=== PATIENT | female | born 1980 | race Caucasian/White ===

== ENCOUNTER → 2022-07-10 | Outpatient (CLI) | payer BC, OTHER, SELFPAY ==
--- NOTE | 2022-07-10 07:58 | CT_ITS ---
STUDY: CT CHEST WITHOUT CONTRAST REASON FOR EXAM: Female, 41 years old. Lung Nodules RADIATION DOSAGE (If Supplied By Facility): CTDIvol = ( 10.47 ) mGy, DLP = ( 366.25 ) mGycm TECHNIQUE: Transaxial imaging was performed without the administration of intravenous contrast material. Multiplanar coronal and sagittal images were reformatted. Individualized dose optimization techniques were used for this CT. COMPARISON: No relevant priors. FINDINGS: CHEST There are multiple, at least 7, nodules in the left lung measuring 0.3 to 0.8 cm. There are multiple, at least 3, nodules in the right lung measuring 0.2 to 0.3 cm. There is no demonstrated pleural abnormality. Normal heart and pericardium. There are no calcifications of the coronary arteries. Normal mediastinum. Normal hilar regions. Normal unenhanced pulmonary arteries. There is atherosclerotic calcification of the aortic arch. There are multi-level degenerative changes of the thoracic spine. There is no demonstrated abnormality of the visualized upper abdomen. CT/Chest without Contrast IMPRESSION: Bilateral pulmonary nodules suggesting inflammatory or infectious process versus metastatic disease. Correlation with prior studies and/or short-term follow-up recommended. Electronically Signed: Gopi Vasquez MD at 11:42 EST ,
== END | disposition home or self-care (01) ==
PROVIDERS: PCP Nurse Practitioner Family; Referring Provider Internal Medicine Critical Care Medicine; Visit Provider Internal Medicine Critical Care Medicine
DX: R91.1 Solitary pulmonary nodule (principal)
CPT/HCPCS: 71250

== ENCOUNTER → 2022-10-22 | Outpatient (CLI) | payer OTHER, SELFPAY ==
--- NOTE | 2022-10-22 06:51 | CT_ITS ---
EXAM: CT CHEST WITHOUT INTRAVENOUS CONTRAST CLINICAL INDICATION: multiple lung nodules in a smoker TECHNIQUE: Helically acquired images were obtained of the chest without intravenous contrast. This CT exam was performed using one or more of the following dose reduction techniques: automated exposure control, adjustment of the mA and/or kV according to patient size, and/or use of iterative reconstruction technique. RADIATION DOSE: CTDIvol = 12.20 mGy, DLP = 442.11 mGy-cm COMPARISON: No relevant prior studies available. FINDINGS: LUNGS AND PLEURAL SPACES: No change in the multiple bilateral pulmonary nodules. The largest nodule on the left measures 7 mm and the largest nodule on the right measures 3 mm. No pleural effusion or thickening. No pneumothorax. HEART: Unremarkable. Heart size is normal. No pericardial effusion. No significant coronary artery calcifications. MEDIASTINUM: Unremarkable. No mediastinal or hilar adenopathy. Esophagus is unremarkable. No hiatal hernia. THYROID: Unremarkable. No thyroid lesions. BONES/JOINTS: Unremarkable. No suspicious lytic or blastic abnormality. VASCULATURE: Unremarkable. Thoracic aorta is non-dilated. CT/Chest without Contrast IMPRESSION: No change in the multiple bilateral pulmonary nodules. RECOMMENDATIONS: No change in the multiple bilateral pulmonary nodules. The largest nodule on the left measures 7 mm and the largest nodule on the right measures 3 mm. Fleischner Society Guidelines (MacMahon, et al. Radiology 2017; 284(1):228-43) suggest the following. For high-risk patients (smoking history or other known risk factors) recommend follow-up chest CT at 15-21 months. If unchanged, no further follow-up. Electronically Signed: Forest Barros MD at 7:36 EDT ,
== END | disposition home or self-care (01) ==
PROVIDERS: PCP Nurse Practitioner Family; Referring Provider Nurse Practitioner Acute Care; Visit Provider Nurse Practitioner Acute Care
DX: R91.1 Solitary pulmonary nodule (principal)
CPT/HCPCS: 71250

== ENCOUNTER → 2023-06-28 | Outpatient (CLI) | payer BC, SELFPAY ==
[2023-06-28 13:23] LABS: Erythrocyte Sedimentation Rate 8 mm/hr (0-30)
[2023-06-28 13:25] LABS: Absolute Lymphocyte Count 2.43 X10^3/uL (0.83-4.51); Absolute Neutrophil Count 4.4 X10^3/uL (2.0-7.7); Basophil# 0.07 X10^3/uL; Basophil% 0.9 % (0-1); Eosinophil# 0.56 X10^3/uL; Hematocrit 40.4 % (37-47); Hemoglobin 13.6 g/dL (12.0-15.0); Lymphocyte # 2.43 X10^3/ul (0.83-4.51); Lymphocyte % 30.5 % (19-41); Mean Corp Hgb Conc 33.7 g/dL (32-36); Mean Corpuscular Hgb 28.6 pg (27.0-32.0); Mean Corpuscular Volume 85.1 fL (81-99); Mean Platelet Vol. 9.5 fl (6.2-12.0); Monocyte# 0.49 X10^3/uL; Monocyte% 6.1 % (0-10); NRBC Flagged by Analyzer 0 % (0-5); Neutrophil # 4.42 X10^3/uL (2.7-7.7); Neutrophil % 55.4 % (47-70); Platelet Count 413 K/mm3 (150-450); RBC Distribution Width SD 37.2 fl (35.1-43.9); Red Blood Count 4.75 M/mm3 (4.2-5.4)
[2023-06-28 13:55] LABS: AST(SGOT) 18 U/L (15-37); Alanine Aminotransfer ALT/SGPT 26 U/L (13-56); Alkaline Phosphatase 58 U/L (45-117); Anion Gap 5 (5-15); BUN 10 mg/dL (7-18); BUN/Creat Ratio 11.4 RATIO (10-20); CRP < 2.90 mg/L (0.0-3.0); Calcium,Total 8.8 mg/dL (8.5-10.1); Chloride 108 mmol/L (98-107); Creatinine, Serum 0.88 mg/dL (0.55-1.02); EST Glomerular Filtration Rate 75 mL/min (>60); Est Glom Filt Rate - Afr Amer 91 mL/min (>60); Free T3 2.7 pg/mL (2.18-3.98); Globulin 3.9 g/dL (2.2-4.2); Glucose 87 mg/dL (74-106); LDH 206 U/L (84-246); Potassium 4.2 mmol/L (3.5-5.1); Protein, Total 7.9 g/dL (6.4-8.2); Sodium Level 137 mmol/L (136-145); T4 Free Direct 1.07 ng/dL (0.76-1.46); Thyroid Stim Hormone (TSH) 1.18 uIU/mL (0.358-3.74)
[2023-06-28 14:13] LABS: Vitamin B12 349 pg/mL (211-911)
[2023-07-02 16:09] LABS: Cytoplasmic Ab (C-ANCA) <1:20 titer (Neg:<1:20); Endomysial Antibody IgA Negative (Negative); HEPATITIS B SURFACE AG Negative (Negative); Hep C Antibodies Non Reactive (Non Reactive); Hepatitis A IgM Antibody Negative (Negative); Hepatitis B Core AB IgM Negative (Negative); Immunoglobulin A 130 mg/dL (87-352); Immunoglobulin E 20 IU/mL (6-495); Immunoglobulin G 1196 mg/dL (586-1602); Immunoglobulin M 104 mg/dL (26-217); Perinuclear Ab (P-ANCA) <1:20 titer (Neg:<1:20); t-Transglutaminase IgA <2 U/mL (0-3)
[2023-07-02 19:06] LABS: Anti-Centromere B Ab <0.2 AI (0.0-0.9); Anti-Chromatin <0.2 AI (0.0-0.9); Anti-Jo <0.2 AI (0.0-0.9); Anti-Scleroderma-70 AB <0.2 AI (0.0-0.9); Anti-dsDNA Ab 1 IU/mL (0-9); Beef <0.10 kU/L (Class 0); Chocolate <0.10 kU/L (Class 0); Codfish <0.10 kU/L (Class 0); Corn <0.10 kU/L (Class 0); Egg, Whole <0.10 kU/L (Class 0); Milk (Cow) <0.10 kU/L (Class 0); Mussels <0.10 kU/L (Class 0); Peanut <0.10 kU/L (Class 0); Pork <0.10 kU/L (Class 0); RNP Ab <0.2 AI (0.0-0.9); SJOGREN'S Anti-SS-A test < 0.2 AI (0.0-0.9); SJOGREN'S Anti-SS-B test < 0.2 AI (0.0-0.9); Salmon <0.10 kU/L (Class 0); Shrimp <0.10 kU/L (Class 0); Smith Ab <0.2 AI (0.0-0.9); Soybean <0.10 kU/L (Class 0); Tuna <0.10 kU/L (Class 0); Wheat <0.10 kU/L (Class 0)
== END | disposition home or self-care (01) ==
LOC: LAB 12:49
PROVIDERS: PCP Nurse Practitioner Family; Referring Provider Internal Medicine Gastroenterology; Visit Provider Internal Medicine Gastroenterology
DX: R10.13 Epigastric pain (principal)
CPT/HCPCS: 36415; 80053; 80074; 82607; 82784; 82785; 83516; 83615; 84439; 84443; 84481; 85025; 85652; 86003; 86005; 86140; 86225; 86235; 86255; 86256

== ENCOUNTER → 2023-07-19 | Outpatient (CLI) | payer BC, OTHER, SELFPAY ==
--- NOTE | 2023-07-19 09:56 | NM_ITS ---
CLINICAL: 42-year-old female with history of chronic nausea, reflux and gastroparesis. SEMI-SOLID PHASE 99m Tc SULFUR COLLOID GASTRIC EMPTYING STUDY COMPARISON: None available FINDINGS: The patient was administered 1.2 mCi of 99m Tc sulfur colloid mixed with oatmeal and consumed per os. Image acquisitions in the anterior-posterior projections were obtained for 60 minutes. There is prompt visualization of the stomach. There is no gastroesophageal reflux identified. The T ? raw data emptying was calculated to be 29.32 minutes, (Normal: 12-56 minutes). NM/Gastric Emptying Study IMPRESSION: 1. NORMAL 99m Tc sulfur colloid semi-solid phase (oatmeal) gastric emptying imaging examination. A. There is normal and preserved semi-solid phase gastric emptying compared to normal controls. (Barney et al, J Nucl Med Tech 38: 186, 2010). Electronically Signed: Ismael Rodriguez DO at 23:49 EST ,
== END | disposition home or self-care (01) ==
LOC: NM 09:55
PROVIDERS: PCP Nurse Practitioner Family; Referring Provider Internal Medicine Gastroenterology; Visit Provider Internal Medicine Gastroenterology
DX: R10.13 Epigastric pain (principal)
CPT/HCPCS: 78264; A9541

== ENCOUNTER → 2023-08-17 | Outpatient (CLI) | payer BC, OTHER, SELFPAY ==
--- NOTE | 2023-08-17 09:51 | US_ITS ---
STUDY: ABDOMINAL ULTRASOUND REASON FOR EXAM: Female, 42 years old. Abd pain- INS requiring before CT will be approved TECHNIQUE: Transabdominal ultrasound was performed with real-time and static arriola scale imaging. TECHNICAL QUALITY: Adequate. COMPARISON: None. FINDINGS: Liver: The liver measures 17.6 cm. There is normal echogenicity of the liver. The bile ducts are within normal limits. There is hepatic color flow. The direction of portal flow is hepatopetal. There is no demonstrated mass lesion. Portal vein measurement: Gallbladder: The patient is status post cholecystectomy. Common Bile Duct (C.B.D.): The common bile duct measures 4 mm. Pancreas: Normal size of the head, body and tail of the pancreas. There is normal echogenicity of the pancreas. There is no demonstrated pancreatic mass or cyst. Spleen: Normal size of the spleen. The spleen measures 9.6 cm. Right Kidney: Normal size of the right kidney. The right kidney measures 12.1 cm. Normal renal cortex. The right cortex measures 1.2 cm. There is no demonstrated renal mass or cyst. There is no right hydronephrosis. Left Kidney: Normal size of the left kidney. The left kidney measures 11.7 cm. Normal renal cortex. The left cortex measures 1.4 cm. There is no demonstrated renal mass or cyst. There is no left hydronephrosis. Aorta: 2.1 cm I.V.C.: The IVC is patent. There is no ascites. US/Abdomen Complete IMPRESSION: Normal abdominal ultrasound examination, status post cholecystectomy.. Electronically Signed: Abdon Perez MD at 19:21 EST ,
--- OUTSIDE RECORDS SUMMARY | 2023-08-17 18:10 | XMS RPT_ITS | CCD ---
Author Name Unknown Address [id number] [place] [address] Organization [facility] Care Team Providers Care Imaging Technician Name Role Phone OSCAR ECHEVERRIAARDO Unavailable Unavailable JUWAN LEATHA Unavailable Unavailable NO REFERRING DR Unavailable Unavailable Unavailable Primary Care Provider Unavailabl e Unavailable Primary Care Provider UnavailCARISA GuerreroKAS Referring Unavailable WHIT MARROQUIN Attending Unavailable PABLO GIVENS Attending Unavailable JEFF MAIN Admitting Unavailable JEFF MAIN Attending Unavailable JEFF MAIN Primary Care Unavailable UNGERER, KLAUDIA APPLIED RESEARCHER Consulting Unavailable UNGERER, KLAUDIA APPLIED RESEARCHER Referring Unavailable PROVIDER, UNKNOWN Consulting Unavailable FREDERICKAUGUST Admitting Unavailable FREDERICKAUGUST Attending Unavailable LINNR, KLAUDIA APPLIED RESEARCHER Referring Unavailable FREDERICKAUGUST Primary Care Unavailable UNGERER, KLAUDIA APPLIED RESEARCHER Consulting Unavailable PROVIDER, UNKNOWN Consulting Unavailable DIDRAUL ZHANG DO Admitting Unavailable DIDRAUL ZHANG DO Attending Unavailable RAUL FRANCISCO DO Primary Care Unavailable UNGERER, KLAUDIA APPLIED RESEARCHER Consulting Unavailable UNGERER, KLAUDIA APPLIED RESEARCHER Referring Unavailable PROVIDER, UNKNOWN Consulting Unavailable VENCZELLOAN DO Admitting Unavailable VENCZELLOAN DO Attending Unavailable VENLOAN VILLASENOR DO Primary Care Unavailable UNGERER, KLAUDIA APPLIED RESEARCHER Consulting Unavailable UNGERER, KLAUDIA APPLIED RESEARCHER Referring Unavailable PROVIDER, UNKNOWN Consulting Unavailable FREDERICKAUGUST Admitting Unavailable FREDERICKAUGUST Attending Unavailable FREDERICKAUGUST Primary Care Unavailable UNGERER, KLAUDIA APPLIED RESEARCHER Consulting Unavailable UNGERER, KLAUDIA APPLIED RESEARCHER Referring Unavailable PROVIDER, UNKNOWN Consulting Unavailable Allergies Allergy Classification Reported Allergen(s) Allergy Type Date of Onset Reaction(s) Facility (2 sources) azithromycin; Translations: [AZITHROMYCIN] Drug Allergy [facility] Repository (1 source) caffeine; Translations: [CAFFEINE] Drug Allergy [facility] Rep[facility] (1 source) Cephalosporins (Antibiotic); Translations: [CEPHALOSPORINS] Propensity to adverse reactions (disorder) [facility] Repository (1 source) ciprofloxacin; Translations: [CIPRO] Drug Allergy [facility] Rep[facility] (2 sources) citalopram; Translations: [CITALOPRAM] Drug Allergy [facility] Repository (6 sources) Penicillins; Translations: [PENICILLINS] Propensity to adverse reactions (disorder) 06-05-20 14 Unknown [facility] (2 sources) sulfamethoxazole / trimethoprim; Translations: [BACTRIM] Drug Allergy [facility] (7 sources) tetracycline; Translations: [TETRACYCLINE] Drug Allergy 03-17-20 06 [facility] (6 sources) BEE STING; Translations: [BEE STING] Propensity to adverse reactions (disorder) 06-05-20 14 Hives, Shortness of Breath [facility] Rep[facility] (1 source) MACROLIDE ANTIBIOTIC; Translations: [MACROLIDE ANTIBIOTIC] Propensity to adverse reactions (disorder) [facility] (1 source) SULFA (SULFONAMIDE A; Translations: [SULFA (SULFONAMIDE A] Propensity to adverse reactions (disorder) [facility] Repository (5 sources) Cephalexin; Translations: [CEPHALEXIN] Drug Allergy 01-07-20 22 Other: See Comments [facility] (1 source) Ciprofloxacin Drug Allergy 05-27-20 Other: See Comments [facility] Work Phone: (1 source) Macrolides Drug Intolerance 05-27-20 22 GI Upset [facility] Work Phone: (1 source) Sulfamethoxazole / Trimethoprim Drug Allergy 05-27-20 22 Intolerance [facility] Work Phone: (1 source) ALPRAZolam Drug Allergy [facility] Repository (1 source) ALPRAZolam Drug Allergy [facility] Repository (1 source) bee venom Drug allergy (disorder) [facility] Repository (1 source) Cephalexin Drug Allergy [facility] Repository (1 source) Ciprofloxacin Drug Allergy [facility] Repository (1 source) Macrolides (Antibiotic) Drug allergy (disorder) [facility] Repository (1 source) Penicillins Drug allergy (disorder) [facility] Repository Medications Completed/Discontinued Medications Medication Drug Class(es) Dates Sig (Normalized) Sig (Original) ALPRAZolam 0.25 mg oral tablet (1 source) Benzodiazepine Start: 02-27-2010 End: 01-06-2022 alprazolam(XANAX 0.25 MG TAB) Take one(1) tablet three(3) times daily. 0 02/27/2010 01/06/2022 Discontinued (Other) Problems Active Problems Problem Classification Problem Date Documented Date Episodic/Chronic Anxiety disorders (3 sources) Anxiety state; Translations: [Generalized anxiety disorder] Onset: 06-06-2006 06-06-2006 Chronic E Codes: Overexertion (1 source) Slipping, tripping and stumbling without falling, unspecified, initial encounter; Translations: [Slipping, tripping and stumbling without falling, unspecified, initial encounter] Onset: 07-17-2023 Episodic Immunizations and screening for infectious disease (2 sources) Patient encounter status; Translations: [Encounter for screening for human papillomavirus (HPV)] Episodic Other and unspecified benign neoplasm (1 source) Osteochondroma of pelvis; Translations: [Benign neoplasm of pelvic bones, sacrum and coccyx] Episodic Other connective tissue disease (1 source) Disorder of tendon; Translations: [Unspecified disorder of synovium and tendon, unspecified thigh] Episodic Other non-traumatic joint disorders (2 sources) Pain in left knee; Translations: [Pain in left knee] Onset: 07-17-2023 Episodic Other screening for suspected conditions (not mental disorders or infectious disease) (1 source) Cancer cervix screening status; Translations: [Encounter for screening for malignant neoplasm of cervix] Episodic Residual codes; unclassified (1 source) Pain; Translations: [Pain, unspecified] Episodic Residual codes; unclassified (1 source) Pain, unspecified; Translations: [Pain] Onset: 05-27-2022 Episodic Sprains and strains (4 sources) Sprain of foot; Translations: [Unspecified sprain of unspecified foot, initial encounter] Onset: 2009 2009 Episodic Unclassified (1 source) Unknown / UNK(Unknown) Onset: 06-05-2014 Past or Other Problems Problem Classification Problem Date Documented Da te Episodic/Chronic Conditions associated with dizziness or vertigo (3 sources) Dizziness and giddiness; Translations: [Dizziness and giddiness] Onset: 04-25-2006 04-25-2006 Episodic Genitourinary symptoms and ill-defined conditions (3 sources) Polyuria; Translations: [Polyuria] Onset: 06-06-2006 06-06-2006 Episodic Residual codes; unclassified (3 sources) Disturbance in sleep behavior; Translations: [Sleep disorder, unspecified] Onset: 06-06-2006 06-06-2006 Episodic Unclassified (1 source) EARACHE Onset: 06-05-2014 Results Test Name Value Interpretation Reference Range Facil ity Vital Signs Date Time Vital Sign Value Performing Clinician [place] re[place] 01-06-2022 15:06-0400 Body height 172.7 cm Whit Marroquin APRN.CNP Work Phone: [facility] 01-06-2022 15:06-0400 Body weight 78.02 kg Whit Marroquin APRN.CNP Work Phone: [facility] 01-06-2022 15:06-0400 Diastolic blood pressure 62 mm[Hg] Whit Marroquin APRN.SPORTS MEDICINE MASSEUR Work Phone: [facility] 01-06-2022 15:06-0400 Systolic blood pressure 106 mm[Hg] Whit Marroquin APRN.SPORTS MEDICINE MASSEUR Work Phone: [facility] Encounters Encounter Date Encounter Type Care Provider Facility Start: 07-31-2023 End: 07-31-2023 Emergency department patient visit AUGUST Kait [facility] Start: 07-17-2023 End: 07-17-2023 Emergency department patient visit JEFF MAIN [facility] Start: 04-23-2023 End: 04-23-2023 Emergency department patient visit AUGUST Carballo [facility] Start: 12-15-2022 End: 12-15-2022 Emergency department patient visit LOAN HERRERA [facility] Start: 11-21-2022 End: 11-22-2022 Emergency department patient visit RAUL CRESPO [facility] Start: 05-27-2022 End: 05-27-2022 ambulatory PABLO GIVENS Facility:[facility] Start: 05-27-2022 End: 05-27-2022 Patient encounter procedure Pablo Givens MD Work Phone: Orthopedics Plan of Treatment Date Care Activity Detail Author Start: 01-06-2027 HPV TESTING HPV TESTING [facility] Start: 01-06-2027 PAP TESTING PAP TESTING [facility] Start: 02-18-2022 Influenza vaccination INFLUENZA (#1) [facility] Start: 2021 Mammography MAMMOGRAM [facility] Start: 06-20-2021 DEPRESSION ASSESSMENT DEPRESSION ASSESSMENT [facility] Start: 12-27-2011 HPV TESTING HPV TESTING [facility] Start: 04-26-2011 PAP TESTING PAP TESTING [facility] Start: 2000 Urine microalbumin profile DTAP,TDAP,TD (1 - Tdap) [facility] Start: 12-27-1999 HEPATITIS C SCREENING HEPATITIS C SCREENING [facility] Start: 12-27-1999 HIV SCREENING HIV SCREENING [facility] Start: 1993 Adult depression screening assessment DEPRESSION SCREENING [facility] Start: 12-27-1987 PNEUMOCOCCAL (1 - PCV) PNEUMOCOCCAL (1 - PCV) [facility] Start: 06-28-1982 COVID-19 VACCINE (#1) COVID-19 VACCINE (#1) [facility] Start: 1981 HEPATITIS B (1 of 3 - 3-dose series) HEPATITIS B (1 of 3 - 3-dose series) [facility] PAP FLUID CERVICAL SCREENING PAP FLUID CERVICAL SCREENING Lab Routine Encounter for gynecological examination (general) (routine) without abnormal findings Screening for cervical cancer Encounter for screening for human papillomavirus (HPV) 01/06/2022 4:05 PM EDT [facility] Work Phone: End: 06-10-2023 Radiologic examination pelvis 1/2 views XR PELVIS 1V AP Radiology Routine Pain 1 Occurrences starting 05/11/2022 until 06/10/2023 [facility] Work Phone: Payers Date Payer Category Payer Unknown [id number] 2021 Unknown [employer] SS PPO [id number] 2021-Present [phone] [address] [place] [address] PPO [id number] 2021 Unknown [id number] 2021 Unknown [id number] 1981 Unknown [id number] 1981 Unknown [id number] 1981 Unknown [id number] 1981 Unknown [id number] 1981 Unknown [id number] Unknown [id number] Unknown [id number] Unknown [id number] Unknown [id number] Unknown [id number] Social History Date Type Detail Facility Start: 01-06-2022 Tobacco smoking stat [facility] Smokes tobacco daily [facility] Work Phone: History of tobacco use Cigarette Sm[facility] Start: 01-06-2022 Alcohol intake Current drinke r of alcohol (finding) [facility] Start: 1980 [facility] Start: 12-27-2021 End: 01-06-2022 Exposure to SARS-CoV-2 (event) Not sure [facility] Start: 01-06-2022 Cigarettes smoked current (pack per day) - Reported 0.5 [facility] Start: 01-06-2022 Tobacco use and exposure Smokeless tobacco non-user [facility] Clinical Notes 06-06-2006 to 05-27-2022 Patient InstructionsPablo Givens MD - 05/27/2022 2:18 PM Clovis MarroquinSHAQUILLE.SPORTS MEDICINE MASSEUR - 01/06/2022 3:01 PM EDT Note Date & Type Note Facility 05-27-2022 Note HNO ID: [id number] Author: Pablo Givens MD Service: ? Author Type: Physician Type: Progress Notes Filed: 05/30/2022 12:06 PM Note Text: Orthopaedic Oncology New Patient Evaluation Chief Complaint: Bilateral hip pain; osteochondroma of R iliac crest Referring Physician: Self History of Present Illness: Mary Gibson is a 41 year old year old female who presents for evaluation of the above chief complaint. She was recently told by her primary care physician that she has an osteochondroma on the right iliac crest and was told to follow-up with us for further evaluation management. She states that over the past 1 year, she has had consistent sharp right hip pain with activity. States the pain is mostly along the right greater trochanter and in the right groin. She works for [employer] with a significant amount of walking and heavy lifting. These activities make her pain worse. Pain at rest is a 4/10. This pain is also made worse by laying on her right side. Pain is relieved with rest and with occasional tylenol and NSAID use. The pain occasionally prevents her from participating in activities she enjoys. She denies any numbness or tingling in her right lower extremity. Denies any recent fever, chills, nausea, unexplained weight loss, night sweats. Review of Systems: Positive for right hip pain. Denies any numbness or tingling right lower extremity. Denies fever, chills, nausea, vomiting, chest pain, shortness of breath, unexplained weight loss, change in appetite or night sweats. PAST MEDICAL HISTORY Diagnosis Date Anemia, unspecified 09/23 mild anemia LIGHTHEADED 09/23 saw his previous PCP and had blood work done; was found to be orthostatic Orthostatic hypotension 09/23 Tobacco use disorder since 1997 PAST SURGICAL HISTORY Procedure Laterality Date EXTRACTION ERUPTED TOOTH/EXR LIGATE FALLOPIAN TUBE REMOVAL GALLBLADDER 05/2021 ALLERGIES Allergen Reactions Cephalexin Other: See Comments GI bleed Penicillins Unknown Bactrim [Sulfametho* Intolerance Bee Sting Hives, Shortness of Breath Ciprofloxacin Other: See Comments Not sure Macrolide Antibioti* GI Upset Tetracycline unknown -childhood No current outpatient medications on file prior to visit. No current facility-administered medications on file prior to visit. FAMILY HISTORY Problem Relation Age of Onset other (Neurological [Other]) Mother has difficulties walking; ?etiology Thyroid Cancer Mother Diabetes Mother Heart Father Diabetes Father No Known Problems Sister No Known Problems Brother No Known Problems Brother No Known Problems Brother Suicide / Suicidal Behaviors Brother other (other) Brother drowned as child COPD Maternal Grandmother Social History Tobacco Use Smoking status: Every Day Packs/day: 0.50 Years: 8.00 Pack years: 4.00 Types: Cigarettes Smokeless tobacco: Never Vaping Use Vaping Use: Never used Substance Use Topics Alcohol use: Yes Comment: occasionally Drug use: No Physical Examination: LMP 12/27/2021 General: alert, oriented, no acute distress Skin: visible skin lesions HEENT: normocephalic, extraocular movements intact, mucous membranes moist/intact Cardiovascular: pulse regular, no lower extremity edema Pulmonary: normal respiratory effort and chest wall excursion Abdomen: soft, non-tender, non-distended R pelvis/hip: There is no significant erythema, swelling about the right pelvis or hip. There is a small Julisa sized mass palpated over the right posterior iliac crest that is nonmobile. She is however nontender to palpation about this mass. She is tender to palpation about the greater trochanter. No pain with hip flexion, TIFFANY, FADIR. Right hip external rotation to 60 degrees, internal rotation to 30 degrees. 5/5 hip flexion, hip abduction, knee extension, knee flexion. Negative Stinchfield test, negative logroll. Results Reviewed: Radiographic evaluation: X-ray pelvis/right hip obtained 05/27/2022 demonstrates a calcified mass in the area of the right iliac crest consistent with osteochondroma. Enthesophytes/calcific tendinosis present about bilateral greater trochanters. CT C/ABD/Pelvis reviewed from October 24, 2012 demonstrates a pedunculated mass about the right posterior iliac crest measuring 2.5 x 2.5 cm. 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 She is not having pain in the posterior iliac crest where the osteochondroma is located. Plan: -No orthopedic surgical intervention warranted at this time for her osteochondroma. Her pain does not seem to be coming from this lesion. -If the lesion begins to grow rapidly, instructed the patient to call the office immediately for evaluation. -Provide the patient with hip exerc (more content not included)... [facility] 05-27-2022 Instructions Olu Levi MD - 05/27/2022 2:57 PM EST It was a pleasure seeing you in clinic today. -Some topical medications that may help with your hip pain include voltaren gel, icy hot and biofreeze. -Today we will provide you with hip exercises. Please do these at home to help with hip pain. -We recommend you take over the counter anti-inflammatory medication for pain. These include ibuprofen, aleve, Naproxen. Take the medication as prescribed on the bottle. 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 documented in this encounter [facility] 05-27-2022 History of Presen t illness Narrative Orthopaedic Oncology New Patient Evaluation Chief Complaint: Bilateral hip pain; osteochondroma of R iliac crest Referring Physician: Self History of Present Illness: Mary Gibson is a 41 year old year old female who presents for evaluation of the above chief complaint. She was recently told by her primary care physician that she has an osteochondroma on the right iliac crest and was told to follow-up with us for further evaluation management. She states that over the past 1 year, she has had consistent sharp right hip pain with activity. States the pain is mostly along the right greater trochanter and in the right groin. She works for [employer] with a significant amount of walking and heavy lifting. These activities make her pain worse. Pain at rest is a 4/10. This pain is also made worse by laying on her right side. Pain is relieved with rest and with occasional tylenol and NSAID use. The pain occasionally prevents her from participating in activities she enjoys. She denies any numbness or tingling in her right lower extremity. Denies any recent fever, chills, nausea, unexplained weight loss, night sweats. Review of Systems: Positive for right hip pain. Denies any numbness or tingling right lower extremity. Denies fever, chills, nausea, vomiting, chest pain, shortness of breath, unexplained weight loss, change in appetite or night sweats. PAST MEDICAL HISTORY Diagnosis Date Anemia, unspecified 09/23 mild anemia LIGHTHEADED 09/23 saw his previous PCP and had blood work done; was found to be orthostatic Orthostatic hypotension 09/23 Tobacco use disorder since 1997 PAST SURGICAL HISTORY Procedure Laterality Date EXTRACTION ERUPTED TOOTH/EXR LIGATE FALLOPIAN TUBE REMOVAL GALLBLADDER 05/2021 ALLERGIES Allergen Reactions Cephalexin Other: See Comments GI bleed Penicillins Unknown Bactrim [Sulfametho* Intolerance Bee Sting Hives, Shortness of Breath Ciprofloxacin Other: See Comments Not sure Macrolide Antibioti* GI Upset Tetracycline unknown -childhood No current outpatient medications on file prior to visit. No current facility-administered medications on file prior to visit. FAMILY HISTORY Problem Relation Age of Onset other (Neurological [Other]) Mother has difficulties walking; ?etiology Thyroid Cancer Mother Diabetes Mother Heart Father Diabetes Father No Known Problems Sister No Known Problems Brother No Known Problems Brother No Known Problems Brother Suicide / Suicidal Behaviors Brother other (other) Brother drowned as child COPD Maternal Grandmother Social History Tobacco Use Smoking status: Every Day Packs/day: 0.50 Years: 8.00 Pack years: 4.00 Types: Cigarettes Smokeless tobacco: Never Vaping Use Vaping Use: Never used Substance Use Topics Alcohol use: Yes Comment: occasionally Drug use: No Physical Examination: LMP 12/27/2021 General: alert, oriented, no acute distress Skin: visible skin lesions HEENT: normocephalic, extraocular movements intact, mucous membranes moist/intact Cardiovascular: pulse regular, no lower extremity edema Pulmonary: normal respiratory effort and chest wall excursion Abdomen: soft, non-tender, non-distended R pelvis/hip: There is no significant erythema, swelling about the right pelvis or hip. There is a small Julisa sized mass palpated over the right posterior iliac crest that is nonmobile. She is however nontender to palpation about this mass. She is tender to palpation about the greater trochanter. No pain with hip flexion, TIFFANY, FADIR. Right hip external rotation to 60 degrees, internal rotation to 30 degrees. 5/5 hip flexion, hip abduction, knee extension, knee flexion. Negative Stinchfield test, negative logroll. Results Reviewed: Radiographic evaluation: X-ray pelvis/right hip obtained 05/27/2022 demonstrates a calcified mass in the area of the right iliac crest consistent with osteochondroma. Enthesophytes/calcific tendinosis present about bilateral greater trochanters. CT C/ABD/Pelvis reviewed from October 24, 2012 demonstrates a pedunculated mass about the right posterior iliac crest measuring 2.5 x 2.5 cm. 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 She is not having pain in the posterior iliac crest where the osteochondroma is located. Plan: -No orthopedic surgical intervention warranted at this time for her osteochondroma. Her pain does not seem to be coming from this lesion. -If the lesion begins to grow rapidly, instructed the patient to call the office immediately for evaluation. -Provide the patient with hip exercises for stretching and strengthening of the gluteus musculature to help with gluteal tendinopathy. -Recommend nonsteroidal anti-inflammatory drugs ([id number]) for gluteal tendinopathy pain -Provided the patient with a list of topical medications she can try at home for pain relief. (Voltaren gel, IcyHot, Biofreeze.) -Patient can follow-up as needed if symptoms fail to improve with home therapy and NSAIDs, or if osteochondroma grow significantly and or becomes symptomatic. Olu Levi MD (PGY-2) ATTENDING PHYSICIAN NOTE I have personally interviewed and examined the patient. I agree with the findings in the above note. The patient has a 2.5 cm osteochondroma with benign features that arising from the right posterior iliac crest. This is evident on clinical exam, but is not in the area of her symptoms. By her report it is minimally bothersome. We discussed observation of this given the lack of symptoms. I think her main pain is related to trochanteric bursitis/gluteus medius tendinopathy. I recommended a home exercise program and/or formal physical therapy, topical pain medications and oral anti-inflammatories. She is in agreement this plan. Follow-up as needed Pablo Givens MD Blanket Binder, Orthopaedic Surgery Division of Musculoskeletal Oncology documented in this encounter [facility] 01-06-2022 Note HNO ID: [id number] Author: Whit Marroquin APRN.SPORTS MEDICINE MASSEUR Service: ? Author Type: Nurse Practitioner Type: Progress Notes Filed: 01/06/2022 4:19 PM Note Text: Mary is a 41 year old who presents for an annual gynecologic exam without complaints. Started Keflex for UTI today - diagnosed in ED. EHR review indicates Allergy to Keflex of GI bleed. Menses: cycles every 28-32 days and 6 days of flow. Heavy for first 3-4 days and then lightens up. Contraception: tubal sterilization HPV vaccine: No Last Pap: Normal - Per patient has been about [address] Romero in [place], but has . HPV: negative History of abnormal pap: No Last mammogram: never, ordered today patient will schedule Sexually active: Yes History of STDS: chlamydia and 10 years ago Patient concerns for STD exposure: No. 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 Comments: Sexual Activity: Yes; Male Contraception: Tubal Ligation PAST MEDICAL HISTORY Diagnosis Date - Anemia, unspecified 09/23 mild anemia - LIGHTHEADED 09/23 saw his previous PCP and had blood work done; was found to be orthostatic - Orthostatic hypotension 09/23 - Tobacco use disorder since 1997 PAST SURGICAL HISTORY Procedure Laterality Date - EXTRACTION ERUPTED TOOTH/EXR - LIGATE FALLOPIAN TUBE - REMOVAL GALLBLADDER 05/2021 FAMILY HISTORY Problem Relation Age of Onset - other (Neurological [Other]) Mother has difficulties walking; ?etiology - Thyroid Cancer Mother - Heart Father SOCIAL HISTORY Social History Tobacco Use - Smoking status: Current Every Day Smoker Packs/day: 0.50 Years: 8.00 Pack years: 4.00 Types: Cigarettes - Smokeless tobacco: Never Used Vaping Use - Vaping Use: Never used Substance Use Topics - Alcohol use: Yes Comment: occasionally - Drug use: No REVIEW OF SYSTEMS Abdomen: No abdominal pain, nausea, vomiting, diarrhea, or constipation. No bloating, early satiety, indigestion, or increased flatulence. Bladder: Diagnosed with UTI yesterday (was at [facility]), was having having abdominal pain, urine was cloudy + for blood in urine, + for frequency. Denies pain or urgency - numerous antibiotic drug allergies noted in [facility], PCP documentation and allergy outside source reconciliation. Pt will contact PCP for antibiotic for UTI. Breast: No breast lumps, nipple d/c, overlying skin changes, redness or skin retraction. Allergies and current medication updated:Yes EXAM: BP 106/62 Ht 5' 8 (1.73m) Wt 172 lb (78.0kg) LMP 12/27/2021 BMI 26.16 kg/(m2). GENERAL: pleasant, female in no apparent distress HEENT: Normocephalic, atraumatic, mucus membranes moist and no lesions NECK: Supple, full range of motion, no adenopathy and thyroid normal DERMATOLOGY: Normal, without lesions, non-icteric and non-hirsute BREAST: soft, non-tender, symmetric, no dominant mass, normal nipple-areolar complex, no lymphadenopathy and no nipple discharge CHEST: Normal inspiratory effort ABDOMEN: soft, non-tender and no masses PELVIC: external genitalia normal, normal Bartholin's glands, urethra, Cicero's glands, no vulvar lesions, no cervical lesions, good vaginal support, physiologic discharge present, normal appearing perineal body and perianal region BIMANUAL: uterus normal size, shape and consistency, no adnexal masses and non-tender RECTOVAGINAL: deferred. NEURO: alert and oriented x3,exam grossly non-focal EXTREMITIES: normal ASSESSMENT/PLAN: 1) Health maintenance: Pap done with HPV. Mammogram starting age 40. Nutrition, exercise and routine health maintenance exams reviewed. Calcium/Vitamin D supplementation information provided. Smoking cessation: Benefits of smoking cessation reviewed. Patient encouraged to avoid smoking. UTI - dx in [facility] ED, started Keflex today. Numerous antibiotic drug allergies noted in [facility], PCP documentation and allergy outside source reconciliation. All allergies written on paper for pt to verify with PCP and then will call our office to update. Pt will contact PCP for antibiotic for UTI. 2) Contraception: tubal sterilization. Contraceptive options reviewed and information provided. 3) STD screening: Declined STD check. 4) Follow up one year or sooner as needed Coby De Luna APRN, Student TEACHING PROVIDER (Physician/PA/IC DESIGNER CUSTOM) NOTE OF PERSONAL INVOLVEMENT IN CARE: I have personally seen and examined the patient and performed the medica (more content not included)... [facility] 01-06-2022 History of Presen t illness Narrative Mary is a 41 year old who presents for an annual gynecologic exam without complaints. Started Keflex for UTI today - diagnosed in ED. EHR review indicates Allergy to Keflex of GI bleed. Menses: cycles every 28-32 days and 6 days of flow. Heavy for first 3-4 days and then lightens up. Contraception: tubal sterilization HPV vaccine: No Last Pap: Normal - Per patient has been about [address] Romero in [place], but has . HPV: negative History of abnormal pap: No Last mammogram: never, ordered today patient will schedule Sexually active: Yes History of STDS: chlamydia and 10 years ago Patient concerns for STD exposure: No. 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 Comments: Sexual Activity: Yes; Male Contraception: Tubal Ligation PAST MEDICAL HISTORY Diagnosis Date Anemia, unspecified 09/23 mild anemia LIGHTHEADED 09/23 saw his previous PCP and had blood work done; was found to be orthostatic Orthostatic hypotension 09/23 Tobacco use disorder since 1997 PAST SURGICAL HISTORY Procedure Laterality Date EXTRACTION ERUPTED TOOTH/EXR LIGATE FALLOPIAN TUBE REMOVAL GALLBLADDER 05/2021 FAMILY HISTORY Problem Relation Age of Onset other (Neurological [Other]) Mother has difficulties walking; ?etiology Thyroid Cancer Mother Heart Father SOCIAL HISTORY Social History Tobacco Use Smoking status: Current Every Day Smoker Packs/day: 0.50 Years: 8.00 Pack years: 4.00 Types: Cigarettes Smokeless tobacco: Never Used Vaping Use Vaping Use: Never used Substance Use Topics Alcohol use: Yes Comment: occasionally Drug use: No REVIEW OF SYSTEMS Abdomen: No abdominal pain, nausea, vomiting, diarrhea, or constipation. No bloating, early satiety, indigestion, or increased flatulence. Bladder: Diagnosed with UTI yesterday (was at [facility]), was having having abdominal pain, urine was cloudy + for blood in urine, + for frequency. Denies pain or urgency - numerous antibiotic drug allergies noted in [facility], PCP documentation and allergy outside source reconciliation. Pt will contact PCP for antibiotic for UTI. Breast: No breast lumps, nipple d/c, overlying skin changes, redness or skin retraction. Allergies and current medication updated:Yes EXAM: BP 106/62 Ht 5' 8 (1.73m) Wt 172 lb (78.0kg) LMP 12/27/2021 BMI 26.16 kg/(m^2). GENERAL: pleasant, female in no apparent distress HEENT: Normocephalic, atraumatic, mucus membranes moist and no lesions NECK: Supple, full range of motion, no adenopathy and thyroid normal DERMATOLOGY: Normal, without lesions, non-icteric and non-hirsute BREAST: soft, non-tender, symmetric, no dominant mass, normal nipple-areolar complex, no lymphadenopathy and no nipple discharge CHEST: Normal inspiratory effort ABDOMEN: soft, non-tender and no masses PELVIC: external genitalia normal, normal Bartholin's glands, urethra, Cicero's glands, no vulvar lesions, no cervical lesions, good vaginal support, physiologic discharge present, normal appearing perineal body and perianal region BIMANUAL: uterus normal size, shape and consistency, no adnexal masses and non-tender RECTOVAGINAL: deferred. NEURO: alert and oriented x3,exam grossly non-focal EXTREMITIES: normal ASSESSMENT/PLAN: 1) Health maintenance: Pap done with HPV. Mammogram starting age 40. Nutrition, exercise and routine health maintenance exams reviewed. Calcium/Vitamin D supplementation information provided. Smoking cessation: Benefits of smoking cessation reviewed. Patient encouraged to avoid smoking. UTI - dx in [facility] ED, started Keflex today. Numerous antibiotic drug allergies noted in [facility], PCP documentation and allergy outside source reconciliation. All allergies written on paper for pt to verify with PCP and then will call our office to update. Pt will contact PCP for antibiotic for UTI. 2) Contraception: tubal sterilization. Contraceptive options reviewed and information provided. 3) STD screening: Declined STD check. 4) Follow up one year or sooner as needed Coby De Luna APRN, Student TEACHING PROVIDER (Physician/PA/IC DESIGNER CUSTOM) NOTE OF PERSONAL INVOLVEMENT IN CARE: I have personally seen and examined the patient and performed the medical decision-making components. I have reviewed the Advanced Practice Registered Nurse (IC DESIGNER CUSTOM) Student's documentation and verified the findings in the note as written. Any additions or changes are noted in bold/italics. Signature: Whit Marroquin Date: 01/06/2022 Time: 4:16 PM Whit Marroquin APRN.[employer]SE[employer] documented in this encounter [facility] documented as of this encounter (statuses as of 01/06/2022) [facility]12-18-2006 History of Past illness Narrative* Problem Noted Date Resolved Date Syncope and collapse 06/06/2006 03/23/2016 documented as of this encounter (statuses as of 05/11/2022) [facility]12-18-2006 History of Past illness Narrative* Problem Noted Date Resolved Date Syncope and collapse 06/06/2006 03/23/2016 documented as of this encounter (statuses as of 05/30/2022) [facility] Encounter for gynecological examination (general) (routine) without abnormal findings- Primary Screening for cervical cancer Screening for malignant neoplasm of the cervix Encounter for screening for human papillomavirus (HPV) Special screening examination for human papillomavirus (HPV) Encounter for screening mammogram for breast cancer [facility] Diagnosis Pain- Primary Generalized pain [facility] Diagnosis Tendinopathy of gluteal region- Primary Unspecified disorder of synovium, tendon, and bursa 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, sacrum, and coccyx documented in this encounter [facility] for referral (narrative)* Diagnostic Procedure Only (Routine) - Pending Review Specialty Diagnoses / Procedures Referred By Contac t Referred To Contact [facility] Diagnoses Encounter for gynecological examination (general) (routine) without abnormal findings Encounter for screening mammogram for breast cancer Procedures MIRIAN SCREENING SCREENING MAMMOGRAPHY BI 2-VIEW BREAST INC Whit Méndez APRN.CNP [address] [place] [address] [facility] [address] [place] [address] Referral ID Status Reason Start Date Expiration Date Visits Requested Visits Authorized [id number] Pending Review Auto-Generat ed Referral 01/06/2022 02/05/2023 1 1 [facility] for referral (narrative)* Diagnostic Procedure Only (Routine) - Authorized Specialty Diagnoses / Procedures Referred By Contac t Referred To Contact XR IMAGING Diagnoses Pain Procedures XR PELVIS 1V AP RADIOLOGIC EXAMINATION PELVIS 1/2 VIEWS Pablo Givens MD [address] [place] [address] Xr Imaging Referral ID Status Reason Start Date Expiration Date Visits Requested Visits Authorized [id number] Authorized Auto-Generat ed Referral 2 06/10/2023 1 1 * Diagnostic Procedure Only (Routine) - Authorized Specialty Diagnoses / Procedures Referred By Contac t Referred To Contact XR IMAGING Diagnoses Pain Procedures XR FEMUR GENERAL 2V AP/LAT LEFT RADIOLOGIC EXAMINATION FEMUR MINIMUM 2 VIEWS Pablo Givens MD [address] [place] [id number] Xr Imaging Referral ID Status Reason Start Date Expiration Date Visits Requested Visits Authorized [id number] Authorized Auto-Generat ed Referral 2 06/10/2023 1 1 [facility] Summary Purpose Family History No Family History Records FoundNo Family History Records FoundNo Family History Records FoundNo Family History Records FoundNo Family History Records FoundNo Family History Records Found Advance Directives No Advanced Directives Records FoundNo Advanced Directives Records FoundNo Advanced Directives Records FoundNo Advanced Directives Records FoundNo Advanced Directives Records FoundNo Advanced Directives Records Found Additional Source Comments INFORMATION SOURCE (unrecogn ized section and content) DATE CREATED AUTHOR AUTHOR'S ORGANIZ ATION 04/15/2021 [facility] DATE CREATED AUTHOR AUTHOR'S ORGANIZ ATION 03/02/2022 [facility] ([place]) DATE CREATED AUTHOR AUTHOR'S ORGANIZ ATION 05/29/2022 [facility] DATE CREATED AUTHOR AUTHOR'S ORGANIZ ATION 07/28/2022 [facility] DATE CREATED AUTHOR AUTHOR'S ORGANIZ ATION 08/01/2023 [facility] Source Comments (unrecognize d section and content) In the event this informatio n is protected by the Federal Confidentiality of Alcohol and Drug Abuse Patient Records regulations: The Federal rules restrict any use of the information to criminally investigate or prosecute any alcohol or drug abuse patient.[facility] the event this information is protected by the Federal Confidentiality of Alcohol and Drug Abuse Patient Records regulations: The Federal rules restrict any use of the information to criminally investigate or prosecute any alcohol or drug abuse patient.[facility] the event this information is protected by the Federal Confidentiality of Alcohol and Drug Abuse Patient Records regulations: The Federal rules restrict any use of the information to criminally investigate or prosecute any alcohol or drug abuse patient.[facility] Reason for Visit (unrecogniz ed section and content) Reason Comments New Tumor/Mass FOR RECORDS PERTAINING TO PATIENTS WHO ARE OR HAVE BEEN ENROLLED IN A CHEMICAL DEPENDENCY/SUBSTANCEABUSE PROGRAM, SOME INFORMATION MAY BE OMITTED. This clinical summary was aggregated from multiple sources. Caution should be exercised in using it in the provision of clinical care. This summary normalizes information from multiple sources, and as a consequence, information in this document may materially change the coding, format and clinical context of patient data. In addition, data may be omitted in some cases. CLINICAL DECISIONS SHOULD BE BASED ON THE PRIMARY CLINICAL RECORDS. [facility]. provides no warranty or guarantee of the accuracy or completeness of information in this document.
== END | disposition home or self-care (01) ==
LOC: US 09:51
PROVIDERS: PCP Nurse Practitioner Family; Referring Provider Internal Medicine Gastroenterology; Visit Provider Internal Medicine Gastroenterology
DX: R10.9 Unspecified abdominal pain (principal)
CPT/HCPCS: 76700

== ENCOUNTER → 2023-09-22 | Outpatient (CLI) | payer OTHER, SELFPAY ==
--- NOTE | 2023-09-22 18:48 | CT_ITS ---
STUDY: CT ABDOMEN WITH CONTRAST REASON FOR EXAM: Female, 42 years old. Abd pain - US completed per ins request. Nausea and abdominal pain. RADIATION DOSAGE (If Supplied By Facility): CTDIvol = ( 10.26 ) mGy, DLP = ( 633.03 ) mGycm TECHNIQUE: Transaxial images were obtained post I.V. administration of IV 100mL Isovue-370, and with oral contrast. Sagittal and coronal images were reconstructed. Individualized dose optimization techniques were used for this CT. COMPARISON: None. FINDINGS: There is a 4.8 mm noncalcified nodule in the left lower lobe as seen on axial image #6. There is also evidence of a 3.1 mm noncalcified nodule in the lateral aspect of the lingular segment of the left upper lobe. These were seen on prior CT scan of the chest dated October 22, 2022. The visualized portions of the heart are within normal limits. Normal liver. The gallbladder is contracted. Normal spleen. Normal pancreas. Normal bilateral adrenal glands. Normal right kidney. Normal left kidney. Normal visualized stomach. Normal small intestine. Normal colon. The appendix is visualized and appears normal. Normal abdominal aorta. Normal inferior vena cava. Normal retroperitoneum. Normal abdominal wall. There is a 2 cm x 1.8 cm x 2.8 cm exophytic bony density arising from the superior lateral aspect of the right iliac bone. This may represent a broad-based osteochondroma. CT/Abdomen WITH IV Contrast IMPRESSION: Stable nodule seen in the left lower lobe. Status post cholecystectomy. 2 cm x 1.8 cm x 2.8 cm exophytic bony density arising from the superior lateral aspect of the right iliac bone. This most likely represents a broad-based osteochondroma. Electronically Signed: Abdelrahman Hurtado MD at 9:34 EDT ,
== END | disposition home or self-care (01) ==
LOC: CT 18:48
PROVIDERS: PCP Nurse Practitioner Family; Referring Provider Internal Medicine Gastroenterology; Visit Provider Internal Medicine Gastroenterology
DX: R10.13 Epigastric pain (principal)
CPT/HCPCS: 74160; Q9967; A4216

== ENCOUNTER → 2024-02-01 | Outpatient (CLI) | payer OTHER, SELFPAY ==
--- NOTE | 2024-02-01 18:04 | CT_ITS ---
STUDY: CT CHEST WITHOUT CONTRAST REASON FOR EXAM: Female, 43 years old. Lung nodule follow up, no new problems or pain RADIATION DOSAGE (If Supplied By Facility): CTDIvol = ( 11.61 ) mGy, DLP = ( 423.55 ) mGycm TECHNIQUE: Transaxial imaging was performed without the administration of intravenous contrast material. Multiplanar coronal and sagittal images were reformatted. Individualized dose optimization techniques were used for this CT. COMPARISON: Comparison is made with prior study of October 22, 2022. FINDINGS: CHEST Stable small bilateral pulmonary nodules. The largest measures 7 mm. There is no demonstrated pleural abnormality. No coronary artery calcification is seen. Normal mediastinum. Normal hilar regions. Normal unenhanced pulmonary arteries. There is atherosclerotic calcification of the aortic arch. Normal osseous structures. There is no demonstrated abnormality of the visualized upper abdomen. CT/Chest without Contrast IMPRESSION: Stable examination. Twelve-month follow-up recommended. Electronically Signed: Abdelrahman Hurtado MD at 14:08 EDT ,
== END | disposition home or self-care (01) ==
LOC: CT 18:04
PROVIDERS: PCP Nurse Practitioner Family; Referring Provider Internal Medicine Critical Care Medicine; Visit Provider Internal Medicine Critical Care Medicine
DX: R91.1 Solitary pulmonary nodule (principal)
CPT/HCPCS: 71250

== ENCOUNTER → 2024-05-10 | Outpatient (CLI) | payer OTHER, SELFPAY | END | disposition home or self-care (01) | LOC: PSN 07:39 | PROVIDERS: PCP Nurse Practitioner Family; Referring Provider Nurse Practitioner Acute Care; Visit Provider Nurse Practitioner Acute Care | DX: R05.9 Cough, unspecified (principal) | CPT/HCPCS: 94060; 94726; 94729 ==

== ENCOUNTER 2024-06-27 12:01 | Day surgery (SDC) | payer OTHER, SELFPAY ==
[2024-06-27] VITALS (8 sets, daily range): BP systolic 87–122; BP diastolic 55–80; PULSE 60–78; RESP 14–18; TEMP 35.9–36.9; O2SAT 97–100; BMI 27.5
--- NOTE | 2024-06-27 12:26 | PCM.HP.STD ---
HPI - General General Date of Admission: 06/27/24 Date of Service: 06/27/24 Chief Complaint: Abdominal pain and refractory GERD HPI Narrative EL FUENTES, is a 43 F who presents to the office today for follow up. Prior workup: ? EGD/colonoscopy 02.25.22 [facility] EGD small hiatal hernia; small hiatal hernia. ? Colonoscopy advanced to IC junction; one hyperplastic polyp *BGI established 08.23.22 with epigastric pain that is worse since cholecystectomy . BM vary between constipation and loose stools. Self-pay and does not want to pursue a lot of testing. Start MiraLAX/kiwi/aloe vera. OV 06.28.23 she has been having increased difficulty with regurgitation with upset stomach mostly occurring later in the day, PRN Zofran is somewhat helpful; there is approximately 3-4 hours between last meal and lying for bed. Reports regular BM each day she is not currently taking a bowel regimen. She does have insurance now. Denies diabetes/marijuana use. Smokes ? PPD cigarettes. Reports a lot of carbohydrate intake; drinks coffee, tea and pop mostly with occasional water intake. Contact 07.05.23 sucralfte is worsening regurgitation and having headaches. start Protonix Contact 10.05.23 10.05.23 Call placed to patient letting her know I spoke with Dr. Dior about her CT scan and he said she has a benign bony projection she should have looked at by Ortho. Also said the CT shows bile reflux. He said we can use Cholestyramine or Colestipol depending on what her bowels are like. Patient said she has already seen a orthopedic surgeon for these bony growths and said they didn't want to do surgery. Says she has a BM every day or every other day. Sometimes formed and sometimes loose. Contact 10.06.23 doing cholestyramine and Xifaxan OV 6 Pt reports that she started cholestyramine, but stopped because it made her period heavy. Pt has not started Xifaxan. Reports that she smokes 1/2 PPD cigarettes. Pt reports bm are normal. OV 05.30.24 pt reports continued on and off nausea as well as frequent HB. pt reports that she believes she has tried omeprazole and pantoprazole and they both made her sick. Pt expresses concern that she messed up her hernia yesterday while replacing seat covers in a van. Pt reports a daily bm and states that she does not have diarrhea often. [facility] Medical History Alcohol use Depression Anxiety Lung nodules Gastric reflux Vertigo Gastritis Umbilical hernia Hiatal hernia Constipation Polyp of colon Dysfunctional gallbladder Biliary dyskinesia Fatigue Nausea Abdominal pain Home Medications ?Medication ?Instructions ?Recorded ?Last Taken ?Type meclizine 25 mg tablet 25 mg PO BID PRN dizziness 06/24/22 Unknown History Allergy/AdvReac Type Severity Reaction Status Date / Time alprazolam (From Xanax) Allergy Intermediate Other Verified 06/27/24 12:15 azithromycin Allergy Intermediate Other Verified 06/27/24 12:15 ciprofloxacin Allergy Intermediate Other Verified 06/27/24 12:15 citalopram Allergy Intermediate Other Verified 06/27/24 12:15 latex Allergy Intermediate Other Verified 06/27/24 12:15 Penicillins Allergy Intermediate Other Verified 06/27/24 12:15 red dye Allergy Intermediate Other Verified 06/27/24 12:15 sulfamethoxazole (From Allergy Intermediate Other Verified 06/27/24 12:15 Bactrim) tetracycline Allergy Intermediate Other Verified 06/27/24 12:15 trimethoprim (From Bactrim) Allergy Intermediate Other Verified 06/27/24 12:15 venom-honey bee Allergy Intermediate Other Verified 06/27/24 12:15 levofloxacin AdvReac Diarrhea Verified 06/27/24 12:15 Family History Mother Diabetes Asthma Father Diabetes Asthma Surgical History Tubal ligation status Hx of cholecystectomy Social History Smoking Status: Current every day smoker tobacco type: cigarettes alcohol intake: current substance use type: does not use ROS Constitutional Constitutional: Denies fatigue, fever(s), poor appetite, weight gain or weight loss Gastrointestinal Gastrointestinal: Denies belching, bloating, change in bowel habits, change in stool character, chewing difficulty, coffee ground emesis, constipation, cramping, diarrhea, dyspepsia, dysphagia, early satiety, excessive flatus, fecal incontinence, heartburn, hematemesis, hematochezia, hemorrhoids, loose stools, melena, nausea, odynophagia, rectal bleeding, tenesmus, vomiting or weight changes Vital Signs Vital Signs Vital Signs: 06/27/24 12:19 06/27/24 12:19 Temperature 98.4 F Temperature Source Temporal Pulse Rate 78 Respiratory Rate 16 Respiratory Pattern Normal Blood Pressure 122/80 H Blood Pressure Mean 94 Blood Pressure Source Monitor Blood Pressure Position Semi-Fowlers Blood Pressure Location Right Arm Pulse Ox 100 Oxygen Delivery Method Room Air Weight Weight: 189 lb Body Mass Index (BMI) 27.5 Physical Exam Const alert, oriented x3, no apparent distress and healthy appearing General Appearance: cooperative GI normal to inspection, nondistended, normoactive bowel sounds, soft to palpation, non-tender and non-distended Percussion: normal to percussion Rectal Exam: deferred Assessment & Plan Assessment/Plan (1) Epigastric abdominal pain: PLAN: Assessment and Plan Assessment and Plan (1) Epigastric abdominal pain: Status: Chronic Plan: 41 yr old female with chronic epigastric and LUQ pain, along with nausea and recent acid reflux. She is very sensitive to medications. Her imaging and blood work thus far does not show any abnormalities. However after reviewing her CT scan abdomen pelvis it did show significant bile reflux gastritis that was confirmed by HIDA scan. I suspect that she is having bile acid reflux into her esophagus and may be causing her to have respiratory symptoms. We will perform EGD with pH probe . She is not taking acid reduction at this time. We were trying colestipol, but she did not have good results. We will also get a gastric emptying study.
--- NOTE | 2024-06-27 12:35 | PCM.PRE.AN2 ---
ASA Classification* ASA Classification ASA Classification: 2 Assessment & Plan Anesthesia* Anesthesia Assessment Anesthesia Assessment: Discussed sedation and/or anesthesia options, risks, benefits, and alternatives with patient/parents/legal guardian/POA. Questions invited. The patient/parents/legal guardian/POA seems to understand and agrees to proceed with anesthesia plan. Reviewed the physical assessment, medical history, allergy history and patient home medications list prior to surgery/procedure/anesthetic and documented any changes. Performed airway and anesthesia risk assessments. Anesthesia Type Anesthesia Type: MAC Anesthesia Focused Assessment* Temperature: 98.4 F Pulse Rate: 78 Blood Pressure: 122/80 Respiratory Rate: 16 Pulse Ox: 100 Airway Assessment Mouth opens: >3 cm Mallampati Score: II Focused Labs Anesthesia Preop lab: CBC WBC 8.0 K/mm3 (4.4-11.0) 06/28/23 12:53 RBC 4.75 M/mm3 (4.2-5.4) 06/28/23 12:53 Hgb 13.6 g/dL (12.0-15.0) 06/28/23 12:53 Hct 40.4 % (37-47) 06/28/23 12:53 Plt Count 413 K/mm3 (150-450) 06/28/23 12:53 CHEMISTRY Potassium 4.2 mmol/L (3.5-5.1) 06/28/23 12:53 Sodium 137 mmol/L (136-145) 06/28/23 12:53 BUN 10 mg/dL (7-18) 06/28/23 12:53 Creatinine 0.88 mg/dL (0.55-1.02) 06/28/23 12:53 Glucose 87 mg/dL (74-106) 06/28/23 12:53 TSH 1.18 uIU/mL (0.358-3.74) 06/28/23 12:53 COAG Pre-Assessment Diagnosis/Proposed Procedure Planned Operative Procedure(s): EGD - PH PROBE Anesthesia History 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 When Was Last Pacemaker Check QUESTION #4 FULL TEXT: You/Your Family Experience fever (hyperthermia) with Anesthesia Last Oral Intake Last Oral intake: Last Oral Intake NPO since 06:00 06/27/24 12:19 Meds taken in AM with sips of water? Meds patient instructed to take am of surgery PONV PONV - event planning manager: PONV - event planning manager Female Yes 06/25/24 11:16 HX of Motion Sickness Yes 06/25/24 11:16 HX of N/V After Surgery Yes 06/25/24 11:16 Non-Smoker No 06/25/24 11:16 Duration of Surgery greater No 06/25/24 11:16 than 60 minutes Number of Risk Factors 3 06/25/24 11:16 PONV Score Moderate Risk 06/25/24 11:16 Height & Weight Height & Weight: Anesthesia: Height & Weight Height 5 ft 9.5 in 06/27/24 12:19 Weight: 85.729 kg 06/27/24 12:19 Body Mass Index (BMI) 27.5 06/27/24 12:19 Respiratory Assessment Respiratory Assessment - event planning manager: Respiratory Tract Infection Hx - event planning manager Hx Respiratory Tract Infection No 06/25/24 11:16 STOP Sleep Apnea STOP Sleep Apnea - event planning manager: STOP Sleep Apnea - event planning manager Hx Hypertension No 06/25/24 11:16 Hx Sleep Apnea No 06/25/24 11:16 CPAP BIPAP Do you snore loudly (louder No 06/25/24 11:16 than talking or can be heard Do you often feel tired/ No 06/25/24 11:16 fatigued/ sleepy during daytime? Has anyone observed you stop No 06/25/24 11:16 breathing during sleep? STOP Results Negative 06/25/24 11:16 QUESTION #5 FULL TEXT : Do you snore loudly (louder than talking or can be heard through closed doors)? 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 Specify any problems Hx of Preganancy in last 3 No 06/25/24 11:16 Months Nurse Filling Out Transfusion [email or web address] 06/25/24 11:16 & Questions: Date: 06/25/24 06/25/24 11:16 Time: 11:20 06/25/24 11:16 Patient unable to answer at this time (ie. confused, unrespo /Reproduction History /Reproductive History - event planning manager: /Reproductive Hx- event planning manager Hx Now Gestational Age (in weeks): EDC: Hx Hx Para Hx Section SAB PFSH Medical History Alcohol use Depression Anxiety Lung nodules Gastric reflux Vertigo Gastritis Umbilical hernia Hiatal hernia Constipation Polyp of colon Dysfunctional gallbladder Biliary dyskinesia Fatigue Nausea Abdominal pain Home Medications ?Medication ?Instructions ?Recorded ?Last Taken ?Type meclizine 25 mg tablet 25 mg PO BID PRN dizziness 06/24/22 Unknown History Allergy/AdvReac Type Severity Reaction Status Date / Time alprazolam (From Xanax) Allergy Intermediate Other Verified 06/27/24 12:15 azithromycin Allergy Intermediate Other Verified 06/27/24 12:15 ciprofloxacin Allergy Intermediate Other Verified 06/27/24 12:15 citalopram Allergy Intermediate Other Verified 06/27/24 12:15 latex Allergy Intermediate Other Verified 06/27/24 12:15 Penicillins Allergy Intermediate Other Verified 06/27/24 12:15 red dye Allergy Intermediate Other Verified 06/27/24 12:15 sulfamethoxazole (From Allergy Intermediate Other Verified 06/27/24 12:15 Bactrim) tetracycline Allergy Intermediate Other Verified 06/27/24 12:15 trimethoprim (From Bactrim) Allergy Intermediate Other Verified 06/27/24 12:15 venom-honey bee Allergy Intermediate Other Verified 06/27/24 12:15 levofloxacin AdvReac Diarrhea Verified 06/27/24 12:15 Family History Mother Diabetes Asthma Father Diabetes Asthma Surgical History Tubal ligation status Hx of cholecystectomy Social History Smoking Status: Current every day smoker tobacco type: cigarettes alcohol intake: current substance use type: does not use Review of Systems (Anesthesia) ROS Narrative System reviewed and no additional complaints, except as documented.
--- NOTE | 2024-06-27 13:00 | EGD_PTH ---
PATIENT: EL LANDAVERDE LOC: EN U#:[id number] AGE/SX: 43/F ROOM: RE06/27/[address]: Dr. Low Dior DO : 1980 BED: DIS: 06/27/2024 SPEC #: [id number] RECD: 06/27/24 17:25 STATUS: CONRAD DALLAS #: [id number] JAZMYN: 06/27/24 13:[address]: Low Dior DEPT: SURGICAL PATHOLOGY RECD BY: Octavia Cisse ENTERED: 06/28/24 10:15 SP TYPE: EGD BIOPSY OTHR DR: Fartun Borrego, CLAY ROASTER-C Tissues: A - Esophagus, NOS B - Duodenum, NOS Procedures: Special Stain Group I Surgery Specimen Level IV Alcian Blue/PAS (control) HEADER OPERATION: EGD - PH probe and biopsy PRE-OP DIAGNOSIS: Epigastric abdominal pain TISSUE SUBMITTED: A- Distal esophagus biopsy, B- Duodenum biopsy MICROSCOPIC DIAGNOSIS A. Distal Esophagus, Biopsy: Squamous and foveolar mucosa with intestinal metaplasia (See Comment) B. Duodenum, Biopsy: Duodenal mucosa without dysplasia, colitis, or polyps. LOLITA, 06/30/2024 COMMENT A. Alcian blue/PAS stain with matched control is used in the evaluation of the specimen. The Alcian Blue/PAS stain is positive for the presence of goblet cells. MICROSCOPIC DESCRIPTION Slides are reviewed. GROSS DESCRIPTION A. Received in fixative is one container labeled with the patient's name and designated Distal esophagus biopsy. The specimen consists of one irregular fragment of light gamez soft tissue that measures 0.5 x 0.3 x 0.1 cm. The specimen is totally submitted in one cassette. B. Received in fixative is one container labeled with the patient's name and designated Duodenum biopsy. The specimen consists of one irregular fragment of light gamez soft tissue that measures 0.5 x 0.3 x 0.1 cm. The specimen is totally submitted in one cassette. 06/28/2024 TC:3 CPT:63783i3,98601
--- NOTE | 2024-06-27 13:31 | OP.EGD_ITS ---
Patient Name: Mary Gibson Procedure Date: 06/27/2024 1:05 PM Date of : 1980 Age: 43 Procedure: Upper GI endoscopy Indications: Heartburn, For therapy of esophageal reflux, Failure to respond to medical treatment Providers: Low Dior DO Referring MD: Zara Anthony Medicines: Monitored Anesthesia Care Patient Profile: This is a 43 year old female. Refer to note in patient chart for documentation of history and physical. Patient has symptoms of chronic epigastric abdominal pain, chronic dyspepsia, chronic heartburn and chronic nausea. Complications: No immediate complications. Procedure: Pre-Anesthesia Assessment: - Prior to the procedure, a History and Physical was performed, and patient medications and allergies were reviewed. The patient is competent. The risks and benefits of the procedure and the sedation options and risks were discussed with the patient. All questions were answered and informed consent was obtained. Patient identification and proposed procedure were verified by the physician in the pre-procedure area. Mental Status Examination: alert and oriented. Airway Examination: normal oropharyngeal airway and neck mobility. Respiratory Examination: clear to auscultation. CV Examination: normal. Prophylactic Antibiotics: The patient does not require prophylactic antibiotics. Prior Anticoagulants: The patient has taken no anticoagulant or antiplatelet agents except for NSAID medication. ASA Grade Assessment: II - A patient with mild systemic disease. After reviewing the risks and benefits, the patient was deemed in satisfactory condition to undergo the procedure. The anesthesia plan was to use monitored anesthesia care (MAC). Immediately prior to administration of medications, the patient was re-assessed for adequacy to receive sedatives. The heart rate, respiratory rate, oxygen saturations, blood pressure, adequacy of pulmonary ventilation, and response to care were monitored throughout the procedure. The physical status of the patient was re-assessed after the procedure. After obtaining informed consent, the endoscope was passed under direct vision. Throughout the procedure, the patient's blood pressure, pulse, and oxygen saturations were monitored continuously. The Endoscope was introduced through the mouth, and advanced to the second part of duodenum. The upper GI endoscopy was accomplished without difficulty. The patient tolerated the procedure well. Scope In: 1:17:15 PM Scope Out: 1:22:35 PM Total Procedure Duration Time 0 hours 5 minutes 20 seconds Findings: The Z-line was irregular and was found 36 cm from the incisors. Biopsies were taken with a cold forceps for histology. The QUINTERO capsule with delivery system was introduced through the mouth and advanced into the esophagus, such that the QUINTERO pH capsule was positioned 36 cm from the incisors, which was 6 cm proximal to the GE junction. Suction was applied to the well of the QUINTERO pH capsule to suck in the adjacent mucosa of the esophagus using the external vacuum pump set at a minimum vacuum pressure of 550 mmHg for 30 seconds. The QUINTERO pH capsule was then deployed by depressing the plunger on top of the handle to advance the locking pin into the mucosa, thereby attaching the capsule to the esophagus. The plunger was then rotated a quarter turn clockwise to release the capsule from the delivery system. The delivery system was then withdrawn. Endoscopy was utilized for probe placement and diagnostic evaluation. A medium-sized hiatal hernia was present. Patchy mild inflammation characterized by erythema was found in the duodenal bulb. Biopsies were taken with a cold forceps for histology. Verification of patient identification for the specimen was done. Estimated blood loss was minimal. Impression: - Z-line irregular, 36 cm from the incisors. Biopsied. - Medium-sized hiatal hernia. - Chronic duodenitis. Biopsied. - The QUINTERO pH capsule was positioned 36 cm from the incisors, which was 6 cm proximal to the GE junction. Recommendation: - Discharge patient to home. - Resume previous diet. - Continue present medications. - Await pathology results. Procedure Code(s): --- Professional --- 46623, Esophagogastroduodenoscopy, flexible, transoral; with biopsy, single or multiple CPT copyright 2021 [employer]. All rights reserved. The codes documented in this report are preliminary and upon plowing gardens review may be revised to meet current compliance requirements. Low Dior DO 06/27/2024 1:30:55 PM This report has been signed electronically. Number of Addenda: 0 Note Initiated On: 06/27/2024 1:05 PM
--- NOTE | 2024-06-27 13:31 | OP.CCLET_ITS ---
06/27/2024 Zara Anthony Re : Upper GI endoscopy procedure for Mary Gibson Dear Np. Borrego This procedure was performed on Thursday, June 27, 2024. My impressions and recommendations are as follows: Impressions : - Z-line irregular, 36 cm from the incisors. Biopsied. - Medium-sized hiatal hernia. - Chronic duodenitis. Biopsied. - The QUINTERO pH capsule was positioned 36 cm from the incisors, which was 6 cm proximal to the GE junction. Recommendations : - Discharge patient to home. - Resume previous diet. - Continue present medications. - Await pathology results. My findings are described in the full procedure note, which is enclosed. If I can be of further assistance, please feel free to contact me at . Sincerely, Low Friend, 06/27/2024 1:30:55 PM This report has been signed electronically.
--- NOTE | 2024-06-27 13:32 | PCM.POST.ANE ---
Anesthesia: Postop Eval I Current Vital Signs Temperature: 97 F Pulse Rate: 71 Blood Pressure: 89/55 Respiratory Rate: 16 Pulse Ox: 98 Oxygen Delivery Method: Room Air Assessment Airway patent: Yes Spontaneous unlabored respirations: Yes Mental status: Asleep nausea: No Vomiting: No Anesthesia Complication: No Fluid Hydration Crystalloid volume administer (ml): 30 Total IV fluid infused: 30 Progress Note Anesthesia document: Postop Eval 1 completed: Yes
--- NOTE | 2024-06-27 13:49 | PCM.POSTANE2 ---
Anesthesia Postop Eval I Sum Postop Eval Completion status Anesthesia document: Postop Eval 1 completed: Yes Anesthesia Postop Eval I Summary Anesthesia Postop Eval I Summary: Anesthesia Postop Eval I: Assessment Summary Airway patent Yes 06/27/24 13:33 [email or web address] Spontaneous unlabored Yes 06/27/24 13:33 [email or web address] respirations Mental status Asleep 06/27/24 13:33 [email or web address] nausea No 06/27/24 13:33 [email or web address] Vomiting No 06/27/24 13:33 [email or web address] Anesthesia Postop Eval I: Fluid Summary Crystalloid volume administer 30 06/27/24 13:33 [email or web address] (ml) Colloids volume administered ( ml) Blood Product volume administered (ml) Total IV fluid infused 30 06/27/24 13:33 [email or web address] Anesthesia Postop Eval I: Summary Notes Anesthesia Complication No 06/27/24 13:33 [email or web address] Anesthesia Complication Comment: Post-operative progress note Anesthesia: Postop Eval II Evaluation Mental status: Awake Pain Level: 0 nausea: No Vomiting: No
== END 2024-06-27 14:24 | disposition home or self-care (01) ==
LOC: EN 12:02 → AC 12:04
PROVIDERS: PCP Nurse Practitioner Family; Referring Provider Nurse Practitioner Family; Visit Provider Internal Medicine Gastroenterology
PROC: (CPT 43235; principal; 2024-06-27 12:55)
DX: K22.70 Barrett's esophagus without dysplasia (principal); K44.9 Diaphragmatic hernia without obstruction or gangrene; K29.80 Duodenitis without bleeding; F17.210 Nicotine dependence, cigarettes, uncomplicated; K21.9 Gastro-esophageal reflux disease without esophagitis; Z86.0100 Personal history of colon polyps, unspecified
CPT/HCPCS: 43239; 88305; 88312; A4216; J2405

== ENCOUNTER → 2024-08-21 | Outpatient (CLI) | payer OTHER, MEDICAID, SELFPAY ==
--- NOTE | 2024-08-21 10:00 | PET_ITS ---
EXAM: F-18 FDG PET-CT from the skull base to the mid thigh CLINICAL HISTORY: Abnormal findings in lung field. COMPARISON: Chest CT of 08/07/2024. TECHNIQUE: F-18 FDG PET-CT from the skull base to the mid thigh. Dose: 12.76 mCi F-18 FDG intravenous. FINDINGS: Neck: No area of abnormal hypermetabolic activity is seen. Chest: Numerous hypermetabolic lymph nodes are seen within the mediastinum, as well as the bilateral krista. SUV max measurements are as follows: AP window SUV max 3.4; Right precarinal SUV max 4.9; Subcarinal SUV max 6.9; Left hilum SUV max 2.5; Right hilum SUV max 8.1; Right upper mediastinum SUV max 3.2. No definite area of hypermetabolic pulmonary activity is otherwise noted. No hypermetabolic activity is seen in the krista or supraclavicular areas. No pleural effusion or pneumothorax is seen. No pericardial effusion is evident. Abdomen and pelvis: No area of abnormal hypermetabolic activity is seen. Bones: No PET evidence of osseous metastatic disease. Additional: Prior cholecystectomy. PET/PET/CT Tumor Base -Thigh Init IMPRESSION: Numerous hypermetabolic lymph nodes are seen within the mediastinum and bilater al krista, concerning for the presence of malignancy. Reading Location: [address]
== END | disposition home or self-care (01) ==
PROVIDERS: PCP Nurse Practitioner Family; Referring Provider Nurse Practitioner Acute Care; Visit Provider Nurse Practitioner Acute Care
DX: R91.8 Other nonspecific abnormal finding of lung field (principal); R59.0 Localized enlarged lymph nodes
CPT/HCPCS: 78815; A9552

== ENCOUNTER → 2024-08-31 | Outpatient (CLI) | payer OTHER, MEDICAID, SELFPAY ==
[2024-08-31 13:18] LABS: Platelet Count 396 K/mm3 (150-450)
[2024-08-31 13:29] LABS: International Normalized Ratio 0.9; Prothrombin Time (Protime)PT. 12.5 SECONDS (11.7-14.9)
[2024-08-31 13:35] LABS: Partial Thromboplast Time 25.3 Seconds (24.1-36.2)
[2024-08-31 14:18] LABS: Rheumatoid Factor < 10.0 IU/mL (<15)
[2024-09-03 13:07] LABS: ANTINUCLEAR ANTIBODIES DIRECT Negative (Negative)
[2024-09-03 14:08] LABS: CCP IgG Antibodies 5 units (0-19); Cytoplasmic Ab (C-ANCA) <1:20 titer (Neg:<1:20); Perinuclear Ab (P-ANCA) <1:20 titer (Neg:<1:20)
== END | disposition home or self-care (01) ==
PROVIDERS: PCP Nurse Practitioner Family; Referring Provider Nurse Practitioner Acute Care; Visit Provider Nurse Practitioner Acute Care
DX: R05.3 Chronic cough (principal); I48.91 Unspecified atrial fibrillation; R06.00 Dyspnea, unspecified
CPT/HCPCS: 36415; 85049; 85610; 85730; 86037; 86038; 86200; 86225; 86235; 86431

== ENCOUNTER 2024-09-21 10:49 | Day surgery (SDC) | payer OTHER, SELFPAY ==
--- NOTE | 2024-09-17 10:40 | PCM.HP.STD ---
HPI - General General Date of Service: 09/21/24 HPI Narrative The patient is a 43-year-old female who is presently followed in the pulmonary medicine clinic due to a history of pulmonary nodularity, mediastinal adenopathy and chronic tobacco dependency. Her last CT chest completed in January 2024 demonstrated stable small bilateral pulmonary nodules, the largest of which was approximately 7 mm in size. A pet imaging study was then completed at the beginning of August 2024 which demonstrated numerous hypermetabolic lymph nodes within the mediastinum and bilateral hilar regions. Given these findings and concern for possible underlying granulomatous lung disease, the patient was referred to undergo mediastinal lymph node sampling via EBUS. [facility] Medical History COVID Alcohol use Depression Anxiety Lung nodules Gastric reflux Vertigo Gastritis Umbilical hernia Hiatal hernia Constipation Polyp of colon Dysfunctional gallbladder Biliary dyskinesia Fatigue Nausea Abdominal pain Home Medications ?Medication ?Instructions ?Recorded ?Last Taken ?Type meclizine 25 mg tablet 25 mg PO BID PRN dizziness 06/24/22 Unknown History albuterol sulfate 90 mcg/actuation inhalation 07/19/24 Unknown History aerosol inhaler Allergy/AdvReac Type Severity Reaction Status Date / Time alprazolam (From Xanax) Allergy Intermediate Other Verified 08/31/24 12:16 azithromycin Allergy Intermediate Other Verified 08/31/24 12:16 ciprofloxacin Allergy Intermediate Other Verified 08/31/24 12:16 citalopram Allergy Intermediate Other Verified 08/31/24 12:16 latex Allergy Intermediate Other Verified 08/31/24 12:16 Penicillins Allergy Intermediate Other Verified 08/31/24 12:16 red dye Allergy Intermediate Other Verified 08/31/24 12:16 sulfamethoxazole (From Allergy Intermediate Other Verified 08/31/24 12:16 Bactrim) tetracycline Allergy Intermediate Other Verified 08/31/24 12:16 trimethoprim (From Bactrim) Allergy Intermediate Other Verified 08/31/24 12:16 venom-honey bee Allergy Intermediate Other Verified 08/31/24 12:16 levofloxacin AdvReac Diarrhea Verified 08/31/24 12:16 Family History Mother Diabetes Asthma Father Diabetes Asthma Surgical History Tubal ligation status Hx of cholecystectomy Social History Smoking Status: Current every day smoker tobacco type: cigarettes alcohol intake: current substance use type: does not use ROS ROS Narrative 10 systems were reviewed with pertinent positives as noted in the HPI above. Physical Exam Const alert and no apparent distress General Appearance: cooperative HEENT normocephalic and head/scalp atraumatic Neck supple General: trachea midline Resp normal respiratory effort Auscultation: Negative for rales, rhonchi or wheezes Cardio regular rate and regular rhythm GI soft to palpation, non-tender and non-distended Extremity no clubbing, cyanosis or edema Skin General Skin Exam: no breakdown Neuro CN's II-XII intact bilaterally and no focal motor deficits Psych cooperative and affect normal Assessment & Plan Assessment/Plan (1) Mediastinal lymphadenopathy: PLAN: Plan The patient underwent recent pet imaging at the beginning of August 2024, which demonstrated numerous hypermetabolic lymph nodes within the mediastinum as well as bilateral hilar regions. Given the underlying concern for possible granulomatous lung disease, such as sarcoidosis, we will plan to proceed with mediastinal lymph node sampling via EBUS. Risks and benefits of the proposed procedure were discussed with the patient. Preprocedural lab work will be obtained.
[2024-09-21] VITALS (12 sets, daily range): BP systolic 82–129; BP diastolic 43–71; PULSE 55–78; RESP 16–24; TEMP 36–36.7; O2SAT 95–100; BMI 26.6
--- NOTE | 2024-09-21 | ASPIG_PTH ---
PATIENT: EL LANDAVERDE LOC: EN U#:[id number] AGE/SX: 43/F ROOM: RE09/21/[address]: Dr. Rex Garcia DO : 1980 BED: DIS: 09/21/2024 SPEC #: [id number] RECD: 09/21/24 13:40 STATUS: CONRAD [place] #: [id number] JAZMYN: 09/21/24 00:[address]: Rex Garcia DEPT: CYTOLOGY RECD BY: Cristina Hart ENTERED: 09/21/24 13:41 SP TYPE: ASP OUT OTHR DR: No Primary Care Phys Tissues: A - Lung, NOS B - Lung, NOS Procedures: FNA Specimen Adequacy Special Stain Group II Surgery Specimen Level IV Cytology Other HEADER OPERATION: Endobronchial ultrasound PRE-OP DIAGNOSIS: Mediastinal lymphadenopathy TISSUE SUBMITTED: A1-4 - B1-3 - EBUS DIAGNOSIS CYTOLOGY A. EBUS, TBNA, site 7, cytology (smears x10, cellblock x1): * No malignant cells identified. * Lymphocytes with epithelioid histocytes and rare multinucleated cell, suggestive of sarcoidosis - see note. Note: The benign immunophenotyping by flow cytometry performed at [facility] is noted. B. EBUS, TBNA, site 10R, cytology (smears x6, cellblock x1): * No malignant cells identified. COMMENT The specimen is evaluated at the time of biopsy by Dr. Leon. Rapid onset evaluation = A1- Benign respiratory epithelium and blood. A2- Benign respiratory epithelium and blood. A3- Benign respiratory epithelium and blood. A4- Lymphocytes present recommend flow. B1- Epithelial cells and amorphous material. B2- Epithelial cells. B3- Respiratory epithelium, mucus, amorphous material. CYTOLOGY STUDY Slides are reviewed. CYTOLOGY GROSS A1. Received labeled with the patient's name and and designated EBUS, TBNA, site 7 #1. The specimen consists of two stained smears. A2. Received labeled with the patient's name and and designated EBUS, TBNA, site 7 #2. The specimen consists of two stained smears. A3. Received labeled with the patient's name and and designated EBUS, TBNA, site 7 #3. The specimen consists of two stained smears. A4. Received labeled with the patient's name and and designated EBUS, TBNA, site 7 #4. The specimen consists of two stained smears. B1. Received labeled with the patient's name and and designated EBUS, TBNA, site 10R #5. The specimen consists of two stained smears. B2. Received labeled with the patient's name and and designated EBUS, TBNA, site 10R #6. The specimen consists of two stained smears. B3. Received labeled with the patient's name and and designated EBUS, TBNA, site 10R #7. The specimen consists of two stained smears. 09/21/2024 CPT:61899t9,78386a7,10177w0
--- NOTE | 2024-09-21 11:33 | PCM.PRE.AN2 ---
ASA Classification* ASA Classification ASA Classification: 3 Assessment & Plan Anesthesia* Anesthesia Assessment Anesthesia Assessment: Discussed sedation and/or anesthesia options, risks, benefits, and alternatives with patient/parents/legal guardian/POA. Questions invited. The patient/parents/legal guardian/POA seems to understand and agrees to proceed with anesthesia plan. Reviewed the physical assessment, medical history, allergy history and patient home medications list prior to surgery/procedure/anesthetic and documented any changes. Performed airway and anesthesia risk assessments. Anesthesia Type Anesthesia Type: General History Source History Obtained from:: Patient and Chart Anesthesia Focused Assessment* Temperature: 98.0 F Pulse Rate: 75 Blood Pressure: 129/69 Respiratory Rate: 16 Pulse Ox: 100 Oxygen Delivery Method: Room Air Airway Assessment Mouth opens: >3 cm Mallampati Score: II Teeth Condition: Intact Neck Range of motion (ROM): Full ROM Focused Labs Anesthesia Preop lab: CBC WBC 8.0 K/mm3 (4.4-11.0) 06/28/23 12:53 06/28/23 RBC 4.75 M/mm3 (4.2-5.4) 06/28/23 12:53 06/28/23 Hgb 13.6 g/dL (12.0-15.0) 06/28/23 12:53 06/28/23 Hct 40.4 % (37-47) 06/28/23 12:53 06/28/23 Plt Count 396 K/mm3 (150-450) 08/31/24 13:03 08/31/24 CHEMISTRY Potassium 4.2 mmol/L (3.5-5.1) 06/28/23 12:53 06/28/23 Sodium 137 mmol/L (136-145) 06/28/23 12:53 06/28/23 BUN 10 mg/dL (7-18) 06/28/23 12:53 06/28/23 Creatinine 0.88 mg/dL (0.55-1.02) 06/28/23 12:53 06/28/23 Glucose 87 mg/dL (74-106) 06/28/23 12:53 06/28/23 TSH 1.18 uIU/mL (0.358-3.74) 06/28/23 12:53 06/28/23 COAG PT 12.5 SECONDS (11.7-14.9) 08/31/24 13:03 08/31/24 Pre-Assessment Diagnosis/Proposed Procedure Planned Operative Procedure(s): EBUS Anesthesia History 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 When Was Last Pacemaker Check QUESTION #4 FULL TEXT: You/Your Family Experience fever (hyperthermia) with Anesthesia Last Oral Intake Last Oral intake: Last Oral Intake NPO since 07:30 09/21/24 11:22 Meds taken in AM with sips of No 09/21/24 11:22 water? Meds patient instructed to take am of surgery Any additional information?: Yes NPO since: 07:30 (Black coffee with sugar at 7:30 AM.) Meds taken in AM with sips of water?: No PONV PONV - linen room worker: PONV - linen room worker Female Yes 09/18/24 14:44 HX of Motion Sickness Yes 09/18/24 14:44 HX of N/V After Surgery Yes 09/18/24 14:44 Non-Smoker Yes 09/18/24 14:44 Duration of Surgery greater Yes 09/18/24 14:44 than 60 minutes Number of Risk Factors 5 09/18/24 14:44 PONV Score Severe Risk 09/18/24 14:44 Height & Weight Height & Weight: Anesthesia: Height & Weight Height 5 ft 9 in 09/21/24 11:22 Weight: 82 kg 09/21/24 11:22 Body Mass Index (BMI) 26.6 09/21/24 11:22 Respiratory Assessment Respiratory Assessment - linen room worker: Respiratory Tract Infection Hx - linen room worker Hx Respiratory Tract Infection No 09/18/24 14:44 Any additional information?: Yes Hx Respiratory Tract Infection: Yes (Occasional chronic cough.) STOP Sleep Apnea STOP Sleep Apnea - linen room worker: STOP Sleep Apnea - linen room worker Hx Hypertension No 09/18/24 14:44 Hx Sleep Apnea No 09/18/24 14:44 CPAP BIPAP Do you snore loudly (louder No 09/18/24 14:44 than talking or can be heard Do you often feel tired/ Yes 09/18/24 14:44 fatigued/ sleepy during daytime? Has anyone observed you stop No 09/18/24 14:44 breathing during sleep? STOP Results Negative 09/18/24 14:44 QUESTION #5 FULL TEXT : Do you snore loudly (louder than talking or can be heard through closed doors)? Tobacco Use History Tobacco Use History - linen room worker: Tobacco Use History - linen room worker Tobacco Use Smoking Status Current every day smoker 09/18/24 14:44 Hx Tobacco Use No 09/18/24 14:44 Years Smoking Packs Smoked per Day Smoking Cessation Date was within the last 15 years Hx Smoking Cessation Date Hx Smoking Cessation Counseling Any additional information?: Yes Smoking Status: Current every day smoker (Patient did smoke today.) Hematologic Medial History Hematologic Hx - linen room worker: Hematologic Medical Hx - medical practitioners Hx of Blood Transfusion No 09/18/24 14:44 Hx of Transfusion in last 3 No 09/18/24 14:44 Months Date of Last Transfusion (if within last 3 months) Ever experience any problems No 09/18/24 14:44 with transfusion(s)? Specify any problems Hx of Preganancy in last 3 No 09/18/24 14:44 Months Nurse Filling Out Transfusion DSCHRIBER 09/18/24 14:44 & Questions: Date: 09/18/24 09/18/24 14:44 Time: 14:45 09/18/24 14:44 Patient unable to answer at this time (ie. confused, unrespo /Reproduction History /Reproductive History - linen room worker: /Reproductive Hx- linen room worker Hx Now No 09/18/24 14:44 Gestational Age (in weeks): EDC: Hx Hx Para Hx Section SAB No 09/18/24 14:44 Active Medications Active Medications: Current Medications Generic Name Dose Route Start Last Admin Trade Name Freq PRN Reason Stop Dose Admin Sodium Chloride 1,000 mls @ 15 mls/hr 09/21/24 11:35 IV 09/27/24 00:54 .Q48H [facility] PFSH Medical History Rash Arthritis Easy bruising Back pain Syncope Smoker Shortness of breath on exertion Leg cramps History of pain when walking History of edema COVID Alcohol use Anxiety Lung nodules Gastric reflux Vertigo Hiatal hernia Polyp of colon Biliary dyskinesia Abdominal pain Home Medications ?Medication ?Instructions ?Recorded ?Last Taken ?Type epinephrine 0.3 mg/0.3 mL 0.3 mg subcut Q4H PRN anaphylaxis 09/18/24 Unknown History injection, auto-injector Allergy/AdvReac Type Severity Reaction Status Date / Time alprazolam (From Xanax) Allergy Intermediate Other Verified 09/21/24 11:12 azithromycin Allergy Intermediate Other Verified 09/21/24 11:12 ciprofloxacin Allergy Intermediate Other Verified 09/21/24 11:12 citalopram Allergy Intermediate Other Verified 09/21/24 11:12 latex Allergy Intermediate Other Verified 09/21/24 11:12 Penicillins Allergy Intermediate Other Verified 09/21/24 11:12 red dye Allergy Intermediate Other Verified 09/21/24 11:12 sulfamethoxazole (From Allergy Intermediate Other Verified 09/21/24 11:12 Bactrim) tetracycline Allergy Intermediate Other Verified 09/18/24 14:42 trimethoprim (From Bactrim) Allergy Intermediate Other Verified 09/21/24 11:12 venom-honey bee Allergy Intermediate Other Verified 09/21/24 11:12 levofloxacin AdvReac Diarrhea Verified 09/21/24 11:12 Family History Mother Diabetes Asthma Father Diabetes Asthma Surgical History History of esophagogastroduodenoscopy (EGD) Hx of tubal ligation Hx of cholecystectomy Social History Smoking Status: Current every day smoker tobacco type: cigarettes alcohol intake: current substance use type: does not use Review of Systems (Anesthesia) ROS Narrative System reviewed and no additional complaints, except as documented.
[2024-09-21] MEDS: 0.9% Normal Saline (1000mL) 1,000 ML 15 ML IV (11:42)
[2024-09-21] MEDS: Lidocaine 2% (5ml sdv) 5 ML VIAL.MPF (12:43)
[2024-09-21] MEDS: Lidocaine Jelly 2% 20 ML Syringe (URO-JET) 1 APPLIC (12:44)
--- NOTE | 2024-09-21 12:51 | OP.BRONCH_ITS ---
Patient Name: Mary Wynne Procedure Date: 09/21/2024 11:38 AM Date of : 1980 Age: 43 Procedure: Bronchoscopy Indications: Mediastinal adenopathy Providers: Rex Garcia MD Referring MD: No Primary Care Physician Medicines: See the Anesthesia note for documentation of the administered medications Complications: No immediate complications Procedure: Pre-Anesthesia Assessment: - A History and Physical has been performed. Patient meds and allergies have been reviewed. The risks and benefits of the procedure and the sedation options and risks were discussed with the patient. All questions were answered and informed consent was obtained. Patient identification and proposed procedure were verified prior to the procedure by the physician and the nurse in the procedure room. Mental Status Examination: alert and oriented. Airway Examination: normal oropharyngeal airway. Respiratory Examination: clear to auscultation. CV Examination: normal. ASA Grade Assessment: II - A patient with mild systemic disease. After reviewing the risks and benefits, the patient was deemed in satisfactory condition to undergo the procedure. The anesthesia plan was to use general anesthesia. Immediately prior to administration of medications, the patient was re-assessed for adequacy to receive sedatives. The heart rate, respiratory rate, oxygen saturations, blood pressure, adequacy of pulmonary ventilation, and response to care were monitored throughout the procedure. The physical status of the patient was re-assessed after the procedure. After I obtained informed consent, the scope was passed under direct vision. Throughout the procedure, the patient's blood pressure, pulse, and oxygen saturations were monitored continuously. The ultrasound bronchoscope was introduced through the mouth, via laryngeal mask airway and advanced to the tracheobronchial tree. The procedure was accomplished without difficulty. The patient tolerated the procedure well. Findings: The laryngeal mask airway is in good position. The vocal cords appear normal. The subglottic space is normal. The trachea is of normal caliber. The teofilo is sharp. The tracheobronchial tree was examined to at least the first subsegmental level. Bronchial mucosa and anatomy are normal; there are no endobronchial lesions, and no secretions. The scope was withdrawn and replaced with the EBUS bronchoscope to accomplish the ultrasound examination. Lymph Nodes: An endobronchial ultrasound endoscope was utilized to systematically examine the subcarinal mediastinum (level 7) and right hilar region (level 10R) in order to assist with guiding the biopsy needle. Lymph node sizing was performed via endobronchial ultrasound. Sampling by transbronchial needle aspiration was also performed using an Olympus ViziShot 2 21 gauge needle in the subcarinal mediastinum (level 7) and right hilar region (level 10R) and sent for routine cytology and flow cytometry. - The 7 (subcarinal) node was evaluated. Four samples with the needle were obtained. - The 10R (hilar) node was evaluated. Three samples with the needle were obtained. Impression: - Mediastinal adenopathy - The airway examination was normal. - Endobronchial ultrasound was performed. - Lymph node sampling was performed. Recommendation: - Await biopsy results. Procedure Code(s): --- Professional --- 08759, Bronchoscopy, rigid or flexible, including fluoroscopic guidance, when performed; with endobronchial ultrasound (EBUS) guided transtracheal and/or transbronchial sampling (eg, aspiration[s]/biopsy[ies]), one or two mediastinal and/or hilar lymph node stations or structures Diagnosis Code(s): --- Professional --- R59.0, Localized enlarged lymph nodes CPT copyright 2021 [employer]. All rights reserved. The codes documented in this report are preliminary and upon oncology technician review may be revised to meet current compliance requirements. DO Rex Sharma MD 09/21/2024 12:50:32 PM This report has been signed electronically. Number of Addenda: 0 Note Initiated On: 09/21/2024 11:38 AM
--- NOTE | 2024-09-21 12:57 | PCM.POST.ANE ---
Anesthesia: Postop Eval I Current Vital Signs Temperature: 97 F Pulse Rate: 67 Blood Pressure: 96/56 Respiratory Rate: 16 Pulse Ox: 98 Assessment Airway patent: Yes Spontaneous unlabored respirations: Yes nausea: No Vomiting: No Anesthesia Complication: No Fluid Hydration Crystalloid volume administer (ml): 800 Total IV fluid infused: 800 Progress Note Anesthesia document: Postop Eval 1 completed: Yes
--- NOTE | 2024-09-21 18:09 | POSTOPAN2_ITS ---
Anesthesia Postop Eval I Sum Postop Eval Completion status Anesthesia document: Postop Eval 1 completed: Yes Anesthesia Postop Eval I Summary Anesthesia Postop Eval I Summary: Anesthesia Postop Eval I: Assessment Summary Airway patent Yes 09/21/24 12:57 CONTRACTING [email or web address] Spontaneous unlabored Yes 09/21/24 12:57 CONTRACTING [email or web address] respirations Mental status nausea No 09/21/24 12:57 CONTRACTING [email or web address] Vomiting No 09/21/24 12:57 CONTRACTING [email or web address] Anesthesia Postop Eval I: Fluid Summary Crystalloid volume administer 800 09/21/24 12:57 CONTRACTING [email or web address].[email or web address] (ml) Colloids volume administered ( ml) Blood Product volume administered (ml) Total IV fluid infused 800 09/21/24 12:57 CONTRACTING [email or web address] Anesthesia Postop Eval I: Summary Notes Anesthesia Complication No 09/21/24 12:57 CONTRACTING [email or web address] Anesthesia Complication Comment: Post-operative progress note Anesthesia: Postop Eval II Evaluation Mental status: Awake and Calm Pain Level: 1 nausea: No Vomiting: No Complications Anesthesia Complication: No
--- NOTE | 2024-09-21 18:09 | PCM.POSTANE2 ---
Anesthesia Postop Eval I Sum Postop Eval Completion status Anesthesia document: Postop Eval 1 completed: Yes Anesthesia Postop Eval I Summary Anesthesia Postop Eval I Summary: Anesthesia Postop Eval I: Assessment Summary Airway patent Yes 09/21/24 12:57 [email or web address] Spontaneous unlabored Yes 09/21/24 12:57 [email or web address] respirations Mental status nausea No 09/21/24 12:57 [email or web address] Vomiting No 09/21/24 12:57 [email or web address] Anesthesia Postop Eval I: Fluid Summary Crystalloid volume administer 800 09/21/24 12:57 [email or web address].[email or web address] (ml) Colloids volume administered ( ml) Blood Product volume administered (ml) Total IV fluid infused 800 09/21/24 12:57 [email or web address] Anesthesia Postop Eval I: Summary Notes Anesthesia Complication No 09/21/24 12:57 [email or web address] Anesthesia Complication Comment: Post-operative progress note Anesthesia: Postop Eval II Evaluation Mental status: Awake and Calm Pain Level: 1 nausea: No Vomiting: No Complications Anesthesia Complication: No
== END 2024-09-21 14:49 | disposition home or self-care (01) ==
PROVIDERS: Referring Provider Internal Medicine Critical Care Medicine; Visit Provider Internal Medicine Critical Care Medicine
PROC: BB4BZZZ Ultrasonography of Pleura (ICD-10-PCS; CPT 31652; principal; 2024-09-21 11:30)
DX: R59.0 Localized enlarged lymph nodes (principal); R91.8 Other nonspecific abnormal finding of lung field; F17.210 Nicotine dependence, cigarettes, uncomplicated
CPT/HCPCS: 31652; 31629; 88161; 88172; 88305; 88313; A4216; J2405

== ENCOUNTER → 2025-01-14 | Outpatient (CLI) | payer SELFPAY ==
[2025-01-14 14:10] LABS: Mucous, Urine 0 SEEN /hpf (<or=2+)
[2025-01-14 15:21] LABS: Color, Urine Yellow (Yellow); Glucose, Dipstick Normal (Normal); Ketone-Dipstick Negative (Negative); Leukocyte Esterase-Dipstick 100 /ul (Negative); Nitrite-Dipstick Negative (Negative); Occult Blood-Urine 150 /ul (Negative); Protein-Dipstick 15 mg/dl (Negative); Specific Gravity, Urine 1.015 (1.002-1.030); Urine Bilirubin Dipstick Negative (Negative)
[2025-01-14 17:18] LABS: Red Blood Cells-Urine 0-5 SEEN /hpf (0-5); Squamous Epithelial Cells - UA 0-5 SEEN /hpf (5-10)
== END | disposition home or self-care (01) ==
LOC: LABSPEC 14:08
PROVIDERS: PCP Nurse Practitioner Family; Referring Provider Nurse Practitioner Family; Visit Provider Nurse Practitioner Family
DX: R35.0 Frequency of micturition (principal); M54.50 Low back pain, unspecified
CPT/HCPCS: 81001

== ENCOUNTER → 2025-02-11 | Outpatient (CLI) | payer MEDICAID, SELFPAY ==
--- NOTE | 2025-02-11 07:40 | CT_ITS ---
PROCEDURE: CHEST WITHOUT CONTRAST 02/11/2025 REASON FOR EXAM: 7 MM NODULE IN SMOKER Current smoker. Patient has smoked half a pack per day. History of sarcoidosis. Shortness of breath. TECHNIQUE: Chest CT without contrast. Coronal and Sagittal reconstruction series were provided. One or more dose reduction techniques were used (e.g., Automated exposure control, adjustment of the mA and/or kV according to patient size, use of iterative reconstruction technique RADIATION DOSE SUMMARY: CTDlvol: 9.89 mGy DLP: 353.51 mGycm COMPARISON: Prior study dated August 07, 2024. FINDINGS: Hardware: None Lymph nodes: Small benign-appearing bilateral axillary lymph nodes. Heart and Vasculature: The heart is not enlarged. Atherosclerotic calcifications of the thoracic aorta. Thoracic aorta and pulmonary arteries have normal contours; noncontrast technique limits evaluation. Coronary Artery Calcifications: Absent Lungs and Airways: Stable small bilateral pulmonary nodules. The largest measures 6.8 mm in the anterior aspect of the left lower lobe. Stable mild scarring at the left lung base. Pleura: No pleural effusion. Upper Abdomen: Unremarkable Bones: Degenerative changes of the thoracic spine. CT/Chest without Contrast IMPRESSION: Coronary artery calcification (CAC) is is absent Stable examination. 12 month follow-up recommended. Reading Location: [facility]
== END | disposition home or self-care (01) ==
LOC: CT 07:38
PROVIDERS: PCP Nurse Practitioner Family; Referring Provider Nurse Practitioner Acute Care; Visit Provider Nurse Practitioner Acute Care
DX: R91.1 Solitary pulmonary nodule (principal)
CPT/HCPCS: 71250

== ENCOUNTER → 2025-05-29 | Outpatient (CLI) | payer MEDICAID, SELFPAY ==
--- NOTE | 2025-05-29 16:00 | RAD_ITS ---
EXAM: XR Right Ankle Complete, 3 or More Views CLINICAL INDICATION: SPRAIN/PAIN TECHNIQUE: Frontal, lateral and oblique views of the right ankle. COMPARISON: No relevant prior studies available. FINDINGS: BONES/JOINTS: Unremarkable. No acute fracture. No dislocation. SOFT TISSUES: Mild soft tissue swelling. RAD/Ankle min 3 Views IMPRESSION: Mild soft tissue swelling. Reading [facility]
--- OUTSIDE RECORDS SUMMARY | 2025-05-29 16:18 | XMS RPT_ITS | CCD ---
Author Organization [facility] ion Partnership [facility] Care Team Providers Care Market Research Worker Name Role Phone ECHEVERRIA, LEATHA Unavailable Unavailable ECHEVERRIA LEATHA Unavailable Unavailable NO REFERRING DR Unavailable Unavailable Unavailable Primary Care Provider Unavailabl e Unavailable Primary Care Provider Unavailabl e PABLO GRIMALDO Referring Unavailable Ungerer, STEREO PLOTTER OPERATOR. Fartun Primary Care Provider Ungerer, STEREO PLOTTER OPERATOR. Fartun Referring Provider Erasmo STEREO PLOTTER OPERATOR, STEREO PLOTTER OPERATOR-C Lizzette Easton Attending Provider [phone] Alla STEREO PLOTTER OPERATOR, STEREO PLOTTER OPERATOR-C Yolis Attending Provider Dr. Rex Garcia Attending Provider [phone] Ungerer, STEREO PLOTTER OPERATOR. Fartun Primary Care Provider Ungerer, STEREO PLOTTER OPERATOR. Fartun Referring Provider Dr. Low Dior Attending Provider Ungerer, STEREO PLOTTER OPERATOREdis MayersFartun Primary Care Provider [phone] Ungerer, STEREO PLOTTER OPERATOR. Fartun Referring Provider Dr. Low Dior Attending Provider Unavailable Primary Care Provider Unavailabl e UNGERER, FARTUN STEREO PLOTTER OPERATOR Consulting Unavailable UNGERER, FARTUN STEREO PLOTTER OPERATOR Attending Unavailable UNGERER, FARTUN STEREO PLOTTER OPERATOR Admitting Unavailable UNGERER, FARTUN STEREO PLOTTER OPERATOR Primary Care Unavailable PROVIDER, UNKNOWN Consulting Unavailable CRIS PERDOMO MD Admitting Unavailable CRIS PERDOMO MD Primary Care Unavailable CRIS PERDOMO MD Attending Unavailable UNGERER, FARTUN STEREO PLOTTER OPERATOR Referring Unavailable UNGERER, FARTUN STEREO PLOTTER OPERATOR Consulting Unavailable PROVIDER, UNKNOWN Consulting Unavailable UNGERER, FARTUN STEREO PLOTTER OPERATOR Consulting Unavailable FREDERICK, ANTONIO E Admitting Unavailable FREDERICK, ANTONIO E Primary Care Unavailable FREDERICK, ANTONIO E Attending Unavailable PROVIDER, UNKNOWN Consulting Unavailable UNGERER, FARTUN STEREO PLOTTER OPERATOR Consulting Unavailable ASTER, WILBER PAC Admitting Unavailable ASTER, WILBER PAC Primary Care Unavailable ASTER, WILBER PAC Attending Unavailable PROVIDER, UNKNOWN Consulting Unavailable ASTER, WILBER PAC Attending Unavailable UNGERER, FARTUN STEREO PLOTTER OPERATOR Consulting Unavailable ASTER, WILBER PAC Admitting Unavailable ASTER, WILBER PAC Primary Care Unavailable PROVIDER, UNKNOWN Consulting Unavailable UNGERER, FARTUN STEREO PLOTTER OPERATOR Attending Unavailable UNGERER, FARTUN STEREO PLOTTER OPERATOR Admitting Unavailable UNGERER, FARTUN STEREO PLOTTER OPERATOR Primary Care Unavailable UNGERER, FARTUN STEREO PLOTTER OPERATOR Consulting Unavailable PROVIDER, UNKNOWN Consulting Unavailable Ungerer STEREO PLOTTER OPERATOR-C, STEREO PLOTTER OPERATOR. Fartun Primary Care Provider Ungerer STEREO PLOTTER OPERATOR-C, STEREO PLOTTER OPERATOR. Fartun Referring Provider Alla STEREO PLOTTER OPERATOR-C, Yolis Attending Provider Alla STEREO PLOTTER OPERATOR-C, Yolis Referring Provider Dr. Low Dior DO Attending Provider Dr. Low Dior DO Other Provider Ungerer STEREO PLOTTER OPERATOR-C, STEREO PLOTTER OPERATOR. Fartun Primary Care Provider Ungerer STEREO PLOTTER OPERATOR-C, STEREO PLOTTER OPERATOR. Fartun Referring Provider Alla STEREO PLOTTER OPERATOR-C, Yolis Attending Provider Alla STEREO PLOTTER OPERATOR-C, Yolis Referring Provider Dr. Rex Garcia DO Attending Provider Dr. Rex Garcia DO Other Provider [phone] Rex Garcia DO Referring Provider [phone] Care Physician, No Primary Primary Care Provider Unavailable Ungerer STEREO PLOTTER OPERATOR-C, Fartun Primary Care Provider Alla STEREO PLOTTER OPERATOR-C, Yolis Attending Provider Ungerer STEREO PLOTTER OPERATOR-C, Fartun Referring Provider [phone] Dr. Rex Garcia DO Referring Provider [phone] Care Physician, No Primary Referring Provider Un available Ungerer STEREO PLOTTER OPERATOR-C, Fartun Attending Provider [phone] Ungerer STEREO PLOTTER OPERATOR-C, Fartun Primary Care Provider Ungerer STEREO PLOTTER OPERATOR-C, Fartun Referring Provider [phone] Gold STEREO PLOTTER OPERATOR-C, Yolis Attending Provider Care Physician, No Primary Primary Care Provider Unavailable Ungerer STEREO PLOTTER OPERATOR-C, Fartun Primary Care Provider CORINNA EMMANUEL Attending Unavailable Ungerer STEREO PLOTTER OPERATOR-C, Fartun Referring Provider [phone] Gold STEREO PLOTTER OPERATOR-C, Yolis Attending Provider Gold STEREO PLOTTER OPERATOR-C, Yolis Referring Provider Ungerer, Fartun Attending Unavailable Ungerer, Fartun Primary Care Unavailable Ungerer, Fartun Referring Unavailable Care Physician, No Primary Primary Care Unava ilable Ungerer, Fartun Referring Unavailable Gold STEREO PLOTTER OPERATOR, Yolis Attending Unavailable BrownYulyk Attending Unavailable Ungerer, Fartun Primary Care Unavailable Brown, Rex Consulting Unavailable Brown, Rex Referring Unavailable Friend, Low Attending Unavailable Ungerer, Fartun Primary Care Unavailable Ungerer, Fartun Referring Unavailable Friend, Low Referring Unavailable Herbert Carreno Attending Unavailable Ungerer, Fartun Primary Care Unavailable Care Physician, No Primary Primary Care Unava ilable Brown, Rex Attending Unavailable Brown, Rex Referring Unavailable Ungerer, Fartun Primary Care Unavailable Gold STEREO PLOTTER OPERATOR, Yolis Referring Unavailable Brown, Rex Attending Unavailable Friend, Low Attending Unavailable Friend, Low Consulting Unavailable Ungerer, Fartun Primary Care Unavailable Ungerer, Fartun Referring Unavailable Gold STEREO PLOTTER OPERATOR, Yolis Referring Unavailable Ungerer, Fartun Primary Care Unavailable Gold STEREO PLOTTER OPERATOR, Yolis Attending Unavailable Brown, Rex Attending Unavailable Care Physician, No Primary Primary Care Unava ilable Brown, Rex Referring Unavailable Gold STEREO PLOTTER OPERATOR, Yolis Attending Unavailable Ungerer, Fartun Primary Care Unavailable Ungerer, Fartun Referring Unavailable Gold STEREO PLOTTER OPERATOR, Yolis Attending Unavailable Gold STEREO PLOTTER OPERATOR, Yolis Referring Unavailable Ungerer, Fartun Primary Care Unavailable Gold STEREO PLOTTER OPERATOR, Yolis Attending Unavailable Ungerer, Fartun Primary Care Unavailable Gold STEREO PLOTTER OPERATOR, Yolis Referring Unavailable Gold STEREO PLOTTER OPERATOR, Yolis Attending Unavailable Friend, Low Attending Unavailable Ungerer, Fartun Referring Unavailable Ungerer, Fartun Attending Unavailable Ungerer, Fartun Primary Care Unavailable Ungerer, Fartun Referring Unavailable Ungerer, Fartun Referring Unavailable Ungerer, Fartun Primary Care Unavailable Gold STEREO PLOTTER OPERATOR, Yolis Attending Unavailable Ungerer, Fartun Referring Unavailable Ungerer, Fartun Primary Care Unavailable Gold STEREO PLOTTER OPERATOR, Yolis Attending Unavailable Ungerer, Fartun Primary Care Unavailable Ungerer, Fartun Referring Unavailable Rex Garcia Attending Unavailable Care Physician, No Primary Referring Unava ilable Ungerer, Fartun Attending Unavailable Ungerer, Fartun Primary Care Unavailable Ungerer STEREO PLOTTER OPERATOR-C, Fartun Primary Care Physician Ungerer STEREO PLOTTER OPERATOR-CTalibFartun Attending Physician Gold STEREO PLOTTER OPERATOR-C, Yolis Attending Physician [phone] Dr. Rex Garcia DO Attending Physician [phone] Allergies Allergy Classification Reported Allergen(s) Allergy Type Date of Onset Reaction(s) Facility (20 sources) azithromycin; Translations: [AZITHROMYCIN] Drug Allergy 10-27-19 Other: See Comments [facility] Repository (1 source) caffeine; Translations: [CAFFEINE] Drug Allergy [facility] Repository (1 source) Cephalosporins (Antibiotic); Translations: [CEPHALOSPORINS] Propensity to adverse reactions (disorder) [facility] Repository (1 source) ciprofloxacin; Translations: [CIPRO] Drug Allergy [facility] Repository (16 sources) citalopram; Translations: [CITALOPRAM] Drug Allergy 10-27-19 23 Other [facility] Repository (20 sources) Penicillins; Translations: [PENICILLINS] Propensity to adverse reactions (disorder) 06-05-20 14 Unknown [facility] Repository (2 sources) sulfamethoxazole / trimethoprim; Translations: [BACTRIM] Drug Allergy [facility] Repository (20 sources) tetracycline; Translations: [TETRACYCLINE] Drug Allergy 03-17-20 06 Other [facility] Repository (12 sources) BEE STING; Translations: [BEE STING] Propensity to adverse reactions (disorder) 06-05-20 14 Hives, Shortness of Breath [facility] Repository (1 source) MACROLIDE ANTIBIOTIC; Translations: [MACROLIDE ANTIBIOTIC] Propensity to adverse reactions (disorder) [facility] Repository (1 source) SULFA (SULFONAMIDE A; Translations: [SULFA (SULFONAMIDE A] Propensity to adverse reactions (disorder) [facility] Repository (16 sources) Cephalexin; Translations: [CEPHALEXIN] Drug Allergy 01-07-20 Other: See Comments [facility] (20 sources) Ciprofloxacin; Translations: [CIPROFLOXACIN] Drug Allergy 05-27-20 Other: See Comments [facility] Work Phone: (8 sources) Macrolides; Translations: [MACROLIDE ANTIBIOTICS] Drug Intolerance 05-27-20 GI Upset [facility] Work Phone: (8 sources) Sulfamethoxazole / Trimethoprim; Translations: [SULFAMETHOXAZOLE-T RIMETHOPRIM] Drug Allergy 05-27-20 Intolerance [facility] Work Phone: (19 sources) ALPRAZolam; Translations: [ALPRAZOLAM] Drug Allergy 10-27-19 Other: See Comments [facility] (15 sources) Contrast media; Translations: [RED DYE] Allergy to substance 10-27-19 Unknown [facility] (19 sources) Latex; Translations: [LATEX] Allergy to substance 10-27-19 Rash [facility] (13 sources) Sulfamethoxazole Drug Allergy 10-27-19 Other [facility] (13 sources) Trimethoprim Drug Allergy 10-27-19 Other [facility] (18 sources) venom-honey bee Allergy to substance 10-27-19 Anaphylaxis [facility] (6 sources) Citalopram; Translations: [CITALOPRAM HYDROBROMIDE] Drug Allergy 02-09-20 Other: See Comments [facility] (6 sources) Tetracycline (class of antibiotic); Translations: [TETRACYCLINES] Drug Allergy 02-09-20 Other: See Comments [facility] (1 source) ALPRAZolam Drug Allergy [facility] Repository (1 source) ALPRAZolam Drug Allergy [facility] Repository (1 source) bee venom Drug allergy (disorder) [facility] Repository (1 source) Cephalexin Drug Allergy [facility] Repository (1 source) Ciprofloxacin Drug Allergy [facility] Repository (1 source) Macrolides (Antibiotic) Drug allergy (disorder) [facility] Repository (1 source) Penicillins Drug allergy (disorder) [facility] Repository (8 sources) levoFLOXacin Drug Allergy 07-19-19 Diarrhea [facility] (5 sources) Macrolides (Antibiotic) Propensity to adverse reactions 12-11-19 PT UNSURE OF REACTION [facility] (6 sources) blue dye; Translations: [blue dye] Propensity to adverse reactions 12-11-19 black [facility] (1 source) BEE VENOM PROTEIN (HONEY BEE); Translations: [BEE VENOM PROTEIN (HONEY BEE)] Propensity to adverse reactions to drug (disorder) 02-09-20 [facility] Repository (1 source) ALPRAZolam Drug Allergy 04-03-20 [facility] Repository (1 source) Cephalexin Drug Allergy 04-03-20 [facility] Repository (1 source) Ciprofloxacin Drug Allergy 04-03-20 [facility] Repository (1 source) Latex Drug allergy (disorder) 04-03-20 [facility] Repository (1 source) levoFLOXacin Drug Allergy 04-03-20 [facility] Repository (1 source) Macrolides (Antibiotic) Drug allergy (disorder) 04-03-20 [facility] Repository (1 source) Sulfamethoxazole Drug Allergy 04-03-20 [facility] Repository (1 source) Trimethoprim Drug Allergy 04-03-20 [facility] Repository (1 source) venom-honey bee Drug allergy (disorder) 04-03-20 [facility] Repository Medications Current Medications Medication Drug Class(es) Dates Sig (Normalized) Sig (Original) [id number] 200 actuat albuterol 0.09 mg/actuat metered dose inhaler (13 sources) beta2-Adrenergic Agonist Start: 12-10-2024 Albuterol Sulfate (Ventolin Hfa) 90 mcg/actuation HFA aerosol inhaler Active 2 NMA INHALATION EVERY 6 HOURS as needed December 10, 2024 12:00am Complies with drug therapy Start: 07-19-2024 End: 09-18-2024 Albuterol Sulfate 90 mcg/act uation HFA aerosol inhaler Discontinued INHALATION July 19, 2024 1:00am September 18, 2024 2:43pm cyclobenzaprine hydrochloride 5 mg oral tablet (4 sources) Muscle Relaxant Start: 01-14-2025 take 1 tablet by mouth at bedtime as needed for muscle spasms Cyclobenzaprine 5 mg tablet Active 5 mg PO AT BEDTIME as needed for muscle spasm 20 0 January 14, 2025 12:00am Complies with drug therapy [id number] 0.3 ml EPINEPHrine 1 mg/ml auto-injector (16 sources) alpha-Adrenergic Agonist, beta-Adrenergic Agonist, Catecholamine Start: 12-10-2024 Epinephrine 0.3 mg/0.3 mL auto-injector Active 0.3 mg SC every 5 to 15 minutes as needed for anaphylaxis 2 0 December 10, 2024 3:43pm 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 May repeat dose x1 after 5-15 minutes Complies with drug therapy Start: 09-18-2024 End: 12-10-2024 Epinephrine 0.3 mg/0.3 mL au to-injector Discontinued 0.3 mg SC Q4H as needed for anaphylaxis 2 0 December 10, 2024 2:14pm December 10, 2024 3:45pm 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 Start: 11-03-2023 EPINEPHrine (E PIPEN) 0.3 mg/0.3 mL auto-injector 11/03/2023 Active ipratropium bromide 0.042 mg/actuat metered dose nasal spray (1 source) Anticholinergic Start: 12-10-2024 Ipratropium [place] 42 mcg (0.06 %) spray,non-aerosol Active 2 NMA INTRANASAL 3 to 4 times per day as needed for allergy symptoms 15 0 December 10, 2024 12:00am Rhinosinusitis Chronic sinusitis, unspecified administer into each nostril Complies with drug therapy Ipratropium [place] 42 mcg (0.06 %) spray,non-aerosol (3 sources) Start: 12-10-2024 Ipratropium [place] 42 mcg (0.06 %) spray,non-aerosol Active 2 NMA INTRANASAL 3 to 4 times per day as needed for allergy symptoms 15 December 10, 2024 12:00am Rhinosinusitis Chronic sinusitis, unspecified administer into each nostril naproxen 500 mg oral tablet (1 source) Nonsteroidal Anti-inflammatory Drug Start: 04-03-2025 take 1 tablet by mouth twice daily as needed Naproxen 500 mg tablet Active 500 mg PO TWICE A DAY as needed April 03, 2025 12:00am Complies with drug therapy ondansetron 4 mg disintegrating oral tablet (9 sources) Serotonin-3 Receptor Antagonist Start: 12-10-2024 End: 12-10-2024 take 1 tablet by mouth every eight hours as needed for nausea and vomiting Ondansetron 4 mg tablet,disintegratin g Active 4 mg PO Q8H as needed for nausea and vomiting 14 December 10, 2024 2:11pm Epigastric pain Epigastric pain Complies with drug therapy pseudoephedrine hydrochloride 30 mg oral tablet (4 sources) alpha-Adrenergic Agonist Start: 12-10-2024 take 2 tablets by mouth every four to six hours as needed for congestion Pseudoephedrine Hcl (Sudafed) 30 mg tablet Active 60 mg PO EVERY 4-6 HOURS as needed for nasal congestion 20 December 10, 2024 12:00am Rhinosinusitis Chronic sinusitis, unspecified DNExceed 4 doses/24h Complies with drug therapy tranexamic acid 650 mg oral tablet (1 source) Antifibrinolytic Agent Start: 04-03-2025 take 2 tablets by mouth three times daily Tranexamic Acid 650 mg tablet Active 1300 mg PO THREE TIMES A DAY April 03, 2025 12:00am Complies with drug therapy triamcinolone acetonide 1 mg/ml topical lotion (1 source) Corticosteroid Start: 12-10-2024 Triamcinolone Acetonide 0.1 % lotion Active 1 NMA TOPICAL TWICE A DAY as needed for rash 60 0 December 10, 2024 12:00am Atopic dermatitis in adult Atopic dermatitis, unspecified Complies with drug therapy Triamcinolone Acetonide 0.1 % lotion (3 sources) Start: 12-10-2024 Triamcinolone Acetonide 0.1 % lotion Active 1 NMA TOPICAL TWICE A DAY as needed for rash 60 0 December 10, 2024 12:00am Atopic dermatitis in adult Atopic dermatitis, unspecified Completed/Discontinued Medications Medication Drug Class(es) Dates Sig (Normalized) Sig (Original) ALPRAZolam 0.25 mg oral tablet (1 source) Benzodiazepine Start: 02-27-2010 End: 01-06-2022 alprazolam(XANAX 0.25 MG TAB) Take one(1) tablet three(3) times daily. 0 02/27/2010 01/06/2022 Discontinued (Other) Comment on above: Take one(1) tablet t hree(3) times daily. cholestyramine resin 4000 mg powder for oral suspension (8 sources) Bile Acid Sequestrant Start: 10-06-2023 End: 11-05-2023 Cholestyramine (With Sugar) 4 gram powder in packet Discontinued 4 g PO AT BEDTIME 30 30 0 October 06, 2023 12:00am November 04, 2023 12:00am November 05, 2023 12:13am administer w/meal; avoid other meds within 1hr before or 4-6hr after dose linezolid 600 mg oral tablet (3 sources) Oxazolidinone Antibacterial Start: 01-17-2025 End: 01-27-2025 take 1 tablet by mouth every twelve hours Linezolid 600 mg tablet Discontinued 600 mg PO Q12H 20 10 0 January 17, 2025 12:00am January 26, 2025 12:00am January 27, 2025 12:07am meclizine hydrochloride 25 mg oral tablet (20 sources) Antiemetic Start: 12-10-2024 End: 04-03-2025 take 1 tablet by mouth once daily as needed for dizziness Meclizine 25 mg tablet Discontinued 25 mg PO daily as needed for dizziness 30 3 December 10, 2024 2:10pm April 03, 2025 10:58am Vertigo Dizziness and giddiness Start: 06-24-2022 End: 09-18-2024 take 1 tablet by mouth twice daily as needed for dizziness Meclizine 25 mg tablet Discontinued 25 mg PO TWICE A DAY as needed for dizziness June 24, 2022 1:00am September 18, 2024 2:43pm pantoprazole 20 mg delayed release oral tablet (20 sources) Proton Pump Inhibitor Start: 07-11-2023 End: 11-25-2023 take 1 tablet by mouth once daily Pantoprazole (Protonix) 20 mg tablet,delayed release (DR/EC) Discontinued 20 mg PO DAILY 30 July 11, 2023 9:15am November 25, 2023 10:29am Start: 07-05-2023 End: 07-11-2023 take 1 tablet by mouth twice daily Pantoprazole (Protonix) 20 mg tablet,delayed release (DR/EC) Discontinued 20 mg PO TWICE A DAY 60 July 05, 2023 1:00am July 11, 2023 9:15am raNITIdine 150 mg oral tablet (1 source) Histamine-2 Receptor Antagonist Start: 2009 End: 01-06-2022 ranitidine hcl(ZANTAC 150 MG TAB) Take one(1) tablet daily. 0 2009 01/06/2022 Discontinued (Other) Comment on above: Take one(1) tablet d aily. rifAXIMin 550 mg oral tablet (8 sources) Rifamycin Antibacterial Start: 10-06-2023 End: 10-20-2023 take 1 tablet by mouth three times daily Rifaximin (Xifaxan) 550 mg tablet Discontinued 550 mg PO THREE TIMES A DAY 42 14 0 October 06, 2023 12:00am October 19, 2023 12:00am October 20, 2023 12:06am sucralfate 100 mg/ml oral suspension (20 sources) Aluminum Complex Start: 06-28-2023 End: 07-05-2023 take 1 mL by mouth before mealtime Sucralfate (Carafate) 100 mg/mL suspension Discontinued 10 mL PO before meals 1000 0 June 28, 2023 1:00am July 05, 2023 1:31pm Start: 06-28-2023 End: 07-05-2023 take 1 mL by mouth before mealtime Sucralfate (Carafate) 100 mg/mL suspension Discontinued 10 ML PO before meals 1000 June 28, 2023 1:00am July 05, 2023 1:31pm Start: 06-15-2022 End: 10-26-2022 take 1 tablet by mouth at bedtime Sucralfate (Carafate) 1 gram tablet Discontinued 1 g PO before meals and at bedtime June 15, 2022 1:00am October 26, 2022 7:06am traZODone hydrochloride 50 mg oral tablet (1 source) Serotonin Reuptake Inhibitor Start: 02-27-2010 End: 01-06-2022 TRAZODONE 50 MG TAB Take one(1) tablet at bedtime. 0 02/27/2010 01/06/2022 Discontinued (Other) Comment on above: Take one(1) tablet a t bedtime. Problems Active Problems Problem Classification Problem Date Documented Date Episodic/Chronic Allergic reactions (5 sources) Adult atopic dermatitis; Translations: [Atopic dermatitis, unspecified] Onset: 12-13-2024 12-10-2024 Chronic Anxiety disorders (9 sources) Anxiety state; Translations: [Generalized anxiety disorder] Onset: 06-06-2006 06-06-2006 Chronic Endometriosis (1 source) Uterine adenomyosis; Translations: [Adenomyosis of the uterus] 02-02-2024 Chronic Esophageal disorders (3 sources) Gastro-esophageal reflux disease without esophagitis; Translations: [Cavazos's esophagus without dysplasia] Onset: 07-02-2024 Chronic Fever of unknown origin (2 sources) Fever, unspecified; Translations: [Fever, unspecified] Onset: 07-02-2024 Episodic Genitourinary congenital anomalies (5 sources) Uterus arcuatus; 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] Onset: 02-02-2024 02-02-2024 Chronic Genitourinary symptoms and ill-defined conditions (19 sources) Polyuria; Translations: [Polyuria] Onset: 06-06-2006 06-06-2006 Episodic Immunity disorders (9 sources) Pulmonary sarcoidosis; 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] 09-28-2024 Chronic Comment on above: Confirmed on EBUS Ap ril 2024 Immunizations and screening for infectious disease (3 sources) Patient encounter status; Translations: [Encounter for screening for human papillomavirus (HPV)] Episodic Menstrual disorders (3 sources) Menometrorrhagia; Translations: [Excessive and frequent menstruation with irregular cycle] 01-31-2024 Chronic Other and unspecified benign neoplasm (1 source) Osteochondroma of pelvis; Translations: [Benign neoplasm of pelvic bones, sacrum and coccyx] Episodic Other connective tissue disease (1 source) Disorder of tendon; Translations: [Unspecified disorder of synovium and tendon, unspecified thigh] Episodic Other lower respiratory disease (13 sources) Pleuritic pain; Translations: [Pleurodynia] 09-21-2022 Episodic Other lower respiratory disease (18 sources) Nodule of lung; Translations: [Solitary pulmonary nodule] 10-26-2022 Episodic Other lower respiratory disease (1 source) Pleurodynia; Translations: [Painful respiration] 09-21-2022 Episodic Other lower respiratory disease (3 sources) Solitary pulmonary nodule; Translations: [Solitary pulmonary nodule] Onset: 02-15-2025 09-21-2022 Episodic Other lower respiratory disease (15 sources) Cough; Translations: [Cough] 05-08-2024 Episodic Other screening for suspected conditions (not mental disorders or infectious disease) (1 source) Cancer cervix screening status; Translations: [Encounter for screening for malignant neoplasm of cervix] Episodic Other upper respiratory infections (8 sources) Chronic sinusitis, unspecified; Translations: [Rhinosinusitis] Onset: 12-13-2024 12-10-2024 Chronic Residual codes; unclassified (2 sources) Pain; Translations: [Pain, unspecified] Episodic Residual codes; unclassified (1 source) Pain, unspecified; Translations: [Pain] Onset: 05-27-2022 Episodic Residual codes; unclassified (1 source) Acquired absence of other specified parts of digestive tract; Translations: [Acquired absence of other specified parts of digestive tract] Onset: 07-02-2024 Episodic Spondylosis; intervertebral disc disorders; other back problems (8 sources) Low back pain; Translations: [Low back pain] 01-14-2025 Episodic Substance-related disorders (20 sources) Nicotine dependence; Translations: [Nicotine dependence, cigarettes, uncomplicated] Onset: 07-02-2024 06-24-2022 Chronic Unclassified (1 source) Unknown / UNK(Unknown) Onset: 06-05-2014 Unclassified (1 source) Low back pain, unspecified; Translations: [Low back pain, unspecified] Onset: 01-14-2025 Unclassified (1 source) Cough, unspecified; Translations: [Cough, unspecified] Onset: 05-30-2024 Viral infection (1 source) COVID-19; Translations: [COVID-19] Onset: 07-02-2024 Past or Other Problems Problem Classification Problem Date Documented Date Episodic/Chronic Abdominal pain (20 sources) Epigastric pain; Translations: [Epigastric pain] Onset: 07-16-2024 08-23-2022 Episodic Administrative/social admission (7 sources) First encounter by subject; Translations: [Persons encountering health services in other specified circumstances] Onset: 12-13-2024 12-10-2024 Episodic Allergic reactions (7 sources) Allergy status to other antibiotic agents status; Translations: [Allergy status to other drugs, medicaments and biological substances status] Onset: 07-02-2024 12-10-2024 Episodic Conditions associated with dizziness or vertigo (14 sources) Dizziness and giddiness; Translations: [Dizziness and giddiness] Onset: 04-25-2006 04-25-2006 Episodic Lymphadenitis (16 sources) Mediastinal lymphadenopathy; Translations: [Localized enlarged lymph nodes] Onset: 09-24-2024 08-09-2024 Episodic Other female genital disorders (5 sources) Cyst of uterine adnexa; Translations: [Other noninflammatory disorders of ovary, fallopian tube and broad ligament] Onset: 02-02-2024 02-02-2024 Episodic Other lower respiratory disease (1 source) Chronic cough; Translations: [Chronic cough] Onset: 09-17-2024 Episodic Other lower respiratory disease (1 source) Other nonspecific abnormal finding of lung field; Translations: [Other nonspecific abnormal finding of lung field] Onset: 08-31-2024 Episodic Other non-traumatic joint disorders (1 source) Pain in left knee; Translations: [Pain in left knee] Onset: 08-29-2023 Episodic Ovarian cyst (5 sources) Cyst of right ovary; Translations: [Unspecified ovarian cyst, right side] Onset: 02-02-2024 02-02-2024 Episodic Residual codes; unclassified (9 sources) Disturbance in sleep behavior; Translations: [Sleep disorder, unspecified] Onset: 06-06-2006 06-06-2006 Episodic Sprains and strains (12 sources) Sprain of foot; Translations: [Unspecified sprain of unspecified foot, initial encounter] Onset: 2009 2009 Episodic Syncope (6 sources) Syncope and collapse; Translations: [Syncope and collapse] Onset: 06-06-2006 Resolved: 03-23-2016 03-23-2016 Episodic Unclassified (1 source) EARACHE Onset: 06-05-2014 Results Test Name Value Interpretation Reference Range Facility Pulmonary Visit Reporton Pulmonary Visit Report [facility] Pulmonary Medicine [address] [place] [address] OFFICE VISIT Date of Service: 04/03/25 MR#: [id number] Acct: [id number] Name: MARY LANDAVERDE Rep #: [id number] : 1980 Provider: Dr. Rex Garcia, DO Age/Sex: 44/F Location: [facility] Status: Signed Assessment and Plan Assessment and Plan (1) Nicotine dependence, cigarettes, uncomplicated: Status: Chronic Plan: Tobacco cessation counseling was once again provided. (2) Sarcoidosis of lung: Status: Chronic Comment: Confirmed on EBUS September 21, 2024 Plan: No acute issues at the present time. Recommend yearly eye examination. (3) Lung nodule: Status: Chronic Plan: The patient has had stable bilateral pulmonary nodules dating back to June 2022, the largest of which was approximately 7 mm in size. Given that the patient has had [address] scans demonstrating overall stability, I do not feel an indication to proceed with additional chest imaging at this time. HPI HPI Comments Details: The patient is a 44-year-old female who presents to the clinic today for a routine scheduled follow- up office visit. If you recall, the patient initially presented to our office in June 2022 for the evaluation of lung nodules. The patient has a smoking history of approximately 10 pack years and continues to smoke 0.5 packs of cigarettes per day. She did not grow up in a smoking household. She has never previously been diagnosed with asthma or COPD. The patient is currently employed at [employer]. Previously, the patient was suffering from abdominal pain, for which a CT abdomen/pelvis was obtained in January 2022. That imaging study demonstrated two small pulmonary nodules in the left lower lobe, the largest of which measured approximately 6 mm in size. A dedicated chest CT without contrast was then completed in June 2022. That imaging study demonstrated continued evidence of stable bilateral pulmonary nodules, the largest of which measured 7 mm in size. Since that time, the patient has had 3 [address]s, all of which have demonstrated stability in the number and size of the pulmonary nodules. In August 2024, the patient had a PET scan completed which demonstrated hypermetabolic lymph nodes within the mediastinum and bilateral hilar regions. Accordingly, the patient underwent an EBUS which demonstrated multinucleated giant cells suggestive of sarcoidosis. Today, the patient reported overall stability in her breathing quality. She does experience occasional episodes of wheezing. While she does have access to an albuterol rescue inhaler, she has not utilized the medication in an attempt to achieve symptom relief. The patient has not yet had a yearly eye examination. She is not interested in an influenza vaccination. Her weight and appetite have been stable. She denies any fevers, chills or night sweats. Intake Vital Signs 01/14/25 12:44 04/03/25 09:22 Height 5 ft 9 in 5 ft 9 in Weight: 178 lb 6 oz BMI 26.3 BP 132/72 H Blood Pressure Location Lt brachial Position Sitting Respiration 18 Pulse 74 Pulse Source Monitor Temp 97.8 F Temperature Source Temporal Artery Pulse Oximetry (%) 98 Oxygen Delivery Method room air Intake Visit Reasons: 9 M Track Liner Operator Required: No Accompanied by: Self Is patient in pain?: No Allergies alprazolam (From Xanax) Allergy (Intermediate, Verified 04/03/25 10:56) Other azithromycin Allergy (Intermediate, Verified 04/03/25 10:56) Other ciprofloxacin Allergy (Intermediate, Verified 04/03/25 10:56) Other citalopram Allergy (Intermediate, Verified 04/03/25 10:56) Other latex Allergy (Intermediate, Verified 04/03/25 10:56) Other Penicillins Allergy (Intermediate, Verified 04/03/25 10:56) Other sulfamethoxazole (From Bactrim) Allergy (Intermediate, Verified 04/03/25 10:56) Other tetracycline Allergy (Intermediate, Verified 04/03/25 10:56) Other trimethoprim (From Bactrim) Allergy (Intermediate, Verified 04/03/25 10:56) Other venom-honey bee Allergy (Intermediate, Verified 04/03/25 10:56) Other cephalexin (From Keflex) Adverse Reaction (Unknown, Verified 04/03/25 10:56) PT UNSURE OF REACTION Macrolide Antibiotics Adverse Reaction (Unknown, Verified 04/03/25 10:56) PT UNSURE OF REACTION blue dye Adverse Reaction (Verified 04/03/25 10:56) black levofloxacin Adverse Reaction (Verified 04/03/25 10:56) Diarrhea Medications ???Medication ???Instructions ???Recorded ???Confirmed ???Type albuterol sulfate 90 mcg/actuation 2 puff inhalation Q6H PRN 04/03/25 History aerosol inhaler (Ventolin HFA) epinephrine 0.3 mg/0.3 mL 0.3 mg (0.3 mL) subcut Q5-15M PRN 12/10/24 04/03/25 Rx injection, auto-injector anaphylaxis #2 ea ipratropium bromide 42 (more content not included)... Normal [facility] Chest without Contraston Chest without Contrast [facility] Imaging Services [address] [place] [address] Chest without Contrast MR#: [id number] Acct: [id number] Name: MARY LANDAVERDE Rep #: [id number] : 1980 F 44 From: Abdelrahman vazquez MD PCP: Fartun Oneal NP-C Status: REG CLI Study: Chest without Contrast Date of Exam: 02/11/25 Exam# [id number] Ordering Dr: Yolis Gold NP STEREO PLOTTER OPERATOR-C PROCEDURE: CHEST WITHOUT CONTRAST 02/11/2025 REASON FOR EXAM: 7 MM NODULE IN SMOKER Current smoker. Patient has smoked half a pack per day. History of sarcoidosis. Shortness of breath. TECHNIQUE: Chest CT without contrast. Coronal and Sagittal reconstruction series were provided. One or more dose reduction techniques were used (e.g., Automated exposure control, adjustment of the mA and/or kV according to patient size, use of iterative reconstruction technique RADIATION DOSE SUMMARY: CTDlvol: 9.89 mGy DLP: 353.51 mGycm COMPARISON: Prior study dated August 07, 2024. FINDINGS: Hardware: None Lymph nodes: Small benign-appearing bilateral axillary lymph nodes. Heart and Vasculature: The heart is not enlarged. Atherosclerotic calcifications of the thoracic aorta. Thoracic aorta and pulmonary arteries have normal contours; noncontrast technique limits evaluation. Coronary Artery Calcifications: Absent Lungs and Airways: Stable small bilateral pulmonary nodules. The largest measures 6.8 mm in the anterior aspect of the left lower lobe. Stable mild scarring at the left lung base. Pleura: No pleural effusion. Upper Abdomen: Unremarkable Bones: Degenerative changes of the thoracic spine. CT/Chest without Contrast IMPRESSION: Coronary artery calcification (CAC) is is absent Stable examination. 12 month follow-up recommended. 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 Menses started today and bleeding is heavy. No c/o of saturating a pad in less than hour. Does not want to go to the ED for the pain and stated that the pain is typically the worse the first few days of her menses and just deals with the pain. States pain today is the worst pain she has experienced during menses. Previous ultrasound mentioned suggestive of adenomyosis. Patient states that she cannot take ibuprofen d/t stomach issues. Has not taken anything for her pain and asking for recommendations or what medications to take to relieve her pain since she cannot take ibuprofen. Pt. Has appointment to discuss treatment option on 02/07/25. Corinna Emmanuel MD 02/01/2025 11:16 AM Signed Can try extra strength tylenol and heating pad. Tens unit is sometimes helpful. She can also get the pain patches for period cramps. They should be available at any pharmacy Corinna Hearn RN 02/01/2025 11:55 AM Signed Left message for patient to call office. BOBO De La Cruz Teresa, RN 02/01/2025 12:55 PM Signed Patient given message Allergies As of Date: 02/01/2025 Noted Allergy Reaction BEE VENOM PROTEIN (HONEY BEE) 02/08/2023 10 - Anaphylaxis CEPHALEXIN 01/06/2022 14 - Other: See Comments Comments: GI bleed PENICILLINS 06/05/2014 16 - Unknown AZITHROMYCIN 02/08/2023 14 - Other: See Comments BACTRIM (SULFAMETHOXAZOLE-TRIMETH *05/27/2022 5 - Intolerance BEE STING 06/05/2014 4 - Hives 12 - Shortness of Breath CIPROFLOXACIN 05/27/2022 14 - Other: See Comments Comments: Not sure CITALOPRAM HYDROBROMIDE 02/08/2023 14 - Other: See Comments LATEX 02/08/2023 2 - Rash MACROLIDE ANTIBIOTICS 05/27/2022 8 - GI Upset RED DYE 02/08/2023 16 - Unknown TETRACYCLINE 03/17/2006 Comments: unknown -childhood TETRACYCLINES 02/08/2023 14 - Other: See Comments Comments: Was a baby unknown allergy XANAX (ALPRAZOLAM) 02/08/2023 14 - Other: See Comments Comments: Dizziness Date Reviewed: 02/08/2024 Reviewed by: Corinna Emmanuel MD - Fully Assessed Reason for Visit: Menstrual Problem [67] Prescriptions as of 02/01/2025 - EPINEPHrine (EPIPEN) 0.3 mg/0.3 mL auto-injector Problem List As Of Date 02/01/2025 Noted Resolved DIZZINESS AND GIDDINESS [R42] 04/25/2006 Syncope and collapse [R55] 06/06/2006 03/23/2016 ANXIETY STATE NOS [F41.1] 06/06/2006 SLEEP DISTURBANCE NOS [G47.9] 06/06/2006 POLYURIA [R35.89] 06/06/2006 Sprain and Strain of Unspecified Site of Foot [*2009 Ovarian cyst, right [N83.201] 02/02/2024 Paratubal cyst [N83.8] 02/02/2024 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] 02/02/2024 Encounter Status:Closed by ANT HOSKINS on 02/01/25 [facility] Bilirubin Test strip Ql (U)O rdered By: Fartun Oneal on 01-14-2025 Bilirubin Ql (U) Negative Negative [facility] Internal Medicine Office Vis itosharif 01-14-2025 Internal Medicine Office Visit [facility] [address] [place] [address] [place] [address] OFFICE VISIT Date of Service: 01/14/25 MR#: [id number] Acct: [id number] Name: MARY LANDAVERDE Rep #: [id number] : 1980 Provider: ROBBY jerome Age/Sex: 44/F Location: [facility] Status: Signed Intake Vital Signs 12/10/24 13:43 01/14/25 12:44 Height 5 ft 9 in 5 ft 9 in Weight: 177 lb 176 lb 6 oz BMI 26.1 26.0 BP 124/82 H 120/78 Blood Pressure Location Lt brachial Rt brachial Position Sitting Sitting Respiration 18 16 Pulse 72 79 Pulse Source Monitor Monitor Temp 97.5 F L 97.5 F L Temp Source Temporal Temporal Pulse Oximetry (%) 95 97 Oxygen Delivery Method room air room air Intake Visit Reasons: POSSIBLE UTI - NOT SLEEPING Chief Complaint: uti Track Liner Operator Required: No Accompanied by: Self Is patient in pain?: No Allergies alprazolam (From Xanax) Allergy (Intermediate, Verified 01/14/25 12:46) Other azithromycin Allergy (Intermediate, Verified 01/14/25 12:46) Other ciprofloxacin Allergy (Intermediate, Verified 01/14/25 12:46) Other citalopram Allergy (Intermediate, Verified 01/14/25 12:46) Other latex Allergy (Intermediate, Verified 01/14/25 12:46) Other Penicillins Allergy (Intermediate, Verified 01/14/25 12:46) Other sulfamethoxazole (From Bactrim) Allergy (Intermediate, Verified 01/14/25 12:46) Other tetracycline Allergy (Intermediate, Verified 01/14/25 12:46) Other trimethoprim (From Bactrim) Allergy (Intermediate, Verified 01/14/25 12:46) Other venom-honey bee Allergy (Intermediate, Verified 01/14/25 12:46) Other cephalexin (From Keflex) Adverse Reaction (Unknown, Verified 01/14/25 12:46) PT UNSURE OF REACTION Macrolide Antibiotics Adverse Reaction (Unknown, Verified 01/14/25 12:46) PT UNSURE OF REACTION blue dye Adverse Reaction (Verified 01/14/25 12:46) black levofloxacin Adverse Reaction (Verified 01/14/25 12:46) Diarrhea Medications ???Medication ???Instructions ???Recorded ???Confirmed ???Type albuterol sulfate 90 mcg/actuation 2 puff inhalation Q6H PRN 01/14/25 History aerosol inhaler (Ventolin HFA) epinephrine 0.3 mg/0.3 mL 0.3 mg (0.3 mL) subcut Q5-15M PRN 12/10/24 01/14/25 Rx injection, auto-injector anaphylaxis #2 ea ipratropium bromide 42 mcg (0.06 2 spray intranasal TID-QID PRN 01/14/25 Rx %) nasal spray allergy symptoms #15 mL meclizine 25 mg tablet 25 mg PO QDAY PRN dizziness #30 01/14/25 Rx tabs ondansetron 4 mg disintegrating 4 mg PO Q8H PRN nausea and 5 01/14/25 Rx tablet vomiting #14 tabs pseudoephedrine HCl 30 mg tablet 60 mg (2 x 30 mg) PO Q4-6H PRN 01/14/25 Rx (Sudafed) nasal congestion #20 tabs triamcinolone acetonide 0.1 % 1 applic topical BID PRN rash #60 12/10/24 01/14/25 Rx lotion mL cyclobenzaprine 5 mg tablet 5 mg PO QHS PRN muscle spasm #20 0 01/14/25 01/14/25 Rx tabs Nurse's Note: frequency with urination and burning and having pain in back tail bone area [facility] Medical History IBS (irritable bowel syndrome) Rash Arthritis Easy bruising Back pain Syncope Smoker Shortness of breath on exertion Leg cramps History of pain when walking History of edema COVID Alcohol use Anxiety Lung nodules Gastric reflux Vertigo Hiatal hernia Polyp of colon Biliary dyskinesia Abdominal pain Surgical History S/P colonoscopy History of esophagogastroduodenoscop y (EGD) Hx of tubal ligation Hx of cholecystectomy Family History Mother Diabetes Asthma Heart disease Thyroid disorder Age related osteoporosis Arthritis Father Diabetes Asthma Hypertension Hyperlipidemia Duodenal ulcer disease Grandfather Myocardial infarction Social History adopted: No household members: significant other, children and other details: step daughter number of children: 2 current occupational status: employed 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 States she jus (more content not included)... Normal [facility] Ketones Test strip Ql (U)Ord ered By: Fartun Oneal on 01-14-2025 Ketones Ql (U) Negative Negative [facility] Microscopic analysis of urin e for red blood cells (RBC)Ordered By: Fartun Oneal on 01-14-2025 Microscopic analysis of urine for red blood cells (RBC) 0-5 SEEN /hpf 0-5 [facility] Mucus LM Ql (Urine sed)Order ed By: Fartun Oneal on 01-14-2025 Mucus Ql (Urine sed) 0 SEEN /hpf [facility] Nitrite Test strip Ql (U)Ord ered By: Fartun Oneal on 01-14-2025 Nitrite Ql (U) Negative Negative [facility] Protein Test strip Ql (U)Ord ered By: Fartun Oneal on 01-14-2025 Protein Ql (U) 15 mg/dl High Negative [facility] Squamous epithelial cells de tection in urine sediment by light microscopyOrdered By: Fartun Oneal on 01-14-2025 Epithelial cells.squamous LM Ql (Urine sed) 0-5 SEEN /hpf 5-10 [facility] Urinalysis, Completeon 01-14 BACTERIA 1+ /hpf Normal None Seen [facility] Comment on above: Order Comment: MAGEN CTOR TO SPECIFY Performed By: #### L 400.0001 #### [facility] [address] [place], [address] EPI,SQUAMOUS 0-5 SEEN Normal 5-10 [facility] Comment on above: Order Comment: MAGEN CTOR TO SPECIFY Performed By: #### L 400.0001 #### [facility] [address] [place], [address] RBC 0-5 SEEN Normal 0-5 [facility] Comment on above: Order Comment: MAGEN CTOR TO SPECIFY Performed By: #### L 400.0001 #### [facility] [address] [place], [address] WBC 10-25 SEEN Normal 0-5 [facility] Comment on above: Order Comment: MAGEN CTOR TO SPECIFY Performed By: #### L 400.0001 #### [facility] [address] [place], [address] Mucus Ql (Urine sed) 0 SEEN Normal [facility] Comment on above: Order Comment: MAGEN CTOR TO SPECIFY Performed By: #### L 400.0001 #### [facility] [address] [place], [address] Urine clarityOrdered By: Jaja Oneal on 01-14-2025 Clarity (U) Clear Clear [facility] Urine color determinationOrd ered By: Fartun Oneal on 01-14-2025 Color (U) Yellow Yellow [facility] Urine glucose detectionOrder ed By: Fartun Oneal on 01-14-2025 Glucose Ql (U) Normal mg/dl Normal [facility] Urine leukocyte esterase det ection by dipstickOrdered By: Fartun Oneal on 01-14-2025 Leukocyte esterase Test strip Ql (U) 100 /ul High Negative [facility] Urine pHOrdered By: Fartun Oneal on 01-14-2025 pH (U) 6.0 [pH] 5.0 - 8.0 [facility] Urine sediment bacteria coun t by microscopy (number/high power field)Ordered By: Fartun Oneal on 01-14-2025 Bacteria LM.HPF (Urine sed) [#/Area] 1 /[HPF] None Seen [facility] Urine specific gravity measu rementOrdered By: Fartun Oneal on 01-14-2025 Specific gravity (U) [Rel density] 1.015 1.002-1.03 0 [facility] Urine urobilinogen measureme ntOrdered By: Fartun Oneal on 01-14-2025 Urobilinogen Ql (U) Normal mg/dl Normal [facility] White blood cell countOrdere d By: Fartun Oneal on 01-14-2025 White blood cell count 10-25 SEEN /hpf 0-5 [facility] Internal Medicine Office Vis jay 12-10-2024 Internal Medicine Office Visit [facility] [address] [place] [address] [address] [place] [address] OFFICE VISIT Date of Service: 12/10/24 MR#: [id number] Acct: [id number] Name: MARY LANDAVERDE Rep #: [id number] : 1980 Provider: ROBBY jerome Age/Sex: 43/F Location: [facility] Status: Signed Intake Vital Signs 09/28/24 07:57 12/10/24 13:43 Height 5 ft 9 in 5 ft 9 in Weight: 180 lb 177 lb BMI 26.6 26.1 BP 119/71 124/82 H Blood Pressure Location Lt brachial Lt brachial Position Sitting Sitting Respiration 18 18 Pulse 83 72 Pulse Source Monitor Monitor Temp 97.4 F L 97.5 F L Temp Source Temporal Pulse Oximetry (%) 99 95 Oxygen Delivery Method room air room air Intake Visit Reasons: EST NEW PT - PT IN [place] Track Liner Operator Required: No Is patient in pain?: No Allergies alprazolam (From Xanax) Allergy (Intermediate, Verified 12/10/24 13:14) Other azithromycin Allergy (Intermediate, Verified 12/10/24 13:14) Other ciprofloxacin Allergy (Intermediate, Verified 12/10/24 13:14) Other citalopram Allergy (Intermediate, Verified 12/10/24 13:14) Other latex Allergy (Intermediate, Verified 12/10/24 13:14) Other Penicillins Allergy (Intermediate, Verified 12/10/24 13:14) Other sulfamethoxazole (From Bactrim) Allergy (Intermediate, Verified 12/10/24 13:14) Other tetracycline Allergy (Intermediate, Verified 12/10/24 13:14) Other trimethoprim (From Bactrim) Allergy (Intermediate, Verified 12/10/24 13:14) Other venom-honey bee Allergy (Intermediate, Verified 12/10/24 13:14) Other cephalexin (From Keflex) Adverse Reaction (Unknown, Verified 12/10/24 13:28) PT UNSURE OF REACTION Macrolide Antibiotics Adverse Reaction (Unknown, Verified 12/10/24 13:28) PT UNSURE OF REACTION blue dye Adverse Reaction (Verified 12/10/24 13:29) black levofloxacin Adverse Reaction (Verified 12/10/24 13:14) Diarrhea Medications ???Medication ???Instructions ???Recorded ???Confirmed ???Type albuterol sulfate 90 mcg/actuation 2 puff inhalation Q6H PRN 12/10/24 History aerosol inhaler (Ventolin HFA) epinephrine 0.3 mg/0.3 mL 0.3 mg (0.3 mL) subcut Q4H PRN 12/10/24 Rx injection, auto-injector anaphylaxis #2 ea ipratropium bromide 42 mcg (0.06 2 spray intranasal TID-QID PRN 12/10/24 Rx %) nasal spray allergy symptoms #15 mL meclizine 25 mg tablet 25 mg PO QDAY PRN dizziness #30 12/10/24 Rx tabs ondansetron 4 mg disintegrating 4 mg PO Q8H PRN nausea and 5 12/10/24 Rx tablet vomiting #14 tabs pseudoephedrine HCl 30 mg tablet 60 mg (2 x 30 mg) PO Q4-6H PRN 12/10/24 Rx (Sudafed) nasal congestion #20 tabs triamcinolone acetonide 0.1 % 1 applic topical BID PRN rash #60 12/10/24 12/10/24 Rx lotion mL Have you fallen in the past year?: No Nurse's Note: Pt needs epi pen refilled. PFSH Medical History (Updated 12/10/24 @ 15:31 by ROBBY Anthony) IBS (irritable bowel syndrome) Rash Arthritis Easy bruising Back pain Syncope Smoker Shortness of breath on exertion Leg cramps History of pain when walking History of edema COVID Alcohol use Anxiety Lung nodules Gastric reflux Vertigo Hiatal hernia Polyp of colon Biliary dyskinesia Abdominal pain Surgical History (Updated 12/10/24 @ 13:35 by Kathe Boland MA) S/P colonoscopy History of esophagogastroduodenoscop y (EGD) Hx of tubal ligation Hx of cholecystectomy Family History (Updated 12/10/24 @ 13:38 by Kathe Boland MA) Mother Diabetes Asthma Heart disease Thyroid disorder Age related osteoporosis Arthritis Father Diabetes Asthma Hypertension Hyperlipidemia Duodenal ulcer disease Grandfather Myocardial infarction Social History (Updated 12/10/24 @ 13:41 by Kathe Boland MA) adopted: No household members: significant other, children and other details: step daughter number of children: 2 service: No current occupational status: employed 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 pets and animals: Yes pets and animals: dog(s) sexually active: Yes do you think of yourself as: straight/heterosexual current gender identity: female Smoking Status: Current every day smoker (Patient did smoke today.) tobacco type: cigarettes Tobacco: How many years used: 20 alcohol intake: current alcohol intake frequency: a few times a month substance use type: does not use caffeine: Yes (3-4) Type: coffee and tea what type of physical activity do you participate in: walking frequency: daily do you feel safe at home: Yes HPI HPI Details: MARY LANDAVERDE, is a 43 F who presents to the office today to establish care with a new provider. Acute visit as well for cough. Pt went to the urgent care in (more content not included)... Normal [facility] Pulmonary Visit Reporton Pulmonary Visit Report [facility] [address] [place] [address] OFFICE VISIT Date of Service: 09/28/24 MR#: [id number] Acct: [id number] Name: MARY LANDAVERDE Rep #: [id number] : 1980 Provider: ROBBY Gold Age/Sex: 43/F Location: [facility] Status: Signed Assessment and Plan Assessment and Plan (1) Sarcoidosis of lung: Status: Acute Comment: Confirmed on EBUS September 21, 2024 Plan: Recently identified. The patient is asymptomatic at this time and does not require any treatment. I did discuss with her that typically initial medical management would be prednisone. The patient states I hate prednisone, it makes me been it hurts my belly. We will continue to monitor. She has been encouraged contact the office if she develops any shortness of breath or if cough progresses. She has a previously scheduled follow-up with Dr. Garcia in February, which we will keep. (2) Nicotine dependence, cigarettes, uncomplicated: Status: Chronic Plan: Complicates exam, plan, care and prognosis. Continue to encourage complete smoking cessation. The patient does not currently have COPD. Ongoing smoking increases the probability of developing COPD. Anticipate PFT at least annually. HPI FOLLOW UP Chief Complaint: Test results HPI Comments Details: This patient presents to the office today to discuss recent test results. She is ambulatory and currently on room air. She has not recently been seen in the ED or urgent care for any respiratory problems. She has not been prescribed any antibiotics or prednisone for breathing issues. She only experiences shortness of breath on overexertion. She has a nonproductive cough that occurs nightly. She denies any hemoptysis. She denies any wheezing, chest tightness or palpitations. She has not had any fever, chills or body aches. She continues to smoke cigarettes. Currently smoking 5 to 10 cigarettes daily. She readily admits that she is not interested in smoking cessation. Test results personally reviewed with the patient: Pathology from endobronchial ultrasound-guided biopsy completed on September 21, 2024. Tissue is negative for malignant cells. Tissue is consistent with multinucleated cell, suggestive of sarcoidosis. Intake Vital Signs 08/31/24 11:55 09/28/24 07:57 Height 5 ft 9.5 in 5 ft 9 in Weight: 180 lb BMI 26.6 BP 119/71 Blood Pressure Location Lt brachial Position Sitting Respiration 18 Pulse 83 Pulse Source Monitor Temp 97.4 F L Temperature Source Temporal Artery Pulse Oximetry (%) 99 Oxygen Delivery Method room air Intake Visit Reasons: FOLLOW UP Chief Complaint: test results Track Liner Operator Required: No Accompanied by: Self Allergies alprazolam (From Xanax) Allergy (Intermediate, Verified 09/28/24 11:03) Other azithromycin Allergy (Intermediate, Verified 09/28/24 11:03) Other ciprofloxacin Allergy (Intermediate, Verified 09/28/24 11:03) Other citalopram Allergy (Intermediate, Verified 09/28/24 11:03) Other latex Allergy (Intermediate, Verified 09/28/24 11:03) Other Penicillins Allergy (Intermediate, Verified 09/28/24 11:03) Other red dye Allergy (Intermediate, Verified 09/28/24 11:03) Other sulfamethoxazole (From Bactrim) Allergy (Intermediate, Verified 09/28/24 11:03) Other tetracycline Allergy (Intermediate, Verified 09/28/24 11:03) Other trimethoprim (From Bactrim) Allergy (Intermediate, Verified 09/28/24 11:03) Other venom-honey bee Allergy (Intermediate, Verified 09/28/24 11:03) Other levofloxacin Adverse Reaction (Verified 09/28/24 11:03) Diarrhea Medications ???Medication ???Instructions ???Recorded ???Confirmed ???Type epinephrine 0.3 mg/0.3 mL 0.3 mg subcut Q4H PRN anaphylaxis 09/18/24 09/28/24 History injection, auto-injector [facility] Medical History Rash Arthritis Easy bruising Back pain Syncope Smoker Shortness of breath on exertion Leg cramps History of pain when walking History of edema COVID Alcohol use Anxiety Lung nodules Gastric reflux Vertigo Hiatal hernia Polyp of colon Biliary dyskinesia Abdominal pain Surgical History History of esophagogastroduodenoscop y (EGD) Hx of tubal ligation Hx of cholecystectomy Family History Mother Diabetes Asthma Father Diabetes Asthma Social History Smoking Status: Current every day smoker (Patient did smoke today.) tobacco type: cigarettes alcohol intake: current substance use type: does not use Exam Const Constitutional: Positive conversant, cooperative, in no acute respirat (more content not included)... Normal [facility] Bronchoscopy Reporton 2024 Bronchoscopy Report [facility] Medical Records Department [address] [place] [address] Bronchoscopy Report MR#: [id number] Acct: [id number] Name: MARY LANDAVERDE Rep #: [id number] : 1980 43 From: Rex Garcia DO PCP: Care Physician,No Primary Status:[facility] Patient Name: Mary Landaverde Procedure Date: 09/21/2024 11:38 AM Date of : 1980 Age: 43 Procedure: Bronchoscopy Indications: Mediastinal adenopathy Providers: Rex Garcia MD Referring MD: No Primary Care Physician Medicines: See the Anesthesia note for documentation of the administered medications Complications: No immediate complications Procedure: Pre-Anesthesia Assessment: - A History and Physical has been performed. Patient meds and allergies have been reviewed. The risks and benefits of the procedure and the sedation options and risks were discussed with the patient. All questions were answered and informed consent was obtained. Patient identification and proposed procedure were verified prior to the procedure by the physician and the nurse in the procedure room. Mental Status Examination: alert and oriented. Airway Examination: normal oropharyngeal airway. Respiratory Examination: clear to auscultation. CV Examination: normal. ASA Grade Assessment: II - A patient with mild systemic disease. After reviewing the risks and benefits, the patient was deemed in satisfactory condition to undergo the procedure. The anesthesia plan was to use general anesthesia. Immediately prior to administration of medications, the patient was re-assessed for adequacy to receive sedatives. The heart rate, respiratory rate, oxygen saturations, blood pressure, adequacy of pulmonary ventilation, and response to care were monitored throughout the procedure. The physical status of the patient was re-assessed after the procedure. After I obtained informed consent, the scope was passed under direct vision. Throughout the procedure, the patient's blood pressure, pulse, and oxygen saturations were monitored continuously. The ultrasound bronchoscope was introduced through the mouth, via laryngeal mask airway and advanced to the tracheobronchial tree. The procedure was accomplished without difficulty. The patient tolerated the procedure well. Findings: The laryngeal mask airway is in good position. The vocal cords appear normal. The subglottic space is normal. The trachea is of normal caliber. The teofilo is sharp. The tracheobronchial tree was examined to at least the first subsegmental level. Bronchial mucosa and anatomy are normal; there are no endobronchial lesions, and no secretions. The scope was withdrawn and replaced with the EBUS bronchoscope to accomplish the ultrasound examination. Lymph Nodes: An endobronchial ultrasound endoscope was utilized to systematically examine the subcarinal mediastinum (level 7) and right hilar region (level 10R) in order to assist with guiding the biopsy needle. Lymph node sizing was performed via endobronchial ultrasound. Sampling by transbronchial needle aspiration was also performed using an Olympus ViziShot 2 21 gauge needle in the subcarinal mediastinum (level 7) and right hilar region (level 10R) and sent for routine cytology and flow cytometry. - The 7 (subcarinal) node was evaluated. Four samples with the needle were obtained. - The 10R (hilar) node was evaluated. Three samples with the needle were obtained. Impression: - Mediastinal adenopathy - The airway examination was normal. - Endobronchial ultrasound was performed. - Lymph node sampling was performed. Recommendation: - Await biopsy results. Procedure Code(s): --- Professional --- 95646, Bronchoscopy, rigid or flexible, including fluoroscopic guidance, when performed; with endobronchial ultrasound (EBUS) guided transtracheal and/or transbronchial sampling (eg, aspiration[s]/biopsy[ies] ), one or two mediastinal and/or hilar lymph node stations or structures Diagnosis Code(s): --- Professional --- R59.0, Localized enlarged lymph nodes CPT copyright 2021 [employer]. All rights reserved. The codes documented in this report are preliminary and upon marble worker review may be revised to meet current compliance requirements. DO Rex Sharma MD 09/21/2024 12:50:32 PM This report has been signed electronically. Number of Addenda: 0 Note Initiated On: 09/21/2024 11:38 AM 09/21/24 1250 Date Rex Garcia DO Cosigner Signature: Date (if indicated) CC: Dr. Rex Garcia DO; No Primary Care Physician Date Dictated: 09/21/24 113 Date Transcribed: Reach Lift Truck Driver: DB Signed [facility] IMMUNOPHENOTYPINGon 09-22-19 BKR DX CODE Use Ordering [facility] Comment on above: Performed By: #### I MMUNOPHENOTYPING #### [facility] (DEFAULT) [address] [address] Flow Interpreted by: Anika Thurman MD [facility] Comment on above: Performed By: #### I MMUNOPHENOTYPING #### [facility] (DEFAULT) [address] [address] IMMUNOPHENOTYPING FLOW See Scanned Result [facility] Comment on above: Performed By: #### I MMUNOPHENOTYPING #### [facility] (DEFAULT) [address] [address] SAMPLE TYPE Tissue/Fluid [facility] Comment on above: Performed By: #### I MMUNOPHENOTYPING #### [facility] (DEFAULT) [address] [address] MR/POSTOP.ANEon 09-21-2024 MR[facility]OP[facility] Medical Records Department [address] [place] [address] Anesthesia Postop Eval I 09/21/24 1257 MR#: [id number] Acct: [id number] Name: MARY LANDAVERDE SHARONA Rep #: [id number] : 1980 43 From: Meir Moraes CRNA PCP: Care Physician,No Primary Status:REG SDC Y Race: C Location: EN Anesthesia: Postop Eval I Current Vital Signs Temperature: 97 F Pulse Rate: 67 Blood Pressure: 96/56 Respiratory Rate: 16 Pulse Ox: 98 Assessment Airway patent: Yes Spontaneous unlabored respirations: Yes nausea: No Vomiting: No Anesthesia Complication: No Fluid Hydration Crystalloid volume administer (ml): 800 Total IV fluid infused: 800 Progress Note Anesthesia document: Postop Eval 1 completed: Yes 09/21/24 1258 Date Meir Moraes BARTACKER Cosigner Signature: Date CC: Signed Normal [facility] MR/SOQNUCPM0hu 09-21-2024 [facility] Medical Records Department [facility] [place] [address] Anesthesia Postop Eval II 09/21/24 1809 MR#: [id number] Acct: [id number] Name: MARY LANDAVERDE SHARONA Rep #: [id number] : 1980 43 From: Luciano Crespo MD PCP: Care Physician,No Primary Status:DEP SD Y Race: C Location: EN Anesthesia Postop Eval I Sum Postop Eval Completion status Anesthesia document: Postop Eval 1 completed: Yes Anesthesia Postop Eval I Summary Anesthesia Postop Eval I Summary: Anesthesia Postop Eval I: Assessment Summary Airway patent Yes 09/21/24 12:57 [email or web address] Spontaneous unlabored Yes 09/21/24 12:57 [email or web address] respirations Mental status nausea No 09/21/24 12:57 [email or web address] Vomiting No 09/21/24 12:57 [email or web address] Anesthesia Postop Eval I: Fluid Summary Crystalloid volume administer 800 09/21/24 12:57 [email or web address] (ml) Colloids volume administered ( ml) Blood Product volume administered (ml) Total IV fluid infused 800 09/21/24 12:57 [email or web address] Anesthesia Postop Eval I: Summary Notes Anesthesia Complication No 09/21/24 12:57 [email or web address] Anesthesia Complication Comment: Post-operative progress note Anesthesia: Postop Eval II Evaluation Mental status: Awake and Calm Pain Level: 1 nausea: No Vomiting: No Complications Anesthesia Complication: No 09/21/24 1809 Date Luciano Andrews Signature: Date CC: Signed Normal [facility] Special Stain Group IIon Special Stain Group II -------- Patient Age/Sex Location Account Attending Physician MARY LANDAVERDE 43/F EN [id number] Dr. Rex Garcia, DO Specimen: [id number] Received: 09/21/24 Status: CONRAD Pacheco Num: [id number] Spec Type: ASP OUT Subm Dr: Dr. Rex Garcia DO HEADER OPERATION: Endobronchial ultrasound PRE-OP DIAGNOSIS: Mediastinal lymphadenopathy TISSUE SUBMITTED: A1-4 - B1-3 - EBUS DIAGNOSIS CYTOLOGY A. EBUS, TBNA, site 7, cytology (smears x10, cellblock x1): * No malignant cells identified. * Lymphocytes with epithelioid histocytes and rare multinucleated cell, suggestive of sarcoidosis - see note. Note: The benign immunophenotyping by flow [facility] is noted. B. EBUS, TBNA, site 10R, cytology (smears x6, cellblock x1): * No malignant cells identified. COMMENT The specimen is evaluated at the time of biopsy by Dr. Leon. Rapid onset evaluation = A1- Benign respiratory epithelium and blood. A2- Benign respiratory epithelium and blood. A3- Benign respiratory epithelium and blood. A4- Lymphocytes present recommend flow. B1- Epithelial cells and amorphous material. B2- Epithelial cells. B3- Respiratory epithelium, mucus, amorphous material. CYTOLOGY STUDY Slides are reviewed. CYTOLOGY GROSS A1. Received labeled with the patient's name and and designated EBUS, TBNA, site 7 #1. The specimen consists of two stained smears. A2. Received labeled with the patient's name and and designated EBUS, TBNA, site 7 #2. The specimen consists of two stained smears. A3. Received labeled with the patient's name and and designated EBUS, TBNA, site 7 #3. The specimen consists of two stained smears. A4. Received labeled with the patient's name and and designated EBUS, TBNA, site 7 #4. The specimen consists of two stained smears. B1. Received labeled with the patient's name and and designated EBUS, TBNA, site 10R #5. The specimen consists of two stained smears. B2. Received labeled with the patient's name and and designated EBUS, TBNA, site 10R Patient Age/Sex Location Account Attending Physician MARY LANDAVERDE 43/F EN [id number] Dr. Rex Garcia, DO #6. The specimen consists of two stained smears. B3. Received labeled with the patient's name and and designated EBUS, TBNA, site 10R #7. The specimen consists of two stained smears. 09/21/2024 CPT: Signed (signature on file) Dr. Penny Leon MD 09/26/24 1138 Normal [facility] Comment on above: Performed By: #### P SSII #### [facility] [address] [place], [place], [id number] RODOLFO w/ Reflex Mult Confirmon 09-10-2024 ANTI-DNA (DS)AB TNP Normal [facility] Comment on above: Performed By: #### L 300.4310, L300.3900, L100.1900, L3100.5450, L505.7010, L3300.1200, L4600.0100 ####[facility] [address] [place], [place], [id number] ANTISCLERODERM TNP Normal [facility] Comment on above: Performed By: #### L 300.4310, L300.3900, L100.1900, L3100.5450, L505.7010, L3300.1200, L4600.0100 ####[facility] [address] [place], [place], [id number] ANCAon 09-03-2024 Atypical pANCA <1:20 Normal Neg:<1:20 [facility] Comment on above: Result Comment: The atypical pANCA pattern has been observed in a significant percentage of patients with ulcerative colitis, primary sclerosing cholangitis and autoimmune hepatitis. Performed By: #### L 300.4310, L300.3900, L100.1900, L3100.5450, L505.7010, L3300.1200, L4600.0100 ####[facility] [address] [place], [place], [phone](157) Cytoplasmic Ab <1:20 Normal Neg:<1:20 [facility] Comment on above: Performed By: #### L 300.4310, L300.3900, L100.1900, L3100.5450, L505.7010, L3300.1200, L4600.0100 ####[facility] [address] [place], [place], [phone]) Perinuclear Ab. <1:20 Normal Neg:<1:20 [facility] Comment on above: Result Comment: The presence of positive fluorescence exhibiting P-ANCA or C-ANCA patterns alone is not specific for the diagnosis of Nate's Granulomatosis (WG) or microscopic polyangiitis. Decisions about treatment should not be based solely on ANCA IFA results. The International ANCA Group Consensus recommends follow up testing of positive sera with both WV- 3 and MPO-ANCA enzyme immunoassays. As many as 5% serum samples are positive only by EIA. Ref. AM J Clin Pathol 1999;111:507-513. Performed By: #### L 300.4310, L300.3900, L100.1900, L3100.5450, L505.7010, L3300.1200, L4600.0100 ####[facility] [address] [place], [address] CCP IgG Antibodieson 025 CCP IgG Ab. 5 units Normal 0-19 [facility] Comment on above: Result Comment: Nega tive <20 Weak positive 20 - 39 Moderate positive 40 - 59 Strong positive >59 Performed at: [facility] [id number] Pediatric Social Worker: Jose De Souza PhD, Phone: [phone] Performed By: #### L 300.4310, L300.3900, L100.1900, L3100.5450, L505.7010, L3300.1200, L4600.0100 ####[facility] [address] [place], [place], [id number] RODOLFO serumOrdered By: Tonya Gold on 08-31-2024 Anti-Nuclear Antibody Screen Negative Negative [facility] Comment on above: Performed at: [facility] [address] [id number] Director: Jose De Souza PhD, Phone: [phone] Activated partial thrombopla stin time (aPTT) in platelet poor plasma by coagulation aOrdered By: Yolis Gold on 08-31-2024 aPTT Coag (PPP) [Time] 25.3 s 24.1-36.2 [facility] Atypical perinuclear antineu trophil cytoplasmic antibodies measurementOrdered By: Yolis Gold on 08-31-2024 Atypical p-ANCA <1:20 titer Neg:<1:20 [facility] Comment on above: The atypical pANCA p attern has been observed in asignificant percentage of patients with ulcerative colitis,primary sclerosing cholangitis and autoimmune hepatitis. Centromere B antibody assayO rdered By: Yolis Gold on 08-31-2024 Centromere B Antibody TNP [facility] Comment on above: Test not performed Chromatin antibody assayOrde red By: Yolis Gold on 08-31-2024 Antichromatin Antibodies [facility] Comment on above: Test not performed Cyclic citrullinated peptide IgG QnOrdered By: Yolis Gold on 08-31-2024 Cyclic Citrullinated Peptide IgG Ab 5 units 0-19 [facility] Comment on above: Negative <20 Weak po sitive 20 - 39 Moderate positive 40 - 59 Strong positive >59Performed at: [facility] [address] [id number] Director: Jose De Souza PhD, Phone: [phone] DNA double strand Ab Qn (S)O rdered By: Yolis Gold on 08-31-2024 Anti-Double Strand DNA Antibody [facility] Comment on above: Test not performed International normalized rat io (INR) calculationOrdered By: Yolis Gold on 08-31-2024 INR Coag (Bld) [Relative time] 0.9 {INR} [facility] Blanche-1 antibody assayOrdered B y: Yolis Gold on 08-31-2024 BLANCHE-1 Antibody [facility] Comment on above: Test not performed Neutrophil cytoplasmic Ab.cl assic Qn (S)Ordered By: Yolis Gold on 08-31-2024 Cytoplasmic ANCA (c-ANCA) Antibody <1:20 titer Neg:<1:20 [facility] Neutrophil cytoplasmic Ab.pe rinuclear IF (S) [Titer]Ordered By: Yolis Gold on 08-31-2024 Perinuclear ANCA (p-ANCA) Antibody <1:20 titer Neg:<1:20 [facility] Comment on above: The presence of posi tive fluorescence exhibiting P-ANCA orC-ANCA patterns alone is not specific for the diagnosis ofWegener's Granulomatosis (WG) or microscopic polyangiitis.Decisions about treatment should not be based solely onANCA IFA results. The International ANCA Group Consensusrecommends follow up testing of positive sera with both WV-3 and MPO-ANCA enzyme immunoassays. As many as 5% serumsamples are positive only by EIA. Ref. AM J Clin Shmjbs2982;111:507-513. Partial Thromboplast Timeon 08-31-2024 aPTT Coag (Bld) [Time] 25.3 s Normal 24.1-36.2 [facility] Comment on above: Performed By: #### L 300.4310, L300.3900, L100.1900, L3100.5450, L505.7010, L3300.1200, L4600.0100 ####[facility] [address] [facility] [place], [address] Platelet Counton 08-31-2024 Platelets (Bld) [#/Vol] 396 10*3/uL Normal 150-450 [facility] Comment on above: Performed By: #### L 300.4310, L300.3900, L100.1900, L3100.5450, L505.7010, L3300.1200, L4600.0100 ####[facility] [address] [place], [address] Platelet countOrdered By: John Gold on 08-31-2024 Platelets (Bld) [#/Vol] 396 10*3/uL 150-450 [facility] Prothrombin Time w/INRon INR Coag (PPP) [Relative time] 0.9 {INR} Normal [facility] Comment on above: Performed By: #### L 300.4310, L300.3900, L100.1900, L3100.5450, L505.7010, L3300.1200, L4600.0100 ####[facility] [address] [place], [place], [id number] PT Coag (PPP) [Time] 12.5 s Normal 11.7-14.9 [facility] Comment on above: Performed By: #### L 300.4310, L300.3900, L100.1900, L3100.5450, L505.7010, L3300.1200, L4600.0100 ####[facility] [address] [place], [place], [address] Prothrombin timeOrdered By: Yolis Gold on 08-31-2024 PT Coag (PPP) [Time] 12.5 s 11.7-14.9 [facility] Pulmonary Visit Reporton Pulmonary Visit Report [facility] [address] [place], [place] [address] OFFICE VISIT Date of Service: 08/31/24 MR#: [id number] Acct: [id number] Name: MARY LANDAVERDE Rep #: [id number] : 1980 Provider: ROBBY Gold Age/Sex: 43/F Location: [facility] Status: Signed Assessment and Plan Assessment and Plan (1) Mediastinal lymphadenopathy: Status: Acute Plan: Multiple PET positive nodules seen. This test was discussed with Dr. Garcia. Suspicious for sarcoidosis. The patient was provided with education on sarcoidosis. She is agreeable to endobronchial ultrasound-guided biopsy for tissue sampling. Return to the office after test results are available for review. Obtaining blood work today to make sure that the patient is not at high risk for bleeding. Risks and benefits of the procedure was discussed with the patient, all questions were answered. She was notified that a small amount of hemoptysis is normal following the EBUS. She conveys understanding and is agreeable. (2) Cough: Status: Acute Qualifiers: Cough type: chronic Qualified Code(s): R05.3 - Chronic cough Plan: Other etiology, could be related to sarcoid. Also possibly other autoimmune diseases, therefore running some blood work for further evaluation. If any of them come back abnormal, the patient will be referred to rheumatology. Test results to be discussed at her follow-up visit. Orders: Orders Bronchoscopy Today R59.0 - Localized enlarged lymph nodes Partial Thromboplast Time Today I48.91 - Unspecified atrial fibrillation, R05.3 - Chronic cough Platelet Count Today R05.3 - Chronic cough, R06.00 - Dyspnea, unspecified Prothrombin Time w/INR Today I48.91 - Unspecified atrial fibrillation, R05.3 - Chronic cough Rheumatoid Factor Today R05.3 - Chronic cough ANCA Today R05.3 - Chronic cough CCP IgG Antibodies Today R05.3 - Chronic cough RODOLFO w/ Reflex Mult Confirm Today R05.3 - Chronic cough Plan Details Follow Up: 09/28/24 HPI PET results Chief Complaint: test results HPI Comments Details: This patient presents to the office today to discuss recent test results. She is ambulatory and currently on room air. She has not recently been seen in the ED or urgent care for any respiratory problems. She has not been prescribed any antibiotics or prednisone for breathing issues. She denies any difficulty with shortness of breath. She has a nonproductive cough that occurs nightly. She denies any hemoptysis. She denies any wheezing, chest tightness or palpitations. She has not had any fever, chills or body aches. She continues to smoke cigarettes. Currently smoking about a 1/2 pack/day. She readily admits that she is not interested in smoking cessation. Test results personally reviewed with the patient: PET/CT tumor base to thigh completed on August 21, 2024. Impression is numerous hyperbolic lymph nodes are seen within the mediastinum and bilateral krista. Intake Vital Signs 07/19/24 07:56 08/31/24 11:55 Height 5 ft 9.5 in 5 ft 9.5 in Weight: 190 lb 184 lb BMI 27.6 26.7 BP 119/80 139/88 H Blood Pressure Location Lt radial Lt brachial Position Sitting Sitting Respiration 18 18 Pulse 80 75 Pulse Source Monitor Monitor Temp 97.6 F L 97.3 F L Temperature Source Temporal Artery Temporal Artery Pulse Oximetry (%) 97 99 Oxygen Delivery Method room air room air Intake Visit Reasons: PET results Chief Complaint: abdominal pain Track Liner Operator Required: No Accompanied by: Self Allergies alprazolam (From Xanax) Allergy (Intermediate, Verified 08/31/24 12:16) Other azithromycin Allergy (Intermediate, Verified 08/31/24 12:16) Other ciprofloxacin Allergy (Intermediate, Verified 08/31/24 12:16) Other citalopram Allergy (Intermediate, Verified 08/31/24 12:16) Other latex Allergy (Intermediate, Verified 08/31/24 12:16) Other Penicillins Allergy (Intermediate, Verified 08/31/24 12:16) Other red dye Allergy (Intermediate, Verified 08/31/24 12:16) Other sulfamethoxazole (From Bactrim) Allergy (Intermediate, Verified 08/31/24 12:16) Other tetracycline Allergy (Intermediate, Verified 08/31/24 12:16) Other trimethoprim (From Bactrim) Allergy (Intermediate, Verified 08/31/24 12:16) Other venom-honey bee Allergy (Intermediate, Verified 08/31/24 12:16) Other levofloxacin Adverse Reaction (Verified 08/31/24 12:16) Diarrhea Medications ???Medication ???Instructions ???Recorded ???Confirmed ???Type meclizine 25 mg tablet 25 mg PO BID PRN dizziness 3 08/31/24 History albuterol sulfate 90 mcg/actuation inhalation 07/19/24 08/31/24 His tory aerosol inhaler [facility] Medical History (Reviewed 08/31/24 @ 12:28 by Yolis Gold STEREO PLOTTER OPERATOR, STEREO PLOTTER OPERATOR-C) COVID Alcohol use Depression Anxiety (more content not included)... Normal [facility] BODY TECHNICIAN/PAINTER abOrdered By: Yolis Godl on 08-31-2024 BODY TECHNICIAN/PAINTER Antibody TNP [facility] Comment on above: Test not performed Rheumatoid Factoron 09-01-19 RHEUMATOID FAC < 10.0 Normal <15 [facility] Comment on above: Performed By: #### L 300.4310, L300.3900, L100.1900, L3100.5450, L505.7010, L3300.1200, L4600.0100 ####[facility] [id number] [place], [address] Rheumatoid factor Ql (S)Orde red By: Yolis Gold on 08-31-2024 Rheumatoid Factor < 10.0 IU/mL <15 [facility] SCL-70 extractable nuclear A b Qn (S)Ordered By: Yolis Gold on 08-31-2024 Scl-70 (Scleroderma) Antibody [facility] Comment on above: Test not performed SS-A IgG antibody assayOrder ed By: Yolis Gold on 08-31-2024 SS-A/Ro IgG Antibody [facility] Comment on above: Test not performed SS-B IgG antibody assayOrder ed By: Yolis Gold on 08-31-2024 SS-B/La IgG Antibody [facility] Comment on above: Test not performed Serum DNA double strand anti body assay (units/volume)Ordered By: Yolis Gold on 08-31-2024 DNA double strand Ab Qn (S) [facility] Comment on above: Test not performed Serum Scl-70 antibody assay (units/volume)Ordered By: Yolis Gold on 08-31-2024 SCL-70 extractable nuclear Ab Qn (S) [facility] Comment on above: Test not performed Serum classic neutrophil cyt oplasmic antibody assay (units/volume)Ordered By: Yolis Gold on 08-31-2024 Neutrophil cytoplasmic Ab.classic Qn (S) <1:20 titer Neg:<1:20 [facility] Serum or plasma cyclic citru llinated peptide IgG antibody assay (units/volume)Ordered By: Yolis Gold on 08-31-2024 Cyclic citrullinated peptide IgG Qn 5 units 0-19 [facility] Comment on above: Negative <20 Weak po sitive 20 - 39 Moderate positive 40 - 59 Strong positive >59Performed at: [facility] [id number] Director: Jose De Souza PhD, Phone: [phone] Serum perinuclear neutrophil cytoplasmic antibody titer by immunofluorescenceOrdered By: Yolis Gold on 08-31-2024 Neutrophil cytoplasmic Ab.perinuclear IF (S) [Titer] <1:20 titer Neg:<1:20 [facility] Comment on above: The presence of posi tive fluorescence exhibiting P-ANCA orC-ANCA patterns alone is not specific for the diagnosis ofWegener's Granulomatosis (WG) or microscopic polyangiitis.Decisions about treatment should not be based solely onANCA IFA results. The International ANCA Group Consensusrecommends follow up testing of positive sera with both WV-3 and MPO-ANCA enzyme immunoassays. As many as 5% serumsamples are positive only by EIA. Ref. AM J Clin Uaeebc0477;111:507-513. Serum rheumatoid factor dete ctionOrdered By: Yolis Gold on 08-31-2024 Rheumatoid factor Ql (S) < 10.0 IU/mL <15 [facility] Rios antibody assayOrdered By: Yolis Gold on 08-31-2024 SM Antibody TNP [facility] Comment on above: Test not performed aPTT Coag (PPP) [Time]Ordere d By: Yolis Gold on 08-31-2024 aPTT Coag (Bld) [Time] 25.3 s 24.1-36.2 [facility] PET/CT Tumor Base -Thigh Ini ton 08-21-2024 PET/CT Tumor Base -Thigh Init [facility] Imaging Services [address] [place] [address] PET/CT Tumor Base -Thigh Init MR#: [id number] Acct: [id number] Name: MARY SANDERS Rep #: [id number] : 1980 F 43 From: Michael Cox PCP: STEREO PLOTTER OPERATOREdis Oneal NP-C Status: REG CLI Study: PET/CT Tumor Base -Thigh Init Date of Exam: Exam# [id number] Ordering Dr: Yolis Gold NP STEREO PLOTTER OPERATOR-C EXAM: F-18 FDG PET-CT from the skull base to the mid thigh CLINICAL HISTORY: Abnormal findings in lung field. COMPARISON: Chest CT of 08/07/2024. TECHNIQUE: F-18 FDG PET-CT from the skull base to the mid thigh. Dose: 12.76 mCi F-18 FDG intravenous. FINDINGS: Neck: No area of abnormal hypermetabolic activity is seen. Chest: Numerous hypermetabolic lymph nodes are seen within the mediastinum, as well as the bilateral krista. SUV max measurements are as follows: AP window SUV max 3.4; Right precarinal SUV max 4.9; Subcarinal SUV max 6.9; Left hilum SUV max 2.5; Right hilum SUV max 8.1; Right upper mediastinum SUV max 3.2. No definite area of hypermetabolic pulmonary activity is otherwise noted. No hypermetabolic activity is seen in the krista or supraclavicular areas. No pleural effusion or pneumothorax is seen. No pericardial effusion is evident. Abdomen and pelvis: No area of abnormal hypermetabolic activity is seen. Bones: No PET evidence of osseous metastatic disease. Additional: Prior cholecystectomy. PET/PET/CT Tumor Base -Thigh Init IMPRESSION: Numerous hypermetabolic lymph nodes are seen within the mediastinum and bilateral krista, concerning for the presence of malignancy. Reading Location: [address] CC: ROBBY Gold; ROBBY CAMARENA. 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 Normal [facility] Positron emission tomography scan reportOrdered By: Michael Marin on 08-21-2024 PT Unspecified body region [facility] Imaging Services [address] [place], [place] [id number] PET/CT Tumor Base -Thigh Init MR#: [id number] Acct: [id number] Name: MARY SANDERS Rep #: [id number] : 1980 F 43 From: Car Marin MD PCP: ROBBY Oscar Status: REG CLI Study:PET/CT Tumor Base -Thigh Init Date of E xam: 08/21/24 Exam# [id number] Ordering Dr: Ryne Gold NP STEREO PLOTTER OPERATOR-C EXAM: F-18 FDG PET-CT from the skull base to the mid thigh CLINICAL HISTORY: Abnormal findings in lung field. COMPARISON: Chest CT of 08/07/2024. TECHNIQUE: F-18 FDG PET-CT from the skull base to the mid thigh. Dose: 12.76 mCi F-18 FDG intravenous. FINDINGS: Neck: No area of abnormal hypermetabolic activity is seen. Chest: Numerous hypermetabolic lymph nodes are seen within the mediastinum, as well as the bilateral krista. SUV max measurements are as follows: AP window SUV max 3.4; Right precarinal SUV max 4.9; Subcarinal SUV max 6.9; Left hilum SUV max 2.5; Right hilum SUV max 8.1; Right upper mediastinum SUV max 3.2. No definite area of hypermetabolic pulmonary activity is otherwise noted. No hypermetabolic activity is seen in the krista or supraclavicular areas. No pleural effusion or pneumothorax is seen. No pericardial effusion is evident. Abdomen and pelvis: No area of abnormal hypermetabolic activity is seen. Bones: No PET evidence of osseous metastatic disease. Additional: Prior cholecystectomy. PET/PET/CT Tumor Base -Thigh Init IMPRESSION: Numerous hypermetabolic lymph nodes are seen within the mediastinum and bilateral krista, concerning for the presence of malignancy. Reading Location: [address] CC: ROBBY Gold; ROBBY Oneal ~ Reach Lift Truck Driver: Signed [facility] CT CHEST (PE PROTOCOL)on CT CHEST (PE PROTOCOL) [place] [address] Patient: MARY SANDERS Phone#: : 1980 Age: 43 Gender: F Pt. Type: ER Account: [id number] Location: 2 Ordering: DR. SHAI MIN Exam Date: 08/07/2024/23:38 Family Phys: FARTUN ONEAL Charge Code: [id number] Physician: [place] Order #: [id number] Dose#: 5.4 PROCEDURE: CT CHEST WITH CONTRAST FOR PE COMPARISON: None. INDICATIONS: Chest Pain. TECHNIQUE: After obtaining the patient's consent, CT images were obtained with non-ionic intravenous contrast material. Multi-planar images were created to optimize visualization of vascular anatomy with MPR/MIPS and 3D imaging. All CT scans at this facility use dose modulation, iterative reconstruction, and/or weight based dosing when appropriate to reduce radiation dose to as low as reasonably achievable. IV CONTRAST: Omnipaque 350,100ml TOTAL DOSE: 5.4 CTDIvol(mGy) FINDINGS: VASCULATURE: Normal. No visible pulmonary arterial thrombus or attenuation. AORTA: Normal. No aneurysm or dissection. LUNGS: Few scattered nonspecific nodules are present bilaterally. KRISTA: Left hilar and subcarinal adenopathy is present. MEDIASTINUM: Normal. No mass or adenopathy. CARDIAC: Normal. No enlargement, pericardial thickening, or significant calcification. PLEURA: Normal. No mass or effusion. CHEST WALL: Normal. No mass or axillary adenopathy. LIMITED ABDOMEN: Normal. Limited images of the upper abdomen are unremarkable. BONES: Normal. No bony lesion or fracture. OTHER: Negative. CONCLUSION: 1. Left hilar and subcarinal adenopathy is present. 2. Scattered nonspecific nodules are present. The largest in the left lung base is 8 millimeters. Dictated by: Ashleigh Joya MD on 08/08/2024 at 9:47 Continued Report - Page 2 of 2 Patient: MARY SANDERS Phone#: : 1980 Age: 43 Gender: F Pt. Type: ER Account: [id number] Location: 2 Ordering: DR. 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 Medication Administration Record [address] [address] [id number] 08/07/2024 Patient: MARY SANDERS Sex: Female : 1980 Age: 43y MEASUREMENTS: Wt: 86.2 kg, Ht/Kirby: 69.0 in, BMI: 28.06 ALLERGIES: Bactrim, Ciprofloxacin, Keflex, Macrolide Antibiotics, Penicillins, Xanax, azithromycin, citalopram, latex, tetracycline Medication Ordered Medication Administration Date/Time 1 of Normal [facility] ED NURSES CLINICAL NOTEon ED NURSES CLINICAL NOTE Nurse Narrative Nurse Clinical Narrative [facility] [address] [place] [address] [id number] 08/07/2024 Patient: MARY SANDERS Sex: Female : 1980 Age: 43y Primary Insurance: I-MD OUTPATIENT Policy Number: [id number] Group Number: Subscriber: Other Disposition: Discharge to Home Disposition Decision Time: 01:00 08/08/2024 Departure Time: 01:17 08/08/2024 TRIAGE Triage time: 17:41 08/07/2024. -- 17:51 08/07/24 SURENDRA Jackson R.N. 17:47 08/07/24. BP: 118/69 MAP: 85. HR: 65. RR: 18. O2 saturation: 100% Temperature: 98.1 F. Pain level now 10/10. Describes the pain as sharp and (stabbing). Physician notified. -- 17:47 08/07/24 SURENDRA Jackson R.N. Acuity: LEVEL 3. Chief Complaint: (Left chest pain. under breast. With cough and deep breathes). 17:48 08/07/24. ( Started at 9am today. Also having abd pain and nausea. since Tuesday last week.). ( OB at times when having pain getting deep breathes.). SEPSIS SCREEN: NEGATIVE. SIRS criteria negative. No possible sources of infection. -- 17:48 08/07/24 SURENDRA Jackson R.N. Measurements: 17:45 08/07/24 Wt: 86.2 kg, Ht/Kirby: 69.0 in, BMI: 28.06 -- 17:45 08/07/24 EST Edu Jackson R.N. 1 of 5 Nurse Narrative Medications: albuterol sulfate HFA 90 mcg/actuation aerosol inhaler -- 17:50 08/07/24 EST Edu Jackson R.N. dicyclomine 20 mg tablet -- 17:50 08/07/24 EST Edu Jackson R.N. ondansetron 4 mg disintegrating tablet -- 17:50 08/07/24 EST Edu Jackson R.N. Allergies: Ciprofloxacin: Allergy -- 17:41 08/07/24 EST Edu Jackson R.N. citalopram: Allergy -- 17:41 08/07/24 EST Edu Jackson R.N. Macrolide Antibiotics: Allergy -- 17:41 08/07/24 EST Edu Jackson R.N. Bactrim: Allergy -- 17:41 08/07/24 EST Edu Jackson R.N. Keflex: Allergy -- 17:41 08/07/24 EST Edu Jackson R.N. Penicillins: Allergy -- 17:41 08/07/24 EST Edu Jackson R.N. tetracycline: Allergy -- 17:41 08/07/24 EST Edu Jackson R.N. azithromycin: Allergy -- 17:41 08/07/24 EST Edu Jackson R.N. Xanax: Allergy -- 17:41 08/07/24 EST Edu Jackson R.N. latex: Allergy -- 17:41 08/07/24 EST Edu Jackson R.N. Problems: Gastroesophageal Reflux Disease: Active -- 17:43 08/07/24 EST Edu Jackson R.N. Cavazos's esophagus: Active -- 17:43 08/07/24 EST Edu Jackson R.N. Vertigo: Active -- 17:43 08/07/24 EST Edu Jackson R.N. nodules on lungs -- 17:43 08/07/24 EST Edu Jackson R.N. 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 ADDITIONAL SURGERIES: Cholecystectomy -- 17:44 08/07/24 EST Edu Jackson R.N. Tubal Ligation -- 17:44 08/07/24 SURENDRA Jackson R.N. History 17:48 08/07/24. SOCIAL HX: Light tobacco smoker- less than 1/2 a pack per day. Alcohol use; consumes beer occasionally. No drug use. The patient has not traveled outside the [place] Infectious disease exposure: No infectious disease exposure. 2 of 5 Nurse Narrative ABUSE ASSESSMENT: The patient answered yes to the question(s) Do you feel safe in your home? and no to the question(s) Are you afraid to go home?. SELF HARM ASSESSMENT: Self harm assessment was performed. The patient answered no to the question(s) Have you recently felt down, depressed, or hopeless? and Do you have thoughts of harming or killing yourself?. FALL RISK ASSESSMENT: Fall risk assessment completed. No risk factors identified. -- 17:48 08/07/24 SURENDRA Jackson R.N. Interventions 17:48 08/07/24. To treatment room. Advanced care plan discussed with patient. -- 17:48 08/07/24 SURENDRA Jackson R.N. PHYSICAL ASSESSMENT 21:11 08/07/24. BP: 123/57 MAP: 88 mmHg. HR: 65 bpm. -- 21:57 08/07/24 SURENDRA Mercedes R.N. 22:01 08/07/24. Ambulatory to room. GENERAL / NEURO / PSYCH: Alert. Oriented X 4. Appears in no acute distress. HEENT: Mucous membranes are pink. RESPIRATORY: Respirations not labored. Left mid- costochondral tenderness. Breath sounds within normal limits. CVS: Normal sinus rhythm noted. Cardiac rhythm: normal sinus rhythm. Heart sounds within normal limits. Pulses within normal limits. Capillary refill less than 2 seconds. GI / : Abdomen soft and nontender. EXTREMITIES: No lower extremity edema. SKIN: Skin is warm and dry. Normal skin turgor. Skin is non-tender. -- 22:08/07/24 SURENDRA Mercedes R.N. 22:08/07/24. Pain level now 7/10. Describes the pain as aching. Constant. -- 22:08/07/24 SURENDRA Mercedes R.N. NURSING PROGRESS NOTES 21:00 08/07/24. ( Patient transferred to ED RM ). -- 21:00 08/07/24 SURENDRA Perla R.N. 21:10 08/07/24. Site #1 started via IV in the left antecubital space with an 18g angiocath with aseptic technique and good blood return; 1 attempt. Blood drawn: rainbow set tube(s). Labeled in the pres (more content not included)... Normal [facility] ED PHYSICIAN CLINICAL REPORT on 08-08-2024 ED PHYSICIAN CLINICAL REPORT Narrative Physician Clinical Narrative [facility] [address] [place] [address] [id number] 08/07/2024 Patient: MARY SANDERS Sex: Female : 1980 Age: 43y Primary Insurance: I-[employer] OUTPATIENT Policy Number: [id number] Group Number: Subscriber: Other Disposition: Discharge to Home Disposition Decision Time: 01:00 08/08/2024 Departure Time: 01:17 08/08/2024 Measurements Wt: 86.2 kg, Ht/Kirby: 69.0 in, BMI: 28.06 Initial Vital Sign Measured Time BP MAP HR RR O2Sat ETCO2 Temp Pain GCS RTS 17:47 08/07/2024 118/69 85 65 18 100% 98.1 F 10 Time Seen: 21:40 08/08/2024. Arrived- By private vehicle. Historian- patient. HISTORY OF PRESENT ILLNESS Chief Complaint: CHEST PAIN. It is described as located in the left chest area. No radiation. This started yesterday 43-year-old female presents to the ED for pain located in the left lower anterior since not reveal chest wall. She reports this has been present over the past week. It is worse with movements and deep breathing. Denies any injury or inciting event. She denies any associated shortness of breath, cough, hemoptysis. No fevers, chills. No lower extremity edema. Pain does not radiate into the abdomen. Has no nausea, vomiting, bowel changes, urinary symptoms. She denies any past history of prior PE, cardiac or lung disease. Does have known history of lung nodules for which she has followed with pulmonology. Similar symptoms previously. 1 of 11 Narrative Recent medical care: Not recently seen/assessed. REVIEW OF SYSTEMS NEUROLOGICAL: No fainting episodes. RESPIRATORY: No cough. CONSTITUTIONAL: No fever or chills. GI: No abdominal pain, black stools or bloody stools. : No difficulty with urination. All other systems reviewed and are negative. Status: Not . PAST HISTORY See nurses notes. 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 ADDITIONAL NOTES The nursing notes have been reviewed. PHYSICAL EXAM Appearance: Alert. No acute distress. Eyes: Pupils equal, round and reactive to light. Eyes normal inspection. ENT: Ears normal. Nose normal. Pharynx normal. Neck: Normal inspection. Neck supple. CVS: Normal heart rate and rhythm. Heart sounds normal. Pulses normal. Respiratory: No respiratory distress. Painless inspiration. Breath sounds normal. No retractions, accessory muscle use, splinting, decreased air movement or crackles. No rhonchi or wheezes. (Mild tenderness to palpation over left lower ribs). Abdomen: Soft and nontender. Bowel sounds normal. No mass. Back: Normal external inspection. No CVA tenderness. Skin: Skin warm and dry. Normal skin color. No rash. Normal skin turgor. Extremities: Extremities exhibit normal ROM. No calf tenderness. No lower extremity edema. Neuro: No motor deficit. No sensory deficit. LABS, X-RAYS, AND EKG 12-LEAD EKG: No acute ischemia. Normal sinus rhythm. Normal P waves. Normal axis. T wave inversion in lead III and V1. No ST elevation. QT not prolonged. Prior EKG unavailable. The study has been interpreted contemporaneously by me. The study has been independently viewed by me. Artifact present. Interpretation time: 22:18 08/07/2024. Laboratory Tests: APTT Final JAZMYN: 08/07/2024 21:10:00 EST MsgRcvd: 08/07/2024 23:03 EST 3 of 11 Narrative Lab Test Result Reference Status Received Comments 08/07/2024 23:03 PTT 29.0 sec 25.4 - 38.4 Final EST BMP with eGFR Final JAZMYN: 08/07/2024 21:10:00 EST MsgRcvd: 08/07/2024 22:19 EST Lab Test Result Reference Status Received Comments BASIC 08/07/2024 BMP with eGFR Final METABOLIC 22:19 EST PANEL 08/07/2024 SODIUM 139 mmol/l 136 - 145 Final 22:19 EST 08/07/2024 POTASSIUM 3.7 mmol/L 3.5 - 5.1 Final 22:19 EST 08/07/2024 CHLORIDE 104 mmol/L 98 - 107 Final 22:19 EST 08/07/2024 CO2 28.9 mmol/L 21.0 - 32.0 Final 22:19 EST 08/07/2024 GLUCOSE 85 mg/dl 74 - 106 Final 22:19 EST 08/07/2024 BUN 7 mg/dl 7 - 18 Final 22:19 EST 08/07/2024 CREATININE 0.84 mg/dl 0.55 - 1.02 Final 22:19 EST 8.4 mg/dl 08/07/2024 CALCIUM 8.5 - 10.1 Final Below low normal 22:19 EST 08/07/2024 ANION GAP 10 mmol/L 10 - 20 Final 22:19 EST (more content not included)... Normal [facility] ED SUPER BILLon 08-08-2024 ED SUPER BILL [address] [place] [address] [id number] 08/07/2024 Patient: MARY SANDERS Sex: Female : 1980 Age: 43y Item Professional Category Description Facility Code Code Quantity Fee Total Nurse/E/M EMERGENCY 708392 1 $0.00 $0.00 DEPARTMENT VISIT HIGH/URGENT SEVERITY (86107-35) Grand Total $0.00 Providers Tammy Min D.O. Chief Complaint CHEST PAIN. Principal Diagnosis Chest pain, with painful respirations. Lung nodules with mediastinal adenopathy. [facility] C[facility] R07.1: Chest pain on breathing 2 of 2 Normal [facility] ED VISIT SUMMARYon ED VISIT SUMMARY Visit Overview Visit Overview [facility] [address] [place] [address] [phone] 08/07/2024 Patient: MARY SANDERS Sex: Female : 1980 Age: 43y 08/08/2024 05:42 AM EST ED Arrival:16:35 08/07/2024 EST Status:not Recent Travel:no Language:eng Adv Directive: Isolation Status: Ethnicity:N Fall Risk:no risk Infectious Disease Exposure:no Measurements:5'9 / 175.3 Self-Harm Status:risk Sepsis Screen:negative cm 190.0 lb / 86.2 kg Chief Complaint:(Left chest pain. under breast. With cough and deep breathes), (OB at times when having pain getting deep breathes.), and (Started at 9am today. Also having abd pain and nausea. since Tuesday last week. ) ALLERGIES azithromycin Bactrim Ciprofloxacin citalopram 1 of 4 Visit Overview Keflex latex Macrolide Antibiotics Penicillins tetracycline Xanax HOME MEDICATIONS albuterol sulfate HFA 90 mcg/actuation aerosol inhaler dicyclomine 20 mg tablet ondansetron 4 mg disintegrating tablet PAST MEDICAL HISTORY / PROBLEMS Cavazos's esophagus: Active Gastroesophageal Reflux Disease: Active nodules on lungs See nurses notes Vertigo: Active PAST SURGICAL HISTORY Cholecystectomy Tubal Ligation SOCIAL HISTORY Smoking status: Yes Alcohol use: Yes Drug use: No ED COURSE MEDICATIONS GIVEN IN EMERGENCY DEPARTMENT IV SITE INFORMATION INTAKE 2 of 4 Visit Overview OUTPUT REASSESMENT (most recent) 22:01 08/07/24. Ambulatory to room. GENERAL / NEURO / PSYCH: Alert. Oriented X 4. Appears in no acute distress. HEENT: Mucous membranes are pink. RESPIRATORY: Respirations not labored. Left mid- costochondral tenderness. Breath sounds within normal limits. CVS: Normal sinus rhythm noted. Cardiac rhythm: normal sinus rhythm. Heart sounds within normal limits. Pulses within normal limits. Capillary refill less than 2 seconds. GI / : Abdomen soft and nontender. EXTREMITIES: No lower extremity edema. SKIN: Skin is warm and dry. Normal skin turgor. Skin is non-tender. VITAL SIGNS First Vitals Last Vitals Temp 17:47 08/07/24 98.1 F Temp 01:14 08/08/24 BP 17:47 08/07/24 118/69 BP 01:14 08/08/24 114/68 HR 17:47 08/07/24 65 HR 01:14 08/08/24 63 RR 17:47 08/07/24 18 RR 01:14 08/08/24 O2 Sat 17:47 08/07/24 100% O2 Sat 01:14 08/08/24 Pain 17:47 08/07/24 10 Pain 01:14 08/08/24 ETCO2 17:47 08/07/24 ETCO2 01:14 08/08/24 GCS 17:47 08/07/24 GCS 01:14 08/08/24 RTS 17:47 08/07/24 RTS 01:14 08/08/24 PROCEDURES NURSING INTERVENTIONS LABS / STUDIES LABS / STUDIES ORDERED BMP BNP CBC w Diff CT Chest PE Study EKG - ED PT with INR PTT Troponin-I Troponin-I Protocol (STAT 1hr) 3 of 4 Visit Overview CLINICAL IMPRESSION CHEST PAIN, WITH PAINFUL RESPIRATIONS 4 of 4 Normal [facility] ED VITALS FLOW SHEETon 08-08 ED VITALS FLOW SHEET Vitals Vital Sign Flow Sheet [address] [address] [id number] 08/07/2024 Patient: MARY SANDERS Sex: Female : 1980 Age: 43y Measurements Wt: 86.2 kg, Ht/Kirby: 69.0 in, BMI: 28.06 Measured Time BP MAP HR RR O2Sat ETCO2 Temp Pain GCS RTS 01:14 08/08/2024 114/68 78 63 01:13 08/08/2024 14 98.0 F 5 01:12 08/08/2024 66 96% 01:07 08/08/2024 64 97% 01:02 08/08/2024 62 95% 01:01 08/08/2024 111/64 76 59 00:57 08/08/2024 65 97% 00:52 08/08/2024 61 98% 00:47 08/08/2024 64 97% 00:42 08/08/2024 62 96% 00:37 08/08/2024 66 97% 00:32 08/08/2024 64 96% 00:31 08/08/2024 112/70 81 59 00:27 08/08/2024 61 97% 00:22 08/08/2024 65 97% 1 of 3 Vitals Measured Time BP MAP HR RR O2Sat ETCO2 Temp Pain GCS RTS 00:17 08/08/2024 64 97% 00:12 08/08/2024 59 97% 00:07 08/08/2024 61 97% 00:02 08/08/2024 59 97% 00:01 08/08/2024 117/72 86 58 23:57 08/07/2024 61 97% 23:52 08/07/2024 63 98% 23:47 08/07/2024 85 96% 23:42 08/07/2024 65 98% 23:37 08/07/2024 73 98% 23:32 08/07/2024 60 96% 23:30 08/07/2024 116/68 82 59 23:27 08/07/2024 62 97% 23:22 08/07/2024 63 97% 23:07 08/07/2024 64 96% 23:02 08/07/2024 68 96% 23:01 08/07/2024 99/65 73 61 22:57 08/07/2024 66 97% 22:52 08/07/2024 66 99% 22:47 08/07/2024 63 99% 22:42 08/07/2024 65 99% 22:37 08/07/2024 65 100% 22:32 08/07/2024 61 99% 22:31 08/07/2024 110/66 77 61 22:27 08/07/2024 62 100% 2 of 3 Vitals Measured Time BP MAP HR RR O2Sat ETCO2 Temp Pain GCS RTS 22:22 08/07/2024 60 100% 22:17 08/07/2024 63 100% 22:12 08/07/2024 66 100% 22:07 08/07/2024 64 99% 22:01 08/07/2024 115/63 78 59 22:01 08/07/2024 7 21:11 08/07/2024 123/57 88 65 17:47 08/07/2024 118/69 85 65 18 100% 98.1 F 10 3 of 3 Normal [facility] APTTon 08-07-2024 aPTT Coag (Bld) [Time] 29.0 s Normal 25.4 - 38.4 [facility] Comment on above: Performed By: #### 2 08694 #### [facility],[address] [place], [place] [id number] BMP with eGFRon 08-07-2024 AGE 43 years Normal [facility] Comment on above: Performed By: #### 2 73519 #### [facility],[address] [place], [place] [id number] Anion gap [Moles/Vol] 10 mmol/L Normal 10 - 20 [facility] Comment on above: Performed By: #### 2 99512 #### [facility],[address] [place], [place] [id number] BMP with eGFR Normal [facility] Comment on above: Result Comment: BASI C METABOLIC PANEL Performed By: #### 2 15522 #### [facility],[address] [place] [address] 96057 Calcium [Mass/Vol] 8.4 mg/dL Low 8.5 - 10.1 [facility] Comment on above: Performed By: #### 2 19273 #### [facility],[address] [place] [address] 13583 Chloride [Moles/Vol] 104 mmol/L Normal 98 - 107 [facility] Comment on above: Performed By: #### 2 75345 #### [facility],[address] [place] [address] 90195 CO2 [Moles/Vol] 28.9 mmol/L Normal 21.0 - 32.0 [facility] Comment on above: Performed By: #### 2 59879 #### [facility],[address] [place], [place] [id number] Creatinine [Mass/Vol] 0.84 mg/dL Normal 0.55 - 1.02 [facility] Comment on above: Performed By: #### 2 07279 #### [facility],[address] [place] [address] 10103 GFR/1.73 sq M.predicted among non-blacks MDRD (S/P/Bld) [Vol rate/Area] mL/min/{1.73_m2} Normal 60 - 999 [facility] Comment on above: Performed By: #### 2 23682 #### [facility],[address] [place] [address] Result Comment: ACCO RDING TO THE NATIONAL KIDNEY DISEASE EDUCATION PROGRAM(NKDE), A NORMAL eGFR IS A VALUE GREATER THAN OR EQUAL TO 60 ML/MIN/1.73 SQ METERS. CHRONIC KIDNEY DISEASE: <60mL/MIN/1.73 SQ METERS KIDNEY FAILURE: <15mL/MIN/1.73 SQ METERS THIS TEST SHOULD ONLY BE USED FOR PATIENTS 18 YEARS OF AGE AND OLDER. Glucose [Mass/Vol] 85 mg/dL Normal 74 - 106 [facility] Comment on above: Performed By: #### 2 08978 #### [facility],[address] [place] [address] 36079 Potassium [Moles/Vol] 3.7 mmol/L Normal 3.5 - 5.1 [facility] Comment on above: Performed By: #### 2 78187 #### [facility],[address] [place] [address] 37946 Sodium [Moles/Vol] 139 mmol/L Normal 136 - 145 [facility] Comment on above: Performed By: #### 2 93473 #### [facility],[address] [place] [address] 91998 Urea nitrogen [Mass/Vol] 7 mg/dL Normal 7 - 18 [facility] Comment on above: Performed By: #### 2 35617 #### [facility],[address] [place] [address] CBC + DIFFon 08-07-2024 Baso # 0.02 x10EE3/UL Normal 0.00 - 0.10 [facility] Comment on above: Performed By: #### 2 58982 #### [facility],[address] [place] [address] 19761 Basophils/100 WBC (Bld) 0.3 % Normal 0.0 - 2.0 [facility] Comment on above: Performed By: #### 2 99425 #### [facility],[address] [place] [address] CBC + DIFF Normal [facility] Comment on above: Result Comment: CBC- COMPLETE BLOOD COUNT Performed By: #### 2 59789 #### [facility],[address] [place] [address] EO # 0.17 x10EE3/UL Normal 0.00 - 0.50 [facility] Comment on above: Performed By: #### 2 26586 #### [facility],[address] [place] [address] 05403 Eosinophils/100 WBC (Bld) 2.3 % Normal 0.0 - 7.0 [facility] Comment on above: Performed By: #### 2 23478 #### [facility],[address] [place], [place] [phone] Erythrocyte distribution width (RBC) [Ratio] 13.9 % Normal 12.0 - 15.6 [facility] Comment on above: Performed By: #### 2 71750 #### [facility],[address] [place], [place] [phone] Hematocrit (Bld) [Volume fraction] 37.9 % Normal 34.0 - 46.0 [facility] Comment on above: Performed By: #### 2 45296 #### [facility],[address] [place] [address] 71850 Hemoglobin (Bld) [Mass/Vol] 12.7 g/dL Normal 12.0 - 16.0 [facility] Comment on above: Performed By: #### 2 91937 #### [facility],[address] [place] [address] 47189 Lymph # 2.95 x10EE3/UL High 0.80 - 2.80 [facility] Comment on above: Performed By: #### 2 87301 #### [facility],[address] [place] [address] 19610 Lymphocytes/100 WBC (Bld) 41.3 % Normal 20.0 - 45.0 [facility] Comment on above: Performed By: #### 2 44909 #### [facility],[address] [place] [address] 07545 MANUAL DIFF N/A Normal [facility] Comment on above: Performed By: #### 2 27823 #### [facility],[address] [place], [place] [phone] MCH (RBC) [Entitic mass] 29 pg Normal 27 - 33 [facility] Comment on above: Performed By: #### 2 88587 #### [facility],[address] [place] [address] 73430 MCHC 33 X10 3 Normal 32 - 36 [facility] Comment on above: Performed By: #### 2 07447 #### [facility],[address] [place] [address] 30642 MCV (RBC) [Entitic vol] 86 fL Normal 80 - 99 [facility] Comment on above: Performed By: #### 2 37970 #### [facility],[address] [place] [address] 99036 Winston # 0.34 x10EE3/UL Normal 0.20 - 1.00 [facility] Comment on above: Performed By: #### 2 40438 #### [facility],[address] [place] [address] 64254 MONOS % 4.8 % Normal 0.0 - 10.0 [facility] Comment on above: Performed By: #### 2 02175 #### [facility],[address] [place] [address] 74596 Morphology Misha (Bld) [Interp] N/A Normal [facility] Comment on above: Performed By: #### 2 72282 #### [facility],[address] [place] [address] 08839 Neut # 3.68 x10EE3/UL Normal 1.50 - 7.10 [facility] Comment on above: Performed By: #### 2 17974 #### [facility],[address] [place] [address] 79408 Neutrophils/100 WBC (Bld) 51.4 % Normal 46.0 - 76.0 [facility] Comment on above: Performed By: #### 2 03735 #### [facility],[address] [place] [address] 05528 PLATELET 408 x10EE3/UL Normal 150 - 450 [facility] Comment on above: Performed By: #### 2 02742 #### [facility],[address] [place] [address] 71512 Platelet mean volume (Bld) [Entitic vol] 8.0 fL Normal 6.6 - 10.5 [facility] Comment on above: Result Comment: AUTO MATED DIFFERENTIAL Performed By: #### 2 15080 #### [facility],[address] [place] [address] 46595 RBC 4.42 x 10EE6/UL Normal 4.10 - 5.30 [facility] Comment on above: Performed By: #### 2 00672 #### [facility],[address] [place] [address] 08502 WBC 7.2 x 10EE3/UL Normal 4.5 - 10.8 [facility] Comment on above: Performed By: #### 2 60793 #### [facility],[address] [place] [address] 88167 NT-proBNPon 08-07-2024 Natriuretic peptide B (Bld) [Mass/Vol] 50 pg/mL Normal 0 - 125 [facility] Comment on above: Performed By: #### 2 57093 #### [facility],[address] [place], [place] [address] PROTHROMBIN TIME AND INRon 0 08-07-2024 INR Coag (PPP) [Relative time] 1.0 {INR} Normal 0.8 - 1.2 [facility] Comment on above: Result Comment: T HE HEMOSIL THROMBOPLASTIN REAGENT USED IN THE PROTHROMBIN TIME TEST INTERACTS WITH THE DRUG CUBICIN (DAPTOMYCIN) AND WILL RESULT IN FALSELY ELEVATED PT / INR RESULTS INR INTERPRETATION INR INDICATION PREVENTION AND TREATMENT OF THROMBOEMBOLISM ASSOCIATED WITH: 2.0 - 3.0 ATRIAL FIBRILLATION, BIOPROSTHETIC HEART VALVES, PULMONARY EMBOLISM, VENOUS THROMBOSIS, SYSTEMIC EMBOLISM POST MYOCARDIAL INFARCTION 2.5 - 3.5 MECHANICAL HEART VALVES Performed By: #### 2 29270 #### [facility],[address] [place] [address] PROTHROMBIN TIME AND INR Normal [facility] Comment on above: Result Comment: PROT HROMBIN TIME AND INR Performed By: #### 2 80034 #### [facility],[address] [place] [address] PT-COUMADIN 11.3 sec Normal 9.3 - 14.1 [facility] Comment on above: Performed By: #### 2 65926 #### [facility],[address] [place], [place] [address] TROPONINon 08-07-2024 HS TROPONIN 5.1 pg/mL Normal 0.0 - 51.4 [facility] Comment on above: Performed By: #### 2 54098 #### [facility],[address] [place] [address] HS TROPONIN 5.8 pg/mL Normal 0.0 - 51.4 [facility] Comment on above: Performed By: #### 2 47713 #### [facility],[address] [place], [place] [address] Pulmonary Visit Reporton Pulmonary Visit Report [facility] [address] [place] [address] OFFICE VISIT Date of Service: 07/19/24 MR#: [id number] Acct: [id number] Name: MARY SANDERS Rep #: [id number] : 1980 Provider: ROBBY Gold Age/Sex: 43/F Location: [facility] Status: Signed Assessment and Plan Assessment and Plan (1) Lung nodule: Status: Chronic Plan: Stable. Will repeat diagnostic CT of the chest in January 2025, ordered at the last office visit. Plan for her to follow-up in February 2025 to discuss test results. (2) Cough: Status: Acute Qualifiers: Cough type: chronic Qualified Code(s): R05.3 - Chronic cough Plan: The cough that she is experiencing now is likely postviral cough. I explained to her that this may last several weeks. It is not problematic. Pulmonary function studies are normal. No indication for any additional medications at this time. (3) Nicotine dependence, cigarettes, uncomplicated: Status: Chronic Plan: Continue to encourage complete smoking cessation. The patient remains precontemplative at this time. HPI 6 WK FU RESCHEDULED DUE TO PT w/COVID Chief Complaint: Test results HPI Comments Details: This patient presents to the office today to discuss recent test results and continue to monitor regarding previously noted nodule on incidental finding. She is ambulatory and currently on room air. She reports that she was diagnosed with COVID a early June. She was treated with amoxicillin, a prednisone taper and was placed on albuterol. She reports that she was responsive to the medications and has almost return to baseline. She denies any difficulty with shortness of breath. She has a nonproductive cough that occurs nightly. She denies any hemoptysis. She denies any wheezing, chest tightness or palpitations. She has not had any fever, chills or body aches. She continues to smoke cigarettes. Currently smoking 1/2 pack/day. She readily admits that she is not interested in smoking cessation. Test results personally reviewed with the patient: Pulmonary function test completed on May 10, 2024. Impression: Grossly normal pulmonary function studies. Intake Vital Signs 06/27/24 12:19 07/19/24 07:56 Height 5 ft 9.5 in 5 ft 9.5 in Weight: 190 lb BMI 27.6 BP 119/80 Blood Pressure Location Lt radial Position Sitting Respiration 18 Pulse 80 Pulse Source Monitor Temp 97.6 F L Temperature Source Temporal Artery Pulse Oximetry (%) 97 Oxygen Delivery Method room air Intake Visit Reasons: 6 WK FU RESCHEDULED DUE TO PT w/COVID Track Liner Operator Required: No DME Vendor: n/a Accompanied by: Self Is patient in pain?: No Allergies alprazolam (From Xanax) Allergy (Intermediate, Verified 07/19/24 14:44) Other azithromycin Allergy (Intermediate, Verified 07/19/24 14:44) Other ciprofloxacin Allergy (Intermediate, Verified 07/19/24 14:44) Other citalopram Allergy (Intermediate, Verified 07/19/24 14:44) Other latex Allergy (Intermediate, Verified 07/19/24 14:44) Other Penicillins Allergy (Intermediate, Verified 07/19/24 14:44) Other red dye Allergy (Intermediate, Verified 07/19/24 14:44) Other sulfamethoxazole (From Bactrim) Allergy (Intermediate, Verified 07/19/24 14:44) Other tetracycline Allergy (Intermediate, Verified 07/19/24 14:44) Other trimethoprim (From Bactrim) Allergy (Intermediate, Verified 07/19/24 14:44) Other venom-honey bee Allergy (Intermediate, Verified 07/19/24 14:44) Other levofloxacin Adverse Reaction (Verified 07/19/24 14:44) Diarrhea Medications ???Medication ???Instructions ???Recorded ???Confirmed ???Type meclizine 25 mg tablet 25 mg PO BID PRN dizziness 3 07/19/24 History albuterol sulfate 90 mcg/actuation inhalation 07/19/24 07/19/24 His tory aerosol inhaler [facility] Medical History (Reviewed 07/20/24 @ 08:35 by Yolis Gold STEREO PLOTTER OPERATOR, STEREO PLOTTER OPERATOR-C) COVID Alcohol use Depression Anxiety Lung nodules Gastric reflux Vertigo Gastritis Umbilical hernia Hiatal hernia Constipation Polyp of colon Dysfunctional gallbladder Biliary dyskinesia Fatigue Nausea Abdominal pain Surgical History (Reviewed 07/20/24 @ 08:35 by Yolis Gold STEREO PLOTTER OPERATOR, STEREO PLOTTER OPERATOR-C) Tubal ligation status Hx of cholecystectomy Family History (Reviewed 07/20/24 @ 08:35 by Yolis Gold STEREO PLOTTER OPERATOR, STEREO PLOTTER OPERATOR-C) Mother Diabetes Asthma Father Diabetes Asthma Social History Smoking Status: Current every day smoker tobacco type: cigarettes alcohol intake: current substance use type: does not use Review of Systems Resp Respiratory: Yes as per HPI Exam Const Constitutional: Positive conversant, cooperative, in no acute respiratory distress, wel (more content not included)... Normal [facility] CBC + DIFFon 07-02-2024 Baso # 0.01 x10EE3/UL Normal 0.00 - 0.10 [facility] Comment on above: Performed By: #### 2 75005 #### [facility],[address] [place] [address] 20355 Basophils/100 WBC (Bld) 0.2 % Normal 0.0 - 2.0 [facility] Comment on above: Performed By: #### 2 35134 #### [facility],[address] [place] [address] CBC + DIFF Normal [facility] Comment on above: Result Comment: CBC- COMPLETE BLOOD COUNT Performed By: #### 2 74199 #### [facility],[address] [place] [address] 37689 EO # 0.01 x10EE3/UL Normal 0.00 - 0.50 [facility] Comment on above: Performed By: #### 2 67171 #### [facility],[address] [place] [address] 50436 Eosinophils/100 WBC (Bld) 0.4 % Normal 0.0 - 7.0 [facility] Comment on above: Performed By: #### 2 44516 #### [facility],[address] [place], [place] [phone] Erythrocyte distribution width (RBC) [Ratio] 12.6 % Normal 12.0 - 15.6 [facility] Comment on above: Performed By: #### 2 86291 #### [facility],[address] [place] [address] 95985 Hematocrit (Bld) [Volume fraction] 43.1 % Normal 34.0 - 46.0 [facility] Comment on above: Performed By: #### 2 64224 #### [facility],[address] [place] [address] 32516 Hemoglobin (Bld) [Mass/Vol] 14.8 g/dL Normal 12.0 - 16.0 [facility] Comment on above: Performed By: #### 2 28660 #### [facility],[address] [place], [place] [address] Lymph # 1.09 x10EE3/UL Normal 0.80 - 2.80 [facility] Comment on above: Performed By: #### 2 22883 #### [facility],[address] [place] [address] 50760 Lymphocytes/100 WBC (Bld) 28.8 % Normal 20.0 - 45.0 [facility] Comment on above: Performed By: #### 2 65325 #### [facility],[address] [place] [address] 22974 MANUAL DIFF N/A Normal [facility] Comment on above: Performed By: #### 2 79121 #### [facility],[address] [place] [address] 36858 MCH (RBC) [Entitic mass] 29 pg Normal 27 - 33 [facility] Comment on above: Performed By: #### 2 20305 #### [facility],[address] [place] [address] 35796 MCHC 34 X10 3 Normal 32 - 36 [facility] Comment on above: Performed By: #### 2 35519 #### [facility],[address] [place] [address] 71742 MCV (RBC) [Entitic vol] 85 fL Normal 80 - 99 [facility] Comment on above: Performed By: #### 2 83134 #### [facility],[address] [place] [address] 90110 Winston # 0.44 x10EE3/UL Normal 0.20 - 1.00 [facility] Comment on above: Performed By: #### 2 45037 #### [facility],[address] [place] [address] 13325 MONOS % 11.5 % High 0.0 - 10.0 [facility] Comment on above: Performed By: #### 2 57089 #### [facility],[address] [place] [address] 75235 Morphology Misha (Bld) [Interp] N/A Normal [facility] Comment on above: Performed By: #### 2 38439 #### [facility],[address] [place] [address] 76686 Neut # 2.25 x10EE3/UL Normal 1.50 - 7.10 [facility] Comment on above: Performed By: #### 2 51053 #### [facility],[address] [place] [address] 96993 Neutrophils/100 WBC (Bld) 59.2 % Normal 46.0 - 76.0 [facility] Comment on above: Performed By: #### 2 69316 #### [facility],[address] [place] [address] 43207 PLATELET 268 x10EE3/UL Normal 150 - 450 [facility] Comment on above: Performed By: #### 2 42816 #### [facility],[address] [place] [address] 73342 Platelet mean volume (Bld) [Entitic vol] 7.7 fL Normal 6.6 - 10.5 [facility] Comment on above: Result Comment: AUTO MATED DIFFERENTIAL Performed By: #### 2 47582 #### [facility],[address] [place] [address] 22352 RBC 5.10 x 10EE6/UL Normal 4.10 - 5.30 [facility] Comment on above: Performed By: #### 2 42489 #### [facility],[address] [place] [address] 65947 WBC 3.8 x 10EE3/UL Low 4.5 - 10.8 [facility] Comment on above: Performed By: #### 2 08593 #### [facility],[address] [place] [address] 76261 CHEST 1 VIEWon 07-02-2024 CHEST 1 VIEW [place] [address] Patient: MARY SANDERS Phone#: : 1980 Age: 43 Gender: F Pt. Type: ER Account: [id number] Location: [facility] Ordering: ANTONIO REYES Exam Date: 07/02/2024/13:53 Family Phys: FARTUN GALLEGOSADRIAN Charge Code: [id number] Physician: [place] Order #: [id number] Dose#: PROCEDURE: X-RAY CHEST 1 VIEW COMPARISON: [facility], XR, CHEST 2 VIEWS, 07/31/2023, 12:41. INDICATIONS: Cough. FINDINGS: LUNGS: Normal. No significant pulmonary parenchymal abnormalities. VASCULATURE: Normal. Unremarkable pulmonary vasculature. CARDIAC: Normal. No cardiac silhouette abnormality or cardiomegaly. MEDIASTINUM: Normal. No visible mass or adenopathy. PLEURA: Normal. No effusion or pleural thickening. BONES: Normal. No fracture or visible bony lesion. OTHER: Negative. CONCLUSION: No acute disease. No significant change has occurred. Dictated by: Ashleigh Joya MD on 07/02/2024 at 14:01 Approved by: Ashleigh Joya MD on 07/02/2024 at 14:01 Normal [facility] CMP with eGFRon 07-02-2024 AGE 43 years Normal [facility] Comment on above: Performed By: #### 2 08680 #### [facility],[address] [place] [address] 54105 Albumin [Mass/Vol] 3.8 g/dL Normal 3.4 - 5.0 [facility] Comment on above: Performed By: #### 2 82642 #### [facility],[address] [place] [address] 33426 Albumin/Globulin [Mass ratio] 1.0 {ratio} Normal 0.9 - 1.6 [facility] Comment on above: Performed By: #### 2 92705 #### [facility],[address] [place] [address] 42258 ALK PHOS 50 U/L Normal 46 - 116 [facility] Comment on above: Performed By: #### 2 06170 #### [facility],[address] [place], [place] [id number] ALT [Catalytic activity/Vol] 33 U/L Normal 16 - 63 [facility] Comment on above: Performed By: #### 2 29845 #### [facility],[address] [place], [place] [id number] Anion gap [Moles/Vol] 13 mmol/L Normal 10 - 20 [facility] Comment on above: Performed By: #### 2 65725 #### [facility],[address] [place] [address] 48137 AST [Catalytic activity/Vol] 22 U/L Normal 13 - 39 [facility] Comment on above: Performed By: #### 2 16248 #### [facility],[address] [place] [address] 22302 B/C RATIO 12 ratio Normal 0 - 30 [facility] Comment on above: Performed By: #### 2 00093 #### [facility],[address] [place] [address] 91383 Bilirubin [Mass/Vol] 0.4 mg/dL Normal 0.2 - 1.0 [facility] Comment on above: Performed By: #### 2 [id number] #### [facility],[address] [place] [address] Calcium [Mass/Vol] 8.8 mg/dL Normal 8.5 - 10.1 [facility] Comment on above: Performed By: #### 2 99045 #### [place] [address] Chloride [Moles/Vol] 102 mmol/L Normal 98 - 107 [facility] Comment on above: Performed By: #### 2 [id number] #### [place] [address] CMP with eGFR Normal [facility] Comment on above: Result Comment: COMP REHENSIVE METABOLIC PANEL Performed By: #### 2 60848 #### [place] [address] CO2 [Moles/Vol] 28.7 mmol/L Normal 21.0 - 32.0 [facility] Comment on above: Performed By: #### 2 89664 #### [facility],[address] [place] [address] Creatinine [Mass/Vol] 0.99 mg/dL Normal 0.55 - 1.02 [facility] Comment on above: Performed By: #### 2 85123 #### [facility],[address] [place] [address] GFR/1.73 sq M.predicted among non-blacks MDRD (S/P/Bld) [Vol rate/Area] mL/min/{1.73_m2} Normal 60 - 999 [facility] Comment on above: Performed By: #### 2 42877 #### [place] [address] Result Comment: ACCO RDING TO THE NATIONAL KIDNEY DISEASE EDUCATION PROGRAM(NKDE), A NORMAL eGFR IS A VALUE GREATER THAN OR EQUAL TO 60 ML/MIN/1.73 SQ METERS. CHRONIC KIDNEY DISEASE: <60mL/MIN/1.73 SQ METERS KIDNEY FAILURE: <15mL/MIN/1.73 SQ METERS THIS TEST SHOULD ONLY BE USED FOR PATIENTS 18 YEARS OF AGE AND OLDER. Globulin (S) [Mass/Vol] 3.9 g/dL High 1.5 - 3.8 [facility] Comment on above: Performed By: #### 2 [id number] #### [facility],[address] [place] [address] Glucose [Mass/Vol] 114 mg/dL High 74 - 106 [facility] Comment on above: Performed By: #### 2 90527 #### [facility],[address] [place] [address]183 Potassium [Moles/Vol] 3.7 mmol/L Normal 3.5 - 5.1 [facility] Comment on above: Performed By: #### 2 83587 #### [facility],[address] [place] [address] Protein [Mass/Vol] 7.7 g/dL Normal 6.4 - 8.2 [facility] Comment on above: Performed By: #### 2 63304 #### [facility],[address] [place] [address] Sodium [Moles/Vol] 140 mmol/L Normal 136 - 145 [facility] Comment on above: Performed By: #### 2 58009 #### [facility],[address] [place] [address] Urea nitrogen [Mass/Vol] 12 mg/dL Normal 7 - 18 [facility] Comment on above: Performed By: #### 2 66154 #### [facility],[address] [place] [address] CORONAVIRUS (SARS) ANTIGEN T ESTon 07-02-2024 EXTERNAL QC DONE? YES Normal [facility] Comment on above: Performed By: #### 2 [id number] #### [facility],[address] [place] [address] INTERNAL CONTROL PASS Normal [facility] Comment on above: Performed By: #### 2 92937 #### [facility],[address] [place] [address] SARS ANTIGEN Positive Abnormal NORMAL: NEGATIVE [facility] Comment on above: Result Comment: { CA LLED TO .NH { READ BACK BY .NH Performed By: #### 2 56636 #### [facility],[address] [place] [address] SEND TO IC? YES Normal [facility] Comment on above: Result Comment: SARS -CoV-2 THIS TEST IS BEING USED UNDER THE FDA EUA PROCEDURE. THIS ASSAY HAS BEEN VALIDATED AT [facility] FOR USE WITH NASAL AND NASOPHARYNGEAL SWAB SPECIMENS. INTERPRETIVE DATA TEST RESULTS SHOULD ALWAYS BE CONSIDERED IN THE CONTEXT OF CLINICAL OBSERVATIONS AND EPIDEMIOLOGICAL DATA IN MAKING FINAL DIAGNOSIS AND PATIENT MANAGEMENT DECISIONS. PATIENT MANAGEMENT SHOULD FOLLOW CURRENT CDC GUIDELINES. THE BRUNA SARS ANTIGEN OBI DOES NOT DIFFERENTIATE BETWEEN SARS-CoV & SARS-CoV-2. A POSITIVE TEST RESULT INDICATES THE PRESENCE OF SARS-CoV-2 NUCLEOCAPSID PROTEIN ANTIGEN, AND THE PATIENT IS INFECTED WITH THE VIRUS AND PRESUMED TO BE CONTAGIOUS. A NEGATIVE TEST RESULT FOR THIS TEST MEANS THAT SARS-CoV-2 NUCLEOCAPSID PROTEIN ANTIGEN WAS NOT PRESENT IN THE SPECIMEN ABOVE THE LIMIT OF DETECTION. HOWEVER, A NEGATIVE RESULT DOES NOT RULE OUT COVID-19 AND SHOULD NOT BE USED THE SOLE BASIS FOR TREATMENT OR PATIENT MANAGEMENT DECISIONS. A NEGATIVE RESULT DOES NOT EXCLUDE THE POSSIBILITY OF COVID-19. NEGATIVE RESULTS, FROM PATIENTS WITH SYMPTOM ONSET BEYOND FIVE DAYS, SHOULD BE TREATED PRESUMPTIVE AND CONFIRMATION WITH A MOLECULAR ASSAY, IF NECESSARY, FOR PATIENT MANAGEMENT, MAY BE PERFORMED. WHEN DIAGNOSTIC TESTING IS NEGATIVE, THE POSSIBLILTY OF A FALSE NEGATIVE RESULT SHOULD BE CONSIDERED IN THE CONTEXT OF A PATIENT'S RECENT EXPOSURES AND THE PRESENCE OF CLINICAL SIGNS AND SYMPTOMS CONSISTENT WITH COVID-19. THE POSSIBILITY OF A FALSE NEGATIVE RESULT SHOULD ESPECIALLY BE CONSIDERED IF THE PATIENT'S RECENT EXPOSURES OR CLINICAL PRESENTATION INDICATE THAT COVID-19 IS LIKELY, AND DIAGNOSTIC TESTS FOR OTHER CAUSES OF ILLNESS (e.g., OTHER RESPIRATORY ILLNESS) ARE NEGATIVE. IF COVID-19 IS STILL SUSPECTED BASED ON EXPOSURE HISTORY TOGETHER WITH OTHER CLINICAL FINDINGS, RE-TESTING SHOULD BE CONSIDERED BY HEALTHCARE PROVIDERS IN CONSULTATION WITH PUBLIC HEALTH AUTHORITIES. Performed By: #### 2 [id number] #### [facility],[address] [place] [address] ED MED ADMINISTRATION DETAIL on 07-02-2024 ED MED ADMINISTRATION DETAIL V[employer]er Jointer Operator Medication Administration Record [address] [address] [id number] 07/02/2024 Patient: MARY SANDERS Sex: Female : 1980 Age: 43y MEASUREMENTS: Wt: 85.7 kg, Ht/Kirby: 69.0 in, BMI: 27.91 ALLERGIES: Bactrim, Ciprofloxacin, Keflex, Macrolide Antibiotics, Penicillins, Xanax, azithromycin, citalopram, latex, tetracycline Medication Ordered Medication Administration Date/Time IV NS 0.9 % 1000 12:07/02 IV NS 0.9 % 1000 mL started in bag#1 1000 mL at Started mL at 999 mL/hr 999 mL/hr via Site# 1. Allergies verified and confirmed 5 rights. IV 12:07/02/2024 (NOW x1) patency established. IV site checked: no pain, redness, or swelling. Rafaela Stone R.N. IV flushed thoroughly pre-medication administration. Information Stopped reviewed. Verbalizes understanding. - 12:10 Rafaela Stone R.N. 14:20 07/02/2024 Rafaela Stone R.N. 14:20 07/02 Medication Discontinued: bag #1 infused. Total Scanned amount infused: 1000 mL. IV patency established. IV site checked: no pain, redness, or swelling. IV flushed thoroughly post-medication administration. - 15:09 Rafaela Stone R.N. PredniSONE PO 20 14:05 07/02 PredniSONE PO 20 mg given. Allergies verified and Given mg (NOW x1) confirmed 5 rights. Information reviewed. Verbalizes 14:05 07/02/2024 understanding. - 14:05 Hunter Goins R.N. Scanned 1 of 1 Normal [facility] ED NURSES CLINICAL NOTEon ED NURSES CLINICAL NOTE Nurse Narrative Nurse Clinical Narrative [address] [address] [id number] 07/02/2024 Patient: MARY SANDERS Sex: Female : 1980 Age: 43y Disposition: Discharge to Home Disposition Decision Time: 14:07 07/02/2024 Departure Time: 14:23 07/02/2024 TRIAGE Arrived by private vehicle. Historian: patient. Accompanied by family. Primary physician (kimmy). Triage time: 11:34 07/02/2024. Acuity: LEVEL 3. Chief Complaint: COUGH, SORE THROAT and BODY ACHES. Onset. (Tuesday). The patient has had a headache. SEPSIS SCREEN: NEGATIVE. SIRS criteria negative: heart rate greater than 90. No possible sources of infection. -- 11:44 07/02/24 SURENDRA Jackson R.N. 11:36 07/02/24. BP: 117/87 MAP: 97. HR: 92. RR: 16. O2 saturation: 97% Temperature: 99.2 F. Pain level now 7/10. -- 11:36 07/02/24 SURENDRA Jackson R.N. Measurements: 11:44 07/02/24 Wt: 85.7 kg, Ht/Kirby: 69.0 in, BMI: 27.91 -- 11:44 07/02/24 SURENDRA Jackson R.N. Medications: no known home medications -- 13:39 07/02/24 SURENDRA Jackson R.N. Allergies: 1 of 4 Nurse Narrative Ciprofloxacin: Allergy -- 11:38 07/02/24 SURENDRA Jackson R.N. citalopram: Allergy -- 11:38 07/02/24 SURENDRA Jackson R.N. Macrolide Antibiotics: Allergy -- 11:38 07/02/24 SURENDRA Jackson R.N. Bactrim: Allergy -- 11:38 07/02/24 SURENDRA Jackson R.N. Keflex: Allergy -- 11:39 07/02/24 SURENDRA Jackson R.N. Penicillins: Allergy -- 11:39 07/02/24 SURENDRA Jackson R.N. tetracycline: Allergy -- 11:39 07/02/24 SURENDRA Jackson R.N. azithromycin: Allergy -- 11:39 07/02/24 SURENDRA Jackson R.N. Xanax: Allergy -- 11:40 07/02/24 SURENDRA Jackson R.N. latex: Allergy -- 11:40 07/02/24 SURENDRA Jackson R.N. Problems: Gastroesophageal Reflux Disease: Active -- 11:40 07/02/24 SURENDRA Jackson R.N. Cavazos's esophagus: Active -- 11:41 07/02/24 SURENDRA Jackson R.N. Vertigo: Active -- 11:41 07/02/24 SURENDRA Jackson R.N. ADDITIONAL SURGERIES: Cholecystectomy -- 11:41 07/02/24 SURENDRA Jackson R.N. Tubal Ligation -- 11:41 07/02/24 SURENDRA Jackson R.N. History 11:34 07/02/24. PAST MEDICAL HX: Last normal menstrual period- 1 weeks ago. Denies current . Immunization status is known. SOCIAL HX: Light tobacco smoker (cigarette)- less than 1/2 a pack per day. Occasional alcohol use. No drug use. The patient has not traveled outside the [place] Infectious disease exposure: No infectious disease exposure. ABUSE ASSESSMENT: The patient answered yes to the question(s) Do you feel safe in your home? and no to the question(s) Are you afraid to go home?. SELF HARM ASSESSMENT: Self harm assessment was performed. The patient answered no to the question(s) Have you recently felt down, depressed, or hopeless? and Do you have thoughts of harming or killing yourself?. 2 of 4 Nurse Narrative FALL RISK ASSESSMENT: Fall risk assessment completed. No risk factors identified. -- 11:44 07/02/24 SURENDRA Jackson R.N. Interventions 11:34 07/02/24. Allergy band on patient. Advanced care plan discussed with patient. Patient does not have advanced directive. -- 11:44 07/02/24 SURENDRA Jackson R.N. PHYSICAL ASSESSMENT 12:07/02/24. Ambulatory to room. GENERAL / NEURO / PSYCH: Alert. Oriented X 4. Appears in no acute distress. HEENT: Pupils equal, round and reactive to light. RESPIRATORY: Respirations not labored. SKIN: Skin intact. Skin is warm and dry. Normal skin turgor. -- 12:13 07/02/24 SURENDRA Stone R.N. NURSING PROGRESS NOTES 11:59 07/02/24. Site #1 started via IV in the right antecubital space with a 20g angiocath; 1 attempt. Blood drawn: rainbow set tube(s). Labeled in the presence of the patient and sent to the lab. Saline lock flushed with 5 mL saline. -- 11:59 07/02/24 SURENDRA Stone R.N. 12:07/02/24. IV NS 0.9 % 1000 mL started in bag#1 1000 mL at 999 mL/hr via Site# 1. Allergies verified and confirmed 5 rights. IV patency established. IV site checked: no pain, redness, or swelling. IV flushed thoroughly pre-medication administration. Information reviewed. Verbalizes understanding. -- 12:07/02/24 SURENDRA Stone R.N. 14:07/02/24. PredniSONE PO 20 mg given. Allergies verified and confirmed 5 rights. Information reviewed. Verbalizes understanding. -- 14:07/02/24 SURENDRA Stone R.N. DISPOSITION / DISCHARGE 14:07/02/24. IV NS 0.9 %: Medication Discontinued. bag #1 infused. Total amount infused: 1000 mL. IV patency established. IV site checked: no pain, redness, or swelling. IV flushed thoroughly post-medication administration. -- 15:07/02/24 SURENDRA Stone R.N. 14:07/02/24. Site #1 removed upon discharge. -- 15:07/02/24 SURENDRA Stone R.N. Departure time: 14:07/02/2024. Condition a (more content not included)... Normal [facility] ED ORDER SHEET (CPOE ONLY)on 07-02-2024 ED ORDER SHEET (CPOE ONLY) Order Sheet Order Sheet [address] [address] [id number] 07/02/2024 Patient: MARY SANDERS Sex: Female : 1980 Age: 43y MEASUREMENTS: Wt: 85.7 kg, Ht/Kirby: 69.0 in, BMI: 27.91 ALLERGIES: Bactrim, Ciprofloxacin, Keflex, Macrolide Antibiotics, Penicillins, Xanax, azithromycin, citalopram, latex, tetracycline MEDICATION/IV/DRIP/FLUID ORDERS Order Description Priority Entered Acknowledged Completed IV NS 0.9 %1000 mL at 999 11:37 07/02/2024 12:09 12:10 mL/hr (NOW x1) Antonio Reyes, 07/02/2024 07/02/2024 Rafaela Sylvester R.N. R.N. PredniSONE PO20 mg (NOW 13:37 07/02/2024 14:05 x1) Antonio Reyes, 07/02/2024 Cesar Stone R.N. LAB ORDERS Order Description Priority Entered Acknowledged Collected Completed CBC w Diff Stat Stat 11:37 07/02/2024 11:47 07/02/2024 11:59 07/02/2024 Rafaela Cunningham R.N. Tessa Miller, R.N. D.OEdis CMP Stat Stat 11:37 07/02/2024 11:47 07/02/2024 11:59 07/02/2024 1 of 2 Order Sheet Rafaela Cunningham R.N. Tessa Miller, R.N. D.OEdis Urinalysis Stat Stat 11:37 07/02/2024 11:47 07/02/2024 11:59 07/02/2024 Rafaela Cunningham R.N. Tessa Miller, R.N. D.OEdis Flu Swab (Influenzae Stat 11:37 07/02/2024 11:47 07/02/2024 11:59 07/02/2024 AAg) Stat Rafaela Cunningham R.N. Tessa Miller, R.N. D.OEdis Rapid COVID (SARS) Stat 11:37 07/02/2024 11:47 07/02/2024 11:59 07/02/2024 ANTIGEN TEST Stat Rafaela Cunningham R.N. Tessa Miller, R.N. D.OEdis DIAGNOSTIC STUDY ORDERS Order Description Priority Entered Acknowledged Completed Chest 1V Stat Stat 13:09 07/02/2024 13:42 13:42 Antonio Reyes 07/02/2024 07/02/2024 Rafaela Sylvester R.N. REdisNEdis Reason for Study: Cough STAFF ORDERS Order Description Priority Entered Acknowledged Collected Completed IV Saline Lock 11:37 07/02/2024 11:47 07/02/2024 11:59 07/02/2024 Rafaela Cunningham R.N. Tessa [place], R.N. D.OEdis [Electronically signed by Antonio Reyes D.O. (07/02/2024 20:40 EST)] 2 of 2 Normal [facility] ED PHYSICIAN CLINICAL REPORT on 07-02-2024 ED PHYSICIAN CLINICAL REPORT Narrative Physician Clinical Narrative [address] [address] [id number] 07/02/2024 Patient: MARY SANDERS Sex: Female : 1980 Age: 43y Disposition: Discharge to Home Disposition Decision Time: 14:07 07/02/2024 Departure Time: 14:23 07/02/2024 Measurements Wt: 85.7 kg, Ht/Kirby: 69.0 in, BMI: 27.91 Initial Vital Sign Measured Time BP MAP HR RR O2Sat ETCO2 Temp Pain GCS RTS 11:36 07/02/2024 117/87 97 92 16 97% 99.2 F 7 Time Seen: 11:32 07/02/2024. Arrived- By private vehicle. Historian- patient. Independent historian- family. HISTORY OF PRESENT ILLNESS Chief Complaint: FEVER, CHILLS, NOT FEELING WELL and WEAKNESS. (patient came in Tuesday she developed headache body aches fevers chills sweats weak and tired just not feeling well for low lightheaded and presents to the emergency department. She did have a EGD colonoscopy on Tuesday. She has had nausea she denies any shortness of breath. Says coughing up greenish phlegm.). The patient has had loss of appetite, muscle aches, a cough and decreased oral intake. No altered mental status or skin breakdown noted. Additional history - The patient has had contact with a sick individual. REVIEW OF SYSTEMS 1 of 13 Narrative CVS: No palpitations or calf pain. CONSTITUTIONAL: No anorexia. SKIN: No tick bite. ENDO/HEME/LYMPH: No easy bruising. NEUROLOGICAL: The patient has had a headache. GI: The patient has had nausea. No constipation, black stools or vomiting. PAST HISTORY See nurses notes. Cavazos's esophagus: [Active] Gastroesophageal Reflux Disease: [Active] Vertigo: [Active] Surgeries: Cholecystectomy Tubal Ligation Medications: no known home medications Allergies: azithromycin: Allergy Bactrim: Allergy Ciprofloxacin: Allergy citalopram: Allergy Keflex: Allergy latex: Allergy Macrolide Antibiotics: Allergy Penicillins: Allergy tetracycline: Allergy Xanax: Allergy SOCIAL HISTORY Current every day smoker. Occasional alcohol use. ADDITIONAL NOTES The nursing notes have been reviewed. Narrative PHYSICAL EXAM Appearance: Alert. No acute distress. LABS, X-RAYS, AND EKG Laboratory Tests: CBC + DIFF Final JAZMYN: 07/02/2024 11:55:00 EST MsgRcvd: 07/02/2024 12:26 EST Lab Test Result Reference Status Received Comments 07/02/2024 12:26 CBC-COMPLETE CBC + DIFF Final EST BLOOD COUNT 3.8 x 10/UL 07/02/2024 12:26 WBC 4.5 - 10.8 Final Below low normal EST 07/02/2024 12:26 RBC 5.10 x 10/UL 4.10 - 5.30 Final EST 07/02/2024 12:26 HEMOGLOBIN 14.8 g/dl 12.0 - 16.0 Final EST 07/02/2024 12:26 HEMATOCRIT 43.1 % 34.0 - 46.0 Final EST 07/02/2024 12:26 MCV 85 fl 80 - 99 Final EST 07/02/2024 12:26 MCH 29 pg 27 - 33 Final EST 07/02/2024 12:26 MCHC 34 X10 3 32 - 36 Final EST 07/02/2024 12:26 RDW/CV 12.6 % 12.0 - 15.6 Final EST of Narrative 07/02/2024 12:26 PLATELET 268 x10/UL 150 - 450 Final EST 07/02/2024 12:26 AUTOMATED MPV 7.7 fl 6.6 - 10.5 Final EST DIFFERENTIAL 07/02/2024 12:26 NEUT % 59.2 % 46.0 - 76.0 Final EST 07/02/2024 12:26 LYMPH % 28.8 % 20.0 - 45.0 Final EST 11.5 % 07/02/2024 12:26 MONOS % 0.0 - 10.0 Final Above high normal EST 07/02/2024 12:26 EO % 0.4 % 0.0 - 7.0 Final EST 07/02/2024 12:26 BASO % 0.2 % 0.0 - 2.0 Final EST 07/02/2024 12:26 Lymph # 1.09 x10/UL 0.80 - 2.80 Final EST 07/02/2024 12:26 Neut # 2.25 x10/UL 1.50 - 7.10 Final EST 07/02/2024 12:26 Winston # 0.44 x10/UL 0.20 - 1.00 Final EST 07/02/2024 12:26 EO # 0.01 x10/UL 0.00 - 0.50 Final EST 07/02/2024 12:26 Baso # 0.01 x10/UL 0.00 - 0.10 Final EST 07/02/2024 12:26 MANUAL DIFF N/A New Order EST 07/02/2024 12:26 MORPHOLOGY N/A New Order EST 4 of 13 Narrative CMP with eGFR Final JAZMYN: 07/02/2024 11:55:00 EST MsgRcvd: 07/02/2024 12:40 EST Lab Test Result Reference Status Received Comments COMPREHENSIVE 07/02/2024 CMP with eGFR Final METABOLIC 12:40 EST PANEL 07/02/2024 SODIUM 140 mmol/l 136 - 145 Final 12:40 EST 07/02/2024 POTASSIUM 3.7 mmol/L 3.5 - 5.1 Final 12:40 EST 07/02/2024 CHLORIDE 102 mmol/L 98 - 107 Final 12:40 EST 07/02/2024 CO2 28.7 mmol/L 21.0 - 32.0 Final 12:40 EST 114 mg/dl 07/02/2024 GLUCOSE Above high 74 - 106 Final 12:40 EST normal 07/02/2024 BUN 12 mg/dl 7 - 18 Final 12:40 EST 07/02/2024 CREATININE 0.99 mg/dl 0.55 - 1.02 Final 12:40 EST 07/02/2024 AST/SGOT 22 U/L 13 - 39 Final 12:40 EST 07/02/2024 ALK PHOS 50 U/L 46 - 116 Final 12:40 EST 07/02/2024 CALCIUM 8.8 mg/dl 8.5 - 10.1 Final 12:40 EST 5 of 13 Narrative TOTAL 07/02/2024 7.7 g/dl 6.4 - 8.2 Final PROTEIN 12:40 EST (more content not included)... Normal [facility] ED SUPER BILLon 07-02-2024 [facility] [address] [place] [address] [id number] 07/02/2024 Patient: MARY SANDERS Sex: Female : 1980 Age: 43y Item Facility Professional Category Description Code Code Quantity Fee Total Drugs Normal Saline 739808 1 $0.00 $0.00 1000cc (994179) Nurse/E/M EMERGENCY 272790 1 $0.00 $0.00 DEPARTMENT VISIT HIGH/URGENT SEVERITY (25322-08) Nurse/IV/IM/Infusions Hydration 941200 1 $0.00 $0.00 additional hour (38113) Nurse/IV/IM/Infusions Hydration initial 837180 1 $0.00 $0.00 (23920) Grand Total $0.00 Providers Antonio Reyes D.O. 1 of 2 [facility] Chief Complaint FEVER, CHILLS, NOT FEELING WELL and WEAKNESS. Principal Diagnosis COVID-19. ICD-10 Codes U07.1: COVID-19 2 of 2 [facility] ED VISIT SUMMARYon ED VISIT SUMMARY Visit Overview Visit Overview [address] [address] [id number] 07/02/2024 Patient: MARY SANDERS Sex: Female : 1980 Age: 43y 07/02/2024 08:40 PM EST ED Arrival:11:08 07/02/2024 EST Status:not Recent Travel:no Language:eng Adv Directive:No Isolation Status: Ethnicity:N Fall Risk:no risk Infectious Disease Exposure:no Measurements:5'9 / 175.3 Self-Harm Status:risk Sepsis Screen:negative cm 189.0 lb / 85.7 kg Chief Complaint:BODY ACHES, COUGH, SORE THROAT, (Tuesday), and (ungr) ALLERGIES azithromycin Bactrim Ciprofloxacin citalopram Keflex latex Macrolide Antibiotics Penicillins tetracycline 1 of 3 Visit Overview Xanax HOME MEDICATIONS None PAST MEDICAL HISTORY / PROBLEMS Cavazos's esophagus: Active Gastroesophageal Reflux Disease: Active Last normal menstrual period- 1 weeks ago See nurses notes Vertigo: Active PAST SURGICAL HISTORY Cholecystectomy Tubal Ligation SOCIAL HISTORY Smoking status: Yes Alcohol use: Yes Drug use: No ED COURSE MEDICATIONS GIVEN IN EMERGENCY DEPARTMENT 12:10 07/02/24 IV NS 0.9 % 1000 mL 999 mL/hr 14:05 07/02/24 PredniSONE PO 20 mg IV SITE INFORMATION INTAKE OUTPUT REASSESMENT (most recent) 2 of 3 Visit Overview 12:13 07/02/24. Ambulatory to room. GENERAL / NEURO / PSYCH: Alert. Oriented X 4. Appears in no acute distress. HEENT: Pupils equal, round and reactive to light. RESPIRATORY: Respirations not labored. SKIN: Skin intact. Skin is warm and dry. Normal skin turgor. VITAL SIGNS First Vitals Last Vitals Temp 11:36 07/02/24 99.2 F Temp 11:07/02/24 99.2 F BP 11:36 07/02/24 117/87 BP 11:36 07/02/24 117/87 HR 11:36 07/02/24 92 HR 11:36 07/02/24 92 RR 11:36 07/02/24 16 RR 11:36 07/02/24 16 O2 Sat 11:36 07/02/24 97% O2 Sat 11:36 07/02/24 97% Pain 11:36 07/02/24 7 Pain 11:36 07/02/24 7 ETCO2 11:36 07/02/24 ETCO2 11:36 07/02/24 GCS 11:36 07/02/24 GCS 11:36 07/02/24 RTS 11:36 07/02/24 RTS 11:36 07/02/24 PROCEDURES NURSING INTERVENTIONS LABS / STUDIES LABS / STUDIES ORDERED CBC w Diff Chest 1V CMP Flu Swab (Influenzae AAg) Rapid COVID (SARS) ANTIGEN TEST Urinalysis CLINICAL IMPRESSION COVID-19 3 of 3 Normal [facility] ED VITALS FLOW SHEETon 07-02 ED VITALS FLOW SHEET Vitals Vital Sign Flow Sheet [address] [address] [id number] 07/02/2024 Patient: MARY SANDERS Sex: Female : 1980 Age: 43y Measurements Wt: 85.7 kg, Ht/Kirby: 69.0 in, BMI: 27.91 Measured Time BP MAP HR RR O2Sat ETCO2 Temp Pain GCS RTS 11:36 07/02/2024 117/87 97 92 16 97% 99.2 F 7 1 of 1 Normal [facility] INFLUENZA VIRUS RAPID A/Bon 07-02-2024 INFLUENZA VIRUS RAPID A/B INFLUENZA A NEGATIVE INFLUENZA B NEGATIVE INTERNAL NEG QC PASS INTERNAL POS QC PASS EXTERNAL QC DONE? YES A NEGATIVE TEST RESULT DOES NOT EXCLUDE INFECTION WITH INFLUENZA A OR B. THEREFORE, THE RESULTS OBTAINED FROM THIS FLU TEST SHOULD BE USED IN CONJUCTION WITH CLINICAL FINDINGS TO MAKE AN ACCURATE DIAGNOSIS. A POSITIVE RESULT DOES NOT RULE OUT CO-INFECTIONS WITH OTHER PATHOGENS OR IDENTIFY ANY SPECIFIC INFLUENZA A VIRUS SUBTYPE.CO-INFECTION WITH INFLUENZA A AND B IS RARE. IT IS RECOMMENDED THAT DUAL POSITIVE RESULTS BE CONFIRMED BY VIRAL CULTURE OR AN FDA-CLEARED INFLUENZA A AND B MOLECULAR ASSAY. INDIVIDUALS WHO HAVE RECEIVED NASALLY ADMINISTERED INFLUENZA A VACCINE MAY TEST POSITIVE IN COMMERCIALLY AVAILABLE INFLUENZA RAPID DIAGNOSTIC TESTS FOR UP TO THREE DAYS. RESULT CRITICAL? NO Normal [facility] Comment on above: Performed By: #### 2 [id number] #### [facility],[address] [place] [id number] EGD Reporton 06-27-2024 EGD Report [facility] Medical Records Department [address] [place] [id number] EGD Report MR#: [id number] Acct: [id number] Name: MARY SANDERS Rep #: [id number] : 1980 43 From: Low Friend DO PCP: NP. Fartun Oneal NP-C Status:REG SDC Patient Name: Mary Gibson Procedure Date: 06/27/2024 1:05 PM Date of : 1980 Age: 43 Procedure: Upper GI endoscopy Indications: Heartburn, For therapy of esophageal reflux, Failure to respond to medical treatment Providers: Low Dior DO Referring MD: Robby Anthony Medicines: Monitored Anesthesia Care Patient Profile: This is a 43 year old female. Refer to note in patient chart for documentation of history and physical. Patient has symptoms of chronic epigastric abdominal pain, chronic dyspepsia, chronic heartburn and chronic nausea. Complications: No immediate complications. Procedure: Pre-Anesthesia Assessment: - Prior to the procedure, a History and Physical was performed, and patient medications and allergies were reviewed. The patient is competent. The risks and benefits of the procedure and the sedation options and risks were discussed with the patient. All questions were answered and informed consent was obtained. Patient identification and proposed procedure were verified by the physician in the pre-procedure area. Mental Status Examination: alert and oriented. Airway Examination: normal oropharyngeal airway and neck mobility. Respiratory Examination: clear to auscultation. CV Examination: normal. Prophylactic Antibiotics: The patient does not require prophylactic antibiotics. Prior Anticoagulants: The patient has taken no anticoagulant or antiplatelet agents except for NSAID medication. ASA Grade Assessment: II - A patient with mild systemic disease. After reviewing the risks and benefits, the patient was deemed in satisfactory condition to undergo the procedure. The anesthesia plan was to use monitored anesthesia care (MAC). Immediately prior to administration of medications, the patient was re-assessed for adequacy to receive sedatives. The heart rate, respiratory rate, oxygen saturations, blood pressure, adequacy of pulmonary ventilation, and response to care were monitored throughout the procedure. The physical status of the patient was re-assessed after the procedure. After obtaining informed consent, the endoscope was passed under direct vision. Throughout the procedure, the patient's blood pressure, pulse, and oxygen saturations were monitored continuously. The Endoscope was introduced through the mouth, and advanced to the second part of duodenum. The upper GI endoscopy was accomplished without difficulty. The patient tolerated the procedure well. Scope In: 1:17:15 PM Scope Out: 1:22:35 PM Total Procedure Duration Time 0 hours 5 minutes 20 seconds Findings: The Z-line was irregular and was found 36 cm from the incisors. Biopsies were taken with a cold forceps for histology. The QUINTERO capsule with delivery system was introduced through the mouth and advanced into the esophagus, such that the QUINTERO pH capsule was positioned 36 cm from the incisors, which was 6 cm proximal to the GE junction. Suction was applied to the well of the QUINTERO pH capsule to suck in the adjacent mucosa of the esophagus using the external vacuum pump set at a minimum vacuum pressure of 550 mmHg for 30 seconds. The QUINTERO pH capsule was then deployed by depressing the plunger on top of the handle to advance the locking pin into the mucosa, thereby attaching the capsule to the esophagus. The plunger was then rotated a quarter turn clockwise to release the capsule from the delivery system. The delivery system was then withdrawn. Endoscopy was utilized for probe placement and diagnostic evaluation. A medium-sized hiatal hernia was present. Patchy mild inflammation characterized by erythema was found in the duodenal bulb. Biopsies were taken with a cold forceps for histology. Verification of patient identification for the specimen was done. Estimated blood loss was minimal. Impression: - Z-line irregular, 36 cm from the incisors. Biopsied. - Medium-sized hiatal hernia. - Chronic duodenitis. Biopsied. - The QUINTERO pH capsule was positioned 36 cm from the incisors, which was 6 cm proximal to the GE junction. Recommendation: - Discharge patient to home. - Resume previous diet. - Continue present medications. - Await pathology results. Procedure Code(s): --- Professional --- 92468, Esophagogastroduodenoscop y, flexible, transoral; with biopsy, single or multiple CPT copyright 2021 [employer]. All rights reserved. The codes documented in this report are preliminary and upon marble worker review may be revised to meet current compliance requirements. Low (more content not included)... Normal [facility] MR/POSTOP.ROXANNEon 06-27-2024 [facility] Medical Records Department [address] [place] [address] Anesthesia Postop Eval I 06/27/24 1332 MR#: [id number] Acct: [id number] Name: AKHIL GIBSONMARY RINCONN Rep #: [id number] : 1980 43 From: Jomar Palafox PCP: ROBBY Oscar Status:REG SDC Y Race: C Location: [place] [address] Anesthesia: Postop Eval I Current Vital Signs Temperature: 97 F Pulse Rate: 71 Blood Pressure: 89/55 Respiratory Rate: 16 Pulse Ox: 98 Oxygen Delivery Method: Room Air Assessment Airway patent: Yes Spontaneous unlabored respirations: Yes Mental status: Asleep nausea: No Vomiting: No Anesthesia Complication: No Fluid Hydration Crystalloid volume administer (ml): 30 Total IV fluid infused: 30 Progress Note Anesthesia document: Postop Eval 1 completed: Yes 06/27/24 1333 Date Jomar Andrews Signature: Date CC: Signed Normal [facility] MR/GCGONZSN7yf 06-27-2024 [facility] Medical Records Department [address] [place] [address] Anesthesia Postop Eval II 06/27/24 1349 MR#: [id number] Acct: [id number] Name: MARY SANDERS Rep #: [id number] : 1980 43 From: Freddy Dunn MD PCP: ROBBY Oscar Status:REG SDC Y Race: C Location: [place] [address] Anesthesia Postop Eval I Sum Postop Eval Completion status Anesthesia document: Postop Eval 1 completed: Yes Anesthesia Postop Eval I Summary Anesthesia Postop Eval I Summary: Anesthesia Postop Eval I: Assessment Summary Airway patent Yes 06/27/24 13:33 [email or web address] Spontaneous unlabored Yes 06/27/24 13:33 [email or web address] respirations Mental status Asleep 06/27/24 13:33 [email or web address] nausea No 06/27/24 13:33 [email or web address] Vomiting No 06/27/24 13:33 [email or web address] Anesthesia Postop Eval I: Fluid Summary Crystalloid volume administer 30 06/27/24 13:33 [email or web address] (ml) Colloids volume administered ( ml) Blood Product volume administered (ml) Total IV fluid infused 30 06/27/24 13:33 [email or web address] Anesthesia Postop Eval I: Summary Notes Anesthesia Complication No 06/27/24 13:33 [email or web address] Anesthesia Complication Comment: Post-operative progress note Anesthesia: Postop Eval II Evaluation Mental status: Awake Pain Level: 0 nausea: No Vomiting: No 06/27/24 1349 Date Freddy Andrews Signature: Date CC: Signed Normal [facility] Special Stain Group Ion Special Stain Group I ------- Patient Age/Sex Location Account Attending Physician MARY SANDERS 43/F EN [id number] Low Dior DO Specimen: [id number] Received: 06/27/24 Status: CONRAD Pacheco Num: [id number] Spec Type: EGD BIOPSY Subm Dr: Low Dior, DO HEADER OPERATION: EGD - PH probe and biopsy PRE-OP DIAGNOSIS: Epigastric abdominal pain TISSUE SUBMITTED: A- Distal esophagus biopsy, B- Duodenum biopsy MICROSCOPIC DIAGNOSIS A. Distal Esophagus, Biopsy: Squamous and foveolar mucosa with intestinal metaplasia (See Comment) B. Duodenum, Biopsy: Duodenal mucosa without dysplasia, colitis, or polyps. LOLITA, 06/30/2024 COMMENT A. Alcian blue/PAS stain with matched control is used in the evaluation of the specimen. The Alcian Blue/PAS stain is positive for the presence of goblet cells. MICROSCOPIC DESCRIPTION Slides are reviewed. GROSS DESCRIPTION A. Received in fixative is one container labeled with the patient's name and designated Distal esophagus biopsy. The specimen consists of one irregular fragment of light gamez soft tissue that measures 0.5 x 0.3 x 0.1 cm. The specimen is totally submitted in one cassette. B. Received in fixative is one container labeled with the patient's name and designated Duodenum biopsy. The specimen consists of one irregular fragment of light gamez soft tissue that measures 0.5 x 0.3 x 0.1 cm. The specimen is totally submitted in one cassette. 06/28/2024 TC:3 CPT:65063w0,84639 Patient Age/Sex Location Account Attending Physician MARY SANDERS 43/F EN [id number] Low Dior DO Signed (signature on file) Dr. Herbert Carreno MD 06/30/24 1626 Normal [facility] Comment on above: Performed By: #### P SSI ####[facility] [id number], [id number] Gastroenterology Visit Repor ton 05-30-2024 Gastroenterology Visit Report [facility] Gastroenterology [address] [address] OFFICE VISIT Date of Service: 05/30/24 MR#: [id number] Acct: [id number] Name: MARY SANDERS Rep #: [id number] : 1980 Provider: Low Dior DO Age/Sex: 43/F Location: [facility] [place] [facility] Status: Signed Intake Vital Signs 10/26/22 06:00 05/08/24 07:37 Height 5 ft 9.5 in 5 ft 9.5 in Intake Visit Reasons: 6 M FU Chief Complaint: abdominal pain Allergies alprazolam (From Xanax) Allergy (Intermediate, Verified 05/08/24 13:55) Other azithromycin Allergy (Intermediate, Verified 05/08/24 13:55) Other ciprofloxacin Allergy (Intermediate, Verified 05/08/24 13:55) Other citalopram Allergy (Intermediate, Verified 05/08/24 13:55) Other latex Allergy (Intermediate, Verified 05/08/24 13:55) Other Penicillins Allergy (Intermediate, Verified 05/08/24 13:55) Other red dye Allergy (Intermediate, Verified 05/08/24 13:55) Other sulfamethoxazole (From Bactrim) Allergy (Intermediate, Verified 05/08/24 13:55) Other tetracycline Allergy (Intermediate, Verified 05/08/24 13:55) Other trimethoprim (From Bactrim) Allergy (Intermediate, Verified 05/08/24 13:55) Other venom-honey bee Allergy (Intermediate, Verified 05/08/24 13:55) Other Medications ???Medication ???Instructions ???Recorded ???Confirmed ???Type meclizine 25 mg tablet 25 mg PO BID PRN 06/24/22 05/30/24 History PFSH Medical History Vertigo Gastritis Umbilical hernia Hiatal hernia Constipation Polyp of colon Dysfunctional gallbladder Biliary dyskinesia Fatigue Nausea Abdominal pain Surgical History Tubal ligation status Hx of cholecystectomy Family History Mother Diabetes Asthma Father Diabetes Asthma Social History Smoking Status: Current every day smoker alcohol intake: current substance use type: does not use HPI HPI Chief Complaint: abdominal pain Details: MARY GIBSON, is a 43 F who presents to the office today for follow up. Prior workup: ? EGD/colonoscopy 02.25.22 [facility] EGD small hiatal hernia; small hiatal hernia. ? Colonoscopy advanced to IC junction; one hyperplastic polyp *BGI established 08.23.22 with epigastric pain that is worse since cholecystectomy . BM vary between constipation and loose stools. Self-pay and does not want to pursue a lot of testing. Start MiraLAX/kiwi/aloe vera. OV 06.28.23 she has been having increased difficulty with regurgitation with upset stomach mostly occurring later in the day, PRN Zofran is somewhat helpful; there is approximately 3-4 hours between last meal and lying for bed. Reports regular BM each day she is not currently taking a bowel regimen. She does have insurance now. Denies diabetes/marijuana use. Smokes ??? PPD cigarettes. Reports a lot of carbohydrate intake; drinks coffee, tea and pop mostly with occasional water intake. Contact 07.05.23 sucralfte is worsening regurgitation and having headaches. start Protonix Contact 10.05.23 10.05.23 Call placed to patient letting her know I spoke with Dr. Dior about her CT scan and he said she has a benign bony projection she should have looked at by Ortho. Also said the CT shows bile reflux. He said we can use Cholestyramine or Colestipol depending on what her bowels are like. Patient said she has already seen a orthopedic surgeon for these bony growths and said they didn't want to do surgery. Says she has a BM every day or every other day. Sometimes formed and sometimes loose. Contact 10.06.23 doing cholestyramine and Xifaxan OV 11.25.23 Pt reports that she started cholestyramine, but stopped because it made her period heavy. Pt has not started Xifaxan. Reports that she smokes 1/2 PPD cigarettes. Pt reports bm are normal. OV 05.30.24 pt reports continued on and off nausea as well as frequent HB. pt reports that she believes she has tried omeprazole and pantoprazole and they both made her sick. Pt expresses concern that she messed up her hernia yesterday while replacing seat covers in a van. Pt reports a daily bm and states that she does not have diarrhea often. ROS Const Constitutional: Positive for fatigue; No fever(s) or weight change ENT ENT: No difficulty swallowing Gastro GI: Positive for abdominal pain, bloating, diarrhea, heartburn, excessive flatus and nausea/dyspepsia; No belching, change in bowel habits, change in stool character, coffee ground emesis, constipation, cramping, difficulty swallowing, feeling full early, incontinent of sto (more content not included)... Normal [facility] Pulmonary Visit Reporton Pulmonary Visit Report [facility] [place] [address] [place] [address] OFFICE VISIT Date of Service: 05/08/24 MR#: [id number] Acct: [id number] Name: MARY SANDERS Rep #: [id number] : 1980 Provider: ROBBY Gold Age/Sex: 43/F [facility] Status: Signed with Addenda ADDENDUM by Fartun Nicole on 06/19/24 at 1307 Office Procedure Documentation entered by Fartun Nicole 06/19/24 13:07: Smoking Cessation Smoking Cessation 05/08/24. Continue to encourage complete smoking cessation. Time Spent 3-10 minutes: Yes Date cc: ROBBY Oneal * Signed Assessment and Plan Assessment and Plan (1) Lung nodule: Status: Chronic Plan: Stable. Will repeat diagnostic CT of the chest in January 2025. Plan for her to follow-up with Dr. Garcia in February 2025 to discuss test results. (2) Cough: Status: Acute Qualifiers: Cough type: chronic Qualified Code(s): R05.3 - Chronic cough Plan: Of unclear etiology. The patient does admit to having uncontrolled reflux. She believes she has some tonb-yxv-askqgst omeprazole on hand. I have encouraged her to try that over the next 6 week s. She is agreeable to a pulmonary function test to evaluate for the presence of COPD, given her smoking history. She will follow-up in the office once test results are available for review. Not starting her on any maintenance medications at this point. She states that historically she did not tolerate albuterol well it made her feel very shaky. She also has an aversion to being placed on steroids. She states that previously she was given a cortisone injection in the knee. She states that she did not tolerate that well. The patient is aware that if reflux is determined to be the cause of the cough she will need to follow-up with her primary care doctor for continued therapy and blood work that is necessary. (3) Nicotine dependence, cigarettes, uncomplicated: Status: Chronic Plan: Continue to encourage complete smoking cessation. Orders: Orders Chest without Contrast 01/18/25 R91.1 - Solitary pulmonary nodule Pulmonary Function Test (Comp) Today R05.9 - Cough, unspecified Plan Details Follow Up: 02/18/25 (DMB) 6 Weeks (LMR) HPI 18 m fu Chief Complaint: Cough HPI Comments Details: This patient presents to the office today to discuss recent test results. She is ambulatory and currently on room air. She has not recently been seen in the ED or urgent care for any respiratory illnesses. She has not required any antibiotics or prednisone for any breathing problems. She denies any difficulty with shortness of breath. She has a nonproductive cough that occurs nightly. She does admit having some stomach problems. She denies any postnasal drip. She denies any hemoptysis. She denies any wheezing, chest tightness or palpitations. She has not had any fever, chills or body aches. She continues to smoke cigarettes. Currently smoking 1/2 pack/day. Test results personally reviewed with the patient: CT scan of the chest completed on February 01, 2024. Stable small bilateral pulmonary nodules. The largest measuring 7 mm. There is no demonstrated pleural abnormality. 12-month follow-up is recommended. 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 Required: No DME Vendor: n/a Accompanied by: Self Is patient in pain?: No Allergies alprazolam (From Xanax) Allergy (Intermediate, Verified 05/08/24 13:55) Other azithromycin Allergy (Intermediate, Verified 05/08/24 13:55) Other ciprofloxacin Allergy (Intermediate, Verified 05/08/24 13:55) Other citalopram Allergy (Intermediate, Verified 05/08/24 13:55) Other latex Allergy (Intermediate, Verified 05/08/24 13:55) Other Penicillins Allergy (Intermediate, Verified 05/08/24 13:55) Other red dye Allergy (Intermediate, Verified 05/08/24 13:55) Other sulfamethoxazole (From Bactrim) Allergy (Intermediate, Verified 05/08/24 13:55) Other tetracycline Allergy (Intermediate, Verified 05/08/24 13:55) Other trimethoprim (From Bactrim) Allergy (Intermediate, Verified 05/08/24 13:55) Other venom-honey bee Allergy (Intermediate, Verified 05/08/24 13:55) Other Medications ???Medication ???Instructions ???Recorded ???Confirmed ???Type meclizine 25 mg tablet 25 mg PO BID PRN 06/24/22 05/08/24 History PFSH Medical History ( (more content not included)... Normal [facility] CNCOon 02-08-2024 CNCO Letter Text [facility] CNOVon 02-08-2024 CNOV Office Visit (OBGYWM ) ----- MARY SANDERS ([id number]) 1980 F Date Time Provider Department 02/08/24 8:20 AM CORINNA EMMANUEL During your visit today, we recorded the following information about you: Respiration Blood pressure Weight 16/minute 122/74 88.6 kg Corinna Emmanuel MD 03/16/2024 12:20 AM Signed Mary Osorio Akhil Gibson is a 43 year old female who presents for US follow up HPI: Heavy menses with cramping US shows possible adenomyosis. No fibroids. A simple cyst probably follicular. Smoker so estrogen containing pills are not an option. Reviewed Mirena IUD for menstrual control. Previous tubal, BC not needed. Mirena will help decrease bleeding and sometimes eliminate bleeding. A mirena is good for 8 years currently and may last until natural menopause. I do recommend an EMB prior to r/o possible uterine pathology although this is of low suspicion OB History T2 L2 SAB0 IAB0 Ectopic0 Multiple0 Live Births2 Transmission Builder History LMP: 01/17/2024 (Within Days), Having periods Age at Menarche: Age at First : Age at Menopause: Transmission Builder History Comments: Sexual Activity: Yes; Male Contraception: [...] History Tobacco Use Smoking status: Every Day Current packs/day: 0.50 Average packs/day: 0.5 packs/day for 8.0 years (4.0 ttl pk-yrs) Types: Cigarettes Smokeless tobacco: Never Vaping Use Vaping status: Never Used Substance Use Topics Alcohol use: Yes Comment: occasionally Drug use: No Current Outpatient Medications Medication Sig EPINEPHrine (EPIPEN) 0.3 mg/0.3 mL auto-injector No current facility-administered medications for this visit. Allergies As of Date: 02/08/2024 Allergen Noted Reaction BEE VENOM PROTEIN (HONEY BEE) 02/08/2023 Anaphylaxis CEPHALEXIN 01/06/2022 Other: See Comments PENICILLINS 06/05/2014 Unknown AZITHROMYCIN 02/08/2023 Other: See Comments BACTRIM [SULFAMETHOXAZOLE-TRIMETH *05/27/2022 Intolerance BEE STING 06/05/2014 Hives and Shortness of Breath CIPROFLOXACIN 05/27/2022 Other: See Comments CITALOPRAM HYDROBROMIDE 02/08/2023 Other: See Comments LATEX 02/08/2023 Rash MACROLIDE ANTIBIOTICS 05/27/2022 GI Upset RED DYE 02/08/2023 Unknown TETRACYCLINE 03/17/2006 TETRACYCLINES 02/08/2023 Other: See Comments XANAX [ALPRAZOLAM] 02/08/2023 Other: See Comments Fully Assessed 02/08/2024 REVIEW OF SYSTEMS Abdomen: No bloating, early satiety, indigestion, or increased flatulence. No abdominal pain, nausea, vomiting, diarrhea, or constipation. Bladder: No dysuria, gross hematuria, urinary frequency, urinary urgency, or incontinence. Breast: No breast lumps, nipple d/c, overlying skin changes, redness or skin retraction. Expanded ROS: N/A Allergies and current medication updated:Yes EXAM: BP 122/74 Resp 16 Wt 195 lb 6.4 oz (88.6kg) LMP 01/17/2024 GENERAL: pleasant, female in no apparent distress HEENT: Normocephalic, atraumatic, mucus membranes moist, and no lesions NECK: full range of motion DERMATOLOGY: Normal, without lesions, non-icteric, and non-hirsute BREAST: deferred CHEST: Normal inspiratory effort ABDOMEN: Deferred PELVIC: deferred BIMANUAL: deferred NEURO: alert and oriented x3,exam grossly non-focal EXTREMITIES: normal ASSESSMENT AND PLAN: Encounter Diagnosis ICD-10-CM 1. Menorrhagia with irregular cycle N92.1 ENDOMETRIAL BIOPSY INSERT INTRAUTERINE DEVICE Corinna Emmanuel MD Allergies As of Date: 02/08/2024 Noted Allergy Reaction BEE VENOM PROTEIN (HONEY BEE) 02/08/2023 10 - Anaphylaxis CEPHALEXIN 01/06/2022 14 - Other: See Comments Comments: GI bleed PENICILLINS 06/05/2014 16 - Unknown AZITHROMYCIN 02/08/2023 14 - Other: See Comments BACTRIM (SULFAMETHOXAZOLE-TRIMETH *05/27/2022 5 - Intolerance BEE STING 06/05/2014 4 - Hives 12 - Shortness of Breath CIPROFLOXACIN 05/27/2022 14 - Other: See Comments Comments: Not sure CITALOPRAM HYDROBROMIDE 02/08/2023 14 - Other: See Comments LATEX 02/08/2023 2 - Rash MACROLIDE ANTIBIOTICS 05/27/2022 8 - GI Upset RED DYE 02/08/2023 16 - Unknown (more content not included)... [facility] (OBGYWM) ----- MARY SANDERS ([id number]) 1980 F Date Time Provider Department 02/06/24 ITA GOMEZ During your visit today, we recorded the following information about you: Deysi Durham RN 02/06/2024 11:10 AM Signed Pt states she had pelvic ultrasound completed 01/31/24 and calling for results. Please address in JG absence. BOBO Curry Emily, APRN.LEX 02/06/2024 11:51 AM Signed Cyst noted to both right and left ovary, small and no further follow up needed on this. Ultrasound is suggestive of adenomyosis, where uterine lining grows into muscular layer. Can cause painful heavy periods. Mirena IUD can be an effective treatment option to start with. Recommend scheduling follow up in person or virtually with J to discuss management plan. Kari Guzman APRN.Kari Powell APRN.CNP 02/06/2024 11:52 AM Signed Please confirm her bleeding has stopped or slowed down. Review bleeding precautions. Kari Guzman APRN.Loretta Sawyer RN 02/06/2024 12:13 PM Signed Patient notified and voiced understanding of results. Appointment given to discuss results and treatment options. Patient states she is still having bleeding that she describes as heavy. Patient changing a pad every 3-4 hours. Bleeding precautions reviewed. Patient also complaining of lower abdominal pain/cramping that is constant that that she rates at a 7 today. Patient taking Motrin/Tylenol for the cramping. Loretta Gannon RN Allergies As of Date: 02/06/2024 Noted Allergy Reaction BEE VENOM PROTEIN (HONEY BEE) 02/08/2023 10 - Anaphylaxis CEPHALEXIN 01/06/2022 14 - Other: See Comments Comments: GI bleed PENICILLINS 06/05/2014 16 - Unknown AZITHROMYCIN 02/08/2023 14 - Other: See Comments BACTRIM (SULFAMETHOXAZOLE-TRIMETH *05/27/2022 5 - Intolerance BEE STING 06/05/2014 4 - Hives 12 - Shortness of Breath CIPROFLOXACIN 05/27/2022 14 - Other: See Comments Comments: Not sure CITALOPRAM HYDROBROMIDE 02/08/2023 14 - Other: See Comments LATEX 02/08/2023 2 - Rash MACROLIDE ANTIBIOTICS 05/27/2022 8 - GI Upset RED DYE 02/08/2023 16 - Unknown TETRACYCLINE 03/17/2006 Comments: unknown -childhood TETRACYCLINES 02/08/2023 14 - Other: See Comments Comments: Was a baby unknown allergy XANAX (ALPRAZOLAM) 02/08/2023 14 - Other: See Comments Comments: Dizziness Date Reviewed: 01/31/2024 Reviewed by: Brain Bowden MA - Fully Assessed Reason for Visit: Results [95] Problem List As Of Date 02/06/2024 Noted Resolved DIZZINESS AND GIDDINESS [R42] 04/25/2006 Syncope and collapse [R55] 06/06/2006 03/23/2016 ANXIETY STATE NOS [F41.1] 06/06/2006 SLEEP DISTURBANCE NOS [G47.9] 06/06/2006 POLYURIA [R35.89] 06/06/2006 Sprain and Strain of Unspecified Site of Foot [*2009 Ovarian cyst, right [N83.201] 02/02/2024 Paratubal cyst [N83.8] 02/02/2024 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 Findings are suggestive of arcuate uterus. The uterus is anteverted and measures 103 mm x 44 mm x 62 mm. The myometrium is echogenic, heterogeneous but no obvious fibroids are observed. This finding is suggestive of adenomyosis. The endometrial thickness is 2.8 mm. The right ovary measures 45 mm x 37 mm x 28 mm and contains unilocular simple cyst that measures 36 mm x 26 mm x 29 mm. O-RADS 2 The left ovary measures 20 mm x 16 mm x 21 mm. There is a left simple paraovarian/paratubal cyst that measures 10 mm x 8 mm x 7 mm. There is no free fluid visualized. Technique: Three dimensional imaging was created on a dedicated stand-alone 3D workstation with images created and archived, and supervised and reviewed by the interpreting physician utilizing images from a US Scan performed on 01/31/24. Recommendations O-RADS 2 ovarian simple cyst, almost certainly benign. No follow up imaging is needed. Simple paraovarian/paratubal cyst, no follow up imaging is needed. Ultrasound findings suggestive for adenomyosis. Clinical correlation is recommended. History Medical History Surgery: Tubal ligation Menstrual History LMP on 01/16/2024. Contraception: tubal sterilization Method Transabdominal, transvaginal, 3D ultrasound examination, Color Doppler examination. View: Adequate visualization Uterus Uterus: Visualized Uterus position: anteverted Description of uterine malformations: arcuate Myometrium: echogenic, heterogeneous Endometrium: normal Cervix details: cystic lesions identified suggesting superficial Nabothian cysts Uterus length 103 mm Uterus width 62 mm Uterus height 44 mm Uterus Vol 147.8 cm Endometrial thickness, total 2.8 mm Fibroids: No fibroids identified Polyps: No polyps identified Right Ovary Rt ovary: Visualized Rt ovary morphology: premenopausal , premenopausal normal follicular Rt ovary D1 45 mm Rt ovary D2 37 mm Rt ovary D3 28 mm Rt ovary Vol 24.4 cm Rt ovarian cyst(s): Cysts identified Rt ovarian cyst D1 36 mm Rt ovarian cyst D2 26 mm Rt ovarian cyst D3 29 mm Rt ovarian cyst mean 30.3 mm Rt ovarian cyst vol 14.213 cm Rt ovarian cyst findings: Unilocular simple cyst Left Ovary Lt ovary: Visualized Lt ovary morphology: premenopausal normal follicular Lt ovary D1 20 mm Lt ovary D2 16 mm Lt ovary D3 21 mm Lt ovary Vol 3.5 cm Lt ovarian cyst(s): Cysts identified Lt ovarian cyst D1 10 mm Lt ovarian cyst D2 8 mm Lt ovarian cyst D3 7 mm Lt ovarian cyst mean 8.3 mm Lt ovarian cyst vol 0.293 cm Lt ovarian cyst findings: Simple paraovarian/paratubal cyst Cul de Sac Visualized. no free fluid visualized Procedure To characterize the arcuate uterus, three dimensional imaging was created on a dedicated stand-alone 3D workstation with images created and archived, and supervised and reviewed by the interpreting physician utilizing images from an ultrasound scan performed today. Performed By: Barbara Zepeda RDMS Read By: Florence Soriano M.D. MATERNAL MEDICINE [facility] US Pelvison 01-31-2024 Radiology Study observation (narrative) [facility] MR KNEE W/O LTon 08-19-2023 MR KNEE W/O LT [place] [address] Patient: MARY SANDERS Phone#: : 1980 Age: 42 Gender: F Pt. Type: Out Account: [id number] Location: [facility] Ordering: WILBERJOSE GUADALUPE RODARTE Exam Date: 08/19/2023/7:52 Family Phys: FARTUN KIMMY Charge Code: [id number] Physician: [place] Order #: [id number] Dose#: PROCEDURE: MRI KNEE LT WITHOUT CONTRAST COMPARISON: None. INDICATIONS: Left knee sprain TECHNIQUE: A complete multi-planar MRI was performed. FINDINGS: MEDIAL COMPARTMENT MEDIAL MENISCUS: Oblique tear of the body of the medial meniscus, series 4, image 19. HYALINE CARTILAGE: Normal. No visible defect. BONES: Normal. No marrow pathology, fracture, or significant arthropathy. MCL AND MEDIAL CAPSULE: Normal medial collateral ligament and medial capsule. LATERAL COMPARTMENT LATERAL MENISCUS: Normal. No visible tear or significant degeneration. HYALINE CARTILAGE: There is fissuring of the lateral femoral condyle anteriorly. BONES: Normal. No marrow pathology, fracture, or significant arthropathy. LCL/POSTEROLAT. COMPLEX: Normal lateral collateral ligament, fascicles, lateral capsule and ligaments. ACL: Normal appearing ligament. PCL: Normal appearing ligament. MENISCOFEMORAL: Normal meniscofemoral ligaments. PATELLOFEMORAL: There is focal partial-thickness cartilage loss of the lateral patellar facet, series 7, image 26. The margins the cartilage defect are irregular. EFFUSION: None. No synovitis or loose bodies. OTHER: Partial tear is semimembranosus tendon at the medial tibial plateau insertion, medial aspect series 6, image 28. No edema, likely subacute to chronic. The lateral fibers are intact. There is a Schneider cyst measuring 4.8 x 1.5 x 1.1 cm. CONCLUSION: 1. Medial meniscus body oblique tear 2. Semimembranosus tendon appearing partial tear at the insertion, medial fibers. No acute edema, likely subacute to chronic. 3. Lateral femoral condyle and patella lateral facet cartilage injury. [place] [address] Patient: MARY SANDERS Phone#: : 1980 Age: 42 Gender: F Pt. Type: Out Account: [id number] Location: [facility] Ordering: WILBER RODARTE Exam Date: 08/19/2023/7:52 Family Phys: FARTUN KIMMY Charge Code: [id number] Physician: [place] Order #: [id number] Dose#: Dictated by: Abbey Torres MD on 08/23/2023 at 14:41 Approved by: Abbey Torres MD on 08/23/2023 at 15:00 Normal [facility] Absolute lymphocyte countOrd ered By: Low Dior on 06-28-2023 Lymphocytes Auto (Unsp spec) [#/Vol] 2.43 10*3/uL 0.83-4.51 [facility] Atypical perinuclear antineu trophil cytoplasmic antibodies measurementOrdered By: Low Dior on 06-28-2023 Neutrophil cytoplasmic Ab.perinuclear.atypical IF (S) [Titer] <1:20 titer Neg:<1:20 [facility] Comment on above: The atypical pANCA p attern has been observed in asignificant percentage of patients with ulcerative colitis,primary sclerosing cholangitis and autoimmune hepatitis. Basophil percentageOrdered B y: Low Dior on 06-28-2023 Basophil percentage < 0.2 AI 0.0-0.9 [facility] Basophils/100 WBC (Bld) 0.9 % 0-1 [facility] Bilirubin [Mass/Vol] 0.40 mg/dL 0.20-1.00 [facility] Comment on above: For patients on eltr ombopag therapy, use of Dimension [place] TBIL is not recommended. Chloride [Moles/Vol] 108 mmol/L 98-107 [facility] Eosinophils/100 WBC (Bld) 7.0 % 0-5 [facility] Glucose [Mass/Vol] 87 mg/dL 74-106 [facility] LDH [Catalytic activity/Vol] 206 U/L 84-246 [facility] Neutrophils (Bld) [#/Vol] 4.4 10*3/uL 2.0-7.7 [facility] Neutrophils/100 WBC (Bld) 55.4 % 47-70 [facility] Potassium [Moles/Vol] 4.2 mmol/L 3.5-5.1 [facility] Protein [Mass/Vol] 7.9 g/dL 6.4-8.2 [facility] Sodium [Moles/Vol] 137 mmol/L 136-145 [facility] WBC (Bld) [#/Vol] 8.0 10*3/uL 4.4-11.0 [facility] Blood erythrocytes count (nu mber/volume)Ordered By: Low Dior on 06-28-2023 RBC (Bld) [#/Vol] 4.75 10*6/uL 4.2-5.4 [facility] Blood hemoglobin measurement (mass/volume)Ordered By: Low Dior on 06-28-2023 Hemoglobin (Bld) [Mass/Vol] 13.6 g/dL 12.0-15.0 [facility] Blood lymphocytes/100 leukoc ytesOrdered By: Low Dior on 06-28-2023 Lymphocytes/100 WBC (Bld) 30.5 % 19-41 [facility] Blood monocytes/100 leukocyt esOrdered By: Low Dior on 06-28-2023 Monocytes/100 WBC (Bld) 6.1 % 0-10 [facility] Blood platelet mean volumeOr dered By: Low Dior on 06-28-2023 Platelet mean volume (Bld) [Entitic vol] 9.5 fL 6.2-12.0 [facility] Chocolate IgE serumOrdered B y: Low Dior on 06-28-2023 Chocolate IgE Qn (S) <0.10 kU/L Class 0 [facility] Determination of erythrocyte mean corpuscular volume (MCV)Ordered By: Low Dior on 06-28-2023 MCV (RBC) [Entitic vol] 85.1 fL 81-99 [facility] Erythrocyte sedimentation ra teOrdered By: Low Dior on 06-28-2023 ESR (Bld) [Velocity] 8 mm/h 0-30 [facility] Hematocrit Auto (Bld) [Volum e fraction]Ordered By: Low Dior on 06-28-2023 Hematocrit (Bld) [Volume fraction] 40.4 % 37-47 [facility] Laboratory - Chemistry and C hemistry - challengeOrdered By: Low Dior on 06-28-2023 ALP [Catalytic activity/Vol] 58 U/L 45-117 [facility] ALT [Catalytic activity/Vol] 26 U/L 13-56 [facility] CO2 [Moles/Vol] 24.0 mmol/L 21.0-32.0 [facility] Cobalamin (Vitamin B12) [Mass/Vol] 349 pg/mL 211-911 [facility] Free T4 [Mass/Vol] 1.07 ng/dL 0.76-1.46 [facility] Globulin (S) [Mass/Vol] 3.9 g/dL 2.2-4.2 [facility] Urea nitrogen/Creatinine [Mass ratio] 11.4 mg/mg 10-20 [facility] Laboratory - Hematology and Cell countsOrdered By: Low Dior on 06-28-2023 Erythrocyte distribution width (RBC) [Entitic vol] 37.2 fL 35.1-43.9 [facility] Erythrocyte distribution width (RBC) [Ratio] 12.0 % 11.6-14.6 [facility] Immature granulocytes/100 WBC (Bld) 0.100 % 0.0-0.9 [facility] Comment on above: IG% - Immature Granu locytes (promyelocytes, myelocytes and metamyelocytes) > 1% indicates that a LEFT SHIFT is Present. MCH (RBC) [Entitic mass] 28.6 pg 27.0-32.0 [facility] Nucleated RBC/100 WBC (Bld) [Ratio] 0 % 0-5 [facility] Laboratory - Miscellaneous t estsOrdered By: Low Dior on 06-28-2023 Service comment (Unsp spec) [Interp] Comment . [facility] Comment on above: Levels of Specific I gE Class Description of Class ----- < 0.10 0 Negative 0.10 - 0.31 0/I Equivocal/Low 0.32 - 0.55 I Low 0.56 - 1.40 II Moderate 1.41 - 3.90 III High 3.91 - 19.00 IV Very High 19.01 - 100.00 V Very High >100.00 Very High MCHC Auto (RBC) [Mass/Vol]Or dered By: Low Dior on 06-28-2023 MCHC (RBC) [Mass/Vol] 33.7 g/dL 32-36 [facility] No Panel InformationOrdered By: Low Dior on 06-28-2023 Centromere B Antibody <0.2 AI 0.0-0.9 [facility] Endomysial IgA Antibody Negative Negative [facility] Estimated GFR (MDRD) Amer 91 mL/min >60 [facility] Comment on above: GFR Calc Estimated GFR (MDRD) Non-Af Amer 75 mL/min >60 [facility] Comment on above: Non- GFR Calc Free Triiodothyronine (T3) pg/dL 2.7 pg/mL 2.18-3.98 [facility] Hepatitis A IgM Antibody Negative Negative [facility] Hepatitis B Core IgM Antibody Negative Negative [facility] Hepatitis C Antibody (EIA) Non-Reactive Non Reactive [facility] Hepatitis C Antibody Comment Comment . [facility] Comment on above: Not infected with HC V unless early or acute infection issuspected (which may be delayed in an immunocompromisedindividual), or other evidence exists to indicate HCVinfection. Immunoglobulin E 20 IU/mL 6-495 [facility] Mussel Allergen IgE Antibody <0.10 kU/L Class 0 [facility] BODY TECHNICIAN/PAINTER Antibody <0.2 AI 0.0-0.9 [facility] Shrimp Allergen <0.10 kU/L Class 0 [facility] Thyroid Stimulating Hormone (TSH) 1.18 uIU/mL 0.358-3.74 [facility] Platelets bldOrdered By: Remy Dior on 06-28-2023 Platelets (Bld) [#/Vol] 413 10*3/uL 150-450 [facility] Serum DNA double strand anti body assay (units/volume)Ordered By: Low Dior on 06-28-2023 DNA double strand Ab Qn (S) 1 [IU]/mL 0-9 [facility] Comment on above: Negative <5 Equivoca l 5 - 9 Positive >9 Serum Blanche-1 antibody assay (u nits/volume)Ordered By: Low Dior on 06-28-2023 Blanche-1 extractable nuclear Ab Qn (S) <0.2 AI 0.0-0.9 [facility] Serum Scl-70 antibody assay (units/volume)Ordered By: Low Dior on 06-28-2023 SCL-70 extractable nuclear Ab Qn (S) <0.2 AI 0.0-0.9 [facility] Serum Rios antibody detecti onOrdered By: Low Dior on 06-28-2023 Rios extractable nuclear Ab Ql (S) <0.2 AI 0.0-0.9 [facility] Serum beef IgE antibody assa y (units/volume)Ordered By: Low Dior on 06-28-2023 Beef IgE Qn (S) <0.10 kU/L Class 0 [facility] Serum classic neutrophil cyt oplasmic antibody assay (units/volume)Ordered By: Low Dior on 06-28-2023 Neutrophil cytoplasmic Ab.classic Qn (S) <1:20 titer Neg:<1:20 [facility] Serum codfish IgE antibody a ssay (units/volume)Ordered By: Low Dior on 06-28-2023 Codfish IgE Qn (S) <0.10 kU/L Class 0 [facility] r [facility] Serum corn IgE antibody assa y (units/volume)Ordered By: Low Dior on 06-28-2023 [place] IgE Qn (S) <0.10 kU/L Class 0 [facility] Serum cow milk IgE antibody assay (units/volume)Ordered By: Low Dior on 06-28-2023 Cow milk IgE Qn (S) <0.10 kU/L Class 0 [facility] Serum or plasma C reactive p rotein measurement (mass/volume)Ordered By: Low Dior on 06-28-2023 CRP [Mass/Vol] mg/L 0.0-3.0 [facility] Comment on above: C-Reactive Protein ( CRP) provides useful information for thediagnosis, therapy and monitoring of inflammatory processesand associated diseases. For the evaluation of Relative Riskfor Cardiovascular Disease, a High Sensitivity CRP (HSCRP)should be ordered. Serum or plasma IgA measurem ent (mass/volume)Ordered By: Low Dior on 06-28-2023 IgA [Mass/Vol] 130 mg/dL 87-352 [facility] Serum or plasma IgG measurem ent (mass/volume)Ordered By: Low Dior on 06-28-2023 IgG [Mass/Vol] 1196 mg/dL 586-1602 [facility] Serum or plasma IgM measurem ent (mass/volume)Ordered By: Lowholly Dior on 06-28-2023 IgM [Mass/Vol] 104 mg/dL 26-217 [facility] Comment on above: Performed at: [address] [id number] Director: Jose De Souza PhD, Phone: [phone] at: [address], [place], [place] [id number] Director: Denise Lilly MD, Phone: [phone] Serum or plasma albumin mariela urement (mass/volume)Ordered By: Low Dior on 06-28-2023 Albumin [Mass/Vol] 4.0 g/dL 3.2-5.0 [facility] Serum or plasma albumin/glob ulin mass ratioOrdered By: Low Dior on 06-28-2023 Albumin/Globulin [Mass ratio] 1.0 {ratio} 0.9-2.4 [facility] Serum or plasma calcium mariela urement (mass/volume)Ordered By: Low Dior on 06-28-2023 Calcium [Mass/Vol] 8.8 mg/dL 8.5-10.1 [facility] Serum or plasma creatinine m easurement (mass/volume)Ordered By: Low Dior on 06-28-2023 Creatinine [Mass/Vol] 0.88 mg/dL 0.55-1.02 [facility] Comment on above: The validity of the calculated GFR & GFRAA in patients over 70 years has not been determined. Clinical correlation is essential. Serum or plasma hepatitis B virus surface antigen detection by immunoassayOrdered By: Low Dior on 06-28-2023 HBV surface Ag IA Ql Negative Negative [facility] Serum or plasma urea nitroge n measurement (mass/volume)Ordered By: Low Dior on 06-28-2023 Urea nitrogen [Mass/Vol] 10 mg/dL 7-18 [facility] Serum peanut IgE antibody as say (units/volume)Ordered By: Low Dior on 06-28-2023 Peanut IgE Qn (S) <0.10 kU/L Class 0 [facility] Serum perinuclear neutrophil cytoplasmic antibody titer by immunofluorescenceOrdered By: Low Dior on 06-28-2023 Neutrophil cytoplasmic Ab.perinuclear IF (S) [Titer] <1:20 titer Neg:<1:20 [facility] Comment on above: The presence of posi tive fluorescence exhibiting P-ANCA orC-ANCA patterns alone is not specific for the diagnosis ofWegener's Granulomatosis (WG) or microscopic polyangiitis.Decisions about treatment should not be based solely onANCA IFA results. The [employer] Consensusrecommends follow up testing of positive sera with both WV-3 and MPO-ANCA enzyme immunoassays. As many as 5% serumsamples are positive only by EIA. Ref. AM J Clin Nawisb6588;111:507-513. Serum pork IgE antibody assa y (units/volume)Ordered By: Low Dior on 06-28-2023 Pork IgE Qn (S) <0.10 kU/L Class 0 [facility] Serum salmon IgE antibody as say (units/volume)Ordered By: Low Dior on 06-28-2023 [place] IgE Qn (S) <0.10 kU/L Class 0 [facility] Serum soybean IgE antibody a ssay (units/volume)Ordered By: Low Dior on 06-28-2023 Soybean IgE Qn (S) <0.10 kU/L Class 0 [facility] Serum tissue transglutaminas e IgA antibody assay (units/volume)Ordered By: Low Dior on 06-28-2023 tTG IgA Qn (S) <2 U/mL 0-3 [facility] Comment on above: Negative 0 - 3 Weak Positive 4 - 10 Positive >10 Tissue Transglutaminase (tTG) has been identified as the endomysial antigen. Studies have demonstr- ated that endomysial IgA antibodies have over 99% specificity for gluten sensitive enteropathy. Serum tuna IgE antibody assa y (units/volume)Ordered By: Low Dior on 06-28-2023 Tuna IgE Qn (S) <0.10 kU/L Class 0 [facility] Serum wheat IgE antibody ass ay (units/volume)Ordered By: Low Dior on 06-28-2023 Wheat IgE Qn (S) <0.10 kU/L Class 0 [facility] Serum whole egg IgE antibody assay (units/volume)Ordered By: Low Dior on 06-28-2023 Whole Egg IgE Qn (S) <0.10 kU/L Class 0 [facility] Comment on above: Performed at: [address] [id number] Director: Jose De Souza PhD, Phone: [phone] at: [facility] [id number] [place], [place] [id number] Director: Denise Lilly MD, Phone: [phone] Thin prep Papanicolaou smear with manual screeningOrdered By: Low Dior on 06-28-2023 Thin prep Papanicolaou smear with manual screening 18 U/L 15-37 [facility] Thin prep Papanicolaou smear with manual screening 5 5-15 [facility] No Panel Informationon 05-28 IMPRESSION: No acute bony abnormality in the pelvis or left femur. 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 Transcribed Using Voice Recognition Transcribe Date/Time: May 28 2022 12:33P Dictated by: RUSSELL GUALLPA MD This examination was interpreted and the report reviewed and electronically signed by: RUSSELL GUALLPA MD on May 28 2022 12:37PM [facility] RAD[facility]OLOG[facility] No Panel InformationOrdered By: Cc Provider on 05-28-2022 [facility] XR Femur - left AP and Later tolu 05-28-2022 * * *Final Report* * * DATE OF EXAM: May 27 2022 2:01PM HMX [id number] - XR FEMUR 2V AP/LAT LT / PROCEDURE REASON: Pain * * * * Physician Interpretation * * * * RESULT: EXAMINATION / TECHNIQUE: XR PELVIS 1V AP, XR FEMUR 2V AP/LAT LT HISTORY: pt states lesion rt iliac crest Pain COMPARISON: CT abdomen/pelvis dated 10/24/2012. RESULT: No acute fracture or malalignment in the pelvis or left femur. The hip joint spaces are maintained. The sacroiliac joints and symphysis pubis are intact. There is enthesopathy at the greater trochanters. There is an unchanged osseous excrescence arising from the posterior right iliac wing consistent with an osteochondroma. Accounting for differences in modality, this is similar in size to the CT scan from 2012. The joint spaces of the left knee are preserved. No significant left knee joint effusion. [facility] Provider, Umang Deal [facility] - 05/28/2022 * * *Final Report* * * DATE OF EXAM: May 27 2022 2:01PM HMX [id number] - XR FEMUR 2V AP/LAT LT / PROCEDURE REASON: Pain * * * * Physician Interpretation * * * * RESULT: EXAMINATION / TECHNIQUE: XR PELVIS 1V AP, XR FEMUR 2V AP/LAT LT HISTORY: pt states lesion rt iliac crest Pain COMPARISON: CT abdomen/pelvis dated 10/24/2012. RESULT: No acute fracture or malalignment in the pelvis or left femur. The hip joint spaces are maintained. The sacroiliac joints and symphysis pubis are intact. There is enthesopathy at the greater trochanters. There is an unchanged osseous excrescence arising from the posterior right iliac wing consistent with an osteochondroma. Accounting for differences in modality, this is similar in size to the CT scan from 2012. The joint spaces of the left knee are preserved. No significant left knee joint effusion. COMBINED IMPRESSION IMPRESSION: No acute bony abnormality in the pelvis or left femur. 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 Transcribed Using Voice Recognition Transcribe Date/Time: May 28 2022 12:33P Dictated by: RUSSELL GUALLPA MD This examination was interpreted and the report reviewed and electronically signed by: RUSSELL GUALLPA MD on May 28 2022 12:37PM [facility] XR Pelvis APon 05-28-2022 * * *Final Report* * * DATE OF EXAM: May 27 2022 2:01PM HMX [id number] - XR PELVIS 1V AP / PROCEDURE REASON: Pain * * * * Physician Interpretation * * * * RESULT: EXAMINATION / TECHNIQUE: XR PELVIS 1V AP, XR FEMUR 2V AP/LAT LT HISTORY: pt states lesion rt iliac crest Pain COMPARISON: CT abdomen/pelvis dated 10/24/2012. RESULT: No acute fracture or malalignment in the pelvis or left femur. The hip joint spaces are maintained. The sacroiliac joints and symphysis pubis are intact. There is enthesopathy at the greater trochanters. There is an unchanged osseous excrescence arising from the posterior right iliac wing consistent with an osteochondroma. Accounting for differences in modality, this is similar in size to the CT scan from 2012. The joint spaces of the left knee are preserved. No significant left knee joint effusion. [facility] Provider, Umang cole Rousseau - 05/28/2022 * * *Final Report* * * DATE OF EXAM: May 27 2022 2:01PM HMX [id number] - XR PELVIS 1V AP / PROCEDURE REASON: Pain * * * * Physician Interpretation * * * * RESULT: EXAMINATION / TECHNIQUE: XR PELVIS 1V AP, XR FEMUR 2V AP/LAT LT HISTORY: pt states lesion rt iliac crest Pain COMPARISON: CT abdomen/pelvis dated 10/24/2012. RESULT: No acute fracture or malalignment in the pelvis or left femur. The hip joint spaces are maintained. The sacroiliac joints and symphysis pubis are intact. There is enthesopathy at the greater trochanters. There is an unchanged osseous excrescence arising from the posterior right iliac wing consistent with an osteochondroma. Accounting for differences in modality, this is similar in size to the CT scan from 2012. The joint spaces of the left knee are preserved. No significant left knee joint effusion. COMBINED IMPRESSION IMPRESSION: No acute bony abnormality in the pelvis or left femur. 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 Transcribed Using Voice Recognition Transcribe Date/Time: May 28 2022 12:33P Dictated by: RUSSELL GUALLPA MD This examination was interpreted and the report reviewed and electronically signed by: RUSSELL GUALLPA MD on May 28 2022 12:37PM [facility] No Panel Informationon 05-27 Radiology Study observation (narrative) [facility] XR FEMUR 2V AP/LAT LTon XR FEMUR 2V AP/LAT LT * * *Final Report* * * DATE OF EXAM: May 27 2022 2:01PM HMX [id number] - XR FEMUR 2V AP/LAT LT / PROCEDURE REASON: Pain * * * * Physician Interpretation * * * * RESULT: EXAMINATION / TECHNIQUE: XR PELVIS 1V AP, XR FEMUR 2V AP/LAT LT HISTORY: pt states lesion rt iliac crest Pain COMPARISON: CT abdomen/pelvis dated 10/24/2012. RESULT: No acute fracture or malalignment in the pelvis or left femur. The hip joint spaces are maintained. The sacroiliac joints and symphysis pubis are intact. There is enthesopathy at the greater trochanters. There is an unchanged osseous excrescence arising from the posterior right iliac wing consistent with an osteochondroma. Accounting for differences in modality, this is similar in size to the CT scan from 2013. The joint spaces of the left knee are preserved. No significant left knee joint effusion. COMBINED IMPRESSION: No acute bony abnormality in the pelvis or left femur. 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 Transcribed Using Voice Recognition Transcribe Date/Time: May 28 2022 12:33P Dictated by: RUSSELL GUALLPA MD This examination was interpreted and the report reviewed and electronically signed by: RUSSELL GUALLPA MD on May 28 2022 12:37PM EST [id number] [facility] XR PELVIS 1V APon 05-27-2022 XR PELVIS 1V AP * * *Final Report* * * DATE OF EXAM: May 27 2022 2:01PM HMX [id number] - XR PELVIS 1V AP / PROCEDURE REASON: Pain * * * * Physician Interpretation * * * * RESULT: EXAMINATION / TECHNIQUE: XR PELVIS 1V AP, XR FEMUR 2V AP/LAT LT HISTORY: pt states lesion rt iliac crest Pain COMPARISON: CT abdomen/pelvis dated 10/24/2012. RESULT: No acute fracture or malalignment in the pelvis or left femur. The hip joint spaces are maintained. The sacroiliac joints and symphysis pubis are intact. There is enthesopathy at the greater trochanters. There is an unchanged osseous excrescence arising from the posterior right iliac wing consistent with an osteochondroma. Accounting for differences in modality, this is similar in size to the CT scan from 2013. The joint spaces of the left knee are preserved. No significant left knee joint effusion. COMBINED IMPRESSION: No acute bony abnormality in the pelvis or left femur. 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 Transcribed Using Voice Recognition Transcribe Date/Time: May 28 2022 12:33P Dictated by: RUSSELL GUALLPA MD This examination was interpreted and the report reviewed and electronically signed by: RUSSELL GUALLPA MD on May 28 2022 12:37PM EST [id number] [facility] Final Surgical Pathology Rep psychiatric 03-01-2022 Final Surgical Pathology Report . Pathology Reports Accession: Collected Date/Time: Received Date/Time: Pathologist: [id number] 02/25/2022 08:22 EDT 02/26/2022 08:22 EDT IQRA MERCADO MD Final Surgical Pathology Report DIAGNOSIS: SIGMOID COLON, BIOPSY - HYPERPLASTIC POLYP. COMMENT: [facility] - [id number] CLINICAL INFORMATION: SCREENING Procedure: COLONOSCOPY SPECIMEN: A SIGMOID GROSS DESCRIPTION: A. Submitted in formalin is an ovoid yellow-gamez tissue specimen measuring 3 cm greatest dimension. TE-1. dictated by Joanna Mercado M.D. Dictated by IQRA MERCADO MICROSCOPIC DESCRIPTION: Slides reviewed. Electronically Signed by Pathology Report verified by [facility] Electronically signed by IQRA MERCADO Sign out Date: 03/01/2022 16:10 Performing Lab: [address] ([facility] Final Surgical Pathology Rep psychiatric 06-18-2021 Final Surgical Pathology Report . Pathology Reports Accession: Collected Date/Time: Received Date/Time: Pathologist: [id number] 06/17/2021 14:19 EST 06/17/2021 14:19 EST MICHELLE RAMÍREZ MD Final Surgical Pathology Report DIAGNOSIS: GALLBLADDER - CHRONIC CHOLECYSTITIS AND CHOLESTEROLOSIS. COMMENT: [facility] [id number] CLINICAL INFORMATION: LAPAROSCOPIC CHOLECYSTECTOMY BILIARY DYSKINESIA SPECIMEN: A GALLBLADDER GROSS DESCRIPTION: Received in formalin, labeled with the patient's name, but not designated is a pink gamez gallbladder measuring 6.5 x 3.4 x 2.7cm The external surface shows some operative artifact. Upon opening, there is dark green bile, but no calculi are seen in the gallbladder or container. The mucous is dark green and smooth with fine yellow streaking suggestive of cholesterosis. No mass lesions or thickened areas are seen. RS-1. dictated by Katia Williamson M.D. Dictated by MICHELLE RAMÍREZ MICROSCOPIC DESCRIPTION: Slides reviewed. Electronically Signed by Pathology Report verified by [facility] Electronically signed by MICHELLE RAMÍREZ Sign out Date: 06/18/2021 15:57 Performing Lab: [facility] [address] [place] [id number] [facility] VitD, 1,25 Dihydroxyon 04-14 1,25 Dihydroxy VitD2 <4.0 Normal [facility] Reference Lab Comment on above: Performed By: #### 1 25VTD #### [facility] Chemistry [address] [place] [address] 1,25 Dihydroxy VitD3 45.0 pg/mL Normal [facility] Reference Lab Comment on above: Performed By: #### 1 25VTD #### [facility] [address] [place] [address] Vit D,1,25 DiOH Normal 15.0-60.0 [facility] Reference Lab Comment on above: Result Comment: 45.0 This test was developed and its performance characteristics determined by [facility]'s Naldo Cosme [facility] Pathology and Laboratory Medicine [place] ([facility]). It has not been cleared or approved by the FDA. [facility] is regulated under CLIA as qualified to perform high complexity testing. This test is used for clinical purposes. It should not be regarded as investigational or for research. Performed By: #### 1 25VTD #### [facility] Chemistry [address] [place] [address] Vital Signs Date Time Vital Sign Value Performing Clinician [place] re[place] 04-03-2025 09:22-0400 Body height 175.26 cm Fartun Oneal NP-C Work Phone: [facility] 04-03-2025 09:22-0400 Body mass index (BMI) [Ratio] 26.3 kg/m2 Fartun Oneal NP-C Work Phone: [facility] 04-03-2025 09:22-0400 Body temperature 97.8 [degF] Fartun Oneal NP-C Work Phone: [facility] 04-03-2025 09:22-0400 Body weight 80.9 kg Fartun Oneal STEREO PLOTTER OPERATOR-C Work Phone: [facility] 04-03-2025 09:22-0400 Diastolic blood pressure 72 mm[Hg] Fartun Ungerer STEREO PLOTTER OPERATOR-C Work Phone: [facility] 04-03-2025 09:22-0400 Heart rate 74 /min Fartun Ungerer STEREO PLOTTER OPERATOR-C Work Phone: [facility] 04-03-2025 09:22-0400 Respiratory rate 18 /min Fartun Ungerer STEREO PLOTTER OPERATOR-C Work Phone: [facility] 04-03-2025 09:22-0400 SaO2% (BldA) [Mass fraction] 98 % Fartun Ungerer STEREO PLOTTER OPERATOR-C Work Phone: [facility] 04-03-2025 09:22-0400 Systolic blood pressure 132 mm[Hg] Fartun Ungerer STEREO PLOTTER OPERATOR-C Work Phone: [facility] 01-14-2025 12:44-0400 Body height 175.26 cm Fartun Ungerer STEREO PLOTTER OPERATOR-C Work Phone: [facility] 01-14-2025 12:44-0400 Body mass index (BMI) [Ratio] 26 kg/m2 Fartun Ungerer STEREO PLOTTER OPERATOR-C Work Phone: [facility] 01-14-2025 12:44-0400 Body temperature 97.5 [degF] Fartun Ungerer STEREO PLOTTER OPERATOR-C Work Phone: [facility] 01-14-2025 12:44-0400 Body weight 80 kg Fartun Ungerer STEREO PLOTTER OPERATOR-C Work Phone: [facility] 01-14-2025 12:44-0400 Diastolic blood pressure 78 mm[Hg] Fartun Ungerer STEREO PLOTTER OPERATOR-C Work Phone: [facility] 01-14-2025 12:44-0400 Heart rate 79 /min Fartun Ungerer STEREO PLOTTER OPERATOR-C Work Phone: [facility] 01-14-2025 12:44-0400 Respiratory rate 16 /min Fartun Ungerer STEREO PLOTTER OPERATOR-C Work Phone: [facility] 01-14-2025 12:44-0400 SaO2% (BldA) [Mass fraction] 97 % Fartun Ungerer STEREO PLOTTER OPERATOR-C Work Phone: [facility] 01-14-2025 12:44-0400 Systolic blood pressure 120 mm[Hg] Fartun Ungerer STEREO PLOTTER OPERATOR-C Work Phone: [facility] 12-10-2024 13:43-0400 Body height 175.26 cm Fartun Ungerer STEREO PLOTTER OPERATOR-C Work Phone: [facility] 12-10-2024 13:43-0400 Body mass index (BMI) [Ratio] 26.1 kg/m2 Fartun Ungerer STEREO PLOTTER OPERATOR-C Work Phone: [facility] 12-10-2024 13:43-0400 Body temperature 97.5 [degF] Fartun Ungerer STEREO PLOTTER OPERATOR-C Work Phone: [facility] 12-10-2024 13:43-0400 Body weight 80.28 kg Fartun Ungerer STEREO PLOTTER OPERATOR-C Work Phone: [facility] 12-10-2024 13:43-0400 Diastolic blood pressure 82 mm[Hg] Fartun Ungerer STEREO PLOTTER OPERATOR-C Work Phone: [facility] 12-10-2024 13:43-0400 Heart rate 72 /min Fartun Ungerer STEREO PLOTTER OPERATOR-C Work Phone: [facility] 12-10-2024 13:43-0400 Respiratory rate 18 /min Fartun Ungerer STEREO PLOTTER OPERATOR-C Work Phone: [facility] 12-10-2024 13:43-0400 SaO2% (BldA) [Mass fraction] 95 % Fartun Ungerer STEREO PLOTTER OPERATOR-C Work Phone: [facility] 12-10-2024 13:43-0400 Systolic blood pressure 124 mm[Hg] Fartun Ungerer STEREO PLOTTER OPERATOR-C Work Phone: [facility] 09-28-2024 07:57-0400 Body mass index (BMI) [Ratio] 26.6 kg/m2 Fartun Ungerer STEREO PLOTTER OPERATOR-C Work Phone: [facility] 09-28-2024 07:57-0400 Body temperature 97.4 [degF] Fartun Ungerer STEREO PLOTTER OPERATOR-C Work Phone: [facility] 09-28-2024 07:57-0400 Body weight 81.64 kg Fartun Ungerer STEREO PLOTTER OPERATOR-C Work Phone: [facility] 09-28-2024 07:57-0400 Diastolic blood pressure 71 mm[Hg] Fartun Ungerer STEREO PLOTTER OPERATOR-C Work Phone: [facility] 09-28-2024 07:57-0400 Heart rate 83 /min Fartun Ungerer STEREO PLOTTER OPERATOR-C Work Phone: [facility] 09-28-2024 07:57-0400 Respiratory rate 18 /min Fartun Ungerer STEREO PLOTTER OPERATOR-C Work Phone: [facility] 09-28-2024 07:57-0400 SaO2% (BldA) [Mass fraction] 99 % Fartun Ungerer STEREO PLOTTER OPERATOR-C Work Phone: [facility] 09-28-2024 07:57-0400 Systolic blood pressure 119 mm[Hg] Fartun Ungerer STEREO PLOTTER OPERATOR-C Work Phone: [facility] 09-21-2024 13:51-0400 Body temperature 97.6 [degF] STEREO PLOTTER OPERATOR. Fartun Ungerer STEREO PLOTTER OPERATOR-C Work Phone: [facility] 09-21-2024 13:51-0400 Diastolic blood pressure 57 mm[Hg] STEREO PLOTTER OPERATOR. Fartun Ungerer STEREO PLOTTER OPERATOR-C Work Phone: [facility] 09-21-2024 13:51-0400 Heart rate 78 /min STEREO PLOTTER OPERATOR. Fartun Ungerer STEREO PLOTTER OPERATOR-C Work Phone: [facility] 09-21-2024 13:51-0400 Respiratory rate 16 /min STEREO PLOTTER OPERATOR. Fartun Gallegoserer STEREO PLOTTER OPERATOR-C Work Phone: [facility] 09-21-2024 13:51-0400 SaO2% (BldA) [Mass fraction] 98 % STEREO PLOTTER OPERATOR. Fartun Gallegoserer STEREO PLOTTER OPERATOR-C Work Phone: [facility] 09-21-2024 13:51-0400 Systolic blood pressure 107 mm[Hg] STEREO PLOTTER OPERATOR. Fartun Gallegoserer STEREO PLOTTER OPERATOR-C Work Phone: [facility] 09-21-2024 13:05-0400 Inhaled oxygen flow rate 6 L/min STEREO PLOTTER OPERATOR. Fartun Gallegoserer STEREO PLOTTER OPERATOR-C Work Phone: [facility] 09-21-2024 11:22-0400 Body height 175.26 cm STEREO PLOTTER OPERATOR. Fartun Gallegoserer STEREO PLOTTER OPERATOR-C Work Phone: [facility] 09-21-2024 11:22-0400 Body mass index (BMI) [Ratio] 26.6 kg/m2 STEREO PLOTTER OPERATOR. Fartun Gallegoserer STEREO PLOTTER OPERATOR-C Work Phone: [facility] 09-21-2024 11:22-0400 Body weight 82 kg STEREO PLOTTER OPERATOR. Fartun Gallegoserer STEREO PLOTTER OPERATOR-C Work Phone: [facility] 08-31-2024 11:55-0400 Body height 176.53 cm STEREO PLOTTER OPERATOR. Fartun Gallegoserer STEREO PLOTTER OPERATOR-C Work Phone: [facility] 08-31-2024 11:55-0400 Body mass index (BMI) [Ratio] 26.7 kg/m2 STEREO PLOTTER OPERATOR. Fartun Gallegoserer STEREO PLOTTER OPERATOR-C Work Phone: [facility] 08-31-2024 11:55-0400 Body temperature 97.3 [degF] STEREO PLOTTER OPERATOR. Fartun Rosyerer STEREO PLOTTER OPERATOR-C Work Phone: [facility] 08-31-2024 11:55-0400 Body weight 83.46 kg STEREO PLOTTER OPERATOR. Fartun Ungerer STEREO PLOTTER OPERATOR-C Work Phone: [facility] 08-31-2024 11:55-0400 Diastolic blood pressure 88 mm[Hg] STEREO PLOTTER OPERATOR. Fartun Ungerer STEREO PLOTTER OPERATOR-C Work Phone: [facility] 08-31-2024 11:55-0400 Heart rate 75 /min STEREO PLOTTER OPERATOR. Fartun Ungerer STEREO PLOTTER OPERATOR-C Work Phone: [facility] 08-31-2024 11:55-0400 Respiratory rate 18 /min STEREO PLOTTER OPERATOR. Fartun Ungerer STEREO PLOTTER OPERATOR-C Work Phone: [facility] 08-31-2024 11:55-0400 SaO2% (BldA) [Mass fraction] 99 % STEREO PLOTTER OPERATOR. Fartun Ungerer STEREO PLOTTER OPERATOR-C Work Phone: [facility] 08-31-2024 11:55-0400 Systolic blood pressure 139 mm[Hg] STEREO PLOTTER OPERATOR. Fartun Ungerer STEREO PLOTTER OPERATOR-C Work Phone: [facility] 07-19-2024 07:56-0500 Body height 176.53 cm STEREO PLOTTER OPERATOR. Fartun Ungerer STEREO PLOTTER OPERATOR-C Work Phone: [facility] 07-19-2024 07:56-0500 Body mass index (BMI) [Ratio] 27.6 kg/m2 STEREO PLOTTER OPERATOR. Fartun Ungerer STEREO PLOTTER OPERATOR-C Work Phone: [facility] 07-19-2024 07:56-0500 Body temperature 97.6 [degF] STEREO PLOTTER OPERATOR. Farutn Ungerer STEREO PLOTTER OPERATOR-C Work Phone: [facility] 07-19-2024 07:56-0500 Body weight 86.18 kg STEREO PLOTTER OPERATOR. Fartun Ungerer STEREO PLOTTER OPERATOR-C Work Phone: [facility] 07-19-2024 07:56-0500 Diastolic blood pressure 80 mm[Hg] STEREO PLOTTER OPERATOR. Fartun Ungerer STEREO PLOTTER OPERATOR-C Work Phone: [facility] 07-19-2024 07:56-0500 Heart rate 80 /min STEREO PLOTTER OPERATOR. Fartun Gallegoserer STEREO PLOTTER OPERATOR-C Work Phone: [facility] 07-19-2024 07:56-0500 Respiratory rate 18 /min STEREO PLOTTER OPERATOR. Fartun Gallegoserer STEREO PLOTTER OPERATOR-C Work Phone: [facility] 07-19-2024 07:56-0500 SaO2% (BldA) [Mass fraction] 97 % STEREO PLOTTER OPERATOR. Fartun Gallegoserer STEREO PLOTTER OPERATOR-C Work Phone: [facility] 07-19-2024 07:56-0500 Systolic blood pressure 119 mm[Hg] STEREO PLOTTER OPERATOR. Fartun Gallegoserer STEREO PLOTTER OPERATOR-C Work Phone: [facility] 06-27-2024 13:40-0500 Body temperature 97.4 [degF] STEREO PLOTTER OPERATOR. Fartun Gallegoserer STEREO PLOTTER OPERATOR-C Work Phone: [facility] 06-27-2024 13:40-0500 Diastolic blood pressure 60 mm[Hg] STEREO PLOTTER OPERATOR. Fartun Gallegoserer STEREO PLOTTER OPERATOR-C Work Phone: [facility] 06-27-2024 13:40-0500 Heart rate 60 /min STEREO PLOTTER OPERATOR. Fartun Gallegoserer STEREO PLOTTER OPERATOR-C Work Phone: [facility] 06-27-2024 13:40-0500 Respiratory rate 18 /min STEREO PLOTTER OPERATOR. Fartun Gallegoserer STEREO PLOTTER OPERATOR-C Work Phone: [facility] 06-27-2024 13:40-0500 SaO2% (BldA) [Mass fraction] 98 % STEREO PLOTTER OPERATOR. Fartun Gallegoserer STEREO PLOTTER OPERATOR-C Work Phone: [facility] 06-27-2024 13:40-0500 Systolic blood pressure 104 mm[Hg] STEREO PLOTTER OPERATOR. Fartun Gallegoserer STEREO PLOTTER OPERATOR-C Work Phone: [facility] 06-27-2024 12:19-0500 Body mass index (BMI) [Ratio] 27.5 kg/m2 STEREO PLOTTER OPERATOR. Fartun Gallegoserer STEREO PLOTTER OPERATOR-C Work Phone: [facility] 06-27-2024 12:19-0500 Body weight 85.72 kg STEREO PLOTTER OPERATOR. Fartun Ungerer STEREO PLOTTER OPERATOR-C Work Phone: [facility] 05-08-2024 07:37-0500 Body mass index (BMI) [Ratio] 29.1 kg/m2 STEREO PLOTTER OPERATOR. Fartun Gallegoserer STEREO PLOTTER OPERATOR-C Work Phone: [facility] 05-08-2024 07:37-0500 Body temperature 98.6 [degF] STEREO PLOTTER OPERATOR. Fartun Gallegoserer STEREO PLOTTER OPERATOR-C Work Phone: [facility] 05-08-2024 07:37-0500 Body weight 90.71 kg STEREO PLOTTER OPERATOR. Fartun Gallegoserer STEREO PLOTTER OPERATOR-C Work Phone: [facility] 05-08-2024 07:37-0500 Diastolic blood pressure 83 mm[Hg] STEREO PLOTTER OPERATOR. Fartun Gallegoserer STEREO PLOTTER OPERATOR-C Work Phone: [facility] 05-08-2024 07:37-0500 Heart rate 73 /min STEREO PLOTTER OPERATOR. Fartun Rosyerer STEREO PLOTTER OPERATOR-C Work Phone: [facility] 05-08-2024 07:37-0500 Respiratory rate 20 /min STEREO PLOTTER OPERATOR. Fartun Gallegoserer STEREO PLOTTER OPERATOR-C Work Phone: [facility] 05-08-2024 07:37-0500 SaO2% (BldA) [Mass fraction] 99 % STEREO PLOTTER OPERATOR. Fartun Gallegoserer STEREO PLOTTER OPERATOR-C Work Phone: [facility] 05-08-2024 07:37-0500 Systolic blood pressure 118 mm[Hg] STEREO PLOTTER OPERATOR. Fartun Ungerer STEREO PLOTTER OPERATOR-C Work Phone: [facility] 02-08-2024 08:15-0400 Body mass index (BMI) [Ratio] 29.71 kg/m2 Corinna Emmanuel MD Work Phone: [facility] 02-08-2024 08:15-0400 Body weight 88.63 kg Corinna Emmanuel MD Work Phone: [facility] 02-08-2024 08:15-0400 Diastolic blood pressure 74 mm[Hg] Corinna Emmanuel MD Work Phone: [facility] 02-08-2024 08:15-0400 Respiratory rate 16 /min Corinna Emmanuel MD Work Phone: [facility] 02-08-2024 08:15-0400 Systolic blood pressure 122 mm[Hg] Corinna Emmanuel MD Work Phone: [facility] 01-31-2024 11:03-0400 Body mass index (BMI) [Ratio] 29.5 kg/m2 Corinna Emmanuel MD Work Phone: [facility] 01-31-2024 11:03-0400 Body weight 88 kg Corinna Emmanuel MD Work Phone: [facility] 01-31-2024 11:03-0400 Diastolic blood pressure 82 mm[Hg] Corinna Emmanuel MD Work Phone: [facility] 01-31-2024 11:03-0400 Systolic blood pressure 120 mm[Hg] Corinna Emmanuel MD Work Phone: [facility] 10-26-2022 06:00-0400 Body height 176.53 cm STEREO PLOTTER OPERATOR. Fartun Oneal Work Phone: [facility] 10-26-2022 06:00-0400 Body mass index (BMI) [Ratio] 28.2 kg/m2 STEREO PLOTTER OPERATOR. Fartun Gallegoserer Work Phone: [facility] 10-26-2022 06:00-0400 Body temperature 97.2 [degF] STEREO PLOTTER OPERATOR. Fartun Gallegoserer Work Phone: [facility] 10-26-2022 06:00-0400 Body weight 87.99 kg STEREO PLOTTER OPERATOR. Fartun Oneal Work Phone: [facility] 10-26-2022 06:00-0400 Diastolic blood pressure 76 mm[Hg] STEREO PLOTTER OPERATOR. Fartun Ungerer Work Phone: [facility] 10-26-2022 06:00-0400 Heart rate 83 /min STEREO PLOTTER OPERATOR. Fartun Ungerer Work Phone: [facility] 10-26-2022 06:00-0400 Respiratory rate 18 /min STEREO PLOTTER OPERATOR. Fartun Ungerer Work Phone: [facility] 10-26-2022 06:00-0400 SaO2% (BldA) [Mass fraction] 98 % STEREO PLOTTER OPERATOR. Fartun Ungerer Work Phone: [facility] 10-26-2022 06:00-0400 Systolic blood pressure 134 mm[Hg] STEREO PLOTTER OPERATOR. Fartun Ungerer Work Phone: [facility] 09-21-2022 07:25-0400 Body mass index (BMI) [Ratio] 27.6 kg/m2 STEREO PLOTTER OPERATOR. Fartun Ungerer Work Phone: [facility] 09-21-2022 07:25-0400 Body temperature 97.5 [degF] STEREO PLOTTER OPERATOR. Fartun Ungerer Work Phone: [facility] 09-21-2022 07:25-0400 Body weight 86.18 kg STEREO PLOTTER OPERATOR. Fartun Ungerer Work Phone: [facility] 09-21-2022 07:25-0400 Diastolic blood pressure 84 mm[Hg] STEREO PLOTTER OPERATOR. Fartun Ungerer Work Phone: [facility] 09-21-2022 07:25-0400 Heart rate 76 /min STEREO PLOTTER OPERATOR. Fartun Ungerer Work Phone: [facility] 09-21-2022 07:25-0400 Respiratory rate 18 /min STEREO PLOTTER OPERATOR. Fartun Ungerer Work Phone: [facility] 09-21-2022 07:25-0400 SaO2% (BldA) [Mass fraction] 97 % STEREO PLOTTER OPERATOR. Fartun Gallegoserer Work Phone: [facility] 09-21-2022 07:25-0400 Systolic blood pressure 126 mm[Hg] STEREO PLOTTER OPERATOR. Fartun Ungerer Work Phone: [facility] 08-23-2022 09:30-0500 Body mass index (BMI) [Ratio] 28.2 kg/m2 STEREO PLOTTER OPERATOR. Fartun Gallegoserer Work Phone: [facility] 08-23-2022 09:30-0500 Body weight 87.99 kg STEREO PLOTTER OPERATOR. Fartun Gallegoserer Work Phone: [facility] 08-23-2022 09:30-0500 Diastolic blood pressure 84 mm[Hg] STEREO PLOTTER OPERATOR. Fartun Gallegoserer Work Phone: [facility] 08-23-2022 09:30-0500 Heart rate 80 /min STEREO PLOTTER OPERATOR. Fartun Gallegoserer Work Phone: [facility] 08-23-2022 09:30-0500 SaO2% (BldA) [Mass fraction] 96 % STEREO PLOTTER OPERATOR. Fartun Gallegoserer Work Phone: [facility] 08-23-2022 09:30-0500 Systolic blood pressure 145 mm[Hg] STEREO PLOTTER OPERATOR. Fartun Gallegoserer Work Phone: [facility] 01-06-2022 15:06-0400 Body height 172.7 cm Whit Marroquin APRN.[employer] Work Phone: [facility] 01-06-2022 15:06-0400 Body weight 78.02 kg Whit Marroquin APRN.[employer] Work Phone: [facility] 01-06-2022 15:06-0400 Diastolic blood pressure 62 mm[Hg] Whit Marroquin APRN.[employer] Work Phone: [facility] 01-06-2022 15:06-0400 Systolic blood pressure 106 mm[Hg] Whit Marroquin APRN.[employer] Work Phone: [facility] Encounters Encounter Date Encounter Type Care Provider Facility Start: 04-03-2025 End: 04-03-[address] Rex Garcia DO -[facility] Work Phone: Start: 04-03-2025 End: 04-03-2025 ambulatory Fartun Ungerer [facility] Start: 02-11-2025 End: 02-11-2025 ambulatory No Primary Care Physician -Cat Scan [facility] Start: 02-11-2025 End: 02-11-2025 Patient encounter procedure Yolis Gold STEREO PLOTTER OPERATOR-C -Cat Scan [facility] Work Phone: Start: 02-11-2025 End: 02-11-2025 ambulatory Fartun Ungerer Facility:[facility] Start: 02-01-2025 End: 02-01-2025 Telephone encounter Corinna Emmanuel MD Work Phone: OB/Gynecology Comment on above: Menstrual Problem Start: 01-14-2025 End: 01-14-2025 ambulatory Fartun Ungerer STEREO PLOTTER OPERATOR-C Work Phone: -Laboratory Specimen Start: 01-14-2025 End: 01-14-2025 Patient encounter procedure Fartun Ungerer STEREO PLOTTER OPERATOR-C -Laboratory Specimen Work Phone: Start: 01-14-2025 End: 01-14-2025 Patient encounter procedure Fartun Ungerer STEREO PLOTTER OPERATOR-C -[facility] Work Phone: Start: 01-14-2025 End: 01-14-2025 ambulatory Fartun Ungerer STEREO PLOTTER OPERATOR-C Work Phone: -[facility] Start: 01-14-2025 End: 01-14-2025 ambulatory Fartun Ungerer Facility:[facility] Start: 12-10-2024 End: 12-10-2024 Patient encounter procedure Fartun Ungerer STEREO PLOTTER OPERATOR-C -[facility] Work Phone: Start: 12-10-2024 End: 12-10-2024 ambulatory Fartun Ungerer STEREO PLOTTER OPERATOR-C Work Phone: [facility] Work Phone: Start: 09-28-2024 End: 09-28-2024 Patient encounter procedure Yolis Gold STEREO PLOTTER OPERATOR-C -[facility] Work Phone: Start: 09-28-2024 End: 09-28-2024 ambulatory No Primary Care Physician Facility:[facility] Start: 09-21-2024 Non-patient / Non-visit Dr. Rex Tarango own DO -WC-PMW Start: 09-21-2024 End: 09-21-2024 Admission to same day surgery center Dr. Rex Garcia DO -Endoscopy Work Phone: Start: 09-21-2024 End: 09-21-2024 ambulatory STEREO PLOTTER OPERATOR. Fartun Oneal STEREO PLOTTER OPERATOR-C Work Phone: [facility] Work Phone: Start: 09-17-2024 ambulatory Rex Garcia Facility:[facility] Start: 09-17-2024 Non-patient / Non-visit Dr. Rex Tarango own DO -WCH-PMW Start: 08-31-2024 End: 08-31-2024 Patient encounter procedure Yolis Gold STEREO PLOTTER OPERATOR-C -[facility] Work Phone: Start: 08-31-2024 End: 08-31-2024 ambulatory STEREO PLOTTER OPERATOR. Fartun Oneal STEREO PLOTTER OPERATOR-C Work Phone: [facility] Work Phone: Start: 08-31-2024 End: 08-31-2024 ambulatory Yolis Gold STEREO PLOTTER OPERATOR Facility:[facility] Start: 08-21-2024 End: 08-21-2024 ambulatory STEREO PLOTTER OPERATOR. Fartun Oneal STEREO PLOTTER OPERATOR-C Work Phone: [facility] Work Phone: Start: 08-21-2024 End: 08-21-2024 Patient encounter procedure Yolis Gold STEREO PLOTTER OPERATOR-C -[facility] Start: 08-21-2024 End: 08-21-2024 ambulatory Yolis Gold STEREO PLOTTER OPERATOR Facility:[facility] Start: 08-07-2024 End: 08-08-2024 Emergency department patient visit CRIS GAVIRIA LEANNE [facility] Start: 07-19-2024 End: 07-19-2024 Patient encounter procedure Yolis Gold STEREO PLOTTER OPERATOR-C -[facility] Work Phone: Start: 07-19-2024 End: 07-19-2024 ambulatory Fartnu Ungerer Facility:[facility] Start: 07-12-2024 ambulatory FARTUN STEREO PLOTTER OPERATOR [facility] Start: 07-11-2024 End: 07-11-2024 ambulatory FARTUN STEREO PLOTTER OPERATOR [facility] Start: 07-02-2024 End: 07-02-2024 Emergency department patient visit FARTUN STEREO PLOTTER OPERATOR [facility] Start: 06-27-2024 Non-patient / Non-visit Low Ashley nd [facility] Start: 06-27-2024 End: 06-27-2024 Admission to same day surgery center Low Dior -Endoscopy Work Phone: Start: 06-27-2024 End: 06-27-2024 ambulatory Low Dior Facility:[facility] Start: 05-30-2024 End: 05-30-2024 Patient encounter procedure Low Dior DO [facility] Work Phone: Start: 05-30-2024 End: 05-30-2024 ambulatory Low Dior Facility:[facility] Start: 05-10-2024 End: 05-10-2024 Patient encounter procedure Yolis BUSTAMANTE -Pulmonary Services/Neurology Work Phone: Start: 05-10-2024 End: 05-10-2024 ambulatory Fartun Gallegoserer Facility:[facility] Start: 05-08-2024 End: 05-08-2024 Patient encounter procedure Yolis Gold NP-C -[facility] Work Phone: Start: 05-08-2024 End: 05-08-2024 ambulatory Fartun Ungerer Facility:[facility] Start: 02-08-2024 End: 02-08-2024 ambulatory CORINNA EMMANUEL Facility:[facility] Start: 02-08-2024 End: 02-08-2024 Office outpatient visit 15 minutes Corinna Emmanuel MD Work Phone: OB/Gynecology Comment on above: Menorrhagia with irr egular cycle (Primary Dx) Start: 02-06-2024 End: 02-06-2024 Telephone encounter Ita Gomez MD Work Phone: OB/Gynecology Comment on above: Results Start: 01-31-2024 End: 01-31-2024 Office outpatient visit 15 minutes Corinna Emmanuel MD Work Phone: OB/Gynecology Comment on above: Menometrorrhagia (Pr imary Dx) Start: 01-31-2024 End: 01-31-2024 ambulatory [facility] OB/Gynecology Start: 01-31-2024 End: 01-31-2024 Patient encounter procedure [facility]/Gynecology Start: 09-22-2023 End: 09-22-2023 ambulatory STEREO PLOTTER OPERATOR. Fartun Oneal Work Phone: [facility] Work Phone: Start: 09-22-2023 End: 09-22-2023 Patient encounter procedure STEREO PLOTTER OPERATOR. Fartun Oneal Work Phone: [facility]-Cat Scan, [facility] Work Phone: Start: 08-29-2023 End: 11-15-2023 ambulatory [facility] Start: 08-19-2023 End: 08-19-2023 ambulatory WILBER PERDOMO ASTER [facility] Start: 08-17-2023 End: 08-17-2023 ambulatory STEREO PLOTTER OPERATOR. Fartun Oneal Work Phone: [facility] Work Phone: Start: 08-17-2023 End: 08-17-2023 Patient encounter procedure STEREO PLOTTER OPERATOR. Fartun Oneal Work Phone: [facility]-Ultrasound, [facility] Work Phone: Start: 07-19-2023 End: 07-19-2023 ambulatory STEREO PLOTTER OPERATOR. Fartun Oneal Work Phone: [facility] Work Phone: Start: 07-19-2023 End: 07-19-2023 Patient encounter procedure STEREO PLOTTER OPERATOR. Fartun Oneal [facility] Work Phone: Start: 06-28-2023 End: 06-28-2023 ambulatory STEREO PLOTTER OPERATOR. Fartun Oneal Work Phone: [facility] Work Phone: Start: 06-28-2023 End: 06-28-2023 Patient encounter procedure STEREO PLOTTER OPERATOR. Fartun Oneal Work Phone: [facility]-Laboratory Work Phone: Start: 06-28-2023 End: 06-28-2023 Patient encounter procedure STEREO PLOTTER OPERATOR. Fartun Oneal Work Phone: [facility] Gastroenterology Work Phone: Start: 10-26-2022 End: 10-26-2022 Patient encounter procedure STEREO PLOTTER OPERATOR. Fartun Oneal Work Phone: [facility] Start: 10-22-2022 End: 10-22-2022 ambulatory STEREO PLOTTER OPERATOR. Fartun Oneal Work Phone: [facility] Work Phone: Start: 10-22-2022 End: 10-22-2022 Patient encounter procedure STEREO PLOTTER OPERATOR. Fartun Oneal [facility] Start: 09-21-2022 End: 09-21-2022 Patient encounter procedure STEREO PLOTTER OPERATOR. Fartun Oneal Work Phone: [facility] Start: 08-23-2022 End: 08-23-2022 Patient encounter procedure NICOL. Fartun Oneal Work Phone: [facility] Gastroenterology Start: 07-10-2022 End: 07-10-2022 Patient encounter procedure NP. Fartun Oneal Work Phone[facility] Start: 05-27-2022 ambulatory PABLO GRIMALDO Facility: [facility] Start: 05-27-2022 End: 05-27-2022 Patient encounter procedure Pablo Grimaldo MD Work Phone: Orthopedics Comment on above: Tendinopathy of glut eal region (Primary Dx); Osteochondroma of pelvis Start: 05-27-2022 End: 05-27-2022 Subsequent hospital visit by physician Nieves [facility] Comment on above: Pain [R52] Start: 05-11-2022 Orders Only Pablo Grimaldo MD Work Phone: [facility] Comment on above: Pain (Primary Dx) Start: 01-06-2022 End: 01-06-2022 Patient encounter procedure Whit Marroquin APRN.[facility]OSS Work Phone: OB/Gynecology Comment on above: Encounter for gyneco logical examination (general) (routine) without abnormal findings (Primary Dx); Screening for cervical cancer; Encounter for screening for human papillomavirus (HPV); Encounter for screening mammogram for breast cancer Start: 01-06-2022 End: 01-06-2022 Patient encounter status Whit Marroquin APRN.[facility] Work Phone: OB/Gynecology Start: 06-05-2014 End: 06-06-2014 Emergency department patient visit [facility] Facility:[facility] Procedures Date Procedure Procedure Detail Performing Clinician Start: 02-11-2025 CT of chest without contrast No Primary Care Physician Start: 01-14-2025 Urnls dip stick/tabl et reagent auto microscopy Fartun Oneal STEREO PLOTTER OPERATOR-C Work Phone: Start: 09-21-2024 Endoscopic ultrasono graphy of bronchus NP. Fartun Oneal STEREO PLOTTER OPERATOR-C Work Phone: Start: 08-31-2024 RODOLFO measurement Fartun Ungerer STEREO PLOTTER OPERATOR-C Work Phone: Comment on above: Performed at: [address] [id number] Director: Jose De Souza PhD, Phone: [phone] Start: 08-31-2024 Antibody measurement Je ssica Ungerer STEREO PLOTTER OPERATOR-C Work Phone: Comment on above: The atypical pANCA p attern has been observed in asignificant percentage of patients with ulcerative colitis,primary sclerosing cholangitis and autoimmune hepatitis. Start: 08-31-2024 Antibody to centrome re measurement Fartun Ungerer STEREO PLOTTER OPERATOR-C Work Phone: Comment on above: Test not performed Start: 08-31-2024 Antibody to extracta ble nuclear antigen measurement Fartun Ungerer STEREO PLOTTER OPERATOR-C Work Phone: Comment on above: Test not performed Start: 08-31-2024 Antibody to BLANCHE-1 measurement Fartun Ungerer STEREO PLOTTER OPERATOR-C Work Phone: Comment on above: Test not performed Start: 08-31-2024 Antibody to lupus La protein measurement Fartun Ungerer STEREO PLOTTER OPERATOR-C Work Phone: Comment on above: Test not performed Start: 08-31-2024 Antibody to SS-A measurement Fartun Ungerer STEREO PLOTTER OPERATOR-C Work Phone: Comment on above: Test not performed Start: 08-31-2024 Autoantibody measurement Fartun Ungerer STEREO PLOTTER OPERATOR-C Work Phone: Comment on above: Test not performed Start: 08-31-2024 BODY TECHNICIAN/PAINTER antibody measurement Fartun Ungerer STEREO PLOTTER OPERATOR-C Work Phone: Comment on above: Test not performed Start: 08-21-2024 Positron emission to mography with computed tomography STEREO PLOTTER OPERATOR. Fartun Ungerer STEREO PLOTTER OPERATOR-C Work Phone: Start: 01-31-2024 Us pelvic nonobstetr ic real-time image complete Corinna Emmanuel MD Work Phone: Start: 09-22-2023 CT of abdomen with contrast STEREO PLOTTER OPERATOR. Fartun Oneal Work Phone: Start: 08-17-2023 CT of abdomen STEREO PLOTTER OPERATOR. Joy Oneal Work Phone: Start: 07-19-2023 Radionuclide gastric emptying study STEREO PLOTTER OPERATOR. Fartun Oneal Work Phone: Start: 10-22-2022 CT of chest without contrast STEREO PLOTTER OPERATOR. Fartun Oneal Work Phone: Start: 07-10-2022 CT of chest without contrast STEREO PLOTTER OPERATOR. Fartun Oneal Work Phone: Start: 05-27-2022 Radiologic examinati on femur minimum 2 views Pablo Grimaldo MD Work Phone: Plan of Treatment Date Care Activity Detail Author Start: 08-06-2031 Urine microalbumin profile DTaP,Tdap,Td Vaccine (2 - Td or Tdap) [facility] Start: 01-06-2027 HPV TESTING HPV TESTING [facility] Start: 01-06-2027 PAP TESTING PAP TESTING [facility] Start: 01-06-2027 Screening for malignant neoplasm of cervix Cervical Cancer Screening [facility] Start: 02-18-2025 Influenza vaccination Influenza Vaccine (#1) [facility] Start: 02-07-2025 End: 02-07-2025 Patient encounter procedure 02/07/2025 12:50 PM EDT Office Visit OB/Gynecology [address] [place], [place] [id number] Corinna Emmanuel MD [address] [place] [address] discuss pelvic pain with menses-getting worse OB/Gynecology Comment on above: discuss pelvic pain with menses-getting worse Start: 09-21-2024 [facility] ebus guided sampl 1/2 node station/strux BRONCH EBUS SAMPLNG 1/2 NODE [facility] Start: 09-21-2024 Bronchoscopy needle bx trachea main stem&/bron BRONCHOSCOPY/NEEDLE BX EACH [facility] Start: 09-21-2024 Patient discharge [facility] Start: 06-27-2024 Egd transoral biopsy single/multiple EGD BIOPSY SINGLE/MULTIPLE [facility] Start: 06-27-2024 Patient discharge [facility] Start: 02-19-2024 Covid-19 Vaccine ( season) Covid-19 Vaccine () [facility] Start: 02-19-2024 Influenza vaccination Influenza Vaccine (#1) [facility] Start: 02-08-2024 End: 02-08-2024 Patient encounter procedure 02/08/2024 8:20 AM EDT Office Visit OB/Gynecology [address] [place], [place] [id number] Corinna Emmanuel MD [address] [place] [address] Discuss ultrasound and treatment options OB/Gynecology Comment on above: Discuss ultrasound and treatment options Start: 01-31-2024 End: 01-30-2025 US Pelvis PELVIC US [facility] Imaging Routine Menometrorrhagia Expected: 01/31/2024, Expires: 01/30/2025 [facility] Work Phone: Comment on above: Expected: 01/31/2024, Expires: Start: 06-28-2023 Acute hepatitis 2000 panel - Serum [facility] Start: 06-28-2023 Celiac disease screen [facility] Start: 06-28-2023 IgA [Mass/volume] in Serum or Plasma [facility] Start: 06-28-2023 IgE [Units/volume] in Serum or Plasma [facility] Start: 06-28-2023 IgG [Mass/volume] in Serum or Plasma [facility] Start: 06-28-2023 IgM [Mass/volume] in Serum or Plasma [facility] Start: 06-28-2023 [facility] Start: 02-18-2023 Covid-19 Vaccine ( season) Covid-19 Vaccine () [facility] Start: 02-18-2022 Influenza vaccination INFLUENZA (#1) [facility] Start: 2021 Mammography MAMMOGRAM [facility] Start: 2021 Screening for malignant neoplasm of breast Mammogram Screening [facility] Start: 06-20-2021 DEPRESSION ASSESSMENT DEPRESSION ASSESSMENT [facility] Start: 12-27-2011 HPV TESTING HPV TESTING [facility] Start: 04-26-2011 PAP TESTING PAP TESTING [facility] Start: 2008 HPV Vaccine (1 - 3-dose SCDM series) HPV Vaccine (1 - 3-dose SCDM series) [facility] Start: 2000 Hepatitis B Vaccine (1 of 3 - 19+ 3-dose series) Hepatitis B Vaccine (1 of 3 - 19+ 3-dose series) [facility] Start: 2000 Pneumococcal vaccination Pneumococcal Vaccine (1 of 2 - PCV) [facility] Start: 2000 Urine microalbumin profile DTAP,TDAP,TD (1 - Tdap) [facility] Start: 12-27-1999 Depression Screening Depression Screening [facility] Start: 12-27-1999 HEPATITIS C SCREENING HEPATITIS C SCREENING [facility] Start: 12-27-1999 Hepatitis C screening Hepatitis C Screening [facility] Start: 12-27-1999 HIV SCREENING HIV SCREENING [facility] Start: 12-27-1999 HIV screening HIV Screening [facility] Start: 1993 Adult depression screening assessment DEPRESSION SCREENING [facility] Start: 12-27-1987 PNEUMOCOCCAL (1 - PCV) PNEUMOCOCCAL (1 - PCV) [facility] Start: 12-27-1987 Pneumococcal vaccination Pneumococcal Vaccine (1 of 2 - PCV) [facility] Start: 06-28-1982 COVID-19 VACCINE (#1) COVID-19 VACCINE (#1) [facility] Start: 1981 HEPATITIS B (1 of 3 - 3-dose series) HEPATITIS B (1 of 3 - 3-dose series) [facility] Antibody to lupus La protein measurement [facility] Antibody to SS-A measurement [facility] Beef IgE Ab [Units/volume] in Serum [facility] Centromere protein B Ab [Units/volume] in Serum [facility] Chocolate IgE Ab [Units/volume] in Serum [facility] Chromatin Ab [Units/volume] in Serum or Plasma [facility] Codfish IgE Ab [Units/volume] in Serum [facility] Hammond IgE Ab [Units/volume] in Serum [facility] Cow milk IgE Ab [Units/volume] in Serum [facility] CT Abdomen and Pelvi s WO and W contrast IV [facility] CT Chest WO contrast [facility] DNA double strand Ab [Units/volume] in Serum [facility] Endometrial bx w/wo endocervix bx w/o dilat spx ENDOMETRIAL BIOPSY Procedures Routine Menorrhagia with irregular cycle Ordered: 02/08/2024 [facility] Work Phone: Comment on above: Ordered: 02/08/2024 Hepatitis A virus Ig M Ab [Presence] in Serum [facility] Hepatitis B core ant ibody measurement, IgM type [facility] Hepatitis B surface antigen measurement [facility] Hepatitis C antibody measurement [facility] Insertion intrauteri ne device iud INSERT INTRAUTERINE DEVICE Procedures Routine Menorrhagia with irregular cycle Ordered: 02/08/2024 [facility] Comment on above: Ordered: 02/08/2024 Blanche-1 extractable nuc lear Ab [Units/volume] in Serum [facility] Measurement of immunoglobulin A in serum specimen [facility] Neutrophil cytoplasm ic Ab.classic [Units/volume] in Serum [facility] P-ANCA measurement [facility] PAP FLUID CERVICAL SCREENING PAP FLUID CERVICAL SCREENING Lab Routine Encounter for gynecological examination (general) (routine) without abnormal findings Screening for cervical cancer Encounter for screening for human papillomavirus (HPV) 01/06/2022 4:05 PM EDT [facility] Work Phone: Patient referral [facility] Work Phone: Peanut IgE Ab [Units/volume] in Serum [facility] Pork IgE Ab [Units/volume] in Serum [facility] End: 06-10-2023 Radiologic examination pelvis 1/2 views XR PELVIS 1V AP Radiology Routine Pain 1 Occurrences starting 05/11/2022 until 06/10/2023 [facility] Work Phone: Comment on above: 1 Occurrences starting 05/11/2022 until 06/10/2023 [place] IgE Ab [Units/volume] in Serum [facility] SCL-70 extractable nuclear Ab [Units/volume] in Serum by Immunoassay [facility] End: 02-05-2023 Screening mammography bi 2-view breast inc cad MIRIAN SCREENING Radiology Routine Encounter for gynecological examination (general) (routine) without abnormal findings Encounter for screening mammogram for breast cancer 1 Occurrences starting 01/06/2022 until 02/05/2023 [facility] Work Phone: Comment on above: 1 Occurrences starting 01/06/2022 until 02/05/2023 Shrimp IgE Ab [Units/volume] in Serum [facility] Rios extractable nu clear Ab [Presence] in Serum [facility] Soybean IgE Ab [Units/volume] in Serum [facility] Tissue transglutamin ase IgA Ab [Units/volume] in Serum [facility] Tuna IgE Ab [Units/volume] in Serum [facility] Urinalysis complete panel - Urine [facility] Wheat IgE Ab [Units/volume] in Serum [facility] Whole Egg IgE Ab [Units/volume] in Serum [facility] End: 06-10-2023 XR FEMUR GENERAL 2V AP/LAT LEFT XR FEMUR GENERAL 2V AP/LAT LEFT Radiology Routine Pain 1 Occurrences starting 05/11/2022 until 06/10/2023 [facility] Work Phone: Comment on above: 1 Occurrences starting 05/11/2022 until 06/10/2023 [facility] Payers Date Payer Category Payer Unknown [id number] 2024 [place] Health [place] [id number] 2024 Medicaid [id number] 2024 Self-pay 2023 Unknown [id number] 2022 Unknown [id number] 2021 Unknown RANDEE POP ACCE SS PPO [id number] 2021-Present [phone] [address] [place] [address] PPO [id number] 2021 Unknown [id number]. [id number] 2021 Unknown [id number] 1981 Unknown [id number] 2.16.840.1.620824.3.579.2. 651 1981 Unknown [id number] 2.16.840.1.816367.3.579.2. 651 1981 Unknown [id number] 2.16840.1.999819.3.579.2. 651 1981 Unknown [id number] 2.16.840.1.245063.3.579.2. 651 1981 Unknown [id number] 2.16.840.1.782158.3.579.2. 651 Unknown [id number] Unknown [facility] [id number] Unknown [id number] Unknown [id number] 2.16.840.1.037710.3.579.2. 462 Unknown [id number] 2.16.840.1.882545.3.579.2. 462 Unknown [id number] 2.16.840.1.933782.3.579.2. 462 Unknown [id number] 2.16.840.1.420986.3.579.2. 462 Unknown [id number] 2.16.840.1.467851.3.579.2. 462 Unknown [id number] 2.16.840.1.626334.3.579.2. 462 Unknown [id number] 2.16.840.1.969893.3.579.2. 462 Unknown [id number] 2.16.840.1.543423.3.579.2. 462 Unknown [id number] 2.16.840.1.105587.3.579.2. 462 Unknown [id number] 2.16.840.1.808372.3.579.2. 462 Unknown [id number] 2.16.840.1.348655.3.579.2. 462 Unknown [id number] 2.16.840.1.457539.3.579.2. 462 Unknown [id number] 2.16.840.1.717229.3.579.2. 462 Unknown [id number] 2.16.840.1.429335.3.579.2. 462 Unknown [id number] 2.16.840.1.478716.3.579.2. 462 Unknown [id number] 2.16.840.1.304395.3.579.2. 462 Unknown [id number] 2.16.840.1.935283.3.579.2. 462 Unknown [id number] 2.16.840.1.409086.3.579.2. 462 Unknown [id number] 2.16.840.1.590672.3.579.2. 462 Unknown [id number] 2.16.840.1.395785.3.579.2. 462 Social History Date Type Detail Facility Start: 01-06-2022 End: 12-10-2024 Tobacco smoking status NEIS Smokes tobacco daily [facility] Work Phone: History of tobacco use [facility] Start: 01-06-2022 End: 02-01-2025 Alcohol intake Current drinker of alcohol (finding) [facility] Start: 1980 Sex Assigned At Female [facility] Start: 12-27-2021 End: 01-06-2022 Exposure to SARS-CoV-2 (event) Not sure [facility] Start: 01-06-2022 End: 01-31-2024 Cigarettes smoked current (pack per day) - Reported 0.5 [facility] Start: 01-06-2022 End: 01-31-2024 Tobacco use and exposure Smokeless tobacco non-user [facility] Start: 10-26-2022 End: 06-28-2023 Tobacco smoking status NHIS Unknown if ever smoked [facility] Start: 01-31-2024 End: 02-08-2024 Tobacco use panel [facility] Start: 05-21-2012 National Score (1-100), lower number is lower risk 76 [facility] Start: 01-06-2022 Gender identity Identifies as female gender (finding) [facility] Start: 01-06-2022 Sexual orientation Heterosexual (fin ding) [facility] Start: 08-31-2024 End: 09-21-2024 Sex Female (finding) [facility] NEGATED: Highlighted row Not [facility] Medical Equipment Procedure Code Equipment Code Equipment Origin al Text Equipment Identifier Dates EGD, with pH impedance probe insertion PROBE,PH CAPSULE WITH DEL SYS FDA Start: 06-27-2024 EGD, with pH impedance probe insertion PROBE,PH CAPSULE WITH DEL SYS FDA Start: 06-27-2024 EGD, with pH impedance probe insertion PROBE,PH CAPSULE WITH DEL SYS FDA Start: 06-27-2024 EGD, with pH impedance probe insertion PROBE,PH CAPSULE WITH DEL SYS FDA Start: 06-27-2024 EGD, with pH impedance probe insertion PROBE,PH CAPSULE WITH DEL SYS FDA Start: 06-27-2024 EGD, with pH impedance probe insertion PROBE,PH CAPSULE WITH DEL SYS FDA Start: 06-27-2024 EGD, with pH impedance probe insertion PROBE,PH CAPSULE WITH DEL SYS FDA Start: 06-27-2024 EGD, with pH impedance probe insertion PROBE,PH CAPSULE WITH DEL SYS FDA Start: 06-27-2024 Goals Date Patient Goal Desired Activity /State Mental Status Date Assessment Result Facility 09-21-2024 Cognitive function Touch/Shaking [facility] Work Phone: 06-27-2024 Cognitive function Level Of Consciousness Drowsy [facility] Work Phone: Clinical Notes 06-06-2006 to 04-03-2025 Telephone Encounter - Ant Hoskins RN - 02/01/2025 12:54 PM EDTTelephone Encounter - Ant Hoskins RN - 02/01/2025 12:54 PM EDTTelephone Encounter - Corinna Hearn RN - 02/01/2025 11:55 AM EDT Note Date & Type Note Facility 04-03-2025 Progress note [facility] [facility] 02-11-2025 Radiology Diagnostic study note [facility] Imaging Services [address] [place] [address] Chest without Contrast MR#: [id number] Acct: [id number] Name: MARY LANDAVERDE Rep #: [id number] : 1980 F 44 From: Cristofer Hurtado MD PCP: Fartun Oneal NP-C Status: REG CLI Study:Chest without Contrast Date of Exam: 02/11/25 Exam# [id number] Ordering Dr: Ryne Gold NP STEREO PLOTTER OPERATOR-C PROCEDURE: CHEST WITHOUT CONTRAST 02/11/2025 REASON FOR EXAM: 7 MM NODULE IN SMOKER Current smoker. Patient has smoked half a pack per day. History of sarcoidosis. Shortness of breath. TECHNIQUE: Chest CT without contrast. Coronal and Sagittal reconstruction series were provided. One or more dose reduction techniques were used (e.g., Automated exposure control, adjustment of the mA and/or kV according to patient size, use of iterative reconstruction technique RADIATION DOSE SUMMARY: CTDlvol: 9.89 mGy DLP: 353.51 mGycm COMPARISON: Prior study dated August 07, 2024. FINDINGS: Hardware: None Lymph nodes: Small benign-appearing bilateral axillary lymph nodes. Heart and Vasculature: The heart is not enlarged. Atherosclerotic calcifications of the thoracic aorta. Thoracic aorta and pulmonary arteries have normal contours; noncontrast technique limits evaluation. Coronary Artery Calcifications: Absent Lungs and Airways: Stable small bilateral pulmonary nodules. The largest measures 6.8 mm in the anterior aspect of the left lower lobe. Stable mild scarring at the left lung base. Pleura: No pleural effusion. Upper Abdomen: Unremarkable Bones: Degenerative changes of the thoracic spine. CT/Chest without Contrast IMPRESSION: Coronary artery calcification (CAC) is is absent Stable examination. 12 month follow-up recommended. 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 Corinna Hearn RN Can try extra strength tylenol and heating pad. Tens unit is sometimes helpful. She can also get the pain patches for period cramps. They should be available at any pharmacy Patient called c/o severe pelvic pain rated a 12 out of 10 on pain scale. Menses started today and bleeding is heavy. No c/o of saturating a pad in less than hour. Does not want to go to the ED for the pain and stated that the pain is typically the worse the first few days of her menses and just deals with the pain. States pain today is the worst pain she has experienced during menses. Previous ultrasound mentioned suggestive of adenomyosis. Patient states that she cannot take ibuprofen d/t stomach issues. Has not taken anything for her pain and asking for recommendations or what medications to take to relieve her pain since she cannot take ibuprofen. Pt. Has appointment to discuss treatment option on 02/07/25. documented in this encounter [facility] 02-01-2025 Telephone encounter Note Left message for patient to call office. Corinna Hearn, RN [facility] 02-01-2025 Telephone encounter Note Can try extra strength tylenol and heating pad. Tens unit is sometimes helpful. She can also get the pain patches for period cramps. They should be available at any pharmacy [facility] 02-01-2025 Telephone encounter Note Patient called c/o severe pelvic pain rated a 12 out of 10 on pain scale. Menses started today and bleeding is heavy. No c/o of saturating a pad in less than hour. Does not want to go to the ED for the pain and stated that the pain is typically the worse the first few days of her menses and just deals with the pain. States pain today is the worst pain she has experienced during menses. Previous ultrasound mentioned suggestive of adenomyosis. Patient states that she cannot take ibuprofen d/t stomach issues. Has not taken anything for her pain and asking for recommendations or what medications to take to relieve her pain since she cannot take ibuprofen. Pt. Has appointment to discuss treatment option on 02/07/25. [facility] 01-14-2025 Evaluation note Diagnosis Onset Date Resolution Low back pain acute January 14, 2025 12:36pm Urinary frequency acute January 142024 12:36pm Lung nodule chronic April 03, 2025 10:47am Nicotine dependence, cigarettes, uncomplicated chronic April 03 10:47am Sarcoidosis of lung chronic Octob 2024 10:47am [facility] Work Phone: 1(136) 704-974506-23-2025 Evaluation note* Diagnosis Onset Date Resolution Status Admit Date Encounter to establish care with new provider acute December 10, 2024 12:57pm Rhinosinusitis acute December 10, 2024 12:57pm Low back pain acute January 14, 2025 12:36pm Urinary frequency acute January 142024 12:36pm [facility] Work Phone: 1(528) 443-183904-11-2025 Evaluation note* Diagnosis Onset Date Resolution Status Admit Date Sarcoidosis of lung acute September 28, 2024 10:47am Nicotine dependence, cigaret nehemias, uncomplicated chronic September 28, 2024 10:47am Encounter to establish care with new provider acute December 10, 2024 12:57pm Rhinosinusitis acute December 10, 2024 12:57pm Low back pain acute January 14, 2025 12:36pm Urinary frequency acute January 142024 12:36pm [facility] Work Phone: 1(245) 949-908604-04-2025 Consult note Author Luciano Crespo [facility] Note Date/Time September 21, 2024 11:4 7am [facility] Medical Records Department [address] [place] [id number] Pre-Anesthesia Evaluation 09/21/24 1133 MR#: [id number] Acct: [id number] Name: MARY LANDAVERDE Rep #:[id number] : 1980 43 From: Luciano Crespo MD PCP: Care Physician,No Primary Status :[facility] Y Race: C Location: EN ASA Classification* ASA Classification ASA Classification: 3 Assessment & Plan Anesthesia* Anesthesia Assessment Anesthesia Assessment: Discussed sedation and/or anesthesia options, risks, benefits, and alternatives with patient/parents/legal guardian/POA. Questions invited. The patient/parents/legal guardian/POA seems to understand and agrees to proceedwith anesthesia plan. Reviewed the physical assessment, medical history, allergy history and patient home medications list prior to surgery/procedure/anesthetic and documented any changes. Performed airway and anesthesia risk assessments. Anesthesia Type Anesthesia Type: General History Source History Obtained from:: Patient and Chart Anesthesia Focused Assessment* Temperature: 98.0 F Pulse Rate: 75 Blood Pressure: 129/69 Respiratory Rate: 16 Pulse Ox: 100 Oxygen Delivery Method: Room Air Airway Assessment Mouth opens: >3 cm Mallampati Score: II Teeth Condition: Intact Neck Range of motion (ROM): Full ROM Focused Labs Anesthesia Preop lab: CBC WBC 8.0 K/mm3 (4.4-11.0) 06/28/23 12:53 06/28/23 RBC 4.75 M/mm3 (4.2-5.4) 06/28/23 12:53 06/28/23 Hgb 13.6 g/dL (12.0-15.0) 06/28/23 12:53 06/28/23 Hct 40.4 % (37-47) 06/28/23 12:53 06/28/23 Plt Count 396 K/mm3 (150-450) 08/31/24 13:03 08/31/24 CHEMISTRY Potassium 4.2 mmol/L (3.5-5.1) 06/28/23 12:53 06/28/23 Sodium 137 mmol/L (136-145) 06/28/23 12:53 06/28/23 BUN 10 mg/dL (7-18) 06/28/23 12:53 06/28/23 Creatinine 0.88 mg/dL (0.55-1.02) 06/28/23 12:53 06/28/23 Glucose 87 mg/dL (74-106) 06/28/23 12:53 06/28/23 TSH 1.18 uIU/mL (0.358-3.74) 06/28/23 12:53 COAG PT 12.5 SECONDS (11.7-14.9) 08/31/24 13:03 Pre-Assessment Diagnosis/Proposed Procedure Planned Operative Procedure(s): EBUS Anesthesia History Anesthesia History - facilities manager: 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 When Was Last Pacemaker Check QUESTION #4 FULL TEXT: You/Your Family Experience fever (hyperthermia) with Anesthesia Last Oral Intake Last Oral intake: Last Oral Intake NPO since 07:30 09/21/24 11:22 Meds taken in AM with sips of No 09/21/24 11:22 water? Meds patient instructed to take am of surgery Any additional information?: Yes NPO since: 07: (Black coffee with sugar at 7:30 AM.) Meds taken in AM with sips of water?: No PONV PONV - facilities manager: PONV - facilities manager Female Yes 09/18/24 14:44 HX of Motion Sickness Yes 09/18/24 14:44 HX of N/V After Surgery Yes 09/18/24 14:44 Non-Smoker Yes 09/18/24 14:44 Duration of Surgery greater Yes 09/18/24 14:44 than 60 minutes Number of Risk Factors 5 09/18/24 14:44 PONV Score Severe Risk 09/18/24 14:44 Height & Weight Height & Weight: Anesthesia: Height & Weight Height 5 ft 9 in 09/21/24 11:22 Weight: 82 kg 09/21/24 11:22 Body Mass Index (BMI) 26.6 09/21/24 11:22 Respiratory Assessment Respiratory Assessment - facilities manager: Respiratory Tract Infection Hx - facilities manager Hx Respiratory Tract Infection No 09/18/24 14:44 Any additional information?: Yes Hx Respiratory Tract Infection: Yes (Occasionalchronic cough.) STOP Sleep Apnea STOP Sleep Apnea - facilities manager: STOP Sleep Apnea - facilities manager Hx Hypertension No 09/18/24 14:44 Hx Sleep Apnea No 09/18/24 14:44 CPAP BIPAP Do you snore loudly (louder No 09/18/24 14:44 than talking or can be heard Do you often feel tired/ Yes 09/18/24 14:44 fatigued/ sleepy during daytime? Has anyone observed you stop No 09/18/24 14:44 breathing during sleep? STOP Results Negative 09/18/24 14:44 QUESTION #5 FULL TEXT : Do you snore loudly (louder than talking or can be heard through closed doors)? 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 Specify any problems Hx of Preganancy in last 3 No 09/18/24 14:44 Months Nurse Filling Out Transfusion DSCHRIBER 09/18/24 14:44 & Questions: Date: 09/18/24 09/18/24 14:44 Time: 14:45 09/18/24 14:44 Patient unable to answer at this time (ie. confused, unrespo /Reproduction History /Reproductive History - facilities manager: /Reproductive Hx- facilities manager Hx Now No 09/18/24 14:44 Gestational Age (in weeks): EDC: Hx Hx Para Hx Section SAB No 09/18/24 14:44 Active Medications Active Medications: Current Medications Generic Name Dose Route Start Last Admin Trade Name Freq PRN Reason Stop Dose Admin Sodium Chloride 1,000 mls @ 15 mls/hr 09/21/24 11:35 IV 09/27/24 00:54 .Q48H MAGY PFSH Medical History Rash Arthritis Easy bruising Back pain Syncope Smoker Shortness of breath on exertion Leg cramps History of pain when walking History of edema COVID Alcohol use Anxiety Lung nodules Gastric reflux Vertigo Hiatal hernia Polyp of colon Biliary dyskinesia Abdominal pain Home Medications ?Medication ?Instructions ?Recorded ?Last Taken ?Type epinephrine 0.3 mg/0.3 mL 0.3 mg subcut Q4H PRN anaphy laxis 09/18/24 Unknown History injection, auto-injector Allergy/AdvReac Type Severity Reaction Status Date / Time alprazolam (From Xanax) Allergy Intermediate Other Verified 09/21/24 11:12 azithromycin Allergy Intermediate Other Verified 09/21/24 11:12 ciprofloxacin Allergy Intermediate Other Verified 09/21/24 11:12 citalopram Allergy Intermediate Other Verified 09/21/24 11:12 latex Allergy Intermediate Other Verified 09/21/24 11:12 Penicillins Allergy Intermediate Other Verified 09/21/24 11:12 red dye Allergy Intermediate Other Verified 09/21/24 11:12 sulfamethoxazole (From Allergy Intermediate Other Verified 09/21/24 11:12 Bactrim) tetracycline Allergy Intermediate Other Verified 09/18/24 14:42 trimethoprim (From Bactrim) Allergy Intermediate Other Verified 09/21/24 11:12 venom-honey bee Allergy Intermediate Other Verified 09/21/24 11:12 levofloxacin AdvReac Diarrhea Verified 09/21/24 11:12 Family History Mother Diabetes Asthma Father Diabetes Asthma Surgical History History of esophagogastroduodenoscopy (EGD) Hx of tubal ligation Hx of cholecystectomy Social History Smoking Status: Current every day smoker tobacco type: cigarettes alcohol intake: current substance use type: does not use Review of Systems (Anesthesia) ROS Narrative System reviewed and no additional complaints, except as documented. 09/21/24 1147 <Electronically signed by Luciano jewell MD> Date _ Luciano Crespo MD Cosigner Signature: Date CC: ~ Signed [facility] Work Phone: 1(131) 218-888204-04-2025 History and physical note Author [facility] Note Date/Time September 21, 2024 11:4 1am [facility] Medical Records Department [address] [place] [address] History & Physical Exam 09/17/24 1040 MR#: [id number] Acct: [id number] Name: MARY LANDAVERDE Rep #:[id number] : 1980 43 From: Rex Garcia DO PCP: Care Physician,No [place] [facility] [place] HPI - General General Date of Service: 09/21/24 HPI Narrative The patient is a 43-year-old female who is presently followed in the pulmonary medicine clinic due to a history of pulmonary nodularity, mediastinal adenopathyand chronic tobacco dependency. Her last CT chest completed in January 2024 demonstrated stable small bilateral pulmonary nodules, the largest of which was approximately 7 mm in size. A pet imaging study was then completed at the beginning of August 2024 which demonstrated numerous hypermetabolic lymph nodes within the mediastinum and bilateral hilar regions. Given these findings and concern for possible underlying granulomatous lung disease, the patient was referred to undergo mediastinal lymph node sampling via EBUS. [facility] Medical History (Reviewed 08/31/24 @ 12:28 by Yolis Gold STEREO PLOTTER OPERATOR, STEREO PLOTTER OPERATOR-C) COVID Alcohol use Depression Anxiety Lung nodules Gastric reflux Vertigo Gastritis Umbilical hernia Hiatal hernia Constipation Polyp of colon Dysfunctional gallbladder Biliary dyskinesia Fatigue Nausea Abdominal pain Home Medications ?Medication ?Instructions ?Recorded ?Last Taken ?Type meclizine 25 mg tablet 25 mg PO BID PRN dizziness 0 06/24/22 Unknown History albuterol sulfate 90 mcg/actuation inhalation 07/19/24 Unknown History aerosol inhaler Allergy/AdvReac Type Severity Reaction Status Date / Time alprazolam (From Xanax) Allergy Intermediate Other Verified 08/31/24 12:16 azithromycin Allergy Intermediate Other Verified 08/31/24 12:16 ciprofloxacin Allergy Intermediate Other Verified 08/31/24 12:16 citalopram Allergy Intermediate Other Verified 08/31/24 12:16 latex Allergy Intermediate Other Verified 08/31/24 12:16 Penicillins Allergy Intermediate Other Verified 08/31/24 12:16 red dye Allergy Intermediate Other Verified 08/31/24 12:16 sulfamethoxazole (From Allergy Intermediate Other Verified 08/31/24 12:16 Bactrim) tetracycline Allergy Intermediate Other Verified 08/31/24 12:16 trimethoprim (From Bactrim) Allergy Intermediate Other Verified 08/31/24 12:16 venom-honey bee Allergy Intermediate Other Verified 08/31/24 12:16 levofloxacin AdvReac Diarrhea Verified 08/31/24 12:16 Family History Mother Diabetes Asthma Father Diabetes Asthma Surgical History Tubal ligation status Hx of cholecystectomy Social History Smoking Status: Current every day smoker tobacco type: cigarettes alcohol intake: current substance use type: does not use ROS ROS Narrative 10 systems were reviewed with pertinent positives as noted in the HPI above. Physical Exam Const alert and no apparent distress General Appearance: cooperative HEENT normocephalic and head/scalp atraumatic Neck supple General: trachea midline Resp normal respiratory effort Auscultation: Negative for rales, rhonchi or wheezes Cardio regular rate and regular rhythm GI soft to palpation, non-tender and non-distended Extremity no clubbing, cyanosis or edema Skin General Skin Exam: no breakdown Neuro CN's II-XII intact bilaterally and no focal motor deficits Psych cooperative and affect normal Assessment & Plan Assessment/Plan (1) Mediastinal lymphadenopathy: PLAN: Plan The patient underwent recent pet imaging at the beginning of August 2024, which demonstrated numerous hypermetabolic lymph nodes within the mediastinum as well as bilateral hilar regions. Given the underlying concern for possible granulomatous lung disease, such as sarcoidosis, we will plan to proceed with mediastinal lymph node sampling via EBUS. Risks and benefits of the proposed procedure were discussed with the patient. Preprocedural lab work will be obtained. 09/17/24 1044 <Electronically signed by Rex Garcia DO> Cosigner Signature (if applicable): CC: Dr. Rex Garcia DO; No Primary Care Physician~ Signed ADDENDUM by Dr. Rex Garcia DO on 09/21/24 at 1141 Addendum I have examined the patient and the H&P has been reviewed. There are no clinicalchanges since date of exam. 09/21/24 1141<Electronically signed by Rex Brown DO> Cosigner Signature (if applicable): cc: Dr. Rex Garcia, DO; No Primary Care Physician ~* Signed [facility] Work Phone: 1(251) 242-567904-04-2025 Consult note [facility] Medical Records Department [address] [place] [address] Anesthesia Postop Eval I 09/21/24 1257 MR#: [id number] Acct: [id number] Name: MARY LANDAVERDE Rep #:[id number] : 1980 43 From: Meir ACKERMAN PCP: Care Physician,No Primary Status :REG [facility] Y Race: C Location: EN Anesthesia: Postop Eval I Current Vital Signs Temperature: 97 F Pulse Rate: 67 Blood Pressure: 96/56 Respiratory Rate: 16 Pulse Ox: 98 Assessment Airway patent: Yes Spontaneous unlabored respirations: Yes nausea: No Vomiting: No Anesthesia Complication: No Fluid Hydration Crystalloid volume administer (ml): 800 Total IV fluid infused: 800 Progress Note Anesthesia document: Postop Eval 1 completed: Yes 09/21/24 1258 BARTACKER> Date _ Meir Danielbitt BARTACKER Cosigner Signature: Date CC: ~ Signed [facility]04-04-2025 Procedure note [facility] Medical Records Department [address] [place] [address] Bronchoscopy Report MR#: [id number] Acct: [id number] Name: MARY LANDAVERDE Rep #:[id number] : 1980 43 From: Rex Garcia DO PCP: Care Physician,No Primary Status :REG [facility] Patient Name: Mary Landaverde Procedure Date: 09/21/2024 11:38 AM Date of : 1980 Age: 43 Procedure: Bronchoscopy Indications: Mediastinal adenopathy Providers: Rex Garcia MD Referring MD: No Primary Care Physician Medicines: See the Anesthesia note for documentation of the administered medications Complications: No immediate complications Procedure: Pre-Anesthesia Assessment: - A History and Physical has been performed. Patient meds and allergies have been reviewed. The risks and benefits of the procedure and the sedation options and risks were discussed with the patient. All questions were answered and informed consent was obtained. Patient identification and proposed procedure were verified prior to the procedure by the physician and the nurse in the procedure room. Mental Status Examination: alert and oriented. Airway Examination: normal oropharyngeal airway. Respiratory Examination: clear to auscultation. CV Examination: normal. ASA Grade Assessment: II - A patient with mild systemic disease. After reviewing the risks and benefits, the patient was deemed in satisfactory condition to undergo the procedure. The anesthesia plan was to use general anesthesia. Immediately prior to administration of medications, the patient was re-assessed for adequacy to receive sedatives. The heart rate, respiratory rate, oxygen saturations, blood pressure, adequacy of pulmonary ventilation, and response to care were monitored throughout the procedure. The physical status of the patient was re-assessed after the procedure. After I obtained informed consent, the scope was passed under direct vision. Throughout the procedure, the patient's blood pressure, pulse, and oxygen saturations were monitored continuously. The ultrasound bronchoscope was introduced through the mouth, via laryngeal mask airway and advanced to the tracheobronchial tree. The procedure was accomplished without difficulty. The patient tolerated the procedure well. Findings: The laryngeal mask airway is in good position. The vocal cords appear normal. The subglottic space is normal. The trachea is of normal caliber. The teofilo is sharp. The tracheobronchial tree was examined to at least the first subsegmental level. Bronchial mucosa and anatomy are normal; there are no endobronchial lesions, and no secretions. The scope was withdrawn and replaced with the EBUS bronchoscope to accomplish the ultrasound examination. Lymph Nodes: An endobronchial ultrasound endoscope was utilized to systematically examine the subcarinal mediastinum (level 7) and right hilar region (level 10R) in order to assist with guiding the biopsy needle. Lymph node sizing was performed via endobronchial ultrasound. Sampling by transbronchial needle aspiration was also performed using an Olympus ViziShot 2 21 gauge needle in the subcarinal mediastinum (level 7) and right hilar region (level 10R) and sent for routine cytology and flow cytometry. - The 7 (subcarinal) node was evaluated. Four samples with the needle were obtained. - The 10R (hilar) node was evaluated. Three samples with the needle were obtained. Impression: - Mediastinal adenopathy - The airway examination was normal. - Endobronchial ultrasound was performed. - Lymph node sampling was performed. Recommendation: - Await biopsy results. Procedure Code(s): --- Professional --- 77565, Bronchoscopy, rigid or flexible, including fluoroscopic guidance, when performed; with endobronchial ultrasound (EBUS) guided transtracheal and/or transbronchial sampling (eg, aspiration[s]/biopsy[ies]), one or two mediastinal and/or hilar lymph node stations or structures Diagnosis Code(s): --- Professional --- R59.0, Localized enlarged lymph nodes CPT copyright 2021 [employer]. All rights reserved. The codes documented in this report are preliminary and upon marble worker review may be revised to meet current compliance requirements. DO Rex Sharma MD 09/21/2024 12:50:32 PM This report has been signed electronically. Number of Addenda: 0 Note Initiated On: 09/21/2024 11:38 AM 09/21/24 1250 Date _ Rex Garcia DO Cosigner Signature: Date (if indicated) CC: Dr. Rex Garcia DO; No Primary Care Physician ~ Date Dictated: 09/21/24 1138 Date Transcribed: Reach Lift Truck Driver: CAMPBELL Signed [facility]04-04-2025 Evaluation note* Diagnosis Onset Date Resolution Status Admit Date Mediastinal lymphadenopathy acute September 21, 2024 10:49am Sarcoidosis of lung acute September 28, 2024 10:47am Nicotine dependence, cigaret nehemias, uncomplicated chronic September 28, 2024 10:47am Encounter to establish care with new provider acute December 10, 2024 12:57pm Rhinosinusitis acute December 10, 2024 12:57pm Low back pain acute January 14, 2025 12:36pm Urinary frequency acute January 142024 12:36pm [facility] Work Phone: 1(225) 901-932004-04-2025 Consult note [facility] Medical Records Department [address] [place] [address] Pre-Anesthesia Evaluation 09/21/24 1133 MR#: [id number] Acct: [id number] Name: MARY LANDAVERDE Rep #:[id number] : 1980 43 From: Luciano Crespo MD PCP: Care Physician,No [place] [facility] [place] C Location: EN ASA Classification* ASA Classification ASA Classification: 3 Assessment & Plan Anesthesia* Anesthesia Assessment Anesthesia Assessment: Discussed sedation and/or anesthesia options, risks, benefits, and alternatives with patient/parents/legal guardian/POA. Questions invited. The patient/parents/legal guardian/POA seems to understand and agrees to proceedwith anesthesia plan. Reviewed the physical assessment, medical history, allergy history and patient home medications list prior to surgery/procedure/anesthetic and documented any changes. Performed airway and anesthesia risk assessments. Anesthesia Type Anesthesia Type: General History Source History Obtained from:: Patient and Chart Anesthesia Focused Assessment* Temperature: 98.0 F Pulse Rate: 75 Blood Pressure: 129/69 Respiratory Rate: 16 Pulse Ox: 100 Oxygen Delivery Method: Room Air Airway Assessment Mouth opens: >3 cm Mallampati Score: II Teeth Condition: Intact Neck Range of motion (ROM): Full ROM Focused Labs Anesthesia Preop lab: CBC WBC 8.0 K/mm3 (4.4-11.0) 06/28/23 12:53 06/28/23 RBC 4.75 M/mm3 (4.2-5.4) 06/28/23 12:53 06/28/23 Hgb 13.6 g/dL (12.0-15.0) 06/28/23 12:53 06/28/23 Hct 40.4 % (37-47) 06/28/23 12:53 06/28/23 Plt Count 396 K/mm3 (150-450) 08/31/24 13:03 08/31/24 CHEMISTRY Potassium 4.2 mmol/L (3.5-5.1) 06/28/23 12:53 06/28/23 Sodium 137 mmol/L (136-145) 06/28/23 12:53 06/28/23 BUN 10 mg/dL (7-18) 06/28/23 12:53 06/28/23 Creatinine 0.88 mg/dL (0.55-1.02) 06/28/23 12:53 06/28/23 Glucose 87 mg/dL (74-106) 06/28/23 12:53 06/28/23 TSH 1.18 uIU/mL (0.358-3.74) 06/28/23 12:53 COAG PT 12.5 SECONDS (11.7-14.9) 08/31/24 13:03 Pre-Assessment Diagnosis/Proposed Procedure Planned Operative Procedure(s): EBUS Anesthesia History Anesthesia History - facilities manager: 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 When Was Last Pacemaker Check QUESTION #4 FULL TEXT: You/Your Family Experience fever (hyperthermia) with Anesthesia Last Oral Intake Last Oral intake: Last Oral Intake NPO since 07:30 09/21/24 11:22 Meds taken in AM with sips of No 09/21/24 11:22 water? Meds patient instructed to take am of surgery Any additional information?: Yes NPO since: 07:30 (Black coffee with sugar at 7:30 AM.) Meds taken in AM with sips of water?: No PONV PONV - facilities manager: PONV - facilities manager Female Yes 09/18/24 14:44 HX of Motion Sickness Yes 09/18/24 14:44 HX of N/V After Surgery Yes 09/18/24 14:44 Non-Smoker Yes 09/18/24 14:44 Duration of Surgery greater Yes 09/18/24 14:44 than 60 minutes Number of Risk Factors 5 09/18/24 14:44 PONV Score Severe Risk 09/18/24 14:44 Height & Weight Height & Weight: Anesthesia: Height & Weight Height 5 ft 9 in 09/21/24 11:22 Weight: 82 kg 09/21/24 11:22 Body Mass Index (BMI) 26.6 09/21/24 11:22 Respiratory Assessment Respiratory Assessment - facilities manager: Respiratory Tract Infection Hx - facilities manager Hx Respiratory Tract Infection No 09/18/24 14:44 Any additional information?: Yes Hx Respiratory Tract Infection: Yes (Occasionalchronic cough.) STOP Sleep Apnea STOP Sleep Apnea - facilities manager: STOP Sleep Apnea - facilities manager Hx Hypertension No 09/18/24 14:44 Hx Sleep Apnea No 09/18/24 14:44 CPAP BIPAP Do you snore loudly (louder No 09/18/24 14:44 than talking or can be heard Do you often feel tired/ Yes 09/18/24 14:44 fatigued/ sleepy during daytime? Has anyone observed you stop No 09/18/24 14:44 breathing during sleep? STOP Results Negative 09/18/24 14:44 QUESTION #5 FULL TEXT : Do you snore loudly (louder than talking or can be heard through closeddoors)? 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 Specify any problems Hx of Preganancy in last 3 No 09/18/24 14:44 Months Nurse Filling Out Transfusion DSCHRIBER 09/18/24 14:44 & Questions: Date: 09/18/24 09/18/24 14:44 Time: 14:45 09/18/24 14:44 Patient unable to answer at this time (ie. confused, unrespo /Reproduction History /Reproductive History - facilities manager: /Reproductive Hx- facilities manager Hx Now No 09/18/24 14:44 Gestational Age (in weeks): EDC: Hx Hx Para Hx Section SAB No 09/18/24 14:44 Active Medications Active Medications: Current Medications Generic Name Dose Route Start Last Admin Trade Name Freq PRN Reason Stop Dose Admin Sodium Chloride 1,000 mls @ 15 mls/hr 09/21/24 11:35 IV 09/27/24 00:54 .Q48H MAGY PFSH Medical History Rash Arthritis Easy bruising Back pain Syncope Smoker Shortness of breath on exertion Leg cramps History of pain when walking History of edema COVID Alcohol use Anxiety Lung nodules Gastric reflux Vertigo Hiatal hernia Polyp of colon Biliary dyskinesia Abdominal pain Home Medications ?Medication ?Instructions ?Recorded ?Last Taken ?Type epinephrine 0.3 mg/0.3 mL 0.3 mg subcut Q4H PRN anaphy laxis 09/18/24 Unknown History injection, auto-injector Allergy/AdvReac Type Severity Reaction Status Date / Time alprazolam (From Xanax) Allergy Intermediate Other Verified 09/21/24 11:12 azithromycin Allergy Intermediate Other Verified 09/21/24 11:12 ciprofloxacin Allergy Intermediate Other Verified 09/21/24 11:12 citalopram Allergy Intermediate Other Verified 09/21/24 11:12 latex Allergy Intermediate Other Verified 09/21/24 11:12 Penicillins Allergy Intermediate Other Verified 09/21/24 11:12 red dye Allergy Intermediate Other Verified 09/21/24 11:12 sulfamethoxazole (From Allergy Intermediate Other Verified 09/21/24 11:12 Bactrim) tetracycline Allergy Intermediate Other Verified 09/18/24 14:42 trimethoprim (From Bactrim) Allergy Intermediate Other Verified 09/21/24 11:12 venom-honey bee Allergy Intermediate Other Verified 09/21/24 11:12 levofloxacin AdvReac Diarrhea Verified 09/21/24 11:12 Family History Mother Diabetes Asthma Father Diabetes Asthma Surgical History History of esophagogastroduodenoscopy (EGD) Hx of tubal ligation Hx of cholecystectomy Social History Smoking Status: Current every day smoker tobacco type: cigarettes alcohol intake: current substance use type: does not use Review of Systems (Anesthesia) ROS Narrative System reviewed and no additional complaints, except as documented. 09/21/24 1147 fanta GAVIRIA> Date _ Luciano Crespo MD Cosigner Signature: Date CC: ~ Signed [facility]04-04-2025 History and physical note [facility] Medical Records Department [address] [place] [address] History & Physical Exam 09/17/24 1040 MR#: [id number] Acct: [id number] Name: MARY LANDAVERDE Rep #:[id number] : 1980 43 From: Rex Garcia DO PCP: Care Physician,No Primary Status :[facility] Location: [facility] - General General Date of Service: 09/21/24 HPI Narrative The patient is a 43-year-old female who is presently followed in the pulmonary medicine clinic due to a history of pulmonary nodularity, mediastinal adenopathyand chronic tobacco dependency. Her lastCT chest completed in January 2024 demonstrated stable small bilateral pulmonary nodules, the largest of which was approximately 7 mm in size. A pet imaging study was then completed at the beginning of August 2024 which demonstrated numerous hypermetabolic lymph nodes within the mediastinum and bilateral hilar regions. Given these findings and concern for possible underlying granulomatous lung disease, the patient was referred to undergo mediastinal lymph node sampling via EBUS. [facility] Medical History COVID Alcohol use Depression Anxiety Lung nodules Gastric reflux Vertigo Gastritis Umbilical hernia Hiatal hernia Constipation Polyp of colon Dysfunctional gallbladder Biliary dyskinesia Fatigue Nausea Abdominal pain Home Medications ?Medication ?Instructions ?Recorded ?Last Taken ?Type meclizine 25 mg tablet 25 mg PO BID PRN dizziness 0 06/24/22 Unknown History albuterol sulfate 90 mcg/actuation inhalation 07/19/24 Unknown History aerosol inhaler Allergy/AdvReac Type Severity Reaction Status Date / Time alprazolam (From Xanax) Allergy Intermediate Other Verified 08/31/24 12:16 azithromycin Allergy Intermediate Other Verified 08/31/24 12:16 ciprofloxacin Allergy Intermediate Other Verified 08/31/24 12:16 citalopram Allergy Intermediate Other Verified 08/31/24 12:16 latex Allergy Intermediate Other Verified 08/31/24 12:16 Penicillins Allergy Intermediate Other Verified 08/31/24 12:16 red dye Allergy Intermediate Other Verified 08/31/24 12:16 sulfamethoxazole (From Allergy Intermediate Other Verified 08/31/24 12:16 Bactrim) tetracycline Allergy Intermediate Other Verified 08/31/24 12:16 trimethoprim (From Bactrim) Allergy Intermediate Other Verified 08/31/24 12:16 venom-honey bee Allergy Intermediate Other Verified 08/31/24 12:16 levofloxacin AdvReac Diarrhea Verified 08/31/24 12:16 Family History Mother Diabetes Asthma Father Diabetes Asthma Surgical History Tubal ligation status Hx of cholecystectomy Social History Smoking Status: Current every day smoker tobacco type: cigarettes alcohol intake: current substance use type: does not use ROS ROS Narrative 10 systems were reviewed with pertinent positives as noted in the HPI above. Physical Exam Const alert and no apparent distress General Appearance: cooperative HEENT normocephalic and head/scalp atraumatic Neck supple General: trachea midline Resp normal respiratory effort Auscultation: Negative for rales, rhonchi or wheezes Cardio regular rate and regular rhythm GI soft to palpation, non-tender and non-distended Extremity no clubbing, cyanosis or edema Skin General Skin Exam: no breakdown Neuro CN's II-XII intact bilaterally and no focal motor deficits Psych cooperative and affect normal Assessment & Plan Assessment/Plan (1) Mediastinal lymphadenopathy: PLAN: Plan The patient underwent recent pet imaging at the beginning of August 2024, which demonstrated numerous hypermetabolic lymph nodes within the mediastinum as well as bilateral hilar regions. Given the underlying concern for possible granulomatous lung disease, such as sarcoidosis, we will plan to proceed with mediastinal lymph node sampling via EBUS. Risks and benefits of the proposed procedure were discussed with the patient. Preprocedural lab work will be obtained. 09/17/24 1044 Cosigner Signature (if applicable): CC: Dr. Rex Garcia DO; No Primary Care Physician~ Signed ADDENDUM by Dr. Rex Garcia DO on 09/21/24 at 1141 Addendum I have examined the patient and the H&P has been reviewed. There are no clinicalchanges since date of exam. 09/21/24 1141 Cosigner Signature (if applicable): cc: Dr. Rex Garcia DO; No Primary Care Physician ~* Signed [facility]03-31-2025 [facility] Medical Records Department [address] [place] [address] History Physical Exam 09/17/24 1040 MR#: [id number] Acct: [id number] Name: MARY LANDAVERDE Rep #: [id number] : 1980 43 From: Rex Garcia DO PCP: Care Physician,No [place] [facility] [place] [facility] - General General Date of Service: 09/21/24 HPI Narrative The patient is a 43-year-old female who is presently followed in the pulmonary medicine clinic due to a history of pulmonary nodularity, mediastinal adenopathy and chronic tobacco dependency. Her last CT chest completed in January 2024 demonstrated stable small bilateral pulmonary nodules, the largest of which was approximately 7 mm in size. A pet imaging study was then completed at the beginning of August 2024 which demonstrated numerous hypermetabolic lymph nodes within the mediastinum and bilateral hilar regions. Given these findings and concern for possible underlying granulomatous lung disease, the patient was referred to undergo mediastinal lymph node sampling via EBUS. [facility] Medical History COVID Alcohol use Depression Anxiety Lung nodules Gastric reflux Vertigo Gastritis Umbilical hernia Hiatal hernia Constipation Polyp of colon Dysfunctional gallbladder Biliary dyskinesia Fatigue Nausea Abdominal pain Home Medications ???Medication ???Instructions ???Recorded ???Last Taken ???Type meclizine 25 mg tablet 25 mg PO BID PRN dizziness 3 Unknown History albuterol sulfate 90 mcg/actuation inhalation 07/19/24 Unknown Hist ory aerosol inhaler Allergy/AdvReac Type Severity Reaction Status Date / Time alprazolam (From Xanax) Allergy Intermediate Other Verified 08/31/24 12:16 azithromycin Allergy Intermediate Other Verified 08/31/24 12:16 ciprofloxacin Allergy Intermediate Other Verified 08/31/24 12:16 citalopram Allergy Intermediate Other Verified 08/31/24 12:16 latex Allergy Intermediate Other Verified 08/31/24 12:16 Penicillins Allergy Intermediate Other Verified 08/31/24 12:16 red dye Allergy Intermediate Other Verified 08/31/24 12:16 sulfamethoxazole (From Allergy Intermediate Other Verified 08/31/24 12:16 Bactrim) tetracycline Allergy Intermediate Other Verified 08/31/24 12:16 trimethoprim (From Bactrim) Allergy Intermediate Other Verified 08/31/24 12:16 venom-honey bee Allergy Intermediate Other Verified 08/31/24 12:16 levofloxacin AdvReac Diarrhea Verified 08/31/24 12:16 Family History Mother Diabetes Asthma Father Diabetes Asthma Surgical History Tubal ligation status Hx of cholecystectomy Social History Smoking Status: Current every day smoker tobacco type: cigarettes alcohol intake: current substance use type: does not use ROS ROS Narrative 10 systems were reviewed with pertinent positives as noted in the HPI above. Physical Exam Const alert and no apparent distress General Appearance: cooperative HEENT normocephalic and head/scalp atraumatic Neck supple General: trachea midline Resp normal respiratory effort Auscultation: Negative for rales, rhonchi or wheezes Cardio regular rate and regular rhythm GI soft to palpation, non-tender and non-distended Extremity no clubbing, cyanosis or edema Skin General Skin Exam: no breakdown Neuro CN's II-XII intact bilaterally and no focal motor deficits Psych cooperative and affect normal Assessment Plan Assessment/Plan (1) Mediastinal lymphadenopathy: PLAN: Plan The patient underwent recent pet imaging at the beginning of August 2024, which demonstrated numerous hypermetabolic lymph nodes within the mediastinum as well as bilateral hilar regions. Given the underlying concern for possible granulomatous lung disease, such as sarcoidosis, we will plan to proceed with mediastinal lymph node sampling via EBUS. Risks and benefits of the proposed procedure were discussed with the patient. Preprocedural lab work will be obtained. 09/17/24 1044 Cosigner Signature (if applicable): CC: Dr. Rex Garcia DO; No Primary Care Physician Signed ADDENDUM by Dr. Rex Garcia DO on 09/21/24 at 1141 Addendum I have examined the patient and the H P has been reviewed. There are no clinical changes since date of exam. 09/21/24 1141 Cosigner Signature (if applicable): cc: Dr. 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 Services Work Phone: [phone] 409-242802-19-2025 NoteDischarge Instructions Discharge Summary [address] [address] [id number] 08/07/2024 Patient: MARY SANDERS Sex: Female : 1980 Age: 43y Thank you for visiting [facility]. You have been evaluated today by Tammy Min D.O. for the following condition(s): Principal Diagnosis Chest pain, with painful respirations. Lung nodules with mediastinal adenopathy. INSTRUCTIONS (Follow up with your transverse abdominal muscle nurse for lung nodules seen on CT which you were given a copy of on discharge). Follow-up: Follow up with your doctor in three days. Call for an appointment. Understanding of the discharge instructions verbalized by patient. You have been given the following additional information: Chest Wall Pain: Costochondritis Patient Signature Facility [address] Discharge Instructions Date/Time General Instructions with ExitWriter [facility] [address] [place] [address] [phone] 08/07/2024 Patient: MARY SANDERS Sex: Female : 1980 Age: 43y Thank you for visiting [facility]. You have been evaluated today by Tammy Min D.O. for the following condition(s): Principal Diagnosis Chest pain, with painful respirations. Lung nodules with mediastinal adenopathy. INSTRUCTIONS (Follow up with your transverse abdominal muscle nurse for lung nodules seen on CT which you were given a copy of on discharge). Follow-up: Follow up with your doctor in three days. Call for an appointment. Understanding of the discharge instructions verbalized by patient. ADDITIONAL INFORMATION 2 of 4 Discharge Instructions Chest Wall Pain: Costochondritis The chest pain that you have had today is caused by costochondritis. This condition is caused by aninflammation of the cartilage joining your ribs to your breastbone. It's not caused by heart or lung problems. Your healthcare team has made sure that the chest pain you feel is not from a life threatening cause of chest pain such as heart attack, collapsed lung, blood clot in the lung, tear in the aorta, or esophageal rupture. The inflammation may have been brought on by a blow to the chest, lifting heavy objects, intense exercise, or an illness thatmade you cough and sneeze a lot. It often occurs during times of emotional stress. It can be painful, but it's notdangerous. It usually goes away in 1 to 2 weeks. But it may happen again. Rarely, a more serious condition may cause symptoms similar to costochondritis. That's why it's important to watch for the warning signs listed below. Home care Follow these guidelines when caring for yourself at home: If you feel that emotional stress is a cause of your condition, try to figure out the sources of that stress. It may not be obvious. Learn ways to deal with the stress in your life. This can include regular exercise, muscle relaxation, meditation, or simply taking time out for yourself. You may use acetaminophen, ibuprofen, or naproxen to control pain, unless another pain medicine was prescribed. If you have liver or kidney disease or ever had a stomach ulcer, talk with your healthcare provider before using these medicines. You can also help ease pain by using a hot, wet compress or heating pad. Use this with or without a medicated skin cream that helps relieves pain. Do stretching exercise as advised by your provider. Typically rest is beneficial for the first few days. Avoid strenuous activity that worsens the pain. Take any prescribed medicines as directed. 3 of 4 Discharge Instructions Follow-up care Follow up with your healthcare provider, or as advised. When to seek medical advice Call your healthcare provider right away if any of these occur: A change in the type of pain. Call if it feels different, becomes more serious, lasts longer, or spreads into your shoulder, arm, neck, jaw, or back. Shortness of breath or pain gets worse when you breathe Weakness, dizziness, or fainting Cough with dark-colored sputum (phlegm) or blood Abdominal pain Dark red or black stools Fever of 100.4F (38C) or higher, or as directed by your healthcare provider 4 [facility] NoteDischarge Instructions Discharge Summary [address] [place] [address] [id number] 07/02/2024 Patient: MARY SANDERS Sex: Female : 1980 Age: 43y Thank you for visiting [facility]. You have been evaluated today by Antonio Reyes D.O. for the following condition(s): Principal Diagnosis COVID-19. INSTRUCTIONS Take Tylenol (Acetaminophen) or Motrin (Ibuprofen) as needed for fever control. Take medication according to label instructions. Do not work for five days. Drink plenty of fluids. Prescription Medications: prednisone 20 mg tablet: Take 1 tablet by mouth once a day for 5 days, dispense 5 tablet. Refills 0. Pharmacy: [facility] [id number] [place] [address]. Follow-up with: Fartun Oneal NP, [facility], , [address] [place] [address]. (Rest. increase fluids. return if any problems concerns shortness of breath). 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 [address] [phone] 07/02/2024 Patient: MARY SANDERS Sex: Female : 1980 Age: 43y Thank you for visiting [facility]. You have been evaluated today by Antonio Reyes D.O. for the following condition(s): Principal Diagnosis COVID-19. INSTRUCTIONS Take Tylenol (Acetaminophen) or Motrin (Ibuprofen) as needed for fever control. Take medication according to label instructions. Do not work for five days. Drink plenty of fluids. Prescription Medications: prednisone 20 mg tablet: Take 1 tablet by mouth once a day for 5 days, dispense 5 tablet. Refills 0. Pharmacy: [facility] [id number] [place] [address]. Follow-up with: Fartun Oneal NP, [facility], , [address] [place] [address]. (Rest. 2 of 8 Discharge Instructions increase fluids. return if any problems concerns shortness of breath). ADDITIONAL INFORMATION Coronavirus Disease 2019 (COVID-19): Overview Coronavirus disease 2019 (COVID-19) is an illness that infects the lungs. It's caused by a type of coronavirus. The virus is called SARS-CoV-2. There are many types of coronaviruses. They are a common cause of coldsand bronchitis. They can cause a lung infection called pneumonia. Symptoms can range from mild to severe. Some people have no symptoms. These types of viruses are also found in some animals. Viruses change (mutate) all the time. The changes lead to different forms of a virus. These are called variants. COVID-19 variants may spread more easily from person to person. They may cause milder symptoms. Or they may cause more severe symptoms. The virus spreads and infects people easily. It can infect a person more easily if they are not immune to it. The virus most often spreads through droplets of fluid that a person coughs or sneezes into the air. Insome cases, you can get it from touching a surface with the virus on it and then touching your eyes, nose, or mouth. To help prevent spreading the infection, wash your hands often, or use an alcohol-based hand logistics support. 3 of 8 Discharge Instructions To learn more For the latest from the CDC: Go to the [facility] website Call 191-JJW-LASF ([phone]) What are the symptoms of COVID-19? Some people have no symptoms. Some have mild symptoms. Others may have severe symptoms. This varies from person to person. Symptoms may start 2 to 14 days after contact with the virus. They can include: Fever Chills Coughing Trouble breathing or feeling short of breath Sore throat Stuffy or runny nose Headache Body aches Tiredness Nausea, vomiting, diarrhea, or belly pain New loss of sense of smell or taste Check your symptoms with the CDC's Coronavirus Self-Casting Agent. What are possible complications of COVID-19? The virus can cause an infection in the lungs. This is called pneumonia. This can lead to in some cases. Experts are still learning more about COVID-19 problems. Problems may include: Low blood pressure Kidney failure Inflammation of the brain or heart Rashes Some people are at higher risk for problems. This includes: 4 of 8 Discharge Instructions Older adults People with heart or lung disease People with diabetes or kidney disease People with health conditions that limit the immune system People who take medicines t (more content not included)...[facility]01-08-2025 [facility] Medical Records Department [address] [place] [address] History Physical Exam 06/27/24 1226 MR#: [id number] Acct: [id number] Name: MARY SANDERS Rep #: [id number] : 1980 43 From: [place] DO PCP: ROBBY Oscar [place] [facility] [place] [address] HPI - General General Date of Admission: 06/27/24 Date of Service: 06/27/24 Chief Complaint: Abdominal pain and refractory GERD HPI Narrative MARY GIBSON, is a 43 F who presents to the office today for follow up. Prior workup: ? EGD/colonoscopy 02.25.22 [facility] EGD small hiatal hernia; small hiatal hernia. ? Colonoscopy advanced to IC junction; one hyperplastic polyp *BGI established 08.23.22 with epigastric pain that is worse since cholecystectomy . BM vary between constipation and loose stools. Self-pay and does not want to pursue a lot of testing. Start MiraLAX/kiwi/aloe vera. OV 06.28.23 she has been having increased difficulty with regurgitation with upset stomach mostly occurring later in the day, PRN Zofran is somewhat helpful; there is approximately 3-4 hours between last meal and lying for bed. Reports regular BM each day she is not currently taking a bowel regimen. She does have insurance now. Denies diabetes/marijuana use. Smokes ??? PPD cigarettes. Reports a lot of carbohydrate intake; drinks coffee, tea and pop mostly with occasional water intake. Contact 07.05.23 sucralfte is worsening regurgitation and having headaches. start Protonix Contact 10.05.23 10.05.23 Call placed to patient letting her know I spoke with Dr. Dior about her CT scan and he said she has a benign bony projection she should have looked at by Ortho. Also said the CT shows bile reflux. He said we can use Cholestyramine or Colestipol depending on what her bowels are like. Patient said she has already seen a orthopedic surgeon for these bony growths and said they didn't want to do surgery. Says she has a BM every day or every other day. Sometimes formed and sometimes loose. Contact 4 doing cholestyramine and Xifaxan OV 6.7.24 Pt reports that she started cholestyramine, but stopped because it made her period heavy. Pt has not started Xifaxan. Reports that she smokes 1/2 PPD cigarettes. Pt reports bm are normal. OV 12.24 pt reports continued on and off nausea as well as frequent HB. pt reports that she believes she has tried omeprazole and pantoprazole and they both made her sick. Pt expresses concern that she messed up her hernia yesterday while replacing seat covers in a van. Pt reports a daily bm and states that she does not have diarrhea often. [facility] Medical History Alcohol use Depression Anxiety Lung nodules Gastric reflux Vertigo Gastritis Umbilical hernia Hiatal hernia Constipation Polyp of colon Dysfunctional gallbladder Biliary dyskinesia Fatigue Nausea Abdominal pain Home Medications ???Medication ???Instructions ???Recorded ???Last Taken ???Type meclizine 25 mg tablet 25 mg PO BID PRN dizziness 06/24/22 Unknown History Allergy/AdvReac Type Severity Reaction Status Date / Time alprazolam (From Xanax) Allergy Intermediate Other Verified 06/27/24 12:15 azithromycin Allergy Intermediate Other Verified 06/27/24 12:15 ciprofloxacin Allergy Intermediate Other Verified 06/27/24 12:15 citalopram Allergy Intermediate Other Verified 06/27/24 12:15 latex Allergy Intermediate Other Verified 06/27/24 12:15 Penicillins Allergy Intermediate Other Verified 06/27/24 12:15 red dye Allergy Intermediate Other Verified 06/27/24 12:15 sulfamethoxazole (From Allergy Intermediate Other Verified 06/27/24 12:15 Bactrim) tetracycline Allergy Intermediate Other Verified 06/27/24 12:15 trimethoprim (From Bactrim) Allergy Intermediate Other Verified 06/27/24 12:15 venom-honey bee Allergy Intermediate Other Verified 06/27/24 12:15 levofloxacin AdvReac Diarrhea Verified 06/27/24 12:15 Family History Mother Diabetes Asthma Father Diabetes Asthma Surgical History Tubal ligation status Hx of cholecystectomy Social History Smoking Status: Current every day smoker tobacco type: cigarettes alcohol intake: current substance use type: does not use ROS Constitutional Constitutional: Denies fatigue, fever(s), poor appetite, weight gain or weight loss Gastrointestinal Gastrointestinal: Denies belching, bloating, change in bowel habits, change in stool character, chewing difficulty, coffee ground emesis, constipation, crampi (more content not included)...[facility]12-11-2024 Evaluation note* Diagnosis Onset Date Resolution Status Admit Date Epigastric abdominal pain chronic May 30, 2024 8:11am Epigastric abdominal pain chronic June 27, 2024 12:01pm Cough acute July 19, 2024 2:17pm Lung nodule chronic July 19, 2024 2:17pm Nicotine dependence, cigarettes, uncomplicated chronic Januar y 2024 2:17pm Cough acute August 31 12:08pm Mediastinal lymphadenopathy acute August 31, 2024 12:08pm [facility] Work Phone: 1(327) 354-884212-11-2024 Evaluation note* Diagnosis Onset Date Resolution Status Admit Date Epigastric abdominal pain chronic May 30, 2024 8:11am Epigastric abdominal pain chronic June 27, 2024 12:01pm Cough acute July 19, 2024 2:17pm Lung nodule chronic July 19, 2024 2:17pm Nicotine dependence, cigarettes, uncomplicated chronic Januar y 2024 2:17pm Cough acute August 31 12:08pm Mediastinal lymphadenopathy acute August 31, 2024 12:08pm Mediastinal lymphadenopathy acute September 21, 2024 10:49am [facility] Work Phone: 1(849) 978-330211-19-2024 Evaluation note* Diagnosis Onset Date Resolution Status Admit Date Cough acute May 08, 2024 1:48pm Lung nodule chronic April 1:48pm Nicotine dependence, cigarettes, uncomplicated chronic Novemb er 2023 1:48pm Epigastric abdominal pain chronic May 30, 2024 8:11am Epigastric abdominal pain chronic June 27, 2024 12:01pm Cough acute July 19, 2024 2:17pm Lung nodule chronic July 19, 2024 2:17pm Nicotine dependence, cigarettes, uncomplicated chronic Azamr y 2024 2:17pm [facility] Work Phone: 1(578) 438-293908-21-2024 NoteHNO ID: [id number] Author: CORINNA EMMANUEL MD Service: ? Author Type: Physician Type: Progress Notes Filed: 03/16/2024 00:20 Note Text: Mary Gibson is a 43 year old female who presents for US follow up HPI: Heavy menses with cramping US shows possible adenomyosis. No fibroids. A simple cyst probably follicular. Smoker so estrogen containing pills are not an option. Reviewed Mirena IUD for menstrual control. Previous tubal, BC not needed. Mirena will help decrease bleeding and sometimes eliminate bleeding. A mirena is good for 8 years currently and may last until natural menopause. I do recommend an EMB prior to r/o possible uterine pathology although this is of low suspicion OB History T2 L2 SAB0 IAB0 Ectopic0 Multiple0 Live Births2 Transmission Builder History LMP: 01/17/2024 (Within Days), Having periods Age at Menarche: Age at First : Age at Menopause: Transmission Builder History Comments: Sexual Activity: Yes; Male Contraception: [...] History Tobacco Use Smoking status: Every Day Current packs/day: 0.50 Average packs/day: 0.5 packs/day for 8.0 years (4.0 ttl pk-yrs) Types: Cigarettes Smokeless tobacco: Never Vaping Use Vaping status: Never Used Substance Use Topics Alcohol use: Yes Comment: occasionally Drug use: No Current Outpatient Medications Medication Sig EPINEPHrine (EPIPEN) 0.3 mg/0.3 mL auto-injector No current facility-administered medications for this visit. Allergies As of Date: 02/08/2024 Allergen Noted Reaction BEE VENOM PROTEIN (HONEY BEE) 02/08/2023 Anaphylaxis CEPHALEXIN 01/06/2022 Other: See Comments PENICILLINS 06/05/2014 Unknown AZITHROMYCIN 02/08/2023 Other: See Comments BACTRIM [SULFAMETHOXAZOLE-TRIMETH*05/27/2022 Intolerance BEE STING 06/05/2014 Hives and Shortness of Breath CIPROFLOXACIN 05/27/2022 Other: See Comments CITALOPRAM HYDROBROMIDE 02/08/2023 Other: See Comments LATEX 02/08/2023 Rash MACROLIDE ANTIBIOTICS 05/27/2022 GI Upset RED DYE 02/08/2023 Unknown TETRACYCLINE 03/17/2006 TETRACYCLINES 02/08/2023 Other: See Comments XANAX [ALPRAZOLAM] 02/08/2023 Other: See Comments Fully Assessed 02/08/2024 REVIEW OF SYSTEMS Abdomen: No bloating, early satiety, indigestion, or increased flatulence. No abdominal pain, nausea, vomiting, diarrhea, or constipation. Bladder: No dysuria, gross hematuria, urinary frequency, urinary urgency, or incontinence. Breast: No breast lumps, nipple d/c, overlying skin changes, redness or skin retraction. Expanded ROS: N/A Allergies and current medication updated:Yes EXAM: BP 122/74 Resp 16 Wt 195 lb 6.4 oz (88.6kg) LMP 01/17/2024 GENERAL: pleasant, female in no apparent distress HEENT: Normocephalic, atraumatic, mucus membranes moist, and no lesions NECK: full range of motion DERMATOLOGY: Normal, without lesions, non-icteric, and non-hirsute BREAST: deferred CHEST: Normal inspiratory effort ABDOMEN: Deferred PELVIC: deferred BIMANUAL: deferred NEURO: alert and oriented x3,exam grossly non-focal EXTREMITIES: normal ASSESSMENT AND PLAN: Encounter Diagnosis ICD-10-CM 1. Menorrhagia with irregular cycle N92.1 ENDOMETRIAL BIOPSY INSERT INTRAUTERINE DEVICE Corinna Emmanuel, [facility]08-21-2024 History of Present illness Narrative* Corinna Emmanuel MD - 02/08/2024 8:10 AM EDT Mary Gibson is a 43 year old female who presents for US follow up HPI: Heavy menses with cramping US shows possible adenomyosis. No fibroids. A simple cyst probably follicular. Smoker so estrogen containing pills are not an option. Reviewed Mirena IUD for menstrualcontrol. Previous tubal, BC not needed. Mirena will help decrease bleeding and sometimes eliminate bleeding. A mirena is good for 8 years currently and may last until natural menopause. I do recommend an EMB prior to r/o possible uterine pathology although this is of low suspicion OB History T2 L2 SAB0 IAB0 Ectopic0 Multiple0 Live Births2 Transmission Builder History LMP: 01/17/2024 (Within Days), Having periods Age at Menarche: Age at First : Age at Menopause: Transmission Builder History Comments: Sexual Activity: Yes; Male Contraception: [...] History Tobacco Use Smoking status: Every Day Current packs/day: 0.50 Average packs/day: 0.5 packs/day for 8.0 years (4.0 ttl pk-yrs) Types: Cigarettes Smokeless tobacco: Never Vaping Use Vaping status: Never Used Substance Use Topics Alcohol use: Yes Comment: occasionally Drug use: No Current Outpatient Medications Medication Sig EPINEPHrine (EPIPEN) 0.3 mg/0.3 mL auto-injector No current facility-administered medications for this visit. Allergies As of Date: 02/08/2024 Allergen Noted Reaction BEE VENOM PROTEIN (HONEY BEE) 02/08/2023 Anaphylaxis CEPHALEXIN 01/06/2022 Other: See Comments PENICILLINS 06/05/2014 Unknown AZITHROMYCIN 02/08/2023 Other: See Comments BACTRIM [SULFAMETHOXAZOLE-TRIMETH*05/27/2022 Intolerance BEE STING 06/05/2014 Hives and Shortness of Breath CIPROFLOXACIN 05/27/2022 Other: See Comments CITALOPRAM HYDROBROMIDE 02/08/2023 Other: See Comments LATEX 02/08/2023 Rash MACROLIDE ANTIBIOTICS 05/27/2022 GI Upset RED DYE 02/08/2023 Unknown TETRACYCLINE 03/17/2006 TETRACYCLINES 02/08/2023 Other: See Comments XANAX [ALPRAZOLAM] 02/08/2023 Other: See Comments Fully Assessed 02/08/2024 REVIEW OF SYSTEMS Abdomen: No bloating, early satiety, indigestion, or increased flatulence. No abdominal pain, nausea, vomiting, diarrhea, or constipation. Bladder: No dysuria, gross hematuria, urinary frequency, urinary urgency, or incontinence. Breast: No breast lumps, nipple d/c, overlying skin changes, redness or skin retraction. Expanded ROS: N/A Allergies and current medication updated:Yes EXAM: BP 122/74 Resp 16 Wt 195 lb 6.4 oz (88.6kg) LMP 01/17/2024 GENERAL: pleasant, female in no apparent distress HEENT: Normocephalic, atraumatic, mucus membranes moist, and no lesions NECK: full range of motion DERMATOLOGY: Normal, without lesions, non-icteric, and non-hirsute BREAST: deferred CHEST: Normal inspiratory effort ABDOMEN: Deferred PELVIC: deferred BIMANUAL: deferred NEURO: alert and oriented x3,exam grossly non-focal EXTREMITIES: normal ASSESSMENT AND PLAN: Encounter Diagnosis ICD-10-CM 1. Menorrhagia with irregular cycle N92.1 ENDOMETRIAL BIOPSY INSERT INTRAUTERINE DEVICE Corinna Emmanuel MD documented [facility] encounter[facility] Telephone encounter Note * Telephone Encounter - Loretta Gannon RN - 02/06/2024 12:11 PM EDT Patient notified and voiced understanding of results. Appointment given to discuss results and treatment options. Patient states she is still having bleeding that she describes as heavy. Patient changing a pad every 3-4 hours. Bleeding precautions reviewed. Patient also complaining of lower abdominal pain/cramping that is constant that that she rates at a7 today. Patient taking Motrin/Tylenol for the cramping. Loretta Gannon RN [facility]08-19-2024 Miscellaneous Notes* Telephone Encounter - Loretta Gannon RN - 02/06/2024 12:11 PM EDT Patient notified and voiced understanding of results. Appointment given to discuss results and treatment options. Patient states she is still having bleeding that she describes as heavy. Patient changing a pad every 3-4 hours. Bleeding precautions reviewed. Patient also complaining of lower abdominal pain/cramping that is constant that that she rates at a7 today. Patient taking Motrin/Tylenol for the cramping. Loretta Gannon RN * Telephone Encounter - Kari Guzman APRN.CNP - 02/06/2024 11:51 AM EDT Please confirm her bleeding has stopped or slowed down. Review bleeding precautions. Kari Guzman APRN.LEX * Telephone Encounter - Kari Guzman APRN.CNP - 02/06/2024 11:49 AM EDT Cyst noted to both right and left ovary, small and no further follow up needed on this. Ultrasound is suggestive of adenomyosis, where uterine lining grows into muscular layer. Can cause painful heavy periods. Mirena IUD can be an effective treatment option to start with. Recommend scheduling follow up in person or virtually with JG to discuss management plan. Kari Guzman APRN.CNP * Telephone Encounter - Deysi Durham RN - 02/06/2024 11:09 AM EDT Pt states she had pelvic ultrasound completed 01/31/24 and calling for results. Please address in JGabsence. Deysi Durham RN documented in this encounterOhio[facility]08-19-2024 Telephone encounter Note * Telephone Encounter - Kari Guzman APRN.CNP - 02/06/2024 11:51 AM EDT Please confirm her bleeding has stopped or slowed down. Review bleeding precautions. Kari Guzman APRN.CNP [facility] Work Phone: [phone]) 791-691808-19-2024 Telephone encounter Note* Telephone Encounter - Kari Guzman APRN.CNP - 02/06/2024 11:49 AM EDT Cyst noted to both right and left ovary, small and no further follow up needed on this. Ultrasound is suggestive of adenomyosis, where uterine lining grows into muscular layer. Can cause painful heavy periods. Mirena IUD can be an effective treatment option to start with. Recommend scheduling follow up in person or virtually with JG to discuss management plan. Kari Guzman APRN.CNP [facility]08-19-2024 Telephone encounter Note* Telephone Encounter - Deysi Durham RN - 02/06/2024 11:09 AM EDT Pt states she had pelvic ultrasound completed 01/31/24 and calling for results. Please address in JGabsence. Deysi Durham RN [facility]08-15-2024 History of Present illness Narrative* Florence Soriano MD - 02/02/2024 12:11 AM EDT The patient presents for requested ultrasound. Full report available in the Imaging tab in Epic. Florence Soriano MD documented in this encounterOhio[facility]08-13-2024 History of Present illness Narrative* Corinna Emmanuel MD - 01/31/2024 11:02 AM EDT Mary Gibson is a 43 year old female who presents for problem visit bleeding for 2 week(s). HPI: Normal menses about 2 weeks,. Bleeding didn't stop after. Not light not heavy. Does have some cramping. No history of fibroids or polyps. Last pap in 2021 normal. Tubal for BC. OB History T2 L2 SAB0 IAB0 Ectopic0 Multiple0 Live Births2 Transmission Builder History LMP: 01/17/2024 (Within Days), Having periods Age at Menarche: Age at First : Age at Menopause: Transmission Builder History Comments: Sexual Activity: Yes; Male Contraception: Tubal Ligation PAST MEDICAL HISTORY 09/23: Anemia, unspecified Comment: mild anemia 09/23: LIGHTHEADED Comment: saw his previous PCP and had blood work done; was found to be orthostatic 09/23: Orthostatic hypotension No date: Tobacco use disorder Comment: since 1997 PAST SURGICAL HISTORY No date: EXTRACTION ERUPTED TOOTH/EXR No date: LIGATE FALLOPIAN TUBE 05/2021: REMOVAL GALLBLADDER FAMILY HISTORY Problem Relation Age of Onset [...] status: Every Day Packs/day: 0.50 Years: 8.00 Additional pack years: 0.00 Total pack years: 4.00 Types: Cigarettes Smokeless tobacco: Never Vaping Use Vaping Use: Never used Substance Use Topics Alcohol use: Yes Comment: occasionally Drug use: No No current outpatient medications on file. No current facility-administered medications for this visit. Allergies As of Date: 01/31/2024 Allergen Noted Reaction BEE VENOM PROTEIN (HONEY BEE) 02/08/2023 Anaphylaxis CEPHALEXIN 01/06/2022 Other: See Comments PENICILLINS 06/05/2014 Unknown AZITHROMYCIN 02/08/2023 Other: See Comments BACTRIM [SULFAMETHOXAZOLE-TRIMETH*05/27/2022 Intolerance BEE STING 06/05/2014 Hives and Shortness of Breath CIPROFLOXACIN 05/27/2022 Other: See Comments CITALOPRAM HYDROBROMIDE 02/08/2023 Other: See Comments LATEX 02/08/2023 Rash MACROLIDE ANTIBIOTICS 05/27/2022 GI Upset RED DYE 02/08/2023 Unknown TETRACYCLINE 03/17/2006 TETRACYCLINES 02/08/2023 Other: See Comments XANAX [ALPRAZOLAM] 02/08/2023 Other: See Comments Fully Assessed 01/31/2024 REVIEW OF SYSTEMS Abdomen: No bloating, early satiety, indigestion, or increased flatulence. No abdominal pain, nausea, vomiting, diarrhea, or constipation. Bladder: No dysuria, gross hematuria, urinary frequency, urinary urgency, or incontinence. Breast: No breast lumps, nipple d/c, overlying skin changes, redness or skin retraction. Expanded ROS: N/A Allergies and current medication updated:Yes EXAM: BP 120/82 Wt 194 lb (88.0kg) LMP 01/17/2024 GENERAL: pleasant, female in no apparent distress HEENT: Normocephalic, atraumatic, mucus membranes moist, and no lesions NECK: full range of motion DERMATOLOGY: Normal, without lesions, non-icteric, and non-hirsute BREAST: deferred CHEST: Normal inspiratory effort ABDOMEN: Deferred PELVIC: external genitalia normal, normal Bartholin's glands, urethra, Sylvanite's glands, no vulvar lesions, no cervical lesions, good vaginal support, physiologic discharge present, normal appearing perineal body and perianal region BIMANUAL: uterus normal size, shape and consistency, no adnexal masses, and non-tender NEURO: alert and oriented x3,exam grossly non-focal EXTREMITIES: normal ASSESSMENT AND PLAN: Encounter Diagnosis ICD-10-CM 1. Menometrorrhagia N92.1 PELVIC US WHI TVUS ordered to evaluate uterus Corinna Emmanuel MD documented in this encounterOhio[facility]12-08-2022 Instructions* Patient Instructions* Olu Levi MD - 05/27/2022 2:57 PM [...] or pain becomes severe. documented in this encounterOhiohealth [facility]12-08-2022 History of Present illness Narrative* Pablo Grimaldo MD - 05/27/2022 2:18 PM EST Orthopaedic Oncology New Patient Evaluation Chief Complaint: Bilateral hip pain; osteochondroma of R iliac crest Referring Physician: Self History of Present Illness: Mary Gibson is a 41 year old year old female who presents forevaluation of the above chief complaint. She was recently told by her primary care physician that she has an osteochondroma on the right iliac crest and was told to follow-up with us for further evaluation management. She states that over the past 1 year, she has had consistent sharp right hip painwith activity. States the pain is mostly along the right greater trochanter and in the right groin.She works for [email or web address] with a significant amount of walking and heavy lifting. These activities make her pain worse. Pain at rest is a 4/10. This pain is also made worse by laying on herright side. Pain is relieved with rest and with occasional tylenol and NSAID use. The pain occasionally prevents her from participating in activities she enjoys. She denies any numbness or tingling in her right lower extremity. Denies any recent fever, chills, nausea, unexplained weight loss, nightsweats. Review of Systems: Positive for right hip [...] Comment: occasionally Drug use: No Physical Examination: [facility] 12/27/2021 General: alert, oriented, no acute distress [...] is tender to palpation about the greater trochanter.No pain with hip flexion, TIFFANY, FADIR. Right hip external rotation to 60 degrees, internal rotation to 30 degrees. 5/5 hip flexion, hip abduction, knee extension, knee flexion. Negative Stinchfield test, negative logroll. Results Reviewed: Radiographic evaluation: X-ray pelvis/right hip obtained 05/27/2022 demonstrates a calcified mass inthe area of the right iliac crest consistent with osteochondroma. Enthesophytes/calcific tendinosispresent about bilateral greater trochanters. CT C/ABD/Pelvis reviewed [...] for stretching and strengthening of the gluteus musculatureto help with gluteal tendinopathy. -Recommend nonsteroidal anti-inflammatory drugs ([id number]) for gluteal tendinopathy pain -Provided the patient [...] benign features that arising from the right posterioriliac crest. This is evident on clinical exam, [...] agreement this plan. Follow-up as needed Pablo Grimaldo MD Recycle Coordinator, Orthopaedic Surgery Division of Musculoskeletal Oncology documented in this encounterOhiohealth [facility]07-20-2022 History of Present illness Narrative* Whit Marroquin APRN.ROW BOSS - 01/06/2022 3:01 PM EDT Mary is a 41 year old who [...] [address] Romero in [place], but has . HPV: negative History of [...] L2 SAB0 IAB0 Ectopic0 Multiple0 Live Births2 Transmission Builder History LMP: 12/27/2021 (Exact Date), Having periods Age at Menarche: Age at First : Age at Menopause: Transmission Builder History Comments: Sexual Activity: Yes; Male Contraception: [...] Bladder: Diagnosed with UTI yesterday (was at [facility]), was having having abdominal pain,urine was cloudy + for blood in urine, [...] external genitalia normal, normal Bartholin's glands, urethra, Sylvanite's glands, no vulvar lesions, no cervical lesions, [...] to avoid smoking. UTI - dx in [facility] ED, started Keflex today. Numerous antibiotic [...] Coby De Luna APRN, Student TEACHING PROVIDER (Physician/PA/SERVICE ADVISOR) NOTE OF PERSONAL INVOLVEMENT IN CARE: I have personally seen and examined the patient and performed the medical decision-making components. I have reviewed the Advanced Practice Registered Nurse (SERVICE ADVISOR) Student's documentation and verified the findings in the note as written. Any additions or changes are noted in bold/italics. Signature: Whit Marroquin Date: 01/06/2022 Time: 4:16 PM Whit Marroquin APRN.ROW BOSS [place] [id number] History of Past illness Narrative* Problem Noted Date Resolved Date Syncope and collapse 06/06/2006 03/23/2016 documented as of this encounter (statuses as of 01/06/2022) [facility]12[facility] History of Past illness Narrative* Problem Noted Date Resolved Date Syncope and collapse 06/06/2006 03/23/2016 documented as of this encounter (statuses as of 05/11/2022) [place] [id number] History of Past illness Narrative* Problem Noted Date Resolved Date Syncope and collapse 06/06/2006 03/23/2016 documented as of this encounter (statuses as of 05/30/2022) [facility] Author Meir Moraes [facility] Note Date/Time September 21, 2024 12:5 8pm [facility] Medical Records Department [address] [place] [address] Anesthesia Postop Eval I 09/21/24 1257 MR#: [id number] Acct: [id number] Name: MARY LANDAVERDE Rep #:[id number] : 1980 43 From: Meir ACKERMAN PCP: Care Physician,No Primary Status :REG SDC Y Race: C Location: EN Anesthesia: Postop Eval I Current Vital Signs Temperature: 97 F Pulse Rate: 67 Blood Pressure: 96/56 Respiratory Rate: 16 Pulse Ox: 98 Assessment Airway patent: Yes Spontaneous unlabored respirations: Yes nausea: No Vomiting: No Anesthesia Complication: No Fluid Hydration Crystalloid volume administer (ml): 800 Total IV fluid infused: 800 Progress Note Anesthesia document: Postop Eval 1 completed: Yes 09/21/24 1258 <Electronically signed by Meir Moraes CRNA> Date _ Meir Moraes CRNA Cosigner Signature: Date CC: ~ Signed [facility] Work Phone: Evaluation note* Diagnosis Encounter for gynecological examination (general) (routine) without abnormal findings- Primary Screening for cervical cancer Screening for malignant neoplasm of the cervix Encounter for screening for human papillomavirus (HPV) Special screening examination for human papillomavirus (HPV) Encounter for screening mammogram for breast cancer [facility] Diagnosis Pain- Primary Generalized pain [facility] Diagnosis Tendinopathy of gluteal region- Primary Unspecified disorder of synovium, tendon, and bursa 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, sacrum, and coccyx [facility] Diagnosis Onset Date Resolution Status Epigastric abdominal pain ch ronic Pleural pain acute Lung nodule chronic Nicotine dependence, cigarettes, uncomplicated acute Lung nodule chronic [facility] Work Phone: Evaluation note* Diagnosis Onset Date Resolution Status [facility] Work Phone: Evaluation note* Diagnosis Menometrorrhagia- Primary Excessive or frequent menstruation [facility] Diagnosis Menometrorrhagia- Primary Excessive or frequent menstruation Ovarian cyst, right Other and unspecified ovarian cyst Paratubal cyst Other noninflammatory disorder of ovary, fallopian tube, and broad ligament Adenomyosis of the uterus Arcuate uterus [facility] Pain Generalized pain [facility] Diagnosis Menorrhagia with irregular cycle- Primary Excessive or frequent menstruation [facility] Author Rex Garcia [facility] Note Date/Time April 03, 2025 1 1:29am [facility] [address] [place] [address] OFFICE VISIT Date of Service: 04/03/25 MR#: [id number] Acct: [id number] Name: MARY LANDAVERDE Rep #: [id number] : 1980 Provider: Dr. Yuly Garcia, DO Age/Sex: 44/F [facility] Status: Signed Assessment and Plan Assessment and Plan (1) Nicotine dependence, cigarettes, uncomplicated: Status: Chronic Plan: Tobacco cessation counseling was once again provided. (2) Sarcoidosis of lung: Status: Chronic Comment: Confirmed on EBUS September 21, 2024 Plan: No acute issues at the present time. Recommend yearly eye examination. (3) Lung nodule: Status: Chronic Plan: The patient has had stable bilateral pulmonary nodules dating back to June 2022, the largest of which was approximately 7 mm in size. Given that the patient has had [address] scans demonstrating overall stability, I do not feel an indication to proceed with additional chest imaging at this time. HPI HPI Comments Details: The patient is a 44-year-old female who presents to the clinic today for a routine scheduled follow-up office visit. If you recall, the patient initially presented to our office in June 2022 forthe evaluation of lung nodules. The patient has a smoking history of approximately 10 pack years and continues to smoke 0.5 packs of cigarettes per day. She did not grow up in a smoking household. She has never previously beendiagnosed with asthma or COPD. The patient is currently employed at [employer]. Previously, the patient was suffering from abdominal pain, for which a CT abdomen/pelvis was obtained in January 2022. That imaging study demonstrated two small pulmonary nodules in the left lower lobe, the largest of which measured approximately 6 mm in size. A dedicated chest CT without contrast was then completed in June 2022. That imaging study demonstrated continued evidence of stable bilateral pulmonary nodules, the largest of which measured 7 mm in size. Since that time, the patient has had [address]s, all of which have demonstrated stabilityin the number and size of the pulmonary nodules. In August 2024, the patient hada PET scan completed which demonstrated hypermetabolic lymph nodes within the mediastinum and bilateral hilar regions. Accordingly, the patient underwent an EBUS which demonstrated multinucleated giant cells suggestive of sarcoidosis. Today, the patient reported overall stability in her breathing quality. She does experience occasional episodes of wheezing. While she does have access to an albuterol rescue inhaler, she has not utilized the medication in an attempt to achieve symptom relief. The patient has not yet had a yearly eye examination. She is not interested in an influenza vaccination. Her weight andappetite have been stable. She denies any fevers, chills or night sweats. Intake Vital Signs 01/14/25 12:44 04/03/25 09:22 Height 5 ft 9 in 5 ft 9 in Weight: 178 lb 6 oz BMI 26.3 BP 132/72 H Blood Pressure Location Lt brachial Position Sitting Respiration 18 Pulse 74 Pulse Source Monitor Temp 97.8 F Temperature Source Temporal Artery Pulse Oximetry (%) 98 Oxygen Delivery Method room air Intake Visit Reasons: 9 M FU Track Liner Operator Required: No Accompanied by: Self Is patient in pain?: No Allergies alprazolam (From Xanax) Allergy (Intermediate, Verified 04/03/25 10:56) Other azithromycin Allergy (Intermediate, Verified 04/03/25 10:56) Other ciprofloxacin Allergy (Intermediate, Verified 04/03/25 10:56) Other citalopram Allergy (Intermediate, Verified 04/03/25 10:56) Other latex Allergy (Intermediate, Verified 04/03/25 10:56) Other Penicillins Allergy (Intermediate, Verified 04/03/25 10:56) Other sulfamethoxazole (From Bactrim) Allergy (Intermediate, Verified 04/03/25 10:56) Other tetracycline Allergy (Intermediate, Verified 04/03/25 10:56) Other trimethoprim (From Bactrim) Allergy (Intermediate, Verified 04/03/25 10:56) Other venom-honey bee Allergy (Intermediate, Verified 04/03/25 10:56) Other cephalexin (From Keflex) Adverse Reaction (Unknown, Verified 04/03/25 10:56) PT UNSURE OF REACTION Macrolide Antibiotics Adverse Reaction (Unknown, Verified 04/03/25 10:56) PT UNSURE OF REACTION blue dye Adverse Reaction (Verified 04/03/25 10:56) black levofloxacin Adverse Reaction (Verified 04/03/25 10:56) Diarrhea Medications ?Medication ?Instructions ?Recorded ?Confirmed ?Type albuterol sulfate 90 mcg/actuation 2 puff inhalation Q 6H PRN 12/10/24 04/03/25 History aerosol inhaler (Ventolin HFA) epinephrine 0.3 mg/0.3 mL 0.3 mg (0.3 mL) subcut Q5-15 M PRN 12/10/24 04/03/25 Rx injection, auto-injector anaphylaxis #2 ea ipratropium bromide 42 mcg (0.06 2 spray intranasal TI D-QID PRN 12/10/24 04/03/25 Rx %) nasal spray allergy symptoms #15 mL ondansetron 4 mg disintegrating 4 mg PO Q8H PRN nausea and 12/10/24 04/03/25 Rx tablet vomiting #14 tabs pseudoephedrine HCl 30 mg tablet 60 mg (2 x 30 mg) PO Q4-6H PRN 12/10/24 04/03/25 Rx (Sudafed) nasal congestion #20 tabs triamcinolone acetonide 0.1 % 1 applic topical BID PRN rash #60 12/10/24 04/03/25 Rx lotion mL cyclobenzaprine 5 mg tablet 5 mg PO QHS PRN muscle spa sm #20 01/14/25 04/03/25 Rx tabs naproxen 500 mg tablet 500 mg PO BID PRN 04/03/25 1 History tranexamic acid 650 mg tablet 1,300 mg PO TID 04/03/25 04/03/25 History PFSH Medical History (Updated 04/03/25 @ 11:[address] Rex Garcia, DO) Lung nodule IBS (irritable bowel syndrome) Rash Arthritis Easy bruising Back pain Syncope Smoker Shortness of breath on exertion Leg cramps History of pain when walking History of edema COVID Alcohol use Anxiety Lung nodules Gastric reflux Vertigo Hiatal hernia Polyp of colon Biliary dyskinesia Abdominal pain Surgical History S/P colonoscopy History of esophagogastroduodenoscopy (EGD) Hx of tubal ligation Hx of cholecystectomy Family History Mother Diabetes Asthma Heart disease Thyroid disorder Age related osteoporosis Arthritis Father Diabetes Asthma Hypertension Hyperlipidemia Duodenal ulcer disease Grandfather Myocardial infarction Social History adopted: No household members: significant other, children and other details: step daughter number of children: 2 current occupational status: employed 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 pets and animals: Yes pets and animals: dog(s) sexually active: Yes Smoking Status: Current every day smoker (Patient did smoke today.) tobacco type: cigarettes Tobacco: How many years used: 20 alcohol intake: current alcohol intake frequency: a few times a month substance use type: does not use caffeine: Yes (3-4) Type: coffee and tea what type of physical activity do you participate in: walking frequency: daily do you feel safe at home: Yes Review of Systems Resp Respiratory: Yes as per HPI Exam Const Constitutional: Positive conversant, cooperative, in no acute respiratory distress, well developed, well nourished and good hygiene Head Head: Yes normocephalic and Yes atraumatic Eyes Eye: Positive clear conjunctiva; Negative nystagmus or scleral abnormality Ears Ear: Positive hearing normal and external ears normal Nose Nose: Yes external nose normal Mouth Mouth: Positive oral mucosae normal Neck Neck: Positive normal visual inspection and trachea midline; Negative lymphadenopathy Chest Wall Chest: Positive symmetric chest movement Normal AP diameter. Resp lung sounds: Positive clear to auscultation and good air exchange; Negative wheezes, rhonchi or rales Cardio Cardiac: Positive regular rate, regular rhythm, S1 normal and S2 normal; Negative murmur, rub or gallop GI GI: Positive normal bowel sounds Soft without distention Genitourinary: Positive deferred Musc Musculoskeletal: Positive steady gait Skin Pulmonary Skin Exam: Positive intact; Negative lesion, rash, ulcers or dermal atrophy Extremities Extremities: No clubbing, No cyanosis and No edema Neuro Neurologic: Yes no focal neuro deficits, Yes conversant and Yes cooperative Lymph Lymphatic: No lymphadenopathy Psych Appearance: Positive grossly normal Mental Status: Positive mental status grossly normal Mood: Positive congruent mood Affect: Positive normal affect Coding Level of Care Code Off vis,est,level 3 Diagnoses Nicotine dependence, cigarettes, uncomplicated F17.210 Sarcoidosis of lung D86.0 Lung nodule R91.1 04/03/25 1158 <Electronically signed by Rex Garcia D O> Date _ Rex Garcia DO Cosigner Signature: Date (if applicable) CC: ~ [facility] Work Phone: Reason for referral (narrative)* Diagnostic Procedure Only (Routine) - Pending Review Specialty Diagnoses / Procedures Referred By Kelli mann Referred To Contact [facility] Diagnoses Encounter for gynecological examination (general) (routine) without abnormal findings Encounter for screening mammogram for breast cancer Procedures MIRIAN SCREENING SCREENING MAMMOGRAPHY BI 2-VIEW BREAST INC Whit Méndez APRN.CNP [address] [place] [address] [facility] [address] [place] [address] Referral ID Status Reason Start Date Expiration Date Visits Requested Visits Authorized [id number] Pending Review Auto-Generat ed Referral 01/06/2022 02/05/2023 1 1 [facility] for referral (narrative)* Diagnostic Procedure Only (Routine) - Authorized Specialty Diagnoses / Procedures Referred By Kelli mann Referred To Contact X[facility] IMAGING Diagnoses Pain Procedures XR PELVIS 1V AP RADIOLOGIC EXAMINATION PELVIS 1/2 VIEWS Pablo Grimaldo MD [address] [facility] [address] [place] [address] X[facility] Imaging Referral ID Status Reason Start Date Expiration Date Visits Requested Visits Authorized [id number] Authorized Auto-Generat ed Referral 2 06/10/2023 1 1 * Diagnostic Procedure Only (Routine) - Authorized Specialty Diagnoses / Procedures Referred By Contac t Referred To Contact [facility]AGING Diagnoses Pain Procedures XR FEMUR GENERAL 2V AP/LAT LEFT RADIOLOGIC EXAMINATION FEMUR MINIMUM 2 VIEWS Pablo Grimaldo MD [address] [place] [id number] X[facility] Imaging Referral ID Status Reason Start Date Expiration Date Visits Requested Visits Authorized [id number] Authorized Auto-Generat ed Referral 2 06/10/2023 1 1 [facility] for referral (narrative)* Diagnostic Procedure Only (Routine) - Closed Specialty Diagnoses / Procedures Referred By Contac t Referred To Contact [facility] Diagnoses Menometrorrhagia Procedures PELVIC US I US PELVIC NONOBSTETRIC REAL-TIME IMAGE COMPLETE Corinna Emmanuel MD [address] [place] [address] [facility] [address] [address] Referral ID Status Reason Start Date Expiration Date V isits Requested Visits Authorized [id number] Closed Auto-Generate d Referral 01/31/2024 01/30/2025 1 1 [facility] for referral (narrative)* Diagnostic Procedure Only (Routine) - Closed Specialty Diagnoses / Procedures Referred By Contac t Referred To Contact XR IMAGING Diagnoses Pain Procedures XR PELVIS 1V AP RADIOLOGIC EXAMINATION PELVIS 1/2 VIEWS Pablo Grimaldo MD [address] [place] [address] [place] [address] Referral ID Status Reason Start Date Expiration Date V isits Requested Visits Authorized [id number] Closed Auto-Generate d Referral 05/11/2022 06/10/2023 1 1 * Diagnostic Procedure Only (Routine) - Closed Specialty Diagnoses / Procedures Referred By Contac t Referred To Contact XR IMAGING Diagnoses Pain Procedures XR FEMUR GENERAL 2V AP/LAT LEFT RADIOLOGIC EXAMINATION FEMUR MINIMUM 2 VIEWS Pablo Grimaldo MD [address] [place] [address] Xr Imaging [place] [address] Referral ID Status Reason Start Date Expiration Date V isits Requested Visits Authorized [id number] Closed Auto-Generate d Referral 05/11/2022 06/10/2023 1 1 [facility] for referral (narrative)* Outpatient Procedure (Routine) - New Request Specialty Diagnoses / Procedures Referred By Kelli t Referred To Contact [facility] Diagnoses Menorrhagia with irregular cycle Procedures INSERT INTRAUTERINE DEVICE LEVONORGESTREL IU 52MG 5 YR INSERT INTRAUTERINE DEVICE Corinna Emmanuel MD [address] [place] [address] [facility] [address] [place] [address] Referral ID Status Reason Start Date Expiration Date Visits Requested Visits Authorized [id number] New Request Auto-Generat ed Referral 02/08/2024 02/07/2025 1 1 * Outpatient Procedure (Routine) - New Request Specialty Diagnoses / Procedures Referred By Contac t Referred To Contact [facility] Diagnoses Menorrhagia with irregular cycle Procedures ENDOMETRIAL BIOPSY ENDOMETRIAL BX W/WO ENDOCERVIX BX W/O DILAT SPX Corinna Emmanuel MD [address] [place] [address] [facility] [address] [place] [address] Referral ID Status Reason Start Date Expiration Date Visits Requested Visits Authorized [id number] New Request Auto-Generat ed Referral 02/08/2024 02/07/2025 1 1 [facility] for referral (narrative)No reason for referral information [facility] Work Phone: Reason for visit Narrative* Diagnostic Procedure Only (Routine) - Closed Specialty Diagnoses / Procedures Referred By Contac t Referred To Contact [facility] Diagnoses Menometrorrhagia Procedures PELVIC US WHI US PELVIC NONOBSTETRIC REAL-TIME IMAGE COMPLETE Corinna Emmanuel MD [address] [place] [address] [facility] [address] [place] [address] Referral ID Status Reason Start Date Expiration Date V isits Requested Visits Authorized [id number] Closed Auto-Generate d Referral 01/31/2024 01/30/2025 1 1 [facility] for visit Narrative* Diagnostic Procedure Only (Routine) - Closed Specialty Diagnoses / Procedures Referred By Contac t Referred To Contact XR IMAGING Diagnoses Pain Procedures XR PELVIS 1V AP RADIOLOGIC EXAMINATION PELVIS 1/2 VIEWS Pablo Grimaldo MD [address] [place] [address] [place] [address] Referral ID Status Reason Start Date Expiration Date V isits Requested Visits Authorized [id number] Closed Auto-Generate d Referral 05/11/2022 06/10/2023 1 1 [facility] Summary Purpose Family History Relationship Condition Age at Onset Recorded Date/T gonzalez mother Diabetes mellitus Unknown Asthma Unknown father Diabetes mellitus Unknown Relationship Condition Age at Onset Recorded Date/T gonzalez mother Diabetes mellitus Unknown Asthma Unknown Cardiac disease Unknown Disorder of thyroid Unknown Age related osteoporosis Unknown Arthritis Unknown father Diabetes mellitus Unknown Hypertension Unknown Hyperlipidemia Unknown Duodenal ulcer Unknown grandfather Myocardial infarction Unknown Advance Directives Advance Directive Response Recorded Date/ Time Living Will No June 25 12:16pm Power of Investigator Fraud No June 25 12:16pm Advance Directive Response Recorded Date/ Time Living Will No June 25 12:16pm Do you have a Healthcare Power of Investigator Fraud? No June 25, 2024 12:16pm Advance Directive Response Recorded Date/ Time Living Will No June 25 12:16pm Do you have a Healthcare Power of Investigator Fraud? No June 25, 2024 12:16pm Living Will No September 18, 2024 2:44pm Do you have a Healthcare Power of Investigator Fraud? No September 18, 2024 2:44pm Advance Directive Response Recorded Date/ Time Living Will No September 18, 2024 2:44pm Do you have a Healthcare Power of Investigator Fraud? No September 18, 2024 2:44pm Chief Complaint and Reason for Visit Chief Complaint PULMONARY NODULE Consult 3 M FU LUNG NODULE 1 M FU Reason for Visit Epigastric abdominal pain Pleural pain Lung nodule Nicotine dependence, cigarettes, uncomplicated Lung nodule Chief Complaint STOMACH PAIN EORDERS Reason for Visit Epigastric abdominal pain Chief Complaint STOMACH PAIN EORDERS GASTROPARESIS Reason for Visit Epigastric abdominal pain Chief Complaint STOMACH PAIN EORDERS GASTROPARESIS ABD PAIN Reason for Visit Epigastric abdominal pain Chief Complaint STOMACH PAIN EORDERS GASTROPARESIS ABD PAIN EPIGASTRIC PAIN Reason for Visit Epigastric abdominal pain Chief Complaint Admit Date 18 m fu May 08, 2024 1:48pm Cough May 10, 2024 7:38am 6 M FU May 30, 2024 8:11am 6 WK FU RESCHEDULED DUE TO PT w/BHAKTIID Moreno baer 2024 2:17pm LUNG August 21, 2024 7:48 am Reason for Visit Admit Date Cough May 08, 2024 1:48pm Lung nodule May 08, 2024 1:48pm Nicotine dependence, cigarettes, uncompl icated May 08, 2024 1:48pm Epigastric abdominal pain May 30, 2024 8:11am Epigastric abdominal pain June 27, 2 025 12:01pm Cough July 19, 2024 2 :17pm Lung nodule July 19, 2024 2 :17pm Nicotine dependence, cigarettes, uncompl icated July 19, 2024 2:17pm Chief Complaint Admit Date 6 M FU May 30, 2024 8:11am 6 WK FU RESCHEDULED DUE TO PT w/MARLIN baer 2024 2:17pm LUNG August 21, 2024 7:48 am PET results August 31, 2024 12: 08pm INT LAB ORDERS August 31, 2024 12: 58pm Reason for Visit Admit Date Epigastric abdominal pain May 30, 2024 8:11am Epigastric abdominal pain June 27, 2 025 12:01pm Cough July 19, 2024 2 :17pm Lung nodule July 19, 2024 2 :17pm Nicotine dependence, cigarettes, uncompl icated July 19, 2024 2:17pm Cough August 31, 2024 12: 08pm Mediastinal lymphadenopathy August 31, 2024 12:08pm Reason for Visit Admit Date Epigastric abdominal pain May 30, 2024 8:11am Epigastric abdominal pain June 27, 025 12:01pm Cough July 19, 2024 2 :17pm Lung nodule July 19, 2024 2 :17pm Nicotine dependence, cigarettes, uncompl icated July 19, 2024 2:17pm Cough August 31, 2024 12: 08pm Mediastinal lymphadenopathy August 31, 2024 12:08pm Mediastinal lymphadenopathy September 21 025 10:49am Chief Complaint Admit Date LUNG August 21, 2024 7:48 am PET results August 31, 2024 12: 08pm INT LAB ORDERS August 31, 2024 12: 58pm FOLLOW UP September 28, 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 EST NEW PT - PT [place] November 12:57pm Reason for Visit Admit Date Cough August 31, 2024 12: 08pm Mediastinal lymphadenopathy August 31, 2024 12:08pm Mediastinal lymphadenopathy September 21 025 10:49am 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, 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 Nicotine dependence, cigarettes, uncompl icated September 28, 2024 10:47am Chief Complaint Admit Date FOLLOW UP September 28, 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 EST NEW PT - PT [place] November 12:57pm POSSIBLE UTI - NOT SLEEPING January 14, 2 025 12:36pm Reason for Visit Admit Date Mediastinal lymphadenopathy September 21, 2 025 10:49am 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, 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 Nicotine dependence, cigarettes, uncompl icated September 28, 2024 10:47am Encounter to establish care with sarah kentr December 10, 2024 12:57pm Rhinosinusitis December 10, 2024 12:5 7pm Low back pain January 14, 2025 12:3 6pm Urinary frequency January 14, 2025 12:3 6pm Reason for Visit Admit Date 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, 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 Nicotine dependence, cigarettes, uncompl icated September 28, 2024 10:47am Encounter to establish care with new pro vider December 10, 2024 12:57pm Rhinosinusitis December 10, 2024 12:5 7pm Low back pain January 14, 2025 12:3 6pm Urinary frequency January 14, 2025 12:3 6pm Chief Complaint Admit Date EST NEW PT - PT [place] November 12:57pm POSSIBLE UTI - NOT SLEEPING January 14, 2 025 12:36pm 7MM NODULE IN [place] February 11, 2025 7 :36am Reason for Visit Admit Date Encounter to establish care with new pro vider December 10, 2024 12:57pm Rhinosinusitis December 10, 2024 12:5 7pm Low back pain January 14, 2025 12:3 6pm Urinary frequency January 14, 2025 12:3 6pm Chief Complaint Admit Date POSSIBLE UTI - NOT SLEEPING January 14 025 12:36pm 7MM NODULE IN [place] February 11, 2025 7 :36am 9 M FU April 03, 2025 1 0:47am Reason for Visit Admit Date Low back pain January 14, 2025 12:3 6pm Urinary frequency January 14, 2025 12:3 6pm Lung nodule April 03, 2025 1 0:47am Nicotine dependence, cigarettes, uncompl icated April 03, 2025 10:47am Sarcoidosis of lung April 03, 2025 1 0:47am Additional Source Comments INFORMATION SOURCE (unrecogn ized section and content) DATE CREATED AUTHOR 12/14/2017 [facility] DATE CREATED AUTHOR AUTHOR'S ORGANIZ ATION 04/15/2021 [facility] DATE CREATED AUTHOR AUTHOR'S ORGANIZ ATION 03/02/2022 [facility] ([place]) DATE CREATED AUTHOR AUTHOR'S ORGANIZ ATION 05/29/2022 [facility] DATE CREATED AUTHOR AUTHOR'S ORGANIZ ATION 08/09/2024 [facility] DATE CREATED AUTHOR AUTHOR'S ORGANIZ ATION 09/27/2024 [facility] DATE CREATED AUTHOR AUTHOR'S ORGANIZ ATION 02/03/2025 [facility] DATE CREATED AUTHOR AUTHOR'S ORGANIZ ATION 04/05/2025 [facility] Source Comments (unrecognize d section and content) In the event this informatio n is protected by the Federal Confidentiality of Alcohol and Drug Abuse Patient Records regulations: The Federal rules restrict any use of the information to criminally investigate or prosecute any alcohol or drug abuse patient.[facility] the event this information is protected by the Federal Confidentiality of Alcohol and Drug Abuse Patient Records regulations: The Federal rules restrict any use of the information to criminally investigate or prosecute any alcohol or drug abuse patient.[facility] the event this information is protected by the Federal Confidentiality of Alcohol and Drug Abuse Patient Records regulations: The Federal rules restrict any use of the information to criminally investigate or prosecute any alcohol or drug abuse patient.[facility] the event this information is protected by the Federal Confidentiality of Alcohol and Drug Abuse Patient Records regulations: The Federal rules restrict any use of the information to criminally investigate or prosecute any alcohol or drug abuse patient.[facility] the event this information is protected by the Federal Confidentiality of Alcohol and Drug Abuse Patient Records regulations: The Federal rules restrict any use of the information to criminally investigate or prosecute any alcohol or drug abuse patient.[facility] the event this information is protected by the Federal Confidentiality of Alcohol and Drug Abuse Patient Records regulations: The Federal rules restrict any use of the information to criminally investigate or prosecute any alcohol or drug abuse patient.[facility] the event this information is protected by the Federal Confidentiality of Alcohol and Drug Abuse Patient Records regulations: The Federal rules restrict any use of the information to criminally investigate or prosecute any alcohol or drug abuse patient.[facility] the event this information is protected by the Federal Confidentiality of Alcohol and Drug Abuse Patient Records regulations: The Federal rules restrict any use of the information to criminally investigate or prosecute any alcohol or drug abuse patient.[facility] the event this information is protected by the Federal Confidentiality of Alcohol and Drug Abuse Patient Records regulations: The Federal rules restrict any use of the information to criminally investigate or prosecute any alcohol or drug abuse patient.[facility] Reason for Visit (unrecogniz ed section and content) Reason Comments Yearly Exam Reason Comments New Tumor/Mass Reason Comments Pelvic Pain With spotting Reason Comments Results Reason Comments problem visit Reason Comments Menstrual Problem Care Teams (unrecognized sec tion and content) Team Status: Active Member Role Status Dates No Primary Care Physician Primary Care Provider Active Team Status: Inactive Member Role Status Dates NP. Fartun Oneal NP-C Primary Care Provider Activ e Start: May 30, 2024 End: May 30, 2024 NP. Fartun Oneal NP-C Referring Provider Active Start: May 30, 2024 End: May 30, 2024 Dr. Low Dior DO Attending Provider Active Start: May 30, 2024 End: May 30, 2024 Team Status: Inactive Member Role Status Dates NP. Fartun Oneal STEREO PLOTTER OPERATOR-C Primary Care Provider Activ e Start: June 27, 2024 End: June 27, 2024 NP. Fartun Oneal NP-C Referring Provider Active Start: June 27, 2024 End: June 27, 2024 Dr. Low Dior DO Attending Provider Active Start: June 27, 2024 End: June 27, 2024 Team Status: Active Member Role Status Dates NP. Fartun Oneal STEREO PLOTTER OPERATOR-C Primary Care Provider Activ e Start: June 27, 2024 STEREO PLOTTER OPERATOR. Fartun Ungerer , STEREO PLOTTER OPERATOR-C Referring Provider Active Start: June 27, 2024 Dr. Low Dior , Attending Provider Active Start: June 27, 2024 Dr. Low Dior , DO Other Provider Active St art: June 27, 2024 Team Status: Inactive Member Role Status Dates STEREO PLOTTER OPERATOREdis Fartunryan Oneal , STEREO PLOTTER OPERATOR-C Primary Care Provider Activ e Start: July 19, 2024 End: July 19, 2024 STEREO PLOTTER OPERATOREdis Oneal , STEREO PLOTTER OPERATOR-C Referring Provider Active Start: July 19, 2024 End: July 19, 2024 Yolis Gold STEREO PLOTTER OPERATOR, STEREO PLOTTER OPERATOR-C Attending Provider Active Start: July 19, 2024 End: July 19, 2024 Team Status: Inactive Member Role Status Dates STEREO PLOTTER OPERATOREdis Oneal , STEREO PLOTTER OPERATOR-C Primary Care Provider Activ e Start: August 21, 2024 End: August 21, 2024 Yolis Gold STEREO PLOTTER OPERATOR, STEREO PLOTTER OPERATOR-C Attending Provider Active Start: August 21, 2024 End: August 21, 2024 Yolis Gold STEREO PLOTTER OPERATOR, STEREO PLOTTER OPERATOR-C Referring Provider Active Start: August 21, 2024 End: August 21, 2024 Team Status: Inactive Member Role Status Dates STEREO PLOTTER OPERATOREdis Oneal , STEREO PLOTTER OPERATOR-C Primary Care Provider Activ e Start: August 31, 2024 End: August 31, 2024 STEREO PLOTTER OPERATOREdis Oneal , STEREO PLOTTER OPERATOR-C Referring Provider Active Start: August 31, 2024 End: August 31, 2024 Yolis Gold STEREO PLOTTER OPERATOR, STEREO PLOTTER OPERATOR-C Attending Provider Active Start: August 31, 2024 End: August 31, 2024 Team Status: Inactive Member Role Status Dates STEREO PLOTTER OPERATOREdis Oneal , STEREO PLOTTER OPERATOR-C Primary Care Provider Activ e Start: August 31, 2024 End: August 31, 2024 Yolis Gold STEREO PLOTTER OPERATOR, STEREO PLOTTER OPERATOR-C Attending Provider Active Start: August 31, 2024 End: August 31, 2024 Yolis Gold STEREO PLOTTER OPERATOR, STEREO PLOTTER OPERATOR-C Referring Provider Active Start: August 31, 2024 End: August 31, 2024 Team Status: Active Member Role Status Dates STEREO PLOTTER OPERATOREdis Oneal , STEREO PLOTTER OPERATOR-C Primary Care Provider Activ e Start: September 17, 2024 Dr. Rex Garcia , Attending Provider Active S tart: September 17, 2024 Dr. eRx Garcia , Other Provider Active Start : September 17, 2024 Team Status: Inactive Member Role Status Dates Dr. Rex Garcia DO Attending Provider Active S tart: September 21, 2024 End: September 21, 2024 Dr. Rex Garcia DO Referring Provider Active S tart: September 21, 2024 End: September 21, 2024 No Primary Care Physician Primary Care Provider Active Start: September 21, 2024 End: September 21, 2024 Team Status: Active Member Role Status Dates No Primary Care Physician Primary Care Provider Active Start: September 21, 2024 Dr. Rex Garcia DO Attending Provider Active S tart: September 21, 2024 Team Status: Active Member Role Status Dates STEREO PLOTTER OPERATOR. Fartunhector Tor , STEREO PLOTTER OPERATOR-C Primary Care Provider Activ e Team Status: Inactive Member Role Status Dates STEREO PLOTTER OPERATOR. Fartun Ungerer , STEREO PLOTTER OPERATOR-C Primary Care Provider, Refe rring Provider Active Lizzette Zimmerman STEREO PLOTTER OPERATOR, STEREO PLOTTER OPERATOR-C Attending Provider Active Team Status: Inactive Member Role Status Dates STEREO PLOTTER OPERATOR. Fartun Ungerer , STEREO PLOTTER OPERATOR-C Primary Care Provider, Refe rring Provider Active Yolis Gold STEREO PLOTTER OPERATOR, STEREO PLOTTER OPERATOR-C Attending Provider Active Team Status: Inactive Member Role Status Dates STEREO PLOTTER OPERATOR. Fartun Rosyerer , STEREO PLOTTER OPERATOR-C Primary Care Provider, Refe rring Provider Active Dr. Rex Garcia DO Attending Provider Active Team Status: Inactive Member Role Status Dates STEREO PLOTTER OPERATOR. Fartunhector Tor , STEREO PLOTTER OPERATOR-C Primary Care Provider Activ e Dr. Rex Garcia DO Attending Provider, Referring Pro vider Active Team Status: Inactive Member Role Status Dates STEREO PLOTTER OPERATOR. Fartun Tor , STEREO PLOTTER OPERATOR-C Primary Care Provider Activ e Yolis Gold STEREO PLOTTER OPERATOR, STEREO PLOTTER OPERATOR-C Attending Provider, Referrin g Provider Active Team Status: Inactive Member Role Status Dates STEREO PLOTTER OPERATOR. Fartun Ungerer , STEREO PLOTTER OPERATOR-C Primary Care Provider, Refe rring Provider Active Dr. Low Dior DO Attending Provider Active Team Status: Inactive Member Role Status Dates STEREO PLOTTER OPERATOR. Fartunhector Tor , STEREO PLOTTER OPERATOR-C Primary Care Provider Activ e Dr. Low Dior DO Attending Provider, Referring Provider Active Team Status: Inactive Member Role Status Dates STEREO PLOTTER OPERATOR. Fartun Ungerer , STEREO PLOTTER OPERATOR-C Primary Care Provider Activ e Start: May 08, 2024 End: May 08, 2024 STEREO PLOTTER OPERATOR. Fartunhector Tor , STEREO PLOTTER OPERATOR-C Referring Provider Active Start: May 08, 2024 End: May 08, 2024 Yolis Gold STEREO PLOTTER OPERATOR, STEREO PLOTTER OPERATOR-C Attending Provider Active Start: May 08, 2024 End: May 08, 2024 Team Status: Inactive Member Role Status Dates NP. Fartun Oneal , STEREO PLOTTER OPERATOR-C Primary Care Provider Activ e Start: May 10, 2024 End: May 10, 2024 Yolis Gold STEREO PLOTTER OPERATOR, STEREO PLOTTER OPERATOR-C Attending Provider Active Start: May 10, 2024 End: May 10, 2024 Yolis Gold STEREO PLOTTER OPERATOR, STEREO PLOTTER OPERATOR-C Referring Provider Active Start: May 10, 2024 End: May 10, 2024 Team Status: Active Member Role Status Dates Fartun Oneal , STEREO PLOTTER OPERATOR-C Primary Care Provider Active Team Status: Inactive Member Role Status Dates Fartun Oneal , STEREO PLOTTER OPERATOR-C Primary Care Provider Active Start: August 21, 2024 End: August 21, 2024 Yolis Gold STEREO PLOTTER OPERATOR, STEREO PLOTTER OPERATOR-C Attending Provider Active Start: August 21, 2024 End: August 21, 2024 Yolis Gold STEREO PLOTTER OPERATOR, STEREO PLOTTER OPERATOR-C Referring Provider Active Start: August 21, 2024 End: August 21, 2024 Team Status: Inactive Member Role Status Dates Fartun Oneal , STEREO PLOTTER OPERATOR-C Primary Care Provider Active Start: August 31, 2024 End: August 31, 2024 Fartun Oneal , STEREO PLOTTER OPERATOR-C Referring Provider Active Start: August 31, 2024 End: August 31, 2024 Yolis Gold STEREO PLOTTER OPERATOR, STEREO PLOTTER OPERATOR-C Attending Provider Active Start: August 31, 2024 End: August 31, 2024 Team Status: Inactive Member Role Status Dates Fartun Oneal , STEREO PLOTTER OPERATOR-C Primary Care Provider Active Start: August 31, 2024 End: August 31, 2024 Yolis Gold STEREO PLOTTER OPERATOR, STEREO PLOTTER OPERATOR-C Attending Provider Active Start: August 31, 2024 End: August 31, 2024 Yolis Gold STEREO PLOTTER OPERATOR, STEREO PLOTTER OPERATOR-C Referring Provider Active Start: August 31, 2024 End: August 31, 2024 Team Status: Active Member Role Status Dates Fartun Oneal , STEREO PLOTTER OPERATOR-C Primary Care Provider Active Start: September 17, 2024 Dr. eRx Garcia , DO Attending Provider Active S tart: September 17, 2024 Dr. Rex Garcia , DO Referring Provider Active S tart: September 17, 2024 Dr. Rex Garcia , DO Other Provider Active Start : September 17, 2024 Team Status: Active Member Role Status Dates No Primary Care Physician Primary Care Provider Active Start: September 21, 2024 Dr. Rex Garcia , Attending Provider Active S tart: September 21, 2024 Dr. Rex Garcia , Referring Provider Active S tart: September 21, 2024 Team Status: Inactive Member Role Status Dates Fartun Gallegoserer , STEREO PLOTTER OPERATOR-C Referring Provider Active Start: September 28, 2024 End: September 28, 2024 Yolis Gold STEREO PLOTTER OPERATOR, STEREO PLOTTER OPERATOR-C Attending Provider Active Start: September 28, 2024 End: September 28, 2024 No Primary Care Physician Primary Care Provider Active Start: September 28, 2024 End: September 28, 2024 Team Status: Inactive Member Role Status Dates No Primary Care Physician Referring Provider Active Start: December 10, 2024 End: December 10, 2024 Fartun Ungerer , STEREO PLOTTER OPERATOR-C Primary Care Provider Active Start: December 10, 2024 End: December 10, 2024 Fartun Ungerer , STEREO PLOTTER OPERATOR-C Attending Provider Active Start: December 10, 2024 End: December 10, 2024 Team Status: Active Member Role/Relationship Status Dates Fartun Ungerer , STEREO PLOTTER OPERATOR-C Primary Care Provider Active Team Status: Active Member Role/Relationship Status Dates Fartun Ungerer , STEREO PLOTTER OPERATOR-C Primary Care Provider Active Start: September 17, 2024 Dr. Rex Gacria DO Attending Provider Active S tart: September 17, 2024 Dr. Rex Garcia , Referring Provider Active S tart: September 17, 2024 Dr. Rex Garcia DO Other Provider Active Start : September 17, 2024 Team Status: Inactive Member Role/Relationship Status Dates Dr. Rex Garcia DO Attending Provider Active S tart: September 21, 2024 End: September 21, 2024 Dr. Rex Garcia , Referring Provider Active S tart: September 21, 2024 End: September 21, 2024 No Primary Care Physician Primary Care Provider Active Start: September 21, 2024 End: September 21, 2024 Team Status: Active Member Role/Relationship Status Dates No Primary Care Physician Primary Care Provider Active Start: September 21, 2024 Dr. Rex Garcia , Attending Provider Active S tart: September 21, 2024 Dr. Rex Garcia , DO Referring Provider Active S tart: September 21, 2024 Team Status: Inactive Member Role/Relationship Status Dates Fartun Oneal , STEREO PLOTTER OPERATOR-C Referring Provider Active Start: September 28, 2024 End: September 28, 2024 Yolis Gold STEREO PLOTTER OPERATOR, STEREO PLOTTER OPERATOR-C Attending Provider Active Start: September 28, 2024 End: September 28, 2024 No Primary Care Physician Primary Care Provider Active Start: September 28, 2024 End: September 28, 2024 Team Status: Inactive Member Role/Relationship Status Dates No Primary Care Physician Referring Provider Active Start: December 10, 2024 End: December 10, 2024 Fartun Gallegoserer , STEREO PLOTTER OPERATOR-C Primary Care Provider Active Start: December 10, 2024 End: December 10, 2024 Fartun Ungerer , STEREO PLOTTER OPERATOR-C Attending Provider Active Start: December 10, 2024 End: December 10, 2024 Team Status: Inactive Member Role/Relationship Status Dates Fartun Ungerer , STEREO PLOTTER OPERATOR-C Primary Care Provider Active Start: January 14, 2025 End: January 14, 2025 Fartun Ungerer , STEREO PLOTTER OPERATOR-C Attending Provider Active Start: January 14, 2025 End: January 14, 2025 Fartun Ungerer , STEREO PLOTTER OPERATOR-C Referring Provider Active Start: January 14, 2025 End: January 14, 2025 Team Status: Inactive Member Role/Relationship Status Dates Fartun Gallegoserer , STEREO PLOTTER OPERATOR-C Referring Provider Active Start: September 28, 2024 End: September 28, 2024 Yolis Gold STEREO PLOTTER OPERATOR, STEREO PLOTTER OPERATOR-C Attending Provider Active Start: September 28, 2024 End: September 28, 2024 No Primary Care Physician Primary Care Provider Active Start: September 28, 2024 End: September 28, 2024 Team Status: Inactive Member Role/Relationship Status Dates No Primary Care Physician Referring Provider Active Start: December 10, 2024 End: December 10, 2024 Fartun Ungerer , STEREO PLOTTER OPERATOR-C Primary Care Provider Active Start: December 10, 2024 End: December 10, 2024 Fartun Ungerer , STEREO PLOTTER OPERATOR-C Attending Provider Active Start: December 10, 2024 End: December 10, 2024 Team Status: Inactive Member Role/Relationship Status Dates Fartun Ungerer , STEREO PLOTTER OPERATOR-C Primary Care Provider Active Start: January 14, 2025 End: January 14, 2025 Fartun Ungerer , STEREO PLOTTER OPERATOR-C Attending Provider Active Start: January 14, 2025 End: January 14, 2025 Fartun Ungerer , STEREO PLOTTER OPERATOR-C Referring Provider Active Start: January 14, 2025 End: January 14, 2025 Team Status: Inactive Member Role/Relationship Status Dates Fartun Ungerer , STEREO PLOTTER OPERATOR-C Primary Care Provider Active Start: January 14, 2025 End: January 14, 2025 Fartun Ungerer , STEREO PLOTTER OPERATOR-C Attending Provider Active Start: January 14, 2025 End: January 14, 2025 Fartun Ungerer , STEREO PLOTTER OPERATOR-C Referring Provider Active Start: January 14, 2025 End: January 14, 2025 Team Status: Inactive Member Role/Relationship Status Dates No Primary Care Physician Referring Provider Active Start: December 10, 2024 End: December 10, 2024 Fartun Ungerer , STEREO PLOTTER OPERATOR-C Primary Care Provider Active Start: December 10, 2024 End: December 10, 2024 Fartun Ungerer , STEREO PLOTTER OPERATOR-C Attending Provider Active Start: December 10, 2024 End: December 10, 2024 Team Status: Inactive Member Role/Relationship Status Dates Fartun Ungerer , STEREO PLOTTER OPERATOR-C Primary Care Provider Active Start: January 14, 2025 End: January 14, 2025 Fartun Ungerer , STEREO PLOTTER OPERATOR-C Attending Provider Active Start: January 14, 2025 End: January 14, 2025 Fartun Ungerer , STEREO PLOTTER OPERATOR-C Referring Provider Active Start: January 14, 2025 End: January 14, 2025 Team Status: Inactive Member Role/Relationship Status Dates Fartun Ungerer , STEREO PLOTTER OPERATOR-C Primary Care Provider Active Start: February 11, 2025 End: February 11, 2025 Yolis Gold STEREO PLOTTER OPERATOR, STEREO PLOTTER OPERATOR-C Attending Provider Active Start: February 11, 2025 End: February 11, 2025 Yolis Gold STEREO PLOTTER OPERATOR, STEREO PLOTTER OPERATOR-C Referring Provider Active Start: February 11, 2025 End: February 11, 2025 Team Status: Active Member Role/Relationship Status Dates Fartun Ungerer , STEREO PLOTTER OPERATOR-C Primary care physician Active Team Status: Inactive Member Role/Relationship Status Dates Fartun Ungerer , STEREO PLOTTER OPERATOR-C Primary care physician Active Start: January 14, 2025 End: January 14, 2025 Fartun Ungerer , STEREO PLOTTER OPERATOR-C Attending physician Active Start: January 14, 2025 End: January 14, 2025 Fartun Ungerer , STEREO PLOTTER OPERATOR-C Referring Provider Active Start: January 14, 2025 End: January 14, 2025 Team Status: Inactive Member Role/Relationship Status Dates Fartun Ungerer , STEREO PLOTTER OPERATOR-C Primary care physician Active Start: January 14, 2025 End: January 14, 2025 Fartun Ungerer , STEREO PLOTTER OPERATOR-C Attending physician Active Start: January 14, 2025 End: January 14, 2025 Fartun Ungerer , STEREO PLOTTER OPERATOR-C Referring Provider Active Start: January 14, 2025 End: January 14, 2025 Team Status: Inactive Member Role/Relationship Status Dates Fartun Gallegoserer , STEREO PLOTTER OPERATOR-C Primary care physician Active Start: February 11, 2025 End: February 11, 2025 Yolis Gold STEREO PLOTTER OPERATOR, STEREO PLOTTER OPERATOR-C Attending physician Active Start: February 11, 2025 End: February 11, 2025 Yolis Gold STEREO PLOTTER OPERATOR, STEREO PLOTTER OPERATOR-C Referring Provider Active Start: February 11, 2025 End: February 11, 2025 Team Status: Inactive Member Role/Relationship Status Dates Fartun Ungerer , STEREO PLOTTER OPERATOR-C Primary care physician Active Start: April 03, 2025 End: April 03, 2025 Fartun Ungerer , STEREO PLOTTER OPERATOR-C Referring Provider Active Start: April 03, 2025 End: April 03, 2025 Dr. Rex Garcia , Attending physician Active Start: April 03, 2025 End: April 03, 2025 Goals (unrecognized section and content) Goals may be documented in a n alternate sectionGoals may be documented in an alternate sectionGoals may be documented in an alternate sectionGoals may be documented in an alternate sectionGoals may be documented in an alternate sectionGoals may be documented in an alternate sectionGoals may be documented in an alternate sectionGoals may be documented in an alternate section FOR RECORDS PERTAINING TO PATIENTS WHO ARE [...] BE BASED ON THE PRIMARY CLINICAL RECORDS. [facility]. provides no warranty or guarantee of the accuracy or completeness of information in this document.
[2025-05-29 17:12] LABS: Vitamin D,25 Hydroxy 21.6 ng/mL (30-100)
== END | disposition home or self-care (01) ==
LOC: RAD 15:56
PROVIDERS: PCP Nurse Practitioner Family; Referring Provider Physician Assistant; Visit Provider Physician Assistant
DX: R03.0 Elevated blood-pressure reading, without diagnosis of hypertension (principal); E55.9 Vitamin D deficiency, unspecified
CPT/HCPCS: 36415; 73610; 82306; 84439; 84443

== ENCOUNTER → 2025-06-19 | Outpatient (CLI) | payer MEDICAID, SELFPAY | END | disposition home or self-care (01) | LOC: LAB 12:42 | PROVIDERS: PCP Nurse Practitioner Family; Referring Provider Physician Assistant; Visit Provider Physician Assistant | DX: N39.0 Urinary tract infection, site not specified (principal) | CPT/HCPCS: 87086; 87088; 87186 ==